=== PATIENT | female | born 1940 | race Caucasian/White ===

== ENCOUNTER 2016-09-21 13:33 | Emergency (ER) | payer BC, MEDICARE ==
[~2016-09-21] VITALS: Ht 165.1 cm; Wt 113.9 kg
[~2016-09-21 13:33] MED LIST: /ONDA4TA SL; ACET65TA OR; ASPI81TA83 OR; LOPR50TA OR; MEGE20TA2 OR; MULTIVIT PO; PERC5TAB8 OR; ZANT150T OR; vit d PO
[2016-09-21] MEDS ORDERED: RANITAB PO (13:50)
[2016-09-21] MEDS ORDERED: VITA-112 PO (13:50)
[2016-09-21] MEDS ORDERED: OMEP20CA3 PO (13:50)
--- NOTE | 2016-09-21 15:22 | REP ---
Portable chest, single AP view, patient sitting: Comparison is a 09/28/2011 and 09/04 2008. There are no focal infiltrates. There are no pleural effusions. There is no pneumothorax. The interstitium is mildly accentuated. This could be artifact from portable technique and could represent interstitial lung disease. The robert, mediastinum, and bony thorax are unremarkable. Cardiac size is borderline. Signed by Thomas Paz MD 09/21/2016 03:14 P
[2016-09-21 15:42] LABS: BASO % 0.4 % (0.0-1.0); EOS # 0.2 K/mm3 (0.0-0.50); EOS % 1.4 % (0.0-3.0); INR 1.24; LARGE UNSTAINED CELL # 0.1 K/mm3 (0.0-0.4); LARGE UNSTAINED CELL % 0.7 % (0.0-4.0); LYMPH # 0.9 K/mm3 (1.5-4.5); LYMPH % 7.8 % (24.0-44.0); MEAN CORPUSCULAR HEMOGLOBIN 29.6 pg (27.0-33.0); MEAN CORPUSCULAR HGB CONC 32.1 g/dl (32.0-36.5); MEAN CORPUSCULAR VOLUME 92.2 fl (80.0-96.0); MONO # 0.3 K/mm3 (0.0-0.8); MONO % 2.8 % (0.0-5.0); NEUTROPHILS # 10.1 K/mm3 (1.8-7.7); NEUTROPHILS % 86.9 % (36.0-66.0); PLATELET COUNT, AUTOMATED 387 k/mm3 (150-450); RED CELL DISTRIBUTION WIDTH 13.1 % (11.5-14.5); WHITE BLOOD COUNT 11.6 K/mm3 (4.0-10.0)
[2016-09-21 16:09] LABS: ANION GAP 6 MEQ/L (8-16); BLOOD UREA NITROGEN 11 MG/DL (7-18); CARBON DIOXIDE LEVEL 26 MEQ/L (21-32); CHLORIDE LEVEL 107 MEQ/L (98-107); CREATININE FOR GFR 0.65 MG/DL (0.55-1.02); GLOMERULAR FILTRATION RATE > 60.0 (>39); GLUCOSE, FASTING 96 MG/DL (83-110); POTASSIUM SERUM 4.3 MEQ/L (3.5-5.1); SODIUM LEVEL 139 MEQ/L (136-145)
[2016-09-21 16:10] LABS: ALBUMIN 2.7 GM/DL (3.2-5.2); ALBUMIN/GLOBULIN RATIO 0.47 (1.00-1.93); ALKALINE PHOSPHATASE 41 U/L (45-117); ALT/SGPT 42 U/L (12-78); AST/SGOT 58 U/L (15-37); BILIRUBIN,DIRECT 0.2 MG/DL (0.0-0.2); BILIRUBIN,TOTAL 0.4 MG/DL (0.2-1.0); CALCIUM LEVEL 8.4 MG/DL (8.8-10.2); TOTAL PROTEIN 8.4 GM/DL (6.4-8.2)
--- NOTE | 2016-09-21 16:22 | REP ---
Left lower extremity Duplex Doppler venous ultrasound: Real time compression and duplex Doppler interrogation of the left lower extremity deep venous system is performed. The left common femoral, superficial femoral and popliteal veins are fully compressible with transducer pressure and demonstrate normal spontaneous and phasic flow, without evidence of deep venous thrombosis. Impression: No evidence of deep venous thrombosis of the left lower extremity femoral popliteal venous system. There are mildly enlarged left inguinal lymph nodes, largest measures 1.5 x 1.1 x 1.7 cm. Signed by Thomas Munguia MD 09/21/2016 04:13 P
[2016-09-21] MEDS ORDERED: ISOVUE-370 76% 100ML VIAL (Q9967) As Ordered ONE (17:09)
--- NOTE | 2016-09-21 18:13 | REP ---
CT ANGIO CHEST: HISTORY: Shortness of breath. CONTRAST: Isovue-370, 754 mL. There are no filling defects in the main, right and left pulmonary arteries or their branches. Patchy densities are present in the lower lobes consistent with bibasilar atelectasis or infiltrates. There is no pleural effusion. Small lymph nodes less than 1 cm in size are present in the mediastinum. A hiatal hernia is present. A 4 cm cyst is present in the left lobe of the liver. Calcifications are present in the spleen. IMPRESSION: 1. There is no pulmonary embolism. 2. Bibasilar atelectasis or infiltrates. 3. Hiatal hernia. 4. 4 cm liver cyst. Ultrasound may be helpful for further evaluation. Signed by Aaron Tubbs MD 09/21/2016 06:14 P
[2016-09-21] MEDS ORDERED: predniSONE 20 MG TAB PO ONE (18:15)
[2016-09-21] MEDS ORDERED: AUGMENTIN 875 MG TAB PO ONE (18:15)
[2016-09-21] MEDS ORDERED: AUGM875T27 PO (18:20)
[2016-09-21] MEDS ORDERED: PRED20TA PO (18:20)
[2016-09-21 18:59] VITALS: BP 137/77
--- NOTE | 2016-09-21 21:49 | ECGEPIP ---
Stationary ECG Study [facility] - ED Test Date: 2016-09-21 Pat Name: ROBBY MOLINA Department: Room: - Gender: F Operations Vice President: gianna : 1940 Requested By: YURI Miller Order Number: [id number] Reading MD: Nataliya Mark Measurements Intervals [place] Rate: 95 P: 17 [place]: 145 QRS: 21 QRSD: 90 T: 30 QT: 354 QTc: 445 Interpretive Statements SINUS RHYTHM WITH OCCASIONAL SUPRAVENTRICULAR PREMATURE COMPLEXES LOW VOLTAGE LIMB NSTTW ABNORMALITY Electronically Signed On 09-21-2016 21:49:05 EDT by Nataliya Mark
== END 2016-09-21 19:00 | disposition home or self-care (01) ==
LOC: M ED 17:50
DX: J45.909 Unspecified asthma, uncomplicated (principal); J18.9 Pneumonia, unspecified organism; R59.0 Localized enlarged lymph nodes; K21.9 Gastro-esophageal reflux disease without esophagitis; N72 Inflammatory disease of cervix uteri
CPT/HCPCS: 71010; 71275; 80048; 80076; 82550; 82553; 83880; 84443; 85025; 85610; 93005; 93041; 93971; 94760; 99284; Q9967

== ENCOUNTER 2016-10-14 15:11 | Inpatient (IN) | payer BC, MEDICARE ==
[~2016-10-14] VITALS: Ht 170.2 cm; Wt 115.3 kg
[~2016-10-14 15:11] MED LIST changes: +AUGM875T27 PO; +OMEP20CA3 PO; +PRED20TA PO; +RANITAB PO; +VITA-112 PO
[2016-10-14] MEDS ORDERED: FURO20TA2 (15:38)
[2016-10-14] MEDS ORDERED: LEVO500T32 (15:38)
[2016-10-14 15:49] LABS: BASO % 0.4 % (0.0-1.0); EOS # 0.2 K/mm3 (0.0-0.50); EOS % 1.2 % (0.0-3.0); LARGE UNSTAINED CELL # 0.1 K/mm3 (0.0-0.4); LARGE UNSTAINED CELL % 0.8 % (0.0-4.0); LYMPH % 6.5 % (24.0-44.0); MEAN CORPUSCULAR HEMOGLOBIN 29.7 pg (27.0-33.0); MEAN CORPUSCULAR HGB CONC 32.4 g/dl (32.0-36.5); MEAN CORPUSCULAR VOLUME 91.6 fl (80.0-96.0); MONO # 0.4 K/mm3 (0.0-0.8); MONO % 3.1 % (0.0-5.0); NEUTROPHILS % 88.1 % (36.0-66.0); PLATELET COUNT, AUTOMATED 477 k/mm3 (150-450); RED CELL DISTRIBUTION WIDTH 14.2 % (11.5-14.5); WHITE BLOOD COUNT 13.6 K/mm3 (4.0-10.0)
[2016-10-14 16:21] LABS: ALBUMIN 2.2 GM/DL (3.2-5.2); ALKALINE PHOSPHATASE 43 U/L (45-117); ALT/SGPT 91 U/L (12-78); AST/SGOT 144 U/L (15-37); BILIRUBIN,DIRECT 0.2 MG/DL (0.0-0.2); BILIRUBIN,TOTAL 0.4 MG/DL (0.2-1.0); BLOOD UREA NITROGEN 10 MG/DL (7-18); CALCIUM LEVEL 7.7 MG/DL (8.8-10.2); CARBON DIOXIDE LEVEL 21 MEQ/L (21-32); CHLORIDE LEVEL 102 MEQ/L (98-107); CREATININE FOR GFR 0.63 MG/DL (0.55-1.02); GLUCOSE, FASTING 95 MG/DL (83-110); POTASSIUM SERUM 3.8 MEQ/L (3.5-5.1); SODIUM LEVEL 134 MEQ/L (136-145); TOTAL PROTEIN 7.5 GM/DL (6.4-8.2)
[2016-10-14 16:34] LABS: ANION GAP 11 MEQ/L (8-16)
[2016-10-14 16:35] LABS: ALBUMIN/GLOBULIN RATIO 0.42 (1.00-1.93)
--- NOTE | 2016-10-14 16:38 | REP ---
CHEST, PORTABLE: AP portable view of the chest is performed and compared to prior study of 05/23/2017. There is cardiomegaly and vascular congestion with increased interstitial markings once again compatible with some degree of interstitial edema. A more focal infiltrate is seen along the right diaphragm. The findings are quite similar to the prior study. IMPRESSION: Cardiomegaly with vascular congestion and apparent interstitial edema. There is somewhat focal infiltrate in the right lung base. Findings are essentially unchanged. Signed by Thomas Munguia MD 10/14/2016 04:45 P
[2016-10-14] MEDS ORDERED: FURO20TA2 PO (17:11)
[2016-10-14] MEDS ORDERED: LEVO500T32 PO (17:17)
[2016-10-14] MEDS ORDERED: ALBU17IN2 INH (17:29)
[2016-10-14] MEDS ORDERED: EXCETAB81 PO (17:29)
[2016-10-14] MEDS ORDERED: OMEP20CA3 PO (17:29)
[2016-10-14] MEDS ORDERED: MEGE20TA PO (17:29)
[2016-10-14] MEDS ORDERED: RANI75TA9 PO (17:29)
[2016-10-14] MEDS ORDERED: VITA100066 PO (17:29)
[2016-10-14] MEDS ORDERED: VITMTA PO (17:29)
[2016-10-14] MEDS: METOPROLOL TART 12.5 MG PER 1/2 TAB PO SCH ×2 (18:00→23:47)
[2016-10-14] MEDS ORDERED: FUROSEMIDE 40 MG TAB PO ONE (18:15)
[2016-10-14 18:52] LABS: ABG BASE EXCESS -0.1 (-2.0-2.0); ABG HCO3 22.9 MEQ/L (22.0-26.0); ABG PARTIAL PRESSURE O2 77.1 mmHg (75.0-100.0); ABG STANDARD HCO3 24.4 MEQ/L (22.0-26.0); ABG TOTAL CO2 23.9 MEQ/L (23.0-31.0); ABG pH (ARTERIAL) 7.472 UNITS (7.350-7.450)
[2016-10-14] MEDS: ASPIRIN 81 MG ENTERIC TAB PO SCH (19:28)
[2016-10-14] MEDS: APIXABAN 5 MG TAB (ELIQUIS) PO SCH (20:07)
[2016-10-14 20:31] LABS: FREE T4 1.54 NG/DL (0.76-1.46)
--- NOTE | 2016-10-14 21:57 | HPEPDOC ---
General Date of Admission Oct 14, 2016 at 19:10 Chief Complaint The patient is a 76-year-old female Presented to the ER with complaints of shortness of breath and lower extremity swelling for 1 month duration. History of Present Illness Patient is a 76 year old female with a PMHx of Endometrial hyperplasia and GERD who presented to the ER with complaints of shortness of breath and lower extremity swelling for 1 month duration. Patient noted that on 09/21/2016 she came to the ER and was evaluated and told that she had a pneumonia. She was prescribed antibiotics and after a 10 day course she went to Urgent care for follow up. At that point she was told that it had not resolved and was prescribed Levaquin / Prednisone / Lasix / Albuterol. Since that point she has continued to take the medications as prescribed but failed to improve. She reports that she has had worsening lower extremity swelling and has had a weight gain of >20 lbs in 1 month. She notes that she cannot lay on her back and has frequent night time awakenings. She reports that she did have a non-productive cough initially this month, but that has since resolved. She has not reported any fevers at home, but notes occasional chills. Currently she has no chest pain, but reports that throughout this month she has had on and off chest pain. Reports the pain is sub-sternal, 3/10, pressure like , non-radiating, no alleviating or aggravating factors. In the ER patient was found to be in new onset atrial fibrillation. Home Medications Scheduled Cholecalciferol (Vitamin D) 1,000 Unit Tab, 3,000 UNIT PO DAILY, (Reported) Furosemide (Furosemide) 20 Mg Tab, 20 MG PO BID, (Reported) PATIENT IS UNSURE IF SHE IS STILL SUPPOSED TO BE TAKING. RECEIVED 10 DAY SUPPLY FROM URGENT CARE Levofloxacin Hemihydrate (Levofloxacin) 500 Mg Tab, 500 MG PO QHS, (Reported) FILLED 10/06/16 FOR 10 DAYS Megestrol Acetate (Megestrol Acetate) 20 Mg Tab, 20 MG PO QHS, (Reported) Multivitamins *[facility] STOCKED* (Thera M Plus *[facility] STOCKED*) 1 Tab Tab, 1 TAB PO DAILY, (Reported) Omeprazole (Omeprazole) 20 Mg Cap, 20 MG PO DAILY, (Reported) Ranitidine HCl (Ranitidine HCl) 75 Mg Tab, 1 TAB PO QHS, (Reported) Scheduled PRN (Excedrin Extra Strength 250-250-65 mg) 1 Tab Tab, 2 TAB PO TID PRN for PAIN, ( Reported) Albuterol Sulfate (Proventil Hfa) 167 Puff/6.7 Gm Aers, 2 PUFFS INH Q4H PRN for SHORTNESS OF BREATH, (Reported) Allergies Coded Allergies: Shellfish Allergy (Verified Allergy, Unknown, 09/17/12) Past Medical History Medical History Endometrial hyperplasia and GERD Surgical History Left nose skin cancer s/p resection Laparoscopy (Reported to have been done as a preventative measure for ovarian cancer) D&C several at age 31 Family History - Mother 2/2 Ovarian CA - Father down 2/2 AR - Sister with endometrial CA Social History - Denies the use of tobacco or illicit drugs; Social alcohol use - Denies recent travel or sick contacts - Lives alone - 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; 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 Review of Symptoms Other systems Constitutional: Positive weight gain, Poor appetite, or recent trauma Eyes: No visual changes or eye pain Ears, Nose, Throat: Denies nose bleeds, or difficulty swallowing Cardiovascular: Positive chest pain, No sweating, Positive orthopnea Respiratory: Denies cough or wheezing, Positive shortness of breath GI: Timi nausea, vomiting, abdominal pain, diarrhea or constipation : Denies pain with urination or frequency Musculoskeletal: Denies joint pain, Positive lower extremity swelling Neuro / Psych: Denies muscle weakness or sensory loss Skin: No skin rashes noted All other review of systems negative; otherwise stated in history of present illness Screening: - Colonoscopy done 8 years ago reported normal - Pap smear done annually reported normal - Mammogram done >4 years ago reported normal Vital Signs - Vitals: BP 158/71, HR 107, RR 18, Sat 98%RA, Temp 97.9F - General: Lying in bed, No acute distress, Speaking in full sentences, AAOx3 - HEENT: NC, AT, PERRLA, EOMI, +JVD - CVS: Irregularly irregular, +S1S2 - Lungs: Fair air entry bilaterally, Positive crackles at bilateral lung bases - Abdomen: Soft, Non-distended, Non-tender, + Bowel sounds x 4 - Extremities: + PPx4, 3+ pitting edema bilaterally up to thigh, No calf tenderness - Neuro: No focal motor or sensory deficit - Skin: No visible rashes Laboratory Data Labs 24H Laboratory Tests 2 10/14/16 15:39: White Blood Count 13.6H, Red Blood Count 3.75L, Hemoglobin 11.1L, Hematocrit 34.4L, Mean Corpuscular Volume 91.6, Mean Corpuscular Hemoglobin 29.7, Mean Corpuscular Hemoglobin Concent 32.4, Red Cell Distribution Width 14.2, Platelet Count 477H, Neutrophils (%) (Auto) 88.1H, Lymphocytes (%) (Auto) 6.5L, Monocytes (%) (Auto) 3.1, Eosinophils (%) (Auto) 1.2, Basophils (%) (Auto) 0.4, Neutrophils # (Auto) 12.0H, Lymphocytes # (Auto) 1.0L, Monocytes # (Auto) 0.4, Eosinophils # (Auto) 0.2, Basophils # (Auto) 0.0, Large Unclassified Cells % 0.8 , Large Unclassified Cells # 0.1, Anion Gap 11, Calcium Level 7.7L, Aspartate Amino Transf (AST/SGOT) 144H, Alanine Aminotransferase (ALT/SGPT) 91H, Alkaline Phosphatase 43L, Total Bilirubin 0.4, Direct Bilirubin 0.2, Total Creatine Kinase 2251H, Creatine Kinase MB 37.4H, Creatine Kinase MB Relative Index 1.66, Troponin I 0.18H, B-Type Natriuretic Peptide 185H, Total Protein 7.5, Albumin 2.2L, Albumin/Globulin Ratio 0.42L, Thyroid Stimulating Hormone (TSH) 3.100, Free Thyroxine 1.54H, Total Triiodothyronine 87.6 10/14/16 18:45: Blood Gas Bicarbonate Standard 24.4, Arterial Blood pH 7.472H, Arterial Blood Partial Pressure CO2 32.0L, Arterial Blood Partial Pressure O2 77.1, Arterial Blood Total CO2 23.9, Arterial Blood HCO3 22.9, Arterial Blood Base Excess -0.1 , Arterial Blood Oxygen Saturation 96.1 10/14/16 21:18: CBC/BMP Laboratory Tests 10/14/16 15:39 Red Blood Count 3.75 L, Mean Corpuscular Volume 91.6, Mean Corpuscular Hemoglobin 29.7, Mean Corpuscular Hemoglobin Concent 32.4, Red Cell Distribution Width 14.2, Neutrophils (%) (Auto) 88.1 H, Lymphocytes (%) (Auto) 6.5 L, Monocytes (%) (Auto) 3.1, Eosinophils (%) (Auto) 1.2, Basophils (%) (Auto ) 0.4, Neutrophils # (Auto) 12.0 H, Lymphocytes # (Auto) 1.0 L, Monocytes # ( Auto) 0.4, Eosinophils # (Auto) 0.2, Basophils # (Auto) 0.0 Microbiology Microbiology 10/14/16 Blood Culture, Received Pending 10/14/16 Blood Culture, Received Pending Plan / VTE VTE Prophylaxis Ordered?: Yes Plan Plan Shortness of breath and lower extremity edema likely 2/2 acute decompensated heart failure - Presented with SOB, lower extremity edema and increased weigth over 1 month - Physical reveals JVD, crackles bilaterally and LE edema - BNP mildly elevated, however patient is obeses - CXR with vascular congestion - s/p Lasix 40 PO in ER - Will get ECHO - Will keep on strict ins/outs, daily weights, head of bed elevation - Will start Lasix protocal to have negative fluid balance (40mg IV q4h) at 2500 cc New onset atrial fibrillation - EKG reveals atrial fibrillation - Will check Thyroid function and ECHO - Will start metoprolol 12.5mg PO q6h and Eliquis 5mg BID - Will keep on telemetry for now - Case discussed with Dr. Tam (Cardiology) will be on consult Elevated troponins possibly 2/2 demand ischemia, less likely 2/2 NSTEMI - No current chest pain - Currently in atrial fibrillation and acute decompensated CHF - EKG without and ischemic changes - Will trend troponin and keep on telemetry - Will start ASA 81 Leukocytosis - possibly reactive to steroids as an outpatient, possibly infection - No reported fevers at home, has completed course of antibiotics for >20 days - Will check blood cultures, urinalysis, urine culture - CXR with somewhat focal infiltrate at RL base findings unchanged - will hold off on antibiotics at this time GERD - c/w omeprazole DVT prophylaxis - On full anticoagulation with UNA Tena MD Oct 14, 2016 21:57
[2016-10-14 22:00] VITALS: BP 159/67
[2016-10-14 22:50] LABS: INR 1.19
[2016-10-14] MEDS: FUROSEMIDE 40 MG/4 ML VIAL (J1940) IV SCH (23:46)
[2016-10-15] VITALS: BP 121/65
[2016-10-15 04:00] VITALS: BP 117/59
[2016-10-15] MEDS: FUROSEMIDE 40 MG/4 ML VIAL (J1940) IV SCH ×6 (04:32→23:47)
[2016-10-15] MEDS: METOPROLOL TART 12.5 MG PER 1/2 TAB PO SCH ×4 (06:16→23:40)
[2016-10-15 07:37] LABS: BASO % 0.3 % (0.0-1.0); EOS # 0.3 K/mm3 (0.0-0.50); EOS % 2.6 % (0.0-3.0); LARGE UNSTAINED CELL # 0.1 K/mm3 (0.0-0.4); LARGE UNSTAINED CELL % 0.9 % (0.0-4.0); LYMPH # 0.9 K/mm3 (1.5-4.5); LYMPH % 7.8 % (24.0-44.0); MEAN CORPUSCULAR HEMOGLOBIN 29.2 pg (27.0-33.0); MEAN CORPUSCULAR HGB CONC 31.7 g/dl (32.0-36.5); MONO # 0.4 K/mm3 (0.0-0.8); MONO % 3.7 % (0.0-5.0); NEUTROPHILS # 9.1 K/mm3 (1.8-7.7); NEUTROPHILS % 84.6 % (36.0-66.0); PLATELET COUNT, AUTOMATED 495 k/mm3 (150-450); RED CELL DISTRIBUTION WIDTH 14.3 % (11.5-14.5); WHITE BLOOD COUNT 10.7 K/mm3 (4.0-10.0)
[2016-10-15 08:00] VITALS: BP 132/63
[2016-10-15 08:02] LABS: ALBUMIN 2.2 GM/DL (3.2-5.2); ALBUMIN/GLOBULIN RATIO 0.45 (1.00-1.93); ALKALINE PHOSPHATASE 39 U/L (45-117); ALT/SGPT 84 U/L (12-78); ANION GAP 8 MEQ/L (8-16); AST/SGOT 121 U/L (15-37); BILIRUBIN,TOTAL 0.5 MG/DL (0.2-1.0); BLOOD UREA NITROGEN 10 MG/DL (7-18); CALCIUM LEVEL 7.7 MG/DL (8.8-10.2); CARBON DIOXIDE LEVEL 27 MEQ/L (21-32); CHLORIDE LEVEL 104 MEQ/L (98-107); CREATININE FOR GFR 0.64 MG/DL (0.55-1.02); GLOMERULAR FILTRATION RATE > 60.0 (>39); GLUCOSE, FASTING 87 MG/DL (83-110); MAGNESIUM LEVEL 1.8 MG/DL (1.8-2.4); POTASSIUM SERUM 3.2 MEQ/L (3.5-5.1); SODIUM LEVEL 139 MEQ/L (136-145); TOTAL PROTEIN 7.1 GM/DL (6.4-8.2)
[2016-10-15] MEDS: ASPIRIN 81 MG ENTERIC TAB PO SCH (08:34)
[2016-10-15] MEDS: OMEPRAZOLE 20 MG CAP PO SCH (08:34)
[2016-10-15] MEDS: APIXABAN 5 MG TAB (ELIQUIS) PO SCH ×2 (08:34→21:34)
[2016-10-15] MEDS: MULTIVITAMINS/MINERALS THERAP 1 TAB PO SCH (08:34)
--- NOTE | 2016-10-15 08:47 | ECGEPIP ---
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
[2016-10-15] MEDS ORDERED: POTASSIUM CHLORIDE 10 MEQ SR TABLET PO ONE (09:00)
[2016-10-15 12:00] VITALS: BP 129/87
[2016-10-15] MEDS ORDERED: VALSARTAN 40MG TABLET (DIOVAN) PO ONE (13:00)
[2016-10-15 14:49] VITALS: BP 113/57
--- NOTE | 2016-10-15 15:09 | IPN ---
DATE: 10/15/2016 76-year-old female admitted to my service through the night last night. She had some increasing shortness of breath, dyspnea on exertion, lower extremity edema and has diuresed approximately a liter at this point. She was presumably admitted for volume overload and congestive heart failure (CHF) exacerbation, which she tells me she has never been diagnosed with before. She denies any fevers, chills or rigors. She is tolerating her meals. No nausea, vomiting, no diarrhea. No hematochezia and voiding fine. PHYSICAL EXAMINATION: Temperature 99.1, pulse is 94 and regular, respiratory rate 18, blood pressure is 132/63, SpO2 is 94% on room air. GENERAL: The patient appears to be in no acute distress, is alert and oriented. HEENT: Unremarkable. LUNGS: Clear. HEART: Regular rate and rhythm. ABDOMEN: Soft, obese, nontender. Positive bowel sounds. No masses. No rebound. EXTREMITIES: She does have 3+ edema to just below the knees. No calf tenderness. LABORATORY DATA: White count is 10.7 down from 13, hemoglobin 10.6, platelets are 495,000. Sodium 139, potassium 3.2, chloride 104, bicarb 27, anion gap 8, BUN is 10, creatinine 0.64, glucose 87, AST 121, ALT is 84, alkaline phosphatase 39, troponin is 0.18 on three different occasions. Her BNP on admission was 185. Albumin is 2.2. Urinalysis is negative. Blood cultures are pending times two. Urine culture in pending as well. ASSESSMENT/PLAN: 1. Shortness of breath with lower extremity edema. Likely decompensated congestive heart failure. She had JVD, crackles bilaterally, and lower extremity edema. Will continue to diurese her with Lasix 40 mg q.6 h with net negative Lasix fluid restriction. Echo is pending. Strict intake and output and daily weights. She may need cardiac rehab evaluation. 2. New onset atrial fibrillation. Thyroid is unremarkable. Continue with metoprolol. I started on Eliquis for anticoagulation therapy since her CHADS-VASc2 score is 4. 3. Elevated Troponin, likely secondary to demand ischemia. No EKG findings. Will continue to trend. Continue on telemetry. Started on aspirin [address] Tam's input. 4. Leukocytosis. Likely reactive and is resolved. Chest x-ray was no acute findings. 5. Gastroesophageal reflux disease (GERD). Continue with omeprazole. 6. Deep vein thrombosis (DVT) prophylaxis, on Eliquis. DISPOSITION: Anticipate that she will be here greater than two midnights.
--- NOTE | 2016-10-15 15:10 | CR ---
DATE OF CONSULTATION: 10/15/2016 REFERRING PROVIDER: Ba Kimball MD REASON FOR CONSULTATION: Heart failure. HISTORY OF PRESENT ILLNESS: 76-year-old woman has been having increased shortness of breath and increasing bilateral pedal edema for about one month associated with orthopnea. She was treated twice here in one of the urgent care centers for upper respiratory tract infection and probably pneumonia without any relief, and for this reason, she decided to come back to the hospital yesterday on 10/14/2016. She was admitted with the diagnoses of congestive heart failure (CHF), probably atrial fibrillation, and abnormal serum. When I saw Mrs. Do Eastman, she was lying supine in bed in no acute distress at rest. She denies any chest pain and she stated that her heart rate has improved, and she thinks that her shortness of breath has improved. She denies any orthopnea. She feels better in her legs and she stated that the swelling seems to have decreased. She denies any fever or chills. She denies any active bleeding. There is no nausea, vomiting, diarrhea, melena or hematemesis. Since admission, she has been on p.o. beta-chris, metoprolol tartrate, and she is also on IV Lasix as well as aspirin and anticoagulation therapy with Eliquis. She was found to have an abnormal EKG that was reported to be atrial fibrillation. She denies any history of hypertension, hyperlipidemia, valvular heart disease, coronary artery disease, cardiomyopathy, cerebrovascular accident (CVA), prior history of atrial fibrillation, sudden cardiac . She denies diabetes mellitus, kidney disease, thyroid disorders. She does have a history of gastroesophageal reflux disease (GERD). PAST MEDICAL HISTORY: Positive for a skin lesion removed from the left side of her nose. Dilatation and curettage. Laparoscopic examination for an ovarian tumor. MEDICATIONS PRIOR TO THE HOSPITAL: - vitamin D 1000 units daily - Lasix 20 mg by mouth twice a day - levofloxacin 500 mg by mouth at bedtime - megestrol - multivitamin one tablet by mouth daily - omeprazole 20 mg by mouth daily - ranitidine 75 mg by mouth at bedtime CURRENT MEDICATIONS: - aspirin 81 mg by mouth daily - metoprolol tartrate 12.5 mg by mouth every 6 hours - Tylenol 650 mg every 4 hours as needed for mild pain or fever - Eliquis 5 mg by mouth twice a day - Lasix 40 mg IV every 4 hours - omeprazole 20 mg by mouth daily - multivitamin one tablet by mouth daily FAMILY HISTORY: Noncontributory. SOCIAL HISTORY: The patient lives alone and she has two cats. She denies any smoking or EtOH abuse. ALLERGIES: 1. Shellfish. ADVANCE DIRECTIVES: The patient is a FULL CODE. PHYSICAL EXAMINATION: Patient is alert and oriented, in no acute distress at rest. Her last vital signs this morning revealed a blood pressure of 132/63 with a pulse of 94, respirations 18 and her maximum temperature is 99.5 degrees Fahrenheit with an oxygen saturation of 94% on room air. HEAD/EYES/EARS/NOSE/THROAT: Atraumatic. NECK: Supple without JVD. LUNGS: Revealed minimal crackles at the bases. No wheezing. HEART: Examination revealed normal S1 and S2 without gallops. The PMI is slightly displaced inferiorly and laterally. There is no rub. There is a systolic murmur grade 1-2/6 at the lower left sternal border without any significant radiation. ABDOMEN: Soft. EXTREMITIES: Revealed +1-2 bilateral lower leg edema. NEUROLOGICAL: Examination is negative for focal deficits. LABORATORIES: CBC on admission revealed a WBC of 13.6, hemoglobin 11.1, hematocrit 34.4, and platelets 477,000. A CBC done today revealed a WBC of 10.7, hemoglobin 10.6, hematocrit 33.5, and platelets 495,000. BMP done today revealed a sodium of 139, potassium 3.2, chloride 104, CO2 27, BUN 10, creatinine 0.64, GFR more than 60, fasting glucose 87, calcium 7.7. Serum magnesium is 1.8. Liver enzymes revealed a total bilirubin of 0.5, AST 121, ALT 84, alkaline phosphatase 39, total protein 7.2, albumin 2.2. Serum BNP is 185. Serum Troponin is 0.18 times three. Liver enzymes on admission revealed an AST of 144 , ALT 91, and alkaline phosphatase 43. Serum TSH was 3.1 with a free T4 of 1.54. PT was 15.2 with an INR of 1.19. ABG on admission revealed a pH of 7.47, pCO2 32, pO2 77, bicarbonate 22.9. Oxygen saturation was reported to be 96.1%. Urinalysis is essentially normal. Chest x-ray was reviewed and revealed cardiomegaly and increased vascular markings. There is blunting of the costophrenic angle, more on the right than the left. Could not rule out an infiltrate in the right lower lobe. EKG was reviewed, done on admission 10/14/2016 at 15:33:58, and it revealed normal sinus rhythm with isolated PACs and atrial runs. No acute STT abnormalities. IMPRESSION: 1. Increasing shortness of breath associated with bilateral pedal edema, orthopnea in this 76-year-old woman without any significant cardiac history. Her symptoms have improved since on current medication and I will continue the same for now, but will add a small dose of one of the ARBs with valsartan. She is scheduled to have an echocardiogram, it will be reviewed. Then, further recommendations will be given. She is on the short acting beta-chris with metoprolol tartrate. We will see how she responds to current management. She may also have some underlying right lower lobe infiltrates. She would benefit from a repeat chest x-ray after diuresis. 2. Abnormal EKG related to atrial fibrillation and it will be repeated. Telemetry today, while at bedside seemed to be sinus rhythm with PACs. 3. Hypokalemia. This is being addressed. 4. Abnormal serum Troponin, not consistent with ischemia. It is probably related to underlying cardiomyopathy. Valvular heart disease can be an etiology , but no aortic stenosis heart on examination. 5. Abnormal LFTs. This has improved. 6. History of gastroesophageal reflux disease (GERD). It was a pleasure to participate in the care of Mrs. Do Eastman for her underlying cardiac condition. I will continue to monitor her along with you while in the hospital. Will continue with present therapy including the Eliquis until I review her repeat EKG. [facility]
[2016-10-15] MEDS ORDERED: CHLORASEPTIC SPRAY MT PRN (17:45)
--- NOTE | 2016-10-15 18:24 | ECGEPIP ---
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
[2016-10-15 20:00] VITALS: BP 125/59
[2016-10-16] VITALS (7 sets, daily range): BP systolic 92–130; BP diastolic 53–70
[2016-10-16] MEDS ORDERED: SLF 3 ML SYR IV PRN (04:15)
[2016-10-16] MEDS: FUROSEMIDE 40 MG/4 ML VIAL (J1940) IV SCH ×6 (04:18→23:32)
[2016-10-16 05:32] LABS: BASO # 0.1 K/mm3 (0.0-0.2); BASO % 0.5 % (0.0-1.0); EOS # 0.2 K/mm3 (0.0-0.50); LARGE UNSTAINED CELL # 0.1 K/mm3 (0.0-0.4); LARGE UNSTAINED CELL % 0.9 % (0.0-4.0); LYMPH % 7.6 % (24.0-44.0); MEAN CORPUSCULAR HEMOGLOBIN 29.4 pg (27.0-33.0); MEAN CORPUSCULAR HGB CONC 31.6 g/dl (32.0-36.5); MEAN CORPUSCULAR VOLUME 92.9 fl (80.0-96.0); MONO # 0.4 K/mm3 (0.0-0.8); MONO % 3.5 % (0.0-5.0); NEUTROPHILS # 10.5 K/mm3 (1.8-7.7); NEUTROPHILS % 85.5 % (36.0-66.0); PLATELET COUNT, AUTOMATED 481 k/mm3 (150-450); RED CELL DISTRIBUTION WIDTH 14.3 % (11.5-14.5); WHITE BLOOD COUNT 12.3 K/mm3 (4.0-10.0)
[2016-10-16 05:50] LABS: ALBUMIN 2.2 GM/DL (3.2-5.2); ALBUMIN/GLOBULIN RATIO 0.39 (1.00-1.93); ALKALINE PHOSPHATASE 41 U/L (45-117); ALT/SGPT 81 U/L (12-78); ANION GAP 6 MEQ/L (8-16); AST/SGOT 114 U/L (15-37); BILIRUBIN,TOTAL 0.4 MG/DL (0.2-1.0); BLOOD UREA NITROGEN 14 MG/DL (7-18); CALCIUM LEVEL 7.4 MG/DL (8.8-10.2); CARBON DIOXIDE LEVEL 29 MEQ/L (21-32); CHLORIDE LEVEL 104 MEQ/L (98-107); CREATININE FOR GFR 0.76 MG/DL (0.55-1.02); GLOMERULAR FILTRATION RATE > 60.0 (>39); GLUCOSE, FASTING 107 MG/DL (83-110); MAGNESIUM LEVEL 1.7 MG/DL (1.8-2.4); POTASSIUM SERUM 3.3 MEQ/L (3.5-5.1); SODIUM LEVEL 139 MEQ/L (136-145); TOTAL PROTEIN 7.8 GM/DL (6.4-8.2)
[2016-10-16] MEDS: METOPROLOL TART 12.5 MG PER 1/2 TAB PO SCH ×4 (06:37→23:31)
[2016-10-16] MEDS: SLF 3 ML SYR IV SCH ×3 (06:38→20:20)
--- NOTE | 2016-10-16 07:45 | ECHO ---
DATE OF SERVICE: 10/15/2016 REFERRING PROVIDER: Dr. Chacho Tineo PATIENT LOCATION: Room 3223 REASON FOR THE ECHOCARDIOGRAM: Atrial fibrillation, heart failure. 2D MEASUREMENTS: IVS: 1.2 cm LV: 4.4 cm LVPW: 1.1 cm LA: 5.3 cm Aorta: 3.2 cm RV: 2.6 cm DOPPLER MEASUREMENTS: Peak velocity across the aortic valve: 1.8 m/s Peak gradient across the aortic valve: 13 mmHg Mitral E: 0.77 Mitral A: 1.0 with a ratio of 0.7 Maximum tricuspid valve velocity: 2.9 m/s 2D COMMENTS: 1. Normal left ventricular size, wall thickness, and a normal global left ventricular systolic function. The estimated left ventricular systolic ejection fraction is 60-65%. 2. Moderately enlarged left atrium. The right atrium also appeared to be moderately enlarged. The right ventricle appeared to be mildly enlarged on limited views. 3. The atrial septum appeared to be normal without evidence of defect or shunt. 4. Normal aortic root. 5. No pericardial effusion seen. 6. The aortic valve, mitral valve, and tricuspid valve appeared to be normal. The pulmonic valve was not well visualized. The proximal pulmonary artery branches were not visualized. 7. The inferior vena cava as not well visualized. DOPPLER: It detects mild mitral regurgitation and mild tricuspid regurgitation. The calculated pulmonary artery systolic pressure varies between 40 to 50 mmHg. Abnormal relaxation pattern was noted across the mitral valve leaflets as well as the mitral valve annulus, consistent with a grade 1 left ventricular diastolic dysfunction. IMPRESSION: 1. Normal global left ventricular systolic function. There are features of left ventricular diastolic dysfunction manifested by abnormal relaxation. 2. Moderately enlarged left atrium with mild mitral regurgitation. 3. Mild tricuspid regurgitation with dilated right heart chambers and moderate pulmonary hypertension. 4. Patient was noted during the test to have an episode of paroxysmal atrial fibrillation. MTDD
[2016-10-16] MEDS ORDERED: PREVNAR 13 VACCINE SYRINGE (CPT CODE:90670) IM ONE (09:00)
[2016-10-16] MEDS: ASPIRIN 81 MG ENTERIC TAB PO SCH (09:13)
[2016-10-16] MEDS: VALSARTAN 40MG TABLET (DIOVAN) PO SCH (09:13)
[2016-10-16] MEDS: APIXABAN 5 MG TAB (ELIQUIS) PO SCH ×2 (09:15→20:20)
[2016-10-16] MEDS: ACETAMINOPHEN TAB 650MG DOSE (2X325MG) PO PRN ×3 (09:15→23:32)
[2016-10-16] MEDS: MULTIVITAMINS/MINERALS THERAP 1 TAB PO SCH (09:16)
[2016-10-16] MEDS: OMEPRAZOLE 20 MG CAP PO SCH (09:16)
[2016-10-16] MEDS ORDERED: POTASSIUM CHLORIDE 10 MEQ SR TABLET PO ONE (11:00)
[2016-10-16] MEDS: MAG SULF 1GM/100ML (MAG RUN) 1 GM in APPROPRIATE DILUENT 1 EA IV SCH ×2 (17:24→18:22)
--- NOTE | 2016-10-16 17:31 | IPNPDOC ---
Date Seen The patient was seen on 10/16/16. Progress Note Hospitalist Progress Note Subjective: Patient states that she has had several episodes of diarrhea today. She also continues to be short of breath, and sometimes even just talking makes her short of breath. Objective: Physical Exam: Vitals: Vital Sign - Last 24 Hours 10/15/16 10/15/16 10/15/16 10/15/16 18:26 20:00 20:00 23:40 Temp 98.9 Pulse 104 94 100 Resp 20 B/P (MAP) 120/54 125/59 (81) 130/65 Pulse Ox 94 O2 Delivery Room Air Room Air 10/16/16 10/16/16 10/16/16 10/16/16 00:00 00:00 04:00 04:18 Temp 97.6 99.8 Pulse 100 55 Resp 20 20 B/P (MAP) 130/65 (86) 92/53 (66) Pulse Ox 94 93 O2 Delivery Room Air Room Air Room Air Room Air 10/16/16 10/16/16 10/16/16 10/16/16 06:37 07:50 08:00 09:13 Temp 98.8 Pulse 93 91 Resp 20 B/P (MAP) 131/69 123/58 (79) 123/58 Pulse Ox 94 O2 Delivery Room Air Room Air 10/16/16 10/16/16 10/16/16 12:00 12:45 16:00 Temp 98.5 98.1 Pulse 110 86 88 Resp 20 20 B/P (MAP) 122/70 (87) 122/70 107/55 (72) Pulse Ox 94 97 O2 Delivery Room Air Room Air General: Awake, alert, no acute distress HEENT: Normocephalic, atraumatic, extraocular movements intact CV: Irregularly irregular Lungs: Crackles at the bilateral bases Abd: Soft, nontender, nondistended Extremities: 2+ pitting edema bilaterally Neuro: Alert and oriented 3, normal speech Psych: Normal Mood and affect Labs and Imaging: Laboratory Tests 10/16/16 04:52 Red Blood Count 3.69 L, Mean Corpuscular Volume 92.9, Mean Corpuscular Hemoglobin 29.4, Mean Corpuscular Hemoglobin Concent 31.6 L, Red Cell Distribution Width 14.3, Neutrophils (%) (Auto) 85.5 H, Lymphocytes (%) (Auto) 7.6 L, Monocytes (%) (Auto) 3.5, Eosinophils (%) (Auto) 2.0, Basophils (%) (Auto ) 0.5, Neutrophils # (Auto) 10.5 H, Lymphocytes # (Auto) 1.0 L, Monocytes # ( Auto) 0.4, Eosinophils # (Auto) 0.2, Basophils # (Auto) 0.1, Calcium Level 7.4 L , Aspartate Amino Transf (AST/SGOT) 114 H, Alanine Aminotransferase (ALT/SGPT) 81 H, Alkaline Phosphatase 41 L, Total Bilirubin 0.4, Total Protein 7.8, Albumin 2.2 L Assessment and Plan: 76-year-old female with GERD, endometrial hyperplasia who presented with shortness of breath and was found to be in new onset A. fib. She also has been found to have a grade 1 diastolic dysfunction. 1. Shortness of breath: This is most likely secondary to acute decompensated diastolic CHF. We will continue diuresing her. Dr. Tam has started her on an ARB. 2. Possible infiltrate on chest x-ray: This is noted on her initial chest x-ray , she was recently treated for pneumonia, and has been on antibiotics for several weeks now. We will recheck a chest x-ray in the morning, after she has had a chance to diuresis little bit more. She has been afebrile, and blood cultures are pending. She has had a mild leukocytosis, that she was on oral prednisone prior to admission, which may account for this. 3. New onset A. fib: Patient's weight is improving. She has been seen by Dr. Tam of cardiology. We will continue her on metoprolol and eliquis. Echocardiogram shows good grade 1 diastolic dysfunction, preserved EF, and moderate pulmonary hypertension. 4. Elevated troponin: The patient had a mild bump in her troponin to 0.18, that she is not having any chest pain. This appears to be secondary to some straining and demand ischemia from her CHF exacerbation and atrial fibrillation. 5. Hypokalemia and hypomagnesemia: Replacing 6. Diarrhea: We will check a GI panel DVT prophylaxis: eliquis Dispo: pending continued diuresis and improvement in her respiratory status VS, I&O, 24H, Fishbone Vital Signs/I&O Vital Signs Date Time Temp Pulse Resp B/P (MAP) Pulse Ox O2 Delivery O2 Flow Rate FiO2 10/16/16 16:00 98.1 88 20 107/55 (72) 97 Room Air I&O- Last 24 Hours up to 6 AM 10/16/16 06:00 Intake Total 1120 ml Output Total 2150 ml Balance -1030 ml Laboratory Data 24H LABS Laboratory Tests 2 10/16/16 04:52: White Blood Count 12.3H, Red Blood Count 3.69L, Hemoglobin 10.8L, Hematocrit 34.3L, Mean Corpuscular Volume 92.9, Mean Corpuscular Hemoglobin 29.4, Mean Corpuscular Hemoglobin Concent 31.6L, Red Cell Distribution Width 14.3, Platelet Count 481H, Neutrophils (%) (Auto) 85.5H, Lymphocytes (%) (Auto) 7.6L, Monocytes (%) (Auto) 3.5, Eosinophils (%) (Auto) 2.0, Basophils (%) (Auto) 0.5, Neutrophils # (Auto) 10.5H, Lymphocytes # (Auto) 1.0L, Monocytes # (Auto) 0.4, Eosinophils # (Auto) 0.2, Basophils # (Auto) 0.1, Large Unclassified Cells % 0.9 , Large Unclassified Cells # 0.1, Anion Gap 6L, Glomerular Filtration Rate > 60.0, Blood Urea Nitrogen 14, Creatinine 0.76, Sodium Level 139, Potassium Level 3.3L, Chloride Level 104, Carbon Dioxide Level 29, Calcium Level 7.4L, Aspartate Amino Transf (AST/SGOT) 114H, Alanine Aminotransferase (ALT/SGPT) 81H , Alkaline Phosphatase 41L, Total Bilirubin 0.4, Total Protein 7.8, Albumin 2.2L , Magnesium Level 1.7L, Troponin I 0.17H, Albumin/Globulin Ratio 0.39L CBC/BMP Laboratory Tests 10/16/16 04:52 Red Blood Count 3.69 L, Mean Corpuscular Volume 92.9, Mean Corpuscular Hemoglobin 29.4, Mean Corpuscular Hemoglobin Concent 31.6 L, Red Cell Distribution Width 14.3, Neutrophils (%) (Auto) 85.5 H, Lymphocytes (%) (Auto) 7.6 L, Monocytes (%) (Auto) 3.5, Eosinophils (%) (Auto) 2.0, Basophils (%) (Auto ) 0.5, Neutrophils # (Auto) 10.5 H, Lymphocytes # (Auto) 1.0 L, Monocytes # ( Auto) 0.4, Eosinophils # (Auto) 0.2, Basophils # (Auto) 0.1, Calcium Level 7.4 L , Aspartate Amino Transf (AST/SGOT) 114 H, Alanine Aminotransferase (ALT/SGPT) 81 H, Alkaline Phosphatase 41 L, Total Bilirubin 0.4, Total Protein 7.8, Albumin 2.2 L Microbiology Microbiology 10/14/16 Blood Culture - Preliminary, Resulted No growth after 24 hours . All specim... 10/14/16 Blood Culture - Preliminary, Resulted No growth after 24 hours . All specim... 10/15/16 Urine Culture - Final, Complete PRIYANKA POZO Oct 16, 2016 17:31
[2016-10-17] MEDS: FUROSEMIDE 40 MG/4 ML VIAL (J1940) IV SCH ×5 (04:00→20:00)
[2016-10-17] MEDS: METOPROLOL TART 12.5 MG PER 1/2 TAB PO SCH ×3 (05:17→17:00)
[2016-10-17] MEDS: SLF 3 ML SYR IV SCH ×3 (05:18→20:35)
[2016-10-17 06:00] VITALS: BP 122/55
--- NOTE | 2016-10-17 07:14 | IPN ---
DATE OF SERVICE: 10/16/2016 Ms. Do Eastman was seen earlier this morning. She was in supine in bed, in no acute distress at rest. She continues to be short of breath with minimal activities. Her echocardiogram revealed a normal left ventricular ejection fraction (LVEF) with grade 1 left ventricular diastolic dysfunction and only mild valvular heart disease but with probably moderate pulmonary hypertension and dilated right heart chambers. Her pedal edema, she stated, has not changed. She has a cough, but she denies any hemoptysis. She has no orthopnea or paroxysmal nocturnal dyspnea (PND). She denies palpitations. There is no report of bleeding. There is no focal manifestation. She was admitted on 10/15/2016 with a 1-2 month history of increasing shortness of breath and pedal edema. About 1 month ago, she was in the emergency room (ER ) and at that time pulmonary embolism was ruled out. She was treated twice for probable pneumonia. However, she is not improving and on the second course of antibiotics, oral steroids/prednisone was added. When she arrived at the ER, she was found to be in atrial fibrillation but spontaneously cardioverted to a normal sinus rhythm. When she was having the echocardiogram, she had episodes of paroxysmal atrial fibrillation with a controlled ventricular rate. ON PHYSICAL EXAMINATION: Patient is alert and oriented, in no acute distress at rest, and very pleasant. Her vital signs this morning when I saw her revealed a blood pressure of 123/58 with a pulse of 91, respirations 18-20, and her temperature is 98.8 degrees Fahrenheit with an oxygen saturation of 94% on room air. EXAMINATION OF THE HEAD, EARS, EYES, NOSE, AND THROAT: Atraumatic. NECK: Is supple; I could not appreciate any jugular venous distention (JVD). The lungs revealed decreased breath sounds at the base, right base. No wheezing. The heart examination revealed regular heart sounds with no gallop beats. The point of maximal impulse (PMI) is not displaced. There is no rub. There is a systolic murmur grade 1/6 at the lower left sternal border and at the apex without any significant radiation. ABDOMEN: Is unremarkable. EXTREMITIES: Revealed +2 to +3 bilateral lower leg edema. NEUROLOGICAL: Examination grossly is negative for focal deficit. LABS: CBC done today revealed a WBC of 12.3, hemoglobin 10.8, hematocrit 34.3, and platelets 181,000. BMP revealed a sodium of 139, potassium 3.3, chloride 104, CO2 of 29, BUN 14, creatinine 0.76, GFR more than 60, fasting glucose 107, calcium 7.4. Serum magnesium is 1.7. Liver enzymes revealed a total bilirubin of 0.4, AST 114, ALT 81, alkaline phosphatase 41, total protein 7.8, albumin 2.2. Serum troponin varied between 0.18 and 0.17. Serum BNP on admission was only 185. Telemetry revealed normal sinus rhythm with isolated premature atrial contractions (PACs). IMPRESSION: Progressive shortness of breath in this 76-year-old woman associated with bilateral pedal edema but no chest pain. She has no prior cardiac history. Her echocardiogram revealed a normal global left ventricular systolic function, mild valvular heart disease, and grade 1 left ventricular diastolic dysfunction but with dilated right heart chambers and probably moderate pulmonary hypertension. She probably has some underlying lung disease and, for this reason, I would recommend to repeat the chest CT. I doubt she has pulmonary embolism; that cannot be entirely ruled out. Her cardiac condition seems to be stable; she has been back in normal sinus rhythm, and her blood pressure is under control. I will continue current management; she is on Eliquis for prevention of thromboembolic events. Her hypokalemia is being addressed. Her liver function tests (LFTs) seem to be improving. She has minimally abnormal serum troponin that does not seem to be related to ischemia. It was a pleasure to participate in the care of Ms. Do Eastman for her underlying cardiac condition. I will continue to monitor her along with you while in the hospital. Tomorrow, Dr. Marquez will be seeing her. ANDREW
[2016-10-17 07:48] LABS: BASO % 0.3 % (0.0-1.0); EOS # 0.2 K/mm3 (0.0-0.50); LARGE UNSTAINED CELL # 0.1 K/mm3 (0.0-0.4); LARGE UNSTAINED CELL % 0.6 % (0.0-4.0); LYMPH # 0.9 K/mm3 (1.5-4.5); LYMPH % 7.4 % (24.0-44.0); MEAN CORPUSCULAR HEMOGLOBIN 29.5 pg (27.0-33.0); MEAN CORPUSCULAR VOLUME 92.2 fl (80.0-96.0); MONO # 0.4 K/mm3 (0.0-0.8); MONO % 3.5 % (0.0-5.0); NEUTROPHILS # 9.6 K/mm3 (1.8-7.7); NEUTROPHILS % 86.2 % (36.0-66.0); PLATELET COUNT, AUTOMATED 445 k/mm3 (150-450); RED CELL DISTRIBUTION WIDTH 14.5 % (11.5-14.5); WHITE BLOOD COUNT 11.2 K/mm3 (4.0-10.0)
[2016-10-17] MEDS: ASPIRIN 81 MG ENTERIC TAB PO SCH (08:08)
[2016-10-17] MEDS: ACETAMINOPHEN TAB 650MG DOSE (2X325MG) PO PRN ×2 (08:09→13:34)
[2016-10-17] MEDS: VALSARTAN 40MG TABLET (DIOVAN) PO SCH (08:09)
[2016-10-17] MEDS: MULTIVITAMINS/MINERALS THERAP 1 TAB PO SCH (08:09)
[2016-10-17] MEDS: APIXABAN 5 MG TAB (ELIQUIS) PO SCH ×2 (08:09→20:35)
[2016-10-17] MEDS: OMEPRAZOLE 20 MG CAP PO SCH (08:09)
[2016-10-17 08:22] LABS: ALBUMIN/GLOBULIN RATIO 0.39 (1.00-1.93); ALKALINE PHOSPHATASE 37 U/L (45-117); ALT/SGPT 79 U/L (12-78); ANION GAP 8 MEQ/L (8-16); AST/SGOT 114 U/L (15-37); BILIRUBIN,TOTAL 0.4 MG/DL (0.2-1.0); BLOOD UREA NITROGEN 18 MG/DL (7-18); CALCIUM LEVEL 7.6 MG/DL (8.8-10.2); CARBON DIOXIDE LEVEL 26 MEQ/L (21-32); CHLORIDE LEVEL 105 MEQ/L (98-107); CREATININE FOR GFR 0.72 MG/DL (0.55-1.02); GLOMERULAR FILTRATION RATE > 60.0 (>39); GLUCOSE, FASTING 88 MG/DL (83-110); POTASSIUM SERUM 3.2 MEQ/L (3.5-5.1); SODIUM LEVEL 139 MEQ/L (136-145); TOTAL PROTEIN 7.1 GM/DL (6.4-8.2)
--- NOTE | 2016-10-17 09:13 | IPN ---
DATE: 10/17/2016 Mrs. Eastman tells me that she is not feeling much better. She still has generalized weakness. She has peripheral edema, but the shortness of breath did improve. Denies any chest discomfort. Blood pressure 117/62, heart rate from 80s to low 100s. She is afebrile. Saturation is 94% on room air. Her fluid balance has been negative 750 yesterday, it was 2600 the day before. Weight is though 124.3 kg, which indicates no change. She is alert and oriented and appropriate sitting in a chair by her bed. Obese woman, pleasant and no distress. Vital signs as above. Her jugular venous pressure does not appear elevated by my exam. Lungs are clear to auscultation. Heart exam reveals very muffled heart sounds due to her obesity. I do not appreciate any distinct murmur. Abdomen is obese but soft. No organomegaly. There is prominent peripheral edema. Neurologically, she is generalized weak, but I do not appreciate any focal signs. Her basic metabolic panel reveals potassium 3.2, creatinine 0.7, glucose 88, magnesium 3.0, mildly elevated liver function tests. Her last CK was 1800, but she presented with CK over 2200. Her troponin has been marginally elevated without appreciable trend. Albumin is 2.0. Urine was negative for protein and INR was 1.2. I reviewed her ECG from previous days and even though they were both interpreted as representing atrial fibrillation. I believe that it is wrong and they both actually demonstrate sinus rhythm with atrial ectopy. ASSESSMENT AND PLAN: Mrs. Eastman is a 76-year-old morbidly obese female who has had worsening dyspnea and peripheral edema for approximately a month. It looks like the symptoms started with some form of upper respiratory infection type of process. I am not convinced that this is actually acute process. Talking to her, it appears that she has been sick for a long period of time and because of her inactivity the shortness of breath was not a prominent problem but has been present probably for years and definitely months. At this point, I would continue current management. I will add low-dose spironolactone to avoid hypokalemia. I will obtain a couple more EKGs. So far, I have not seen any convincing evidence that she actually has atrial fibrillation, but I am going to leave the apixaban going, at least for the time being. I am not sure how to explain the elevated CK on presentation. It is possible that she has some form of myopathic process that is underlying her weakness. It could have been related to administration of steroids recently. I would suggest that she is evaluated for sleep apnea, even in-house.
[2016-10-17] MEDS: SPIRONOLACTONE 12.5MG PER 1/2 TABLET PO SCH (11:47)
--- NOTE | 2016-10-17 13:12 | IPNPDOC ---
Date Seen The patient was seen on 10/17/16. Progress Note Hospitalist Progress Note Subjective: Patient continues to be short of breath. Objective: Physical Exam: Vitals: Vital Sign - Last 24 Hours 10/16/16 10/16/16 10/16/16 10/16/16 16:00 18:22 19:45 20:20 Temp 98.1 99.0 Pulse 88 82 86 Resp 20 20 B/P (MAP) 107/55 (72) 115/56 113/56 (75) Pulse Ox 97 93 O2 Delivery Room Air Room Air Room Air 10/16/16 10/16/16 10/17/16 10/17/16 22:00 23:31 05:17 06:00 Temp 98.9 97.7 Pulse 80 108 86 Resp 19 20 B/P (MAP) 118/56 (76) 109/53 122/55 122/55 (77) Pulse Ox 95 94 O2 Delivery Room Air Room Air 10/17/16 10/17/16 10/17/16 08:09 10:12 11:47 Pulse 77 B/P (MAP) 117/62 130/60 O2 Delivery Room Air General: Awake, alert, no acute distress HEENT: Normocephalic, atraumatic, extraocular movements intact CV: Irregularly irregular Lungs: Crackles at the bilateral bases Abd: Soft, nontender, nondistended Extremities: 2+ pitting edema bilaterally Neuro: Alert and oriented 3, normal speech Psych: Normal Mood and affect Labs and Imaging: Laboratory Tests 10/17/16 06:51 Red Blood Count 3.53 L, Mean Corpuscular Volume 92.2, Mean Corpuscular Hemoglobin 29.5, Mean Corpuscular Hemoglobin Concent 32.0, Red Cell Distribution Width 14.5, Neutrophils (%) (Auto) 86.2 H, Lymphocytes (%) (Auto) 7.4 L, Monocytes (%) (Auto) 3.5, Eosinophils (%) (Auto) 2.0, Basophils (%) (Auto ) 0.3, Neutrophils # (Auto) 9.6 H, Lymphocytes # (Auto) 0.9 L, Monocytes # (Auto ) 0.4, Eosinophils # (Auto) 0.2, Basophils # (Auto) 0.0, Calcium Level 7.6 L, Aspartate Amino Transf (AST/SGOT) 114 H, Alanine Aminotransferase (ALT/SGPT) 79 H, Alkaline Phosphatase 37 L, Total Bilirubin 0.4, Total Protein 7.1, Albumin 2.0 L Assessment and Plan: 76-year-old female with GERD, endometrial hyperplasia who presented with shortness of breath and was found to be in new onset A. fib. She also has been found to have a grade 1 diastolic dysfunction. 1. Shortness of breath: This is most likely secondary to acute decompensated diastolic CHF. We will continue diuresing her. Dr. Tam has started her on an ARB. Will also assess nocturnal oximetry as she may have underlying MARGARET. 2. Possible infiltrate on chest x-ray: This is noted on her initial chest x-ray , she was recently treated for pneumonia, and has been on antibiotics for several weeks now. Repeat CXR today looks clearer to me than initial, but still difficult to ascertain if there is an infiltrate; official radiology read is still pending. She has been afebrile, and blood cultures are negative. She has had a mild leukocytosis, but she was on oral prednisone prior to admission, which may account for this. 3. New onset A. fib: Patient's rate is improving. She has been seen by cardiology. We will continue her on metoprolol and eliquis. Echocardiogram shows grade 1 diastolic dysfunction, preserved EF, and moderate pulmonary hypertension. 4. Elevated troponin: The patient had a mild bump in her troponin to 0.18, but she is not having any chest pain. This appears to be secondary to some straining and demand ischemia from her CHF exacerbation and atrial fibrillation. 5. Hypokalemia and hypomagnesemia: Replacing 6. Diarrhea: GI panel ordered DVT prophylaxis: eliquis Dispo: pending continued diuresis and improvement in her respiratory status VS, I&O, 24H, [place] Vital Signs/I&O Vital Signs Date Time Temp Pulse Resp B/P (MAP) Pulse Ox O2 Delivery O2 Flow Rate FiO2 10/17/16 11:47 77 130/60 10/17/16 10:12 Room Air 10/17/16 06:00 97.7 20 94 I&O- Last 24 Hours up to 6 AM 10/17/16 05:59 Intake Total 1310 ml Output Total 1750 ml Balance -440 ml Laboratory Data 24H LABS Laboratory Tests 2 10/17/16 06:51: White Blood Count 11.2H, Red Blood Count 3.53L, Hemoglobin 10.4L, Hematocrit 32.6L, Mean Corpuscular Volume 92.2, Mean Corpuscular Hemoglobin 29.5, Mean Corpuscular Hemoglobin Concent 32.0, Red Cell Distribution Width 14.5, Platelet Count 445, Neutrophils (%) (Auto) 86.2H, Lymphocytes (%) (Auto) 7.4L, Monocytes (%) (Auto) 3.5, Eosinophils (%) (Auto) 2.0, Basophils (%) (Auto) 0.3, Neutrophils # (Auto) 9.6H, Lymphocytes # (Auto) 0.9L, Monocytes # (Auto) 0.4, Eosinophils # (Auto) 0.2, Basophils # (Auto) 0.0, Large Unclassified Cells % 0.6 , Large Unclassified Cells # 0.1, Anion Gap 8, Glomerular Filtration Rate > 60.0 , Blood Urea Nitrogen 18, Creatinine 0.72, Sodium Level 139, Potassium Level 3.2L, Chloride Level 105, Carbon Dioxide Level 26, Calcium Level 7.6L, Aspartate Amino Transf (AST/SGOT) 114H, Alanine Aminotransferase (ALT/SGPT) 79H , Alkaline Phosphatase 37L, Total Bilirubin 0.4, Total Protein 7.1, Albumin 2.0L , Magnesium Level 2.0, B-Type Natriuretic Peptide 169H, Albumin/Globulin Ratio 0.39L CBC/BMP Laboratory Tests 10/17/16 06:51 Red Blood Count 3.53 L, Mean Corpuscular Volume 92.2, Mean Corpuscular Hemoglobin 29.5, Mean Corpuscular Hemoglobin Concent 32.0, Red Cell Distribution Width 14.5, Neutrophils (%) (Auto) 86.2 H, Lymphocytes (%) (Auto) 7.4 L, Monocytes (%) (Auto) 3.5, Eosinophils (%) (Auto) 2.0, Basophils (%) (Auto ) 0.3, Neutrophils # (Auto) 9.6 H, Lymphocytes # (Auto) 0.9 L, Monocytes # (Auto ) 0.4, Eosinophils # (Auto) 0.2, Basophils # (Auto) 0.0, Calcium Level 7.6 L, Aspartate Amino Transf (AST/SGOT) 114 H, Alanine Aminotransferase (ALT/SGPT) 79 H, Alkaline Phosphatase 37 L, Total Bilirubin 0.4, Total Protein 7.1, Albumin 2.0 L Microbiology Microbiology 10/14/16 Blood Culture - Preliminary, Resulted No Growth after 48 hours. All Specime... 10/14/16 Blood Culture - Preliminary, Resulted No Growth after 48 hours. All Specime... 10/15/16 Urine Culture - Final, Complete PRIYANKA POZO October 17, 2016 13:12
[2016-10-17] MEDS ORDERED: POTASSIUM CHLORIDE 10 MEQ SR TABLET PO ONE (13:15)
[2016-10-17 14:00] VITALS: BP 118/59
[2016-10-17 18:00] VITALS: BP 107/51
--- NOTE | 2016-10-17 19:45 | REP ---
CHEST PA AND LATERAL: 10/17/2016. Comparison: Portable chest 10/14/2016, CT angiogram chest and portable chest 09/21/2016. Clinical history: Re-evaluate right lower lobe infiltrate/effusion after diuresis. Findings: Lung borges are somewhat overpenetrated, however, there is improvement in vascular congestion. Hazy opacity at the right base is somewhat improved compared to previous study. I do not see dense consolidation or definite effusion on the left, although small effusion may be difficult to exclude. The right base patchy infiltrate or atelectasis is less dense and there is a small effusion suggested. Heart and mediastinal contours are unchanged. Airway intact. No other significant finding. Impression: 1. Improvement in vascular congestion in the alveolar consolidation or edema right infrahilar region. Small right effusion persists. Left lung grossly clear except for some basilar fibrotic change. Signed by Bernardo Richards MD 10/17/2016 08:41 P
[2016-10-17 22:00] VITALS: BP 104/55
[2016-10-18] VITALS (7 sets, daily range): BP systolic 105–140; BP diastolic 53–64
[2016-10-18] MEDS: METOPROLOL TART 12.5 MG PER 1/2 TAB PO SCH ×4 (00:10→18:28)
[2016-10-18] MEDS: FUROSEMIDE 40 MG/4 ML VIAL (J1940) IV SCH ×6 (00:10→20:39)
[2016-10-18] MEDS: ACETAMINOPHEN TAB 650MG DOSE (2X325MG) PO PRN ×3 (00:10→21:31)
[2016-10-18] MEDS: SLF 3 ML SYR IV SCH ×3 (05:33→20:52)
[2016-10-18 06:49] LABS: BASO % 0.4 % (0.0-1.0); EOS # 0.3 K/mm3 (0.0-0.50); EOS % 2.1 % (0.0-3.0); LARGE UNSTAINED CELL # 0.1 K/mm3 (0.0-0.4); LARGE UNSTAINED CELL % 0.9 % (0.0-4.0); LYMPH # 0.9 K/mm3 (1.5-4.5); LYMPH % 7.6 % (24.0-44.0); MEAN CORPUSCULAR HEMOGLOBIN 30.3 pg (27.0-33.0); MEAN CORPUSCULAR HGB CONC 32.2 g/dl (32.0-36.5); MEAN CORPUSCULAR VOLUME 94.2 fl (80.0-96.0); MONO # 0.4 K/mm3 (0.0-0.8); MONO % 3.5 % (0.0-5.0); NEUTROPHILS # 10.5 K/mm3 (1.8-7.7); NEUTROPHILS % 85.6 % (36.0-66.0); PLATELET COUNT, AUTOMATED 462 k/mm3 (150-450); RED CELL DISTRIBUTION WIDTH 14.2 % (11.5-14.5); WHITE BLOOD COUNT 12.3 K/mm3 (4.0-10.0)
[2016-10-18 07:08] LABS: ALBUMIN/GLOBULIN RATIO 0.38 (1.00-1.93); ALKALINE PHOSPHATASE 37 U/L (45-117); ALT/SGPT 73 U/L (12-78); ANION GAP 7 MEQ/L (8-16); AST/SGOT 103 U/L (15-37); BILIRUBIN,TOTAL 0.3 MG/DL (0.2-1.0); BLOOD UREA NITROGEN 20 MG/DL (7-18); CALCIUM LEVEL 7.7 MG/DL (8.8-10.2); CARBON DIOXIDE LEVEL 27 MEQ/L (21-32); CHLORIDE LEVEL 106 MEQ/L (98-107); CREATININE FOR GFR 0.76 MG/DL (0.55-1.02); GLOMERULAR FILTRATION RATE > 60.0 (>39); GLUCOSE, FASTING 94 MG/DL (83-110); MAGNESIUM LEVEL 1.9 MG/DL (1.8-2.4); POTASSIUM SERUM 3.6 MEQ/L (3.5-5.1); SODIUM LEVEL 140 MEQ/L (136-145); TOTAL PROTEIN 7.2 GM/DL (6.4-8.2)
[2016-10-18] MEDS: MULTIVITAMINS/MINERALS THERAP 1 TAB PO SCH (08:30)
[2016-10-18] MEDS: OMEPRAZOLE 20 MG CAP PO SCH (08:30)
[2016-10-18] MEDS: APIXABAN 5 MG TAB (ELIQUIS) PO SCH ×2 (08:30→20:35)
[2016-10-18] MEDS: ASPIRIN 81 MG ENTERIC TAB PO SCH (08:30)
[2016-10-18] MEDS: VALSARTAN 40MG TABLET (DIOVAN) PO SCH (08:31)
[2016-10-18] MEDS: SPIRONOLACTONE 12.5MG PER 1/2 TABLET PO SCH (08:31)
--- NOTE | 2016-10-18 13:17 | IPNPDOC ---
Subjective Date Seen The patient was seen on 10/18/16. Subjective Chief Complaint/HPI The patient is a 76-year-old female admitted with a reason for visit of CHF. General: Denies: ROS Unobtainable, Chills, Night Sweats, Fatigue, Malaise, Normal Appetite, Other Symptoms Constitutional: Denies: Chills, Fever, Malaise, Night Sweats, Weakness, Fatigue , Weight Loss, Lethargy, Other Eyes: Denies: Pain, Vision change, Conjunctivae inflammation, Eyelid inflammation, Redness, Other ENT: Denies: Head Aches, Ear Pain, Dysphagia, Sinus Congestion, Post Nasal Drip , Sore Throat, Epistaxis, Other Symptoms Skin: Denies: Rash, Lesions, Jaundice, Bruising, Itching, Dry, Breakdown, Nail Changes, Other Pulmonary: Denies: Dyspnea, Cough, Pleuritic Chest Pain, Other Symptoms Cardiovascular: Denies: Chest Pain, Palpitations, Orthopnea, Paroxysmal Noc. Dyspnea, Edema, Lt Headedness, Other Symptoms Gastrointestinal: Denies: Nausea, Vomiting, Abdominal Pain, Diarrhea, Constipation, Melena, Hematochezia, Other Symptoms Objective Physical Examination General Exam: Positive: Alert, Cooperative, No Acute Distress, Other (sitting comfortably in chair) Eye Exam: Positive: PERRLA, Conjunctiva & lids normal, EOMI, Negative: Sclera icteric ENT Exam: Positive: Atraumatic, Mucous membr. moist/pink Neck Exam: Positive: Supple Chest Exam: Positive: Diminished, Other (b/l crackles) Heart Exam: Positive: Rate Normal, Regular Rhythm Abdomen Exam: Positive: Normal bowel sounds, Soft, Negative: Tenderness Extremity Exam: Positive: Edema (bilateral lower extremity edema/erythema) Psych Exam: Positive: Oriented x 3 Assessment /Plan Problems (1) Afib Status: Acute Discussed With: Patient Problem Specific Plan: Consult Specialist, Monitor Clinically Problem Text: beta blockade - rate controlled eliquis for anti-coagulation (2) Diarrhea Status: Resolved Discussed With: Patient Problem Specific Plan: Monitor Clinically (3) Elevated troponin Status: Resolved Discussed With: Patient Problem Specific Plan: Monitor Clinically Problem Text: resolved, no acs - likely demand ischemia (4) Shortness of breath Status: Acute Response to Treatment: Improving Discussed With: Patient Problem Specific Plan: Consult Specialist, Monitor Clinically, Repeat Labs Problem Text: decompensated heart failure - diastolic dysfunction - iv lasix for net negative aldactone, diovan, lopressor noc ox suspicious for ramirez - outpatient follow up cardiology consultation appreciated Plan/VTE VTE Prophylaxis Ordered?: Yes (nickie) Plan Diet: Continue Current Activity: Continue Current Medications: Replete Electrolytes PO Diagnostics: Repeat Labs in AM Anticipated Discharge: Home VS, I&O, 24H, Fishbone Vital Signs/I&O Vital Signs Date Time Temp Pulse Resp B/P (MAP) Pulse Ox O2 Delivery O2 Flow Rate FiO2 10/18/16 13:08 69 118/56 10/18/16 10:00 99.5 18 96 Room Air I&O- Last 24 Hours up to 6 AM 10/18/16 06:00 Intake Total 1475 ml Output Total 2775 ml Balance -1300 ml Laboratory Data 24H LABS Laboratory Tests 2 10/18/16 06:38: White Blood Count 12.3H, Red Blood Count 3.48L, Hemoglobin 10.6L, Hematocrit 32.8L, Mean Corpuscular Volume 94.2, Mean Corpuscular Hemoglobin 30.3, Mean Corpuscular Hemoglobin Concent 32.2, Red Cell Distribution Width 14.2, Platelet Count 462H, Neutrophils (%) (Auto) 85.6H, Lymphocytes (%) (Auto) 7.6L, Monocytes (%) (Auto) 3.5, Eosinophils (%) (Auto) 2.1, Basophils (%) (Auto) 0.4, Neutrophils # (Auto) 10.5H, Lymphocytes # (Auto) 0.9L, Monocytes # (Auto) 0.4, Eosinophils # (Auto) 0.3, Basophils # (Auto) 0.0, Large Unclassified Cells % 0.9 , Large Unclassified Cells # 0.1, Anion Gap 7L, Glomerular Filtration Rate > 60.0, Blood Urea Nitrogen 20H, Creatinine 0.76, Sodium Level 140, Potassium Level 3.6, Chloride Level 106, Carbon Dioxide Level 27, Calcium Level 7.7L, Aspartate Amino Transf (AST/SGOT) 103H, Alanine Aminotransferase (ALT/SGPT) 73, Total Creatine Kinase 1414H, Alkaline Phosphatase 37L, Total Bilirubin 0.3, Total Protein 7.2, Albumin 2.0L, Magnesium Level 1.9, Albumin/Globulin Ratio 0.38L CBC/BMP Laboratory Tests 10/18/16 06:38 Red Blood Count 3.48 L, Mean Corpuscular Volume 94.2, Mean Corpuscular Hemoglobin 30.3, Mean Corpuscular Hemoglobin Concent 32.2, Red Cell Distribution Width 14.2, Neutrophils (%) (Auto) 85.6 H, Lymphocytes (%) (Auto) 7.6 L, Monocytes (%) (Auto) 3.5, Eosinophils (%) (Auto) 2.1, Basophils (%) (Auto ) 0.4, Neutrophils # (Auto) 10.5 H, Lymphocytes # (Auto) 0.9 L, Monocytes # ( Auto) 0.4, Eosinophils # (Auto) 0.3, Basophils # (Auto) 0.0, Calcium Level 7.7 L , Aspartate Amino Transf (AST/SGOT) 103 H, Alanine Aminotransferase (ALT/SGPT) 73, Total Creatine Kinase 1414 H, Alkaline Phosphatase 37 L, Total Bilirubin 0.3 , Total Protein 7.2, Albumin 2.0 L Microbiology Microbiology 10/14/16 Blood Culture - Preliminary, Resulted No Growth after 72 hours. All specime... 10/14/16 Blood Culture - Preliminary, Resulted No Growth after 72 hours. All specime... 10/15/16 Urine Culture - Final, Complete DEVENDRA LEA MD October 18, 2016 13:17
[2016-10-18] MEDS ORDERED: ONDANSETRON 4 MG TAB (S0181) PO PRN (13:45)
--- NOTE | 2016-10-18 20:03 | NOCOX ---
DATE OF PROCEDURE: 10/17/2016 to 10/18/2016 This is a nocturnal oximetry. The patient was on room air during the entire study. Resting oxygen saturation was 94%. Resting heart rate was 83. There was variable oxygen desaturation correlating with pulse rate variability with an oxygen saturation ranging from 76% to 99%. The longest continuous time with an oxygen saturation less than 88% was 1 minute and 10 seconds. However, the total time with an oxygen saturation spent less than 88% was 30 minutes and 56 seconds. Heart rate variability correlated with desaturation events. IMPRESSION: Frequent variable desaturations with heart rate variability. Consider evaluation for obstructive sleep apnea.
[2016-10-19] MEDS: METOPROLOL TART 12.5 MG PER 1/2 TAB PO SCH ×4 (00:10→17:38)
[2016-10-19] MEDS: FUROSEMIDE 40 MG/4 ML VIAL (J1940) IV SCH ×6 (00:10→19:54)
[2016-10-19 02:00] VITALS: BP 132/60
[2016-10-19] MEDS: ACETAMINOPHEN TAB 650MG DOSE (2X325MG) PO PRN ×3 (04:30→17:38)
[2016-10-19 06:00] VITALS: BP 115/57
[2016-10-19] MEDS: SLF 3 ML SYR IV SCH ×3 (06:00→20:32)
[2016-10-19 06:38] LABS: BASO # 0.1 K/mm3 (0.0-0.2); BASO % 0.4 % (0.0-1.0); EOS # 0.2 K/mm3 (0.0-0.50); EOS % 1.8 % (0.0-3.0); LARGE UNSTAINED CELL # 0.1 K/mm3 (0.0-0.4); LARGE UNSTAINED CELL % 0.6 % (0.0-4.0); LYMPH % 6.8 % (24.0-44.0); MEAN CORPUSCULAR HEMOGLOBIN 29.8 pg (27.0-33.0); MEAN CORPUSCULAR VOLUME 92.9 fl (80.0-96.0); MONO # 0.4 K/mm3 (0.0-0.8); NEUTROPHILS # 12.2 K/mm3 (1.8-7.7); NEUTROPHILS % 87.4 % (36.0-66.0); PLATELET COUNT, AUTOMATED 465 k/mm3 (150-450); RED CELL DISTRIBUTION WIDTH 14.2 % (11.5-14.5)
[2016-10-19 07:03] LABS: ALBUMIN 2.1 GM/DL (3.2-5.2); ALBUMIN/GLOBULIN RATIO 0.38 (1.00-1.93); ALKALINE PHOSPHATASE 40 U/L (45-117); ALT/SGPT 81 U/L (12-78); ANION GAP 8 MEQ/L (8-16); AST/SGOT 127 U/L (15-37); BILIRUBIN,TOTAL 0.5 MG/DL (0.2-1.0); BLOOD UREA NITROGEN 21 MG/DL (7-18); CALCIUM LEVEL 7.9 MG/DL (8.8-10.2); CARBON DIOXIDE LEVEL 29 MEQ/L (21-32); CHLORIDE LEVEL 106 MEQ/L (98-107); CREATININE FOR GFR 0.83 MG/DL (0.55-1.02); GLOMERULAR FILTRATION RATE > 60.0 (>39); GLUCOSE, FASTING 85 MG/DL (83-110); POTASSIUM SERUM 3.4 MEQ/L (3.5-5.1); SODIUM LEVEL 143 MEQ/L (136-145); TOTAL PROTEIN 7.7 GM/DL (6.4-8.2)
[2016-10-19] MEDS: ASPIRIN 81 MG ENTERIC TAB PO SCH (08:42)
[2016-10-19] MEDS: MULTIVITAMINS/MINERALS THERAP 1 TAB PO SCH (08:42)
[2016-10-19] MEDS: APIXABAN 5 MG TAB (ELIQUIS) PO SCH ×2 (08:42→20:32)
[2016-10-19] MEDS: SPIRONOLACTONE 12.5MG PER 1/2 TABLET PO SCH (08:42)
[2016-10-19] MEDS: OMEPRAZOLE 20 MG CAP PO SCH (08:42)
[2016-10-19] MEDS: VALSARTAN 40MG TABLET (DIOVAN) PO SCH (08:43)
--- NOTE | 2016-10-19 08:47 | IPNPDOC ---
Subjective Date Seen The patient was seen on 10/19/16. Subjective Chief Complaint/HPI The patient is a 76-year-old female admitted with a reason for visit of CHF. General: Denies: ROS Unobtainable, Chills, Night Sweats, Fatigue, Malaise, Normal Appetite, Other Symptoms Constitutional: Denies: Chills, Fever, Malaise, Night Sweats, Weakness, Fatigue , Weight Loss, Lethargy, Other Eyes: Denies: Pain, Vision change, Conjunctivae inflammation, Eyelid inflammation, Redness, Other ENT: Denies: Head Aches, Ear Pain, Dysphagia, Sinus Congestion, Post Nasal Drip , Sore Throat, Epistaxis, Other Symptoms Skin: Denies: Rash, Lesions, Jaundice, Bruising, Itching, Dry, Breakdown, Nail Changes, Other Pulmonary: Reports: Dyspnea, Other Symptoms (BAZZI), Denies: Cough, Pleuritic Chest Pain Cardiovascular: Denies: Chest Pain, Palpitations, Orthopnea, Paroxysmal Noc. Dyspnea, Edema, Lt Headedness, Other Symptoms Gastrointestinal: Denies: Nausea, Vomiting, Abdominal Pain, Diarrhea, Constipation, Melena, Hematochezia, Other Symptoms Genitourinary: Denies: Dysuria, Frequency, Incontinence, Hematuria, Retention, Other Symptoms Objective Physical Examination General Exam: Positive: Alert, Cooperative, No Acute Distress, Other (lying comfortably in bed) Eye Exam: Positive: PERRLA, Conjunctiva & lids normal, EOMI, Negative: Sclera icteric ENT Exam: Positive: Atraumatic, Mucous membr. moist/pink Neck Exam: Positive: Supple Chest Exam: Positive: Clear to auscultation, Diminished Heart Exam: Positive: Rate Normal, Regular Rhythm Abdomen Exam: Positive: Normal bowel sounds, Soft, Negative: Tenderness Extremity Exam: Positive: Edema (bilateral lower extremity edema/erythema - improved from yesterday) Psych Exam: Positive: Oriented x 3 Assessment /Plan Problems (1) Afib Status: Acute Discussed With: Patient Problem Specific Plan: Consult Specialist, Monitor Clinically Problem Text: beta blockade - rate controlled eliquis for anti-coagulation (2) Shortness of breath Status: Acute Response to Treatment: Improving Discussed With: Patient Problem Specific Plan: Consult Specialist, Monitor Clinically, Repeat Labs Problem Text: decompensated heart failure - diastolic dysfunction - iv lasix for net negative aldactone, diovan, lopressor noc ox suspicious for ramirez - outpatient follow up cardiology consultation appreciated (3) Diarrhea Status: Resolved Discussed With: Patient Problem Specific Plan: Monitor Clinically (4) Elevated troponin Status: Resolved Discussed With: Patient Problem Specific Plan: Monitor Clinically Problem Text: resolved, no acs - likely demand ischemia Plan/VTE VTE Prophylaxis Ordered?: Yes (eliquis) Plan Diet: Continue Current Activity: Continue Current Medications: Replete Electrolytes PO Diagnostics: Repeat Labs in AM Anticipated Discharge: Home Continue diuresis with IV lasix VS, I&O, 24H, Fishbone Vital Signs/I&O Vital Signs Date Time Temp Pulse Resp B/P (MAP) Pulse Ox O2 Delivery O2 Flow Rate FiO2 10/19/16 08:43 120/59 10/19/16 06:26 86 10/19/16 06:00 99.1 20 95 Room Air I&O- Last 24 Hours up to 6 AM 10/19/16 06:00 Intake Total 1185 ml Output Total 2675 ml Balance -1490 ml Laboratory Data 24H LABS Laboratory Tests 2 10/19/16 06:04: White Blood Count 14.0H, Red Blood Count 3.56L, Hemoglobin 10.6L, Hematocrit 33.1L, Mean Corpuscular Volume 92.9, Mean Corpuscular Hemoglobin 29.8, Mean Corpuscular Hemoglobin Concent 32.0, Red Cell Distribution Width 14.2, Platelet Count 465H, Neutrophils (%) (Auto) 87.4H, Lymphocytes (%) (Auto) 6.8L, Monocytes (%) (Auto) 3.0, Eosinophils (%) (Auto) 1.8, Basophils (%) (Auto) 0.4, Neutrophils # (Auto) 12.2H, Lymphocytes # (Auto) 1.0L, Monocytes # (Auto) 0.4, Eosinophils # (Auto) 0.2, Basophils # (Auto) 0.1, Large Unclassified Cells % 0.6 , Large Unclassified Cells # 0.1, Anion Gap 8, Glomerular Filtration Rate > 60.0 , Blood Urea Nitrogen 21H, Creatinine 0.83, Sodium Level 143, Potassium Level 3.4L, Chloride Level 106, Carbon Dioxide Level 29, Calcium Level 7.9L, Aspartate Amino Transf (AST/SGOT) 127H, Alanine Aminotransferase (ALT/SGPT) 81H , Alkaline Phosphatase 40L, Total Bilirubin 0.5#, Total Protein 7.7, Albumin 2.1L, Magnesium Level 2.0, Albumin/Globulin Ratio 0.38L CBC/BMP Laboratory Tests 10/19/16 06:04 Red Blood Count 3.56 L, Mean Corpuscular Volume 92.9, Mean Corpuscular Hemoglobin 29.8, Mean Corpuscular Hemoglobin Concent 32.0, Red Cell Distribution Width 14.2, Neutrophils (%) (Auto) 87.4 H, Lymphocytes (%) (Auto) 6.8 L, Monocytes (%) (Auto) 3.0, Eosinophils (%) (Auto) 1.8, Basophils (%) (Auto ) 0.4, Neutrophils # (Auto) 12.2 H, Lymphocytes # (Auto) 1.0 L, Monocytes # ( Auto) 0.4, Eosinophils # (Auto) 0.2, Basophils # (Auto) 0.1, Calcium Level 7.9 L , Aspartate Amino Transf (AST/SGOT) 127 H, Alanine Aminotransferase (ALT/SGPT) 81 H, Alkaline Phosphatase 40 L, Total Bilirubin 0.5 #, Total Protein 7.7, Albumin 2.1 L Microbiology Microbiology 10/14/16 Blood Culture - Preliminary, Resulted No Growth after 72 hours. All specime... 10/14/16 Blood Culture - Preliminary, Resulted No Growth after 72 hours. All specime... 10/15/16 Urine Culture - Final, Complete DEVENDRA LEA MD October 19, 2016 08:47
[2016-10-19 10:00] VITALS: BP 133/59
[2016-10-19 11:49] VITALS: BP 141/65
[2016-10-19 16:15] VITALS: BP 117/65
[2016-10-19] MEDS ORDERED: MIRALAX *UNIT DOSE* 17GM PACKET PO PRN (18:15)
[2016-10-19] MEDS: SENNA 8.6 MG TAB (SENOKOT) PO PRN (18:35)
[2016-10-19 22:00] VITALS: BP 111/56
[2016-10-20] MEDS: ACETAMINOPHEN TAB 650MG DOSE (2X325MG) PO PRN ×2 (00:04→10:10)
[2016-10-20 02:00] VITALS: BP 120/58
[2016-10-20] MEDS: FUROSEMIDE 40 MG/4 ML VIAL (J1940) IV SCH ×6 (04:28→20:35)
[2016-10-20] MEDS: METOPROLOL TART 12.5 MG PER 1/2 TAB PO SCH ×4 (04:59→17:59)
[2016-10-20] MEDS: SLF 3 ML SYR IV SCH ×3 (05:00→20:36)
[2016-10-20 06:00] VITALS: BP 136/64
[2016-10-20 07:04] LABS: BASO % 0.4 % (0.0-1.0); EOS # 0.3 K/mm3 (0.0-0.50); EOS % 2.1 % (0.0-3.0); LARGE UNSTAINED CELL # 0.1 K/mm3 (0.0-0.4); LARGE UNSTAINED CELL % 0.7 % (0.0-4.0); LYMPH % 7.5 % (24.0-44.0); MEAN CORPUSCULAR HGB CONC 32.6 g/dl (32.0-36.5); MEAN CORPUSCULAR VOLUME 92.1 fl (80.0-96.0); MONO # 0.4 K/mm3 (0.0-0.8); MONO % 2.9 % (0.0-5.0); NEUTROPHILS # 11.1 K/mm3 (1.8-7.7); NEUTROPHILS % 86.4 % (36.0-66.0); PLATELET COUNT, AUTOMATED 477 k/mm3 (150-450); RED CELL DISTRIBUTION WIDTH 14.1 % (11.5-14.5); WHITE BLOOD COUNT 12.8 K/mm3 (4.0-10.0)
[2016-10-20 07:22] LABS: ALBUMIN 2.1 GM/DL (3.2-5.2); ALBUMIN/GLOBULIN RATIO 0.38 (1.00-1.93); ALKALINE PHOSPHATASE 43 U/L (45-117); ALT/SGPT 85 U/L (12-78); ANION GAP 9 MEQ/L (8-16); AST/SGOT 140 U/L (15-37); BILIRUBIN,TOTAL 0.4 MG/DL (0.2-1.0); BLOOD UREA NITROGEN 22 MG/DL (7-18); CALCIUM LEVEL 7.6 MG/DL (8.8-10.2); CARBON DIOXIDE LEVEL 28 MEQ/L (21-32); CHLORIDE LEVEL 103 MEQ/L (98-107); CREATININE FOR GFR 0.78 MG/DL (0.55-1.02); GLOMERULAR FILTRATION RATE > 60.0 (>39); GLUCOSE, FASTING 86 MG/DL (83-110); MAGNESIUM LEVEL 1.9 MG/DL (1.8-2.4); POTASSIUM SERUM 3.3 MEQ/L (3.5-5.1); SODIUM LEVEL 140 MEQ/L (136-145); TOTAL PROTEIN 7.6 GM/DL (6.4-8.2)
[2016-10-20] MEDS: VALSARTAN 40MG TABLET (DIOVAN) PO SCH (08:30)
[2016-10-20] MEDS: OMEPRAZOLE 20 MG CAP PO SCH (08:31)
[2016-10-20] MEDS: ASPIRIN 81 MG ENTERIC TAB PO SCH (08:31)
[2016-10-20] MEDS: MULTIVITAMINS/MINERALS THERAP 1 TAB PO SCH (08:31)
[2016-10-20] MEDS: DOCUSATE SODIUM 100 MG CAP PO PRN (08:31)
[2016-10-20] MEDS: SPIRONOLACTONE 12.5MG PER 1/2 TABLET PO SCH (08:31)
[2016-10-20] MEDS: APIXABAN 5 MG TAB (ELIQUIS) PO SCH ×2 (08:31→20:35)
--- NOTE | 2016-10-20 09:50 | IPNPDOC ---
Subjective Date Seen The patient was seen on 10/20/16. Subjective Chief Complaint/HPI The patient is a 76-year-old female admitted with a reason for visit of CHF. General: Denies: ROS Unobtainable, Chills, Night Sweats, Fatigue, Malaise, Normal Appetite, Other Symptoms Constitutional: Denies: Chills, Fever, Malaise, Night Sweats, Weakness, Fatigue , Weight Loss, Lethargy, Other Eyes: Denies: Pain, Vision change, Conjunctivae inflammation, Eyelid inflammation, Redness, Other ENT: Denies: Head Aches, Ear Pain, Dysphagia, Sinus Congestion, Post Nasal Drip , Sore Throat, Epistaxis, Other Symptoms Skin: Denies: Rash, Lesions, Jaundice, Bruising, Itching, Dry, Breakdown, Nail Changes, Other Pulmonary: Reports: Dyspnea, Cough, Denies: Pleuritic Chest Pain, Other Symptoms Cardiovascular: Denies: Chest Pain, Palpitations, Orthopnea, Paroxysmal Noc. Dyspnea, Edema, Lt Headedness, Other Symptoms Gastrointestinal: Denies: Nausea, Vomiting, Abdominal Pain, Diarrhea, Constipation, Melena, Hematochezia, Other Symptoms Genitourinary: Reports: Frequency, Denies: Dysuria, Incontinence, Hematuria, Retention, Other Symptoms Objective Physical Examination General Exam: Positive: Alert, Cooperative, No Acute Distress, Other (lying comfortably in bed) Eye Exam: Positive: PERRLA, Conjunctiva & lids normal, EOMI, Negative: Sclera icteric ENT Exam: Positive: Atraumatic, Mucous membr. moist/pink Neck Exam: Positive: Supple Chest Exam: Positive: Clear to auscultation, Diminished Heart Exam: Positive: Rate Normal, Regular Rhythm Abdomen Exam: Positive: Normal bowel sounds, Soft, Negative: Tenderness Extremity Exam: Positive: Edema (2-3+ bilateral lower extremity pitting edema/ erythema L>R - improved from yesterday) Psych Exam: Positive: Oriented x 3 Assessment /Plan Problems (1) Afib Status: Acute Discussed With: Patient Problem Specific Plan: Consult Specialist, Monitor Clinically Problem Text: beta blockade - rate controlled eliquis for anti-coagulation (2) Shortness of breath Status: Acute Response to Treatment: Improving Discussed With: Patient Problem Specific Plan: Consult Specialist, Monitor Clinically, Repeat Labs Problem Text: decompensated heart failure - diastolic dysfunction - iv lasix for net negative aldactone, diovan, lopressor replete electroyltes noc ox suspicious for ramirez - outpatient follow up cardiology consultation appreciated (3) Diarrhea Status: Resolved Discussed With: Patient Problem Specific Plan: Monitor Clinically (4) Elevated troponin Status: Resolved Discussed With: Patient Problem Specific Plan: Monitor Clinically Problem Text: resolved, no acs - likely demand ischemia Plan/VTE VTE Prophylaxis Ordered?: Yes (eliquis) Plan Diet: Continue Current Activity: Continue Current Therapy: PT, OT Pt and Family Services: Home Care Medications: Replete Electrolytes PO Diagnostics: Repeat Labs in AM Anticipated Discharge: Home, Home With Services Continue diuresis with IV lasix. Monitor renal function, electrolytes. Disposition No support at home, lives alone. Likely will need placement/services. VS, I&O, 24H, Fishbone Vital Signs/I&O Vital Signs Date Time Temp Pulse Resp B/P (MAP) Pulse Ox O2 Delivery O2 Flow Rate FiO2 10/20/16 08:30 127/59 10/20/16 06:00 98.9 77 19 92 Room Air I&O- Last 24 Hours up to 6 AM 10/20/16 05:59 Intake Total 1605 ml Output Total 2675 ml Balance -1070 ml Laboratory Data 24H LABS Laboratory Tests 2 10/20/16 06:02: White Blood Count 12.8H, Red Blood Count 3.82L, Hemoglobin 11.5L, Hematocrit 35.2L, Mean Corpuscular Volume 92.1, Mean Corpuscular Hemoglobin 30.0, Mean Corpuscular Hemoglobin Concent 32.6, Red Cell Distribution Width 14.1, Platelet Count 477H, Neutrophils (%) (Auto) 86.4H, Lymphocytes (%) (Auto) 7.5L, Monocytes (%) (Auto) 2.9, Eosinophils (%) (Auto) 2.1, Basophils (%) (Auto) 0.4, Neutrophils # (Auto) 11.1H, Lymphocytes # (Auto) 1.0L, Monocytes # (Auto) 0.4, Eosinophils # (Auto) 0.3, Basophils # (Auto) 0.0, Large Unclassified Cells % 0.7 , Large Unclassified Cells # 0.1, Anion Gap 9, Glomerular Filtration Rate > 60.0 , Blood Urea Nitrogen 22H, Creatinine 0.78, Sodium Level 140, Potassium Level 3.3L, Chloride Level 103, Carbon Dioxide Level 28, Calcium Level 7.6L, Aspartate Amino Transf (AST/SGOT) 140H, Alanine Aminotransferase (ALT/SGPT) 85H , Alkaline Phosphatase 43L, Total Bilirubin 0.4, Total Protein 7.6, Albumin 2.1L , Magnesium Level 1.9, Albumin/Globulin Ratio 0.38L CBC/BMP Laboratory Tests 10/20/16 06:02 Red Blood Count 3.82 L, Mean Corpuscular Volume 92.1, Mean Corpuscular Hemoglobin 30.0, Mean Corpuscular Hemoglobin Concent 32.6, Red Cell Distribution Width 14.1, Neutrophils (%) (Auto) 86.4 H, Lymphocytes (%) (Auto) 7.5 L, Monocytes (%) (Auto) 2.9, Eosinophils (%) (Auto) 2.1, Basophils (%) (Auto ) 0.4, Neutrophils # (Auto) 11.1 H, Lymphocytes # (Auto) 1.0 L, Monocytes # ( Auto) 0.4, Eosinophils # (Auto) 0.3, Basophils # (Auto) 0.0, Calcium Level 7.6 L , Aspartate Amino Transf (AST/SGOT) 140 H, Alanine Aminotransferase (ALT/SGPT) 85 H, Alkaline Phosphatase 43 L, Total Bilirubin 0.4, Total Protein 7.6, Albumin 2.1 L Microbiology Microbiology 10/14/16 Blood Culture - Final, Complete NO GROWTH AFTER 5 DAYS 10/14/16 Blood Culture - Final, Complete NO GROWTH AFTER 5 DAYS 10/15/16 Urine Culture - Final, Complete DEVENDRA LEA MD October 20, 2016 09:50
[2016-10-20 10:00] VITALS: BP 133/62
[2016-10-20] MEDS ORDERED: POTASSIUM CHLORIDE 10 MEQ SR TABLET PO ONE (10:00)
[2016-10-20 14:00] VITALS: BP 112/56
[2016-10-20 16:00] VITALS: BP 101/52
--- NOTE | 2016-10-20 17:59 | ECGEPIP ---
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
[2016-10-20 22:00] VITALS: BP 131/62
[2016-10-21] VITALS (7 sets, daily range): BP systolic 98–124; BP diastolic 48–67
[2016-10-21] MEDS: METOPROLOL TART 12.5 MG PER 1/2 TAB PO SCH ×4 (00:24→18:34)
[2016-10-21] MEDS: ACETAMINOPHEN TAB 650MG DOSE (2X325MG) PO PRN ×4 (00:27→23:42)
[2016-10-21] MEDS: FUROSEMIDE 40 MG/4 ML VIAL (J1940) IV SCH ×6 (00:27→19:58)
[2016-10-21] MEDS: SLF 3 ML SYR IV SCH ×3 (04:29→22:00)
[2016-10-21 06:08] LABS: BASO % 0.4 % (0.0-1.0); EOS # 0.2 K/mm3 (0.0-0.50); EOS % 1.8 % (0.0-3.0); LARGE UNSTAINED CELL # 0.1 K/mm3 (0.0-0.4); LARGE UNSTAINED CELL % 0.8 % (0.0-4.0); LYMPH # 1.1 K/mm3 (1.5-4.5); LYMPH % 7.7 % (24.0-44.0); MEAN CORPUSCULAR HGB CONC 32.4 g/dl (32.0-36.5); MEAN CORPUSCULAR VOLUME 92.7 fl (80.0-96.0); MONO # 0.4 K/mm3 (0.0-0.8); MONO % 3.3 % (0.0-5.0); NEUTROPHILS # 11.2 K/mm3 (1.8-7.7); NEUTROPHILS % 86.1 % (36.0-66.0); PLATELET COUNT, AUTOMATED 466 k/mm3 (150-450); RED CELL DISTRIBUTION WIDTH 14.2 % (11.5-14.5)
[2016-10-21 06:23] LABS: ALBUMIN 1.9 GM/DL (3.2-5.2); ALBUMIN/GLOBULIN RATIO 0.37 (1.00-1.93); ALKALINE PHOSPHATASE 39 U/L (45-117); ALT/SGPT 88 U/L (12-78); ANION GAP 8 MEQ/L (8-16); AST/SGOT 150 U/L (15-37); BILIRUBIN,TOTAL 0.3 MG/DL (0.2-1.0); BLOOD UREA NITROGEN 25 MG/DL (7-18); CALCIUM LEVEL 7.5 MG/DL (8.8-10.2); CARBON DIOXIDE LEVEL 28 MEQ/L (21-32); CHLORIDE LEVEL 103 MEQ/L (98-107); CREATININE FOR GFR 0.82 MG/DL (0.55-1.02); GLOMERULAR FILTRATION RATE > 60.0 (>39); GLUCOSE, FASTING 94 MG/DL (83-110); POTASSIUM SERUM 3.8 MEQ/L (3.5-5.1); SODIUM LEVEL 139 MEQ/L (136-145); TOTAL PROTEIN 7.1 GM/DL (6.4-8.2)
[2016-10-21] MEDS: SPIRONOLACTONE 12.5MG PER 1/2 TABLET PO SCH (08:28)
[2016-10-21] MEDS: SENNA 8.6 MG TAB (SENOKOT) PO PRN (08:28)
[2016-10-21] MEDS: MULTIVITAMINS/MINERALS THERAP 1 TAB PO SCH (08:28)
[2016-10-21] MEDS: VALSARTAN 40MG TABLET (DIOVAN) PO SCH (08:28)
[2016-10-21] MEDS: ASPIRIN 81 MG ENTERIC TAB PO SCH (08:29)
[2016-10-21] MEDS: OMEPRAZOLE 20 MG CAP PO SCH (08:29)
[2016-10-21] MEDS: APIXABAN 5 MG TAB (ELIQUIS) PO SCH ×2 (08:29→19:58)
[2016-10-21] MEDS: DOCUSATE SODIUM 100 MG CAP PO PRN (08:29)
[2016-10-21 10:58] LABS: ERYTHROCYTE SEDIMENTATION RATE 65 mm/hr (0-30)
--- NOTE | 2016-10-21 11:16 | IPNPDOC ---
Subjective Date Seen The patient was seen on 10/21/16. Subjective Chief Complaint/HPI The patient is a 76-year-old female admitted with a reason for visit of CHF. General: Denies: ROS Unobtainable, Chills, Night Sweats, Fatigue, Malaise, Normal Appetite, Other Symptoms Constitutional: Denies: Chills, Fever, Malaise, Night Sweats, Weakness, Fatigue , Weight Loss, Lethargy, Other Eyes: Denies: Pain, Vision change, Conjunctivae inflammation, Eyelid inflammation, Redness, Other ENT: Denies: Head Aches, Ear Pain, Dysphagia, Sinus Congestion, Post Nasal Drip , Sore Throat, Epistaxis, Other Symptoms Skin: Denies: Rash, Lesions, Jaundice, Bruising, Itching, Dry, Breakdown, Nail Changes, Other Pulmonary: Denies: Dyspnea, Cough, Pleuritic Chest Pain, Other Symptoms Cardiovascular: Denies: Chest Pain, Palpitations, Orthopnea, Paroxysmal Noc. Dyspnea, Edema, Lt Headedness, Other Symptoms Gastrointestinal: Denies: Nausea, Vomiting, Abdominal Pain, Diarrhea, Constipation, Melena, Hematochezia, Other Symptoms Genitourinary: Denies: Dysuria, Frequency, Incontinence, Hematuria, Retention, Other Symptoms Neurological: Reports: Weakness Objective Physical Examination General Exam: Positive: Alert, Cooperative, No Acute Distress, Other (lying comfortably in bed) Eye Exam: Positive: PERRLA, Conjunctiva & lids normal, EOMI, Negative: Sclera icteric ENT Exam: Positive: Atraumatic, Mucous membr. moist/pink Neck Exam: Positive: Supple Chest Exam: Positive: Clear to auscultation, Diminished Heart Exam: Positive: Rate Normal, Regular Rhythm Abdomen Exam: Positive: Normal bowel sounds, Soft, Negative: Tenderness Extremity Exam: Positive: Edema (2-3+ bilateral lower extremity pitting edema/ erythema L>R - improved from yesterday) Psych Exam: Positive: Oriented x 3 Assessment /Plan Problems (1) Afib Status: Acute Discussed With: Patient Problem Specific Plan: Consult Specialist, Monitor Clinically Problem Text: still not clear if this is actually atrial fib discuss further with cariology - pafib? telemetry? beta blockade - rate controlled eliquis for anti-coagulation (2) Shortness of breath Status: Resolved Discussed With: Patient Problem Specific Plan: Consult Specialist, Monitor Clinically, Repeat Labs Problem Text: decompensated heart failure - diastolic dysfunction - iv lasix for net negative aldactone, diovan, lopressor replete electroyltes noc ox suspicious for ramirez - outpatient follow up cardiology consultation appreciated still with peripheral edema - improving (3) Diarrhea Status: Resolved Discussed With: Patient Problem Specific Plan: Monitor Clinically (4) Elevated troponin Status: Resolved Discussed With: Patient Problem Specific Plan: Monitor Clinically Problem Text: resolved, no acs - likely demand ischemia (5) Weakness Status: Acute Response to Treatment: Progressing Discussed With: Patient Problem Specific Plan: Consult Specialist, Monitor Clinically Problem Text: Unclear etiology - CK improving but still elevated, elevated ESR improving with diuresis continue with PT/OT Plan/VTE VTE Prophylaxis Ordered?: Yes (eliquis) Plan Diet: Continue Current Activity: Continue Current Therapy: PT, OT Pt and Family Services: Home Care Medications: Replete Electrolytes PO Diagnostics: Repeat Labs in AM Anticipated Discharge: Home, Home With Services VS, I&O, 24H, Fishbone Vital Signs/I&O Vital Signs Date Time Temp Pulse Resp B/P (MAP) Pulse Ox O2 Delivery O2 Flow Rate FiO2 10/21/16 09:08 Room Air 10/21/16 08:28 116/57 10/21/16 06:01 70 10/21/16 06:00 98.7 20 93 I&O- Last 24 Hours up to 6 AM 10/21/16 06:00 Intake Total 1315 ml Output Total 1925 ml Balance -610 ml Laboratory Data 24H LABS Laboratory Tests 2 10/21/16 05:36: White Blood Count 13.0H, Red Blood Count 3.64L, Hemoglobin 10.9L, Hematocrit 33.7L, Mean Corpuscular Volume 92.7, Mean Corpuscular Hemoglobin 30.0, Mean Corpuscular Hemoglobin Concent 32.4, Red Cell Distribution Width 14.2, Platelet Count 466H, Neutrophils (%) (Auto) 86.1H, Lymphocytes (%) (Auto) 7.7L, Monocytes (%) (Auto) 3.3, Eosinophils (%) (Auto) 1.8, Basophils (%) (Auto) 0.4, Neutrophils # (Auto) 11.2H, Lymphocytes # (Auto) 1.1L, Monocytes # (Auto) 0.4, Eosinophils # (Auto) 0.2, Basophils # (Auto) 0.0, Large Unclassified Cells % 0.8 , Large Unclassified Cells # 0.1, Erythrocyte Sedimentation Rate 65H, Anion Gap 8, Glomerular Filtration Rate > 60.0, Blood Urea Nitrogen 25H, Creatinine 0.82, Sodium Level 139, Potassium Level 3.8, Chloride Level 103, Carbon Dioxide Level 28, Calcium Level 7.5L, Aspartate Amino Transf (AST/SGOT) 150H, Alanine Aminotransferase (ALT/SGPT) 88H, Alkaline Phosphatase 39L, Total Bilirubin 0.3, Total Protein 7.1, Albumin 1.9L, Magnesium Level 2.0, Albumin/Globulin Ratio 0.37L CBC/BMP Laboratory Tests 10/21/16 05:36 Red Blood Count 3.64 L, Mean Corpuscular Volume 92.7, Mean Corpuscular Hemoglobin 30.0, Mean Corpuscular Hemoglobin Concent 32.4, Red Cell Distribution Width 14.2, Neutrophils (%) (Auto) 86.1 H, Lymphocytes (%) (Auto) 7.7 L, Monocytes (%) (Auto) 3.3, Eosinophils (%) (Auto) 1.8, Basophils (%) (Auto ) 0.4, Neutrophils # (Auto) 11.2 H, Lymphocytes # (Auto) 1.1 L, Monocytes # ( Auto) 0.4, Eosinophils # (Auto) 0.2, Basophils # (Auto) 0.0, Calcium Level 7.5 L , Aspartate Amino Transf (AST/SGOT) 150 H, Alanine Aminotransferase (ALT/SGPT) 88 H, Alkaline Phosphatase 39 L, Total Bilirubin 0.3, Total Protein 7.1, Albumin 1.9 L Microbiology Microbiology 10/14/16 Blood Culture - Final, Complete NO GROWTH AFTER 5 DAYS 10/14/16 Blood Culture - Final, Complete NO GROWTH AFTER 5 DAYS 10/20/16 Gastrointestinal Tract Panel (PCR) - Final, Complete 10/20/16 Stool Occult Blood (KENIA) - Final, Complete 10/15/16 Urine Culture - Final, Complete DEVENDRA LEA MD October 21, 2016 11:16
[2016-10-22] VITALS (9 sets, daily range): BP systolic 90–136; BP diastolic 50–76
[2016-10-22] MEDS: FUROSEMIDE 40 MG/4 ML VIAL (J1940) IV SCH ×6 (04:15→20:00)
[2016-10-22] MEDS: METOPROLOL TART 12.5 MG PER 1/2 TAB PO SCH ×4 (05:46→18:24)
[2016-10-22] MEDS: SLF 3 ML SYR IV SCH ×3 (05:47→22:00)
[2016-10-22 06:02] LABS: MEAN CORPUSCULAR HEMOGLOBIN 30.6 pg (27.0-33.0); MEAN CORPUSCULAR HGB CONC 32.4 g/dl (32.0-36.5); MEAN CORPUSCULAR VOLUME 94.4 fl (80.0-96.0); RED CELL DISTRIBUTION WIDTH 13.9 % (11.5-14.5); WHITE BLOOD COUNT 12.1 K/mm3 (4.0-10.0)
[2016-10-22 06:20] LABS: ANION GAP 8 MEQ/L (8-16); BLOOD UREA NITROGEN 29 MG/DL (7-18); CALCIUM LEVEL 7.5 MG/DL (8.8-10.2); CARBON DIOXIDE LEVEL 29 MEQ/L (21-32); CHLORIDE LEVEL 101 MEQ/L (98-107); CREATININE FOR GFR 0.88 MG/DL (0.55-1.02); GLOMERULAR FILTRATION RATE > 60.0 (>39); GLUCOSE, FASTING 94 MG/DL (83-110); POTASSIUM SERUM 3.6 MEQ/L (3.5-5.1); SODIUM LEVEL 138 MEQ/L (136-145)
--- NOTE | 2016-10-22 08:48 | IPNPDOC ---
Subjective Date Seen The patient was seen on 10/22/16. Subjective Chief Complaint/HPI The patient is a 76-year-old female admitted with a reason for visit of CHF. General: Denies: ROS Unobtainable, Chills, Night Sweats, Fatigue, Malaise, Normal Appetite, Other Symptoms Constitutional: Denies: Chills, Fever, Malaise, Night Sweats, Weakness, Fatigue , Weight Loss, Lethargy, Other Eyes: Denies: Pain, Vision change, Conjunctivae inflammation, Eyelid inflammation, Redness, Other ENT: Denies: Head Aches, Ear Pain, Dysphagia, Sinus Congestion, Post Nasal Drip , Sore Throat, Epistaxis, Other Symptoms Skin: Denies: Rash, Lesions, Jaundice, Bruising, Itching, Dry, Breakdown, Nail Changes, Other Pulmonary: Denies: Dyspnea, Cough, Pleuritic Chest Pain, Other Symptoms Cardiovascular: Denies: Chest Pain, Palpitations, Orthopnea, Paroxysmal Noc. Dyspnea, Edema, Lt Headedness, Other Symptoms Gastrointestinal: Denies: Nausea, Vomiting, Abdominal Pain, Diarrhea, Constipation, Melena, Hematochezia, Other Symptoms Neurological: Reports: Weakness Objective Physical Examination General Exam: Positive: Alert, Cooperative, No Acute Distress, Other (lying comfortably in bed) Eye Exam: Positive: PERRLA, Conjunctiva & lids normal, EOMI, Negative: Sclera icteric ENT Exam: Positive: Atraumatic, Mucous membr. moist/pink Neck Exam: Positive: Supple Chest Exam: Positive: Clear to auscultation, Diminished Heart Exam: Positive: Rate Normal, Regular Rhythm Abdomen Exam: Positive: Normal bowel sounds, Soft, Negative: Tenderness Extremity Exam: Positive: Edema (2-3+ bilateral lower extremity pitting edema/ erythema L>R - improved from yesterday) Psych Exam: Positive: Oriented x 3 Assessment /Plan Problems (1) Afib Status: Acute Discussed With: Patient Problem Specific Plan: Consult Specialist, Monitor Clinically Problem Text: still not clear if this is actually atrial fib discuss further with cariology - pafib? telemetry? beta blockade - rate controlled eliquis for anti-coagulation (2) Shortness of breath Status: Resolved Discussed With: Patient Problem Specific Plan: Consult Specialist, Monitor Clinically, Repeat Labs Problem Text: decompensated heart failure - diastolic dysfunction - iv lasix for net negative aldactone, diovan, lopressor replete electroyltes noc ox suspicious for ramirez - outpatient follow up cardiology consultation appreciated still with peripheral edema - improving (3) Diarrhea Status: Resolved Discussed With: Patient Problem Specific Plan: Monitor Clinically (4) Elevated troponin Status: Resolved Discussed With: Patient Problem Specific Plan: Monitor Clinically Problem Text: resolved, no acs - likely demand ischemia (5) Weakness Status: Acute Response to Treatment: Progressing Discussed With: Patient Problem Specific Plan: Consult Specialist, Monitor Clinically Problem Text: Unclear etiology - CK still elevated, elevated ESR states weakness limiting her ability to stand/walk Obtain MRI L/S spine for further eval. neurology consultation pending, likely o/p muscle bx/EMG continue with PT/OT Plan/VTE VTE Prophylaxis Ordered?: Yes (eliquis) Plan Diet: Continue Current Activity: Continue Current Therapy: PT, OT Pt and Family Services: Home Care Medications: Replete Electrolytes PO Diagnostics: Repeat Labs in AM, MRI Anticipated Discharge: Home, Home With Services Continue with diuresis. Still significant weakness with hyperCKemia. Neurology c/s pending. MRI L/S spine for further eval. Continue with PT. VS, I&O, 24H, Fishbone Vital Signs/I&O Vital Signs Date Time Temp Pulse Resp B/P (MAP) Pulse Ox O2 Delivery O2 Flow Rate FiO2 10/22/16 06:00 99.6 100 20 103/52 (69) 90 Room Air I&O- Last 24 Hours up to 6 AM 10/22/16 06:00 Intake Total 1770 ml Output Total 1600 ml Balance 170 ml Laboratory Data 24H LABS Laboratory Tests 2 10/22/16 05:42: Anion Gap 8, Glomerular Filtration Rate > 60.0, Blood Urea Nitrogen 29H, Creatinine 0.88, Sodium Level 138, Potassium Level 3.6, Chloride Level 101, Carbon Dioxide Level 29, Calcium Level 7.5L, Total Creatine Kinase 2287H CBC/BMP Laboratory Tests 10/22/16 05:42 Red Blood Count 3.43 L, Mean Corpuscular Volume 94.4, Mean Corpuscular Hemoglobin 30.6, Mean Corpuscular Hemoglobin Concent 32.4, Red Cell Distribution Width 13.9, Calcium Level 7.5 L Microbiology Microbiology 10/14/16 Blood Culture - Final, Complete NO GROWTH AFTER 5 DAYS 10/14/16 Blood Culture - Final, Complete NO GROWTH AFTER 5 DAYS 10/20/16 Gastrointestinal Tract Panel (PCR) - Final, Complete 10/20/16 Stool Occult Blood ([facility]IA) - Final, Complete 10/15/16 Urine Culture - Final, Complete DEVENDRA LEA MD October 22, 2016 08:48
[2016-10-22] MEDS: SPIRONOLACTONE 12.5MG PER 1/2 TABLET PO SCH (10:39)
[2016-10-22] MEDS: ACETAMINOPHEN TAB 650MG DOSE (2X325MG) PO PRN ×2 (10:41→18:25)
[2016-10-22] MEDS: VALSARTAN 40MG TABLET (DIOVAN) PO SCH (10:42)
[2016-10-22] MEDS: APIXABAN 5 MG TAB (ELIQUIS) PO SCH ×2 (10:42→21:13)
[2016-10-22] MEDS: ASPIRIN 81 MG ENTERIC TAB PO SCH (10:43)
[2016-10-22] MEDS: MULTIVITAMINS/MINERALS THERAP 1 TAB PO SCH (10:43)
[2016-10-22] MEDS: OMEPRAZOLE 20 MG CAP PO SCH (10:43)
--- NOTE | 2016-10-22 14:41 | IPN ---
DATE: 10/22/2016 Mrs. Eastman is again a little bit better today than she was yesterday. She is no longer short of breath at rest. She denies any chest pain. There is no sensation of palpitations. She did not ambulate very much. She continues to complain of fairly significant weakness. Vital Signs: Blood pressure 132/76, heart rate is in 80s and 90s, it is regular with occasional ectopy. Saturation 92% on room air. Her fluid balance yesterday was documented approximately equal, but her weight is up 121.2 kg. The documentation is probably not completely accurate. Jugular venous pressure (JVP) no longer appears above clavicle in sitting position. Lungs are relatively clear to auscultation with good air movement. Heart exam regular rhythm with ectopy. No murmur. Abdomen is obese. There is still some peripheral edema. Neurologically, she continues to complain about lower extremity weakness. I did not do any formal testing, but I understand that this it is somewhat challenging for her to ambulate. LABORATORY; Hemoglobin 10.5, hematocrit 32, platelet count 418,000 and WBC count 12.1. Basic metabolic panel is normal. Calcium is 7.5. Her CK continues to be elevated at 2300, albumin is 1.9. She had an MRI of her spine that was not interpreted as yet. ASSESSMENT AND PLAN: Mrs. Eastman is a 76-year-old female who has diastolic congestive heart failure. I think that she is approaching euvolemic state. Currently she has been on furosemide 40 mg every 4 hours plus a small dose of spironolactone and valsartan. I would continue the same probably one more day and then we will switch her to oral diuretics. She was felt to have atrial fibrillation, but I disagree with this diagnosis. All three ECGs that she had during hospitalization demonstrate sinus rhythm with atrial ectopy, yet she is still on Eliquis. I cannot rule out that she has paroxysmal atrial fibrillation and telemetry monitoring for at least 24 hours would be helpful but there were no beds. For that reason, I would continue for the time being apixaban. Finally, the separate problem is that of lower extremity weakness, also unexplained CK elevation. Dr. Lee asked Dr. Polo who saw the patient in consultation; his opinion is not available in the computer yet, and will see what the evaluation will bring. From my perspective, the patient will be ready for discharge probably within 24 to 48 hours. She certainly will need a lot of outpatient followup. As far as the weakness, a neurologic possibly myopathy type of condition is concern that will remain with neurology and the hospitalist service. ANDREW
[2016-10-23] VITALS (8 sets, daily range): BP systolic 103–131; BP diastolic 54–65
[2016-10-23] MEDS: FUROSEMIDE 40 MG/4 ML VIAL (J1940) IV SCH ×4 (03:19→11:17)
[2016-10-23] MEDS: ACETAMINOPHEN TAB 650MG DOSE (2X325MG) PO PRN ×3 (03:19→17:51)
[2016-10-23] MEDS: METOPROLOL TART 12.5 MG PER 1/2 TAB PO SCH ×3 (05:50→11:18)
[2016-10-23] MEDS: SLF 3 ML SYR IV SCH ×3 (05:50→20:47)
[2016-10-23] MEDS: SPIRONOLACTONE 12.5MG PER 1/2 TABLET PO SCH (08:23)
[2016-10-23] MEDS: MULTIVITAMINS/MINERALS THERAP 1 TAB PO SCH (08:24)
[2016-10-23] MEDS: VALSARTAN 40MG TABLET (DIOVAN) PO SCH (08:24)
[2016-10-23] MEDS: APIXABAN 5 MG TAB (ELIQUIS) PO SCH ×2 (08:24→20:47)
[2016-10-23] MEDS: ASPIRIN 81 MG ENTERIC TAB PO SCH (08:24)
[2016-10-23] MEDS: OMEPRAZOLE 20 MG CAP PO SCH (08:24)
--- NOTE | 2016-10-23 08:50 | IPNPDOC ---
Subjective Date Seen The patient was seen on 10/23/16. Subjective Chief Complaint/HPI The patient is a 76-year-old female admitted with a reason for visit of CHF. General: Denies: ROS Unobtainable, Chills, Night Sweats, Fatigue, Malaise, Normal Appetite, Other Symptoms Constitutional: Denies: Chills, Fever, Malaise, Night Sweats, Weakness, Fatigue , Weight Loss, Lethargy, Other Eyes: Denies: Pain, Vision change, Conjunctivae inflammation, Eyelid inflammation, Redness, Other ENT: Denies: Head Aches, Ear Pain, Dysphagia, Sinus Congestion, Post Nasal Drip , Sore Throat, Epistaxis, Other Symptoms Skin: Denies: Rash, Lesions, Jaundice, Bruising, Itching, Dry, Breakdown, Nail Changes, Other Pulmonary: Denies: Dyspnea, Cough, Pleuritic Chest Pain, Other Symptoms Cardiovascular: Denies: Chest Pain, Palpitations, Orthopnea, Paroxysmal Noc. Dyspnea, Edema, Lt Headedness, Other Symptoms Gastrointestinal: Denies: Nausea, Vomiting, Abdominal Pain, Diarrhea, Constipation, Melena, Hematochezia, Other Symptoms Neurological: Reports: Weakness Objective Physical Examination General Exam: Positive: Alert, Cooperative, No Acute Distress, Other (lying comfortably in bed) Eye Exam: Positive: PERRLA, Conjunctiva & lids normal, EOMI, Negative: Sclera icteric ENT Exam: Positive: Atraumatic, Mucous membr. moist/pink Neck Exam: Positive: Supple Chest Exam: Positive: Clear to auscultation, Diminished Heart Exam: Positive: Rate Normal, Regular Rhythm Abdomen Exam: Positive: Normal bowel sounds, Soft, Other (obese), Negative: Tenderness Extremity Exam: Positive: Edema (2+ b/l le pitting edema) Psych Exam: Positive: Oriented x 3 Assessment /Plan Problems (1) Afib Status: Acute Discussed With: Patient Problem Specific Plan: Consult Specialist, Monitor Clinically Problem Text: still not clear if this is actually atrial fib pafib? telemetry? - patient prefers not to relocate to another room - states it is stressful - but is agreeable if necessary beta blockade has been held last 3 doses secondary to bradycardia, low blood pressures eliquis for anti-coagulation (2) Shortness of breath Status: Resolved Discussed With: Patient Problem Specific Plan: Consult Specialist, Monitor Clinically, Repeat Labs Problem Text: decompensated heart failure - diastolic dysfunction - iv lasix for net negative - anticipating transition to PO today or tomorrow aldactone, diovan, lopressor (not administered x 3 doses secondary to hold parameters) replete electrolytes cardiology consultation appreciated noc ox suspicious for ramirez - outpatient follow up (3) Diarrhea Status: Resolved Discussed With: Patient Problem Specific Plan: Monitor Clinically (4) Elevated troponin Status: Resolved Discussed With: Patient Problem Specific Plan: Monitor Clinically Problem Text: resolved, no acs - likely demand ischemia (5) Weakness Status: Acute Response to Treatment: Progressing Discussed With: Patient Problem Specific Plan: Consult Specialist, Monitor Clinically Problem Text: Unclear etiology - CK still elevated > 2000 with elevated ESR states weakness limiting her ability to stand/walk Obtain MRI L/S spine for further eval. - images were pending yesterday, patient states had to be undergo imaging x 2 - however today not available - will d/w radiology neurology consultation pending, likely recs for o/p muscle bx/EMG - patient states she will not be able to tolerate travelling to [place] for muscle bx continue with PT/OT Plan/VTE VTE Prophylaxis Ordered?: Yes (eliquis) Plan Diet: Continue Current Activity: Continue Current Therapy: PT, OT Pt and Family Services: Home Care Medications: Replete Electrolytes PO Diagnostics: Repeat Labs in AM Anticipated Discharge: Home, Home With Services anticipating transition to PO lasix today/tomorrow - approaching euvolemia o/p workup for weakness - MRI L spine pending - neuro c/s pending would like to transfer to tele to determine possibility of p afib VS, I&O, 24H, Fishbone Vital Signs/I&O Vital Signs Date Time Temp Pulse Resp B/P (MAP) Pulse Ox O2 Delivery O2 Flow Rate FiO2 10/23/16 08:24 121/56 10/23/16 06:00 99.5 91 20 91 10/22/16 21:10 Room Air I&O- Last 24 Hours up to 6 AM 10/23/16 06:00 Intake Total 1230 ml Output Total 1900 ml Balance -670 ml Laboratory Data Microbiology Microbiology 10/14/16 Blood Culture - Final, Complete NO GROWTH AFTER 5 DAYS 10/14/16 Blood Culture - Final, Complete NO GROWTH AFTER 5 DAYS 10/20/16 Gastrointestinal Tract Panel (PCR) - Final, Complete 10/20/16 Stool Occult Blood (KENIA) - Final, Complete 10/15/16 Urine Culture - Final, Complete DEVENDRA LEA MD October 23, 2016 08:50
--- NOTE | 2016-10-23 12:10 | CR ---
DATE OF CONSULTATION: 10/23/[address] Aaron Lee. Reason for consultation is elevated creatinine phosphokinase (CPK) and muscle weakness proximally. The patient is a 76-year-old female with past medical history significant for congestive heart failure admitted for that with lower extremity edema. The patient states that she has been having ongoing difficulty with strength in her lower extremities for at least 10 years. She states she has been using her arms to push up with a chair for at least that time. Over the last 1 year, she has been having increased difficulty with back pain with inability to stay standing or walk for long distances of time or stand for short amounts of time without developing weakness and worsening back pain. The patient usually has heaviness and weakness in her lower extremities and has to sit down. She does admit that leaning forward on a shopping cart will allow her to walk a longer distance. These symptoms are suggestive of neurogenic claudication with spinal stenosis. The patient does have an elevated CPK of a little over 2000 at the present moment. This has been fluctuating during the admission. The patient has significant weakness in bilateral deltoids as well as bilateral iliopsoas. She is able to rise from a seated position off of a slightly elevated bed without the use of her arms, though it is difficult for her. She denies having any myalgias. She does have arthralgias involving most of her joints she states. She denies feeling stiff in the morning. Her erythrocyte sedimentation rate (ESR) is 65. The patient is opposed to traveling to [place] or to [facility] in [facility] for possible biopsy. The patient is also opposed to starting any form of steroid therapy long-term. The patient is aware that her muscle weakness may progress. It is unclear what the etiology her muscle weakness is. She may benefit from an outpatient EMG nerve conduction study to assess for the presence of myopathy. The patient may have deconditioning over the last several years with inability to ambulate well. The patient usually ambulates from her bed to her living area and to the bathroom and back. She does not leave the home. She lives alone. She does not have any close family or friends nearby. PAST MEDICAL HISTORY: 1. Endometrial hyperplasia. 2. Gastroesophageal reflux disease. 3. Lower extremity edema with venous stasis. 4. Congestive heart failure. 5. 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 PAST SURGICAL HISTORY: Dilation and curettage, several. at age 31. Laparoscopy preventative measure for ovarian cancer. Left nose skin cancer resection. FAMILY HISTORY: Mother with ovarian carcinoma. Father with myocardial infarction ([place]). Sister with endometrial cancer. SOCIAL HISTORY: The patient denies use of alcohol, illicit drugs or tobacco. She lives alone. 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 REVIEW OF SYSTEMS: 14-point review of systems was obtained and is negative except as per HPI. ALLERGIES: SHELLFISH. HOME MEDICATIONS: Include: - ranitidine 75 mg by mouth nightly - cholecalciferol 1000 international units 3 tablets daily - furosemide 20 mg by mouth twice a day - megestrol acetate 20 mg by mouth nightly - multivitamin by mouth daily - omeprazole 20 mg by mouth daily PHYSICAL EXAMINATION: Current height 5 feet 7 inches. Current weight is 121 kg. Please see electronic record for documented up-to-date vital signs. Neurological exam: Patient is alert, oriented to person, place and time. Speech, language, comprehension and repetition are intact. Pupils are 3 mm, round, reactive to light. Extraocular movements are intact in all directions without nystagmus. Sensation V1, V2, V3 is intact to light touch. No facial asymmetry activation. Palate elevates symmetrically. Tongue is midline. No weakness to sternocleidomastoids bilaterally. There is no ptosis. There is no bulbar weakness noted on examination. Neck flexion and strength is adequate 5/5. Patient has significant weakness of bilateral deltoids, grade 4-/5 bilaterally anterior and lateral testing. Negative pronator drift. Strength is 5/5 in the biceps and triceps, finger flexors, wrist extensor. Lower extremity: Patient has 3- strength in bilateral iliopsoas, quadriceps are 5, anterior tibialis are 4+ bilaterally. The patient is able to rise from a seated position without the use of her hands with modest difficulty. Sensory is intact to light touch throughout. There is no myalgia reproducible with palpation to the patient's muscles. Romberg testing is negative. Patient does ambulate with the use of a walker for improved stability and due to easy fatigability. Coordination: Normal [id number] without any signs of ataxia or dysmetria. ASSESSMENT: 1. Proximal muscle weakness of bilateral deltoids, iliopsoas and distal lower extremities with elevated CPK suggesting unclear etiology of an underlying myopathy. 2. Muscle weakness secondary to deconditioning cannot entirely be excluded. 3. Given elevated erythrocyte sedimentation rate (ESR), inflammatory myopathy is possible, although PMR less likely in the absence of severe arthralgias and myalgias. CONCLUSION: Body myositis less likely in the absence of finger flexor weakness. Cannot entirely exclude congenital late onset Limb-Girdle muscular dystrophy. Outpatient workup including EMG nerve conduction study, muscle biopsy is recommended. Hold off on starting steroids at the time at the request of the patient. Patient will require physical therapy to improve strength. Obtain MRI of lumbosacral spine to rule out spinal stenosis. The patient can followup at the [facility] Neurology office as an outpatient. Edited: 10/23/2016 1252 [facility]
--- NOTE | 2016-10-23 13:50 | IPN ---
DATE: 10/23/2016 Mrs. Eastman remains approximately the same. She still gets easily short of breath with minimal activity and she continues to complain of lower extremity weakness. Blood pressure 130/76. Heart rate is in mostly 80s and 90s. It is regular rhythm with occasional ectopy. She is afebrile. Saturation 95% on room air. Fluid balance yesterday was documented at 719 negative, but yet her weight is 121 kg, which is essentially the same as yesterday, and there has not been dramatic drop in her weight since a few days ago. Her jugular venous pulse (JVP) is still high. Lungs are clear to auscultation, though heart exam regular rhythm with ectopy, no gallop, no rub. Abdomen is obese but soft. There is still 1 to 2+ peripheral edema. Neurologically, generalized weakness but I do not appreciate any focal signs. Laboratory [place], CBC: Hemoglobin 10.5, hematocrit 32, platelet count 490,000. Basic metabolic panel: Potassium 3.6, BUN 29, creatinine 0.9, glucose 94, CK 2287. These are all from yesterday. There was no blood work obtained today. ASSESSMENT AND PLAN: Mrs. Eastman is a 76-year-old female who has diastolic congestive heart failure and likely sleep apnea. She was also admitted with diagnosis atrial fibrillation for which I believe is incorrect. She had sinus rhythm with frequent atrial ectopy, and finally we managed to transfer patient to progressive care unit (PCU) in order to monitor her closer to see whether indeed the episodes of atrial fibrillation are present or not. So far, there has been no evidence for. She remains in volume overloaded state. I am seeing that the diuretics were frequently held because the blood pressure was at times quite low. I will change the administration to just twice a day dosing but will give her a higher dose. She is on fluid restrictions and also on spironolactone. As far as management of CK elevation and weakness, that remains with primary team. Apparently patient did not want to consider transfer to outside facility for muscle biopsy or EMG. I had a talk with her on this topic and she still does not feel like she would like to do that. She unfortunately does not have a good idea of what are the expectations. Also, I am not able to provide her with a reasonable information as to what can be expected if the diagnosis and treatment are not pursued. In my opinion, she does not have any clinical features that would be consistent with dermatomyositis and so it is possible that this is a chronic and somewhat indolent. I learned some new information today, which I did not realize previously, during her prior visits in our emergency room she was started on steroids and had a 10 day course of prednisone completing approximately 15-20 days ago. This probably could be contributing to her muscle weakness, even though the duration was only 10 days and the event occurred long time enough so I am somewhat skeptical that this is a player. ANDREW
--- NOTE | 2016-10-23 16:59 | REP ---
MRI LUMBAR SPINE: REASON FOR EXAM: Pain. COMPARISON: 06/06/2008. The examination is dated 10/22/2016 obtained at 12:36 p.m., however, it has been brought to my attention for the first time for interpretation today at this time. There is moderate loss of disc space height and disc hydration signal at every level and particularly posteriorly with universal loss of disc space height and disc hydration signal, moderately at L5-S1. This has worsened from the prior exam. There is T2 hypersignal seen involving both superior and inferior endplates at L5-S1. The remainder of the marrow signal is normal throughout. No abnormal signal has developed involving the imaged portion of the spinal cord. At the L1-2 level there has been no significant change from the prior exam. There is no disc herniation, or foraminal narrowing, or canal stenosis. At the L2-3 level there has been no significant change from the prior exam. There is no disc herniation, or foraminal narrowing, or central canal stenosis. At the L3-4 level there is only a minimal broad based annular bulge. This is essentially unchanged from the prior exam. There is no disc herniation, foraminal narrowing, or central canal stenosis. At the L4-5 level there is a large broad based annular bulge in conjunction with hypertrophic degenerative facet joint changes and thickening of the ligamentum flava. The factors are causing severe central canal stenosis and bilateral foraminal narrowing. No acute disc extrusion is evident. At the L5-S1 level there is a large broad based annular bulge seen in conjunction with a central disc extrusion. More mild degenerative facet joint changes are present at this level with mild thickening of the ligamentum flava, however, the factors are causing moderate to severe central canal stenosis. The disc extrusion has not migrated. IMPRESSION: Multilevel discogenic changes with central canal stenosis at L4-5 and L5-S1 and an L5-S1 disc extrusion as described above. Signed by Alex Swanson DO 10/24/2016 09:55 A
[2016-10-23] MEDS: METOPROLOL SUCC *XL* 25MG TAB (TopROL *XL*) PO SCH (20:47)
[2016-10-24] VITALS (7 sets, daily range): BP systolic 97–106; BP diastolic 49–58
[2016-10-24] MEDS: ACETAMINOPHEN TAB 650MG DOSE (2X325MG) PO PRN ×5 (00:35→23:07)
[2016-10-24] MEDS: FUROSEMIDE 100 MG/10 ML VIAL (J1940) IV SCH ×2 (00:37→12:26)
[2016-10-24 05:34] LABS: MEAN CORPUSCULAR HGB CONC 32.1 g/dl (32.0-36.5); MEAN CORPUSCULAR VOLUME 93.5 fl (80.0-96.0); RED CELL DISTRIBUTION WIDTH 13.9 % (11.5-14.5); WHITE BLOOD COUNT 13.4 K/mm3 (4.0-10.0)
[2016-10-24 05:58] LABS: ANION GAP 7 MEQ/L (8-16); BLOOD UREA NITROGEN 26 MG/DL (7-18); CALCIUM LEVEL 7.2 MG/DL (8.8-10.2); CARBON DIOXIDE LEVEL 29 MEQ/L (21-32); CHLORIDE LEVEL 103 MEQ/L (98-107); CREATININE FOR GFR 0.75 MG/DL (0.55-1.02); GLOMERULAR FILTRATION RATE > 60.0 (>39); GLUCOSE, FASTING 91 MG/DL (83-110); POTASSIUM SERUM 3.5 MEQ/L (3.5-5.1); SODIUM LEVEL 139 MEQ/L (136-145)
[2016-10-24] MEDS: SLF 3 ML SYR IV SCH ×3 (06:23→21:09)
--- NOTE | 2016-10-24 08:24 | IPN ---
DATE: 10/24/2016 Ms. Eastman did not have any significant events yesterday. Her condition is not appreciably changed. Unfortunately, after changing her diuretics there does not seem to be much difference in her urine output and her balance yesterday was only slightly negative. Vital Signs: Blood pressure 98/54. She had a fever this morning of 101.8. Saturation 93% on room air. Weight documented 121.5. Her jugular venous pulse (JVP) still looks mildly elevated. Lungs are relatively clear to auscultation with diminished breath sounds at the bases. Heart exam is unchanged. Regular rhythm with occasional ectopy. Abdomen is soft, nontender, but very obese. There is still peripheral edema. Laboratory-urban, basic metabolic panel is essentially normal. CBC with WBC count 13.4, hemoglobin 10.5, hematocrit 32 and platelet count 469,000. ASSESSMENT AND PLAN: Mrs. Eastman is a 76-year-old female who came in with congestive heart failure that is diastolic in nature and likely at least in part aggravated by concomitant obstructive sleep apnea (MARGARET). We have been trying to diurese the patient with somewhat limited success, even though initially she lost about 4 or 5 kg. Will continue the current management. The second issue is the peripheral weakness and elevated CK. The etiology is not completely obvious. Evaluation and management as per primary team and neurology. As a new finding, she had fever last night. I am not exactly sure what could be the etiology. Again, I will leave the evaluation of this issue to the hospitalist.
[2016-10-24] MEDS: OMEPRAZOLE 20 MG CAP PO SCH (08:41)
[2016-10-24] MEDS: VALSARTAN 40MG TABLET (DIOVAN) PO SCH (08:41)
[2016-10-24] MEDS: SPIRONOLACTONE 12.5MG PER 1/2 TABLET PO SCH (08:41)
[2016-10-24] MEDS: ASPIRIN 81 MG ENTERIC TAB PO SCH (08:42)
[2016-10-24] MEDS: APIXABAN 5 MG TAB (ELIQUIS) PO SCH (08:42)
[2016-10-24] MEDS: MULTIVITAMINS/MINERALS THERAP 1 TAB PO SCH (08:42)
--- NOTE | 2016-10-24 08:57 | IPNPDOC ---
Subjective Date Seen The patient was seen on 10/24/16. Subjective Chief Complaint/HPI The patient is a 76-year-old female admitted with a reason for visit of CHF. General: Denies: ROS Unobtainable, Chills, Night Sweats, Fatigue, Malaise, Normal Appetite, Other Symptoms Constitutional: Reports: Malaise, Weakness, Denies: Chills, Fever, Night Sweats, Fatigue, Weight Loss, Lethargy, Other Eyes: Denies: Pain, Vision change, Conjunctivae inflammation, Eyelid inflammation, Redness, Other ENT: Denies: Head Aches, Ear Pain, Dysphagia, Sinus Congestion, Post Nasal Drip , Sore Throat, Epistaxis, Other Symptoms Skin: Denies: Rash, Lesions, Jaundice, Bruising, Itching, Dry, Breakdown, Nail Changes, Other Pulmonary: Reports: Dyspnea, Denies: Cough, Pleuritic Chest Pain, Other Symptoms Cardiovascular: Denies: Chest Pain, Palpitations, Orthopnea, Paroxysmal Noc. Dyspnea, Edema, Lt Headedness, Other Symptoms Gastrointestinal: Denies: Nausea, Vomiting, Abdominal Pain, Diarrhea, Constipation, Melena, Hematochezia, Other Symptoms Neurological: Reports: Weakness Objective Physical Examination General Exam: Positive: Alert, Cooperative, No Acute Distress, Other (lying comfortably in bed) Eye Exam: Positive: PERRLA, Conjunctiva & lids normal, EOMI, Negative: Sclera icteric ENT Exam: Positive: Atraumatic, Mucous membr. moist/pink Neck Exam: Positive: Supple Chest Exam: Positive: Clear to auscultation, Diminished Heart Exam: Positive: Rate Normal, Regular Rhythm Telemetry: Positive: No significant arrhythmia Abdomen Exam: Positive: Normal bowel sounds, Soft, Other (obese), Negative: Tenderness Extremity Exam: Positive: Edema (2+ b/l le pitting edema) Psych Exam: Positive: Oriented x 3 Assessment /Plan Problems (1) Afib Status: Acute Response to Treatment: Progressing Discussed With: Patient Problem Specific Plan: Consult Specialist, Monitor Clinically Problem Text: still not clear if this is actually atrial fib continue telemetry monitoring - no events noted thus far beta blockade transitioned to 25mg succinate qhs eliquis for anti-coagulation (2) Shortness of breath Status: Resolved Discussed With: Patient Problem Specific Plan: Consult Specialist, Monitor Clinically, Repeat Labs Problem Text: decompensated heart failure - diastolic dysfunction transitioned to BID dosing as has not been receiving secondary to low blood pressure aldactone, diovan, metoprolol succinate replete electrolytes cardiology consultation appreciated noc ox suspicious for ramirez - outpatient follow up (3) Weakness Status: Acute Response to Treatment: Progressing Discussed With: Patient Problem Specific Plan: Consult Specialist, Monitor Clinically Problem Text: Unclear etiology - CK still elevated and increasing > 2000 with elevated ESR states weakness limiting her ability to stand/walk MRI L/S spine obtained neurology consultation appreciated, recs for o/p muscle bx/EMG - patient states she will not be able to tolerate travelling to [place] for muscle bx continue with PT/OT follow up neurology recent steroid use 40mg daily taper for pneumonia about 4 weeks ago (4) Diarrhea Status: Resolved Discussed With: Patient Problem Specific Plan: Monitor Clinically (5) Elevated troponin Status: Resolved Discussed With: Patient Problem Specific Plan: Monitor Clinically Problem Text: resolved, no acs - likely demand ischemia Plan/VTE VTE Prophylaxis Ordered?: Yes (eliquis) Plan Diet: Continue Current Activity: Continue Current Therapy: PT, OT Pt and Family Services: Home Care Medications: Replete Electrolytes PO Diagnostics: Repeat Labs in AM Anticipated Discharge: Home, Home With Services Continue IV lasix for diuresis. Monitor telemetry - afib? PT/OT CK increasing, still weakness f/u neurology VS, I&O, 24H, [facility] Vital Signs/I&O Vital Signs Date Time Temp Pulse Resp B/P (MAP) Pulse Ox O2 Delivery O2 Flow Rate FiO2 10/24/16 08:41 110/60 10/24/16 04:45 101.8 98 20 93 Room Air I&O- Last 24 Hours up to 6 AM 10/24/16 06:00 Intake Total 720 ml Output Total 1200 ml Balance -480 ml Laboratory Data 24H LABS Laboratory Tests 2 10/24/16 05:20: Anion Gap 7L, Glomerular Filtration Rate > 60.0, Blood Urea Nitrogen 26H, Creatinine 0.75, Sodium Level 139, Potassium Level 3.5, Chloride Level 103, Carbon Dioxide Level 29, Calcium Level 7.2L 10/24/16 07:22: Total Creatine Kinase 2525H CBC/BMP Laboratory Tests 10/24/16 05:20 Red Blood Count 3.49 L, Mean Corpuscular Volume 93.5, Mean Corpuscular Hemoglobin 30.0, Mean Corpuscular Hemoglobin Concent 32.1, Red Cell Distribution Width 13.9, Calcium Level 7.2 L Microbiology Microbiology 10/24/16 Blood Culture, Received Pending 10/24/16 Blood Culture, Received Pending 10/14/16 Blood Culture - Final, Complete NO GROWTH AFTER 5 DAYS 10/14/16 Blood Culture - Final, Complete NO GROWTH AFTER 5 DAYS 10/20/16 Gastrointestinal Tract Panel (PCR) - Final, Complete 10/20/16 Stool Occult Blood (KENIA) - Final, Complete 10/15/16 Urine Culture - Final, Complete DEVENDRA LEA MD October 24, 2016 08:57
[2016-10-24] MEDS ORDERED: ENOXAPARIN 40 MG/0.4 ML SYRINGE (J1650) SC ONE (09:00)
--- NOTE | 2016-10-24 09:33 | REP ---
TWO-VIEW CHEST: Two views of the chest are performed and compared to a prior study of 10/17/2016. Right lower lobe infiltrate is unchanged. Mild left basilar interstitial opacities are unchanged. The cardiomediastinal silhouette is unchanged. IMPRESSION: Stable exam. Signed by Thomas Munguia MD 10/25/2016 04:00 P
[2016-10-24] MEDS: METOPROLOL SUCC *XL* 25MG TAB (TopROL *XL*) PO SCH (21:09)
[2016-10-25] VITALS (7 sets, daily range): BP systolic 106–136; BP diastolic 57–82
[2016-10-25] MEDS: FUROSEMIDE 100 MG/10 ML VIAL (J1940) IV SCH ×2 (00:51→12:00)
[2016-10-25] MEDS: SLF 3 ML SYR IV SCH ×3 (05:11→20:55)
[2016-10-25 05:41] LABS: ANION GAP 7 MEQ/L (8-16); BLOOD UREA NITROGEN 25 MG/DL (7-18); CALCIUM LEVEL 7.5 MG/DL (8.8-10.2); CARBON DIOXIDE LEVEL 29 MEQ/L (21-32); CHLORIDE LEVEL 104 MEQ/L (98-107); CREATININE FOR GFR 0.72 MG/DL (0.55-1.02); GLOMERULAR FILTRATION RATE > 60.0 (>39); GLUCOSE, FASTING 92 MG/DL (83-110); POTASSIUM SERUM 3.6 MEQ/L (3.5-5.1); SODIUM LEVEL 140 MEQ/L (136-145)
[2016-10-25] MEDS: ACETAMINOPHEN TAB 650MG DOSE (2X325MG) PO PRN ×3 (07:13→20:54)
[2016-10-25] MEDS: MULTIVITAMINS/MINERALS THERAP 1 TAB PO SCH (08:28)
[2016-10-25] MEDS: OMEPRAZOLE 20 MG CAP PO SCH (08:28)
[2016-10-25] MEDS: VALSARTAN 40MG TABLET (DIOVAN) PO SCH (08:29)
[2016-10-25] MEDS: ASPIRIN 81 MG ENTERIC TAB PO SCH (08:29)
[2016-10-25] MEDS: SPIRONOLACTONE 12.5MG PER 1/2 TABLET PO SCH (08:29)
[2016-10-25 10:31] LABS: MAGNESIUM LEVEL 2.1 MG/DL (1.8-2.4)
--- NOTE | 2016-10-25 16:30 | IPNPDOC ---
Subjective Date Seen The patient was seen on 10/25/16. Subjective Chief Complaint/HPI The patient is a 76-year-old female admitted with a reason for visit of CHF. Feeling well, remebers me from previous encounters. No CP, not SOB, tolerating diet. Generally improved, still weak, we discuss plans for further workup for elevated ck Constitutional: Denies: Chills, Fever Pulmonary: Denies: Dyspnea, Cough Cardiovascular: Denies: Chest Pain, Palpitations Gastrointestinal: Denies: Nausea, Vomiting, Abdominal Pain Objective Physical Examination General Exam: Positive: Alert, No Acute Distress, Other (lying comfortably in bed) Eye Exam: Negative: Sclera icteric ENT Exam: Positive: Mucous membr. moist/pink Neck Exam: Positive: Supple Chest Exam: Positive: Clear to auscultation, Diminished Heart Exam: Positive: Rate Normal, Regular Rhythm Telemetry: Positive: No significant arrhythmia Abdomen Exam: Positive: Normal bowel sounds, Soft, Other (obese), Negative: Tenderness Extremity Exam: Positive: Edema (1+ b/l le pitting edema) Psych Exam: Positive: Oriented x 3 Assessment /Plan Problems (1) Afib Status: Acute Response to Treatment: Progressing Discussed With: Patient Problem Specific Plan: Consult Specialist, Monitor Clinically Problem Text: Likely always in sinus rhythm less this is actually atrial fib continue telemetry monitoring - no events noted thus far beta blockade transitioned to 25mg succinate qhs eliquis for anti-coagulation- defer to cardiology (2) Shortness of breath Status: Resolved Discussed With: Patient Problem Specific Plan: Consult Specialist, Monitor Clinically, Repeat Labs Problem Text: decompensated heart failure - diastolic dysfunction transitioned to BID dosing as has not been receiving secondary to low blood pressure aldactone, diovan, metoprolol succinate replete electrolytes cardiology consultation appreciated noc ox suspicious for ramirez - outpatient follow up (3) Weakness Status: Acute Response to Treatment: Progressing Discussed With: Patient Problem Specific Plan: Consult Specialist, Monitor Clinically Problem Text: Unclear etiology - CK still elevated and increasing > 2000 with elevated ESR states weakness limiting her ability to stand/walk MRI L/S spine obtained neurology consultation appreciated, recs for o/p muscle bx/EMG - patient states she will not be able to tolerate travelling to [place] for muscle bx, willing to have localEMG continue with PT/OT follow up neurology as outpt recent steroid use 40mg daily taper for pneumonia about 4 weeks ago (4) Diarrhea Status: Resolved Discussed With: Patient Problem Specific Plan: Monitor Clinically (5) Elevated troponin Status: Resolved Discussed With: Patient Problem Specific Plan: Monitor Clinically Problem Text: resolved, no acs - likely demand ischemia Plan/VTE VTE Prophylaxis Ordered?: Yes (eliquis) Plan Diet: Continue Current Activity: Continue Current Therapy: PT, OT Pt and Family Services: Home Care Medications: Replete Electrolytes PO Diagnostics: Repeat Labs in AM Anticipated Discharge: Home, Home With Services VS, I&O, 24H, [facility] Vital Signs/I&O Vital Signs Date Time Temp Pulse Resp B/P (MAP) Pulse Ox O2 Delivery O2 Flow Rate FiO2 10/25/16 16:00 98.2 90 22 106/58 (74) 94 Room Air I&O- Last 24 Hours up to 6 AM 10/25/16 05:59 Intake Total 1080 ml Output Total 1700 ml Balance -620 ml Laboratory Data 24H LABS Laboratory Tests 2 10/25/16 05:11: Anion Gap 7L, Glomerular Filtration Rate > 60.0, Blood Urea Nitrogen 25H, Creatinine 0.72, Sodium Level 140, Potassium Level 3.6, Chloride Level 104, Carbon Dioxide Level 29, Calcium Level 7.5L, Magnesium Level 2.1 CBC/BMP Laboratory Tests 10/25/16 05:11 Calcium Level 7.5 L Microbiology Microbiology 10/24/16 Blood Culture - Preliminary, Resulted No growth after 24 hours . All specim... 10/24/16 Blood Culture - Preliminary, Resulted No growth after 24 hours . All specim... 10/20/16 Gastrointestinal Tract Panel (PCR) - Final, Complete 10/20/16 Stool Occult Blood (KENIA) - Final, Complete 10/24/16 Urine Culture, Received Pending 10/15/16 Urine Culture - Final, Complete YURI MILES MD October 25, 2016 16:29
[2016-10-25] MEDS: METOPROLOL SUCC *XL* 25MG TAB (TopROL *XL*) PO SCH (20:54)
[2016-10-26] MEDS: FUROSEMIDE 100 MG/10 ML VIAL (J1940) IV SCH ×2 (00:21→09:05)
[2016-10-26 03:11] VITALS: BP 129/61
[2016-10-26] MEDS: ACETAMINOPHEN TAB 650MG DOSE (2X325MG) PO PRN ×5 (03:35→23:57)
[2016-10-26 05:43] LABS: BASO # 0.1 K/mm3 (0.0-0.2); BASO % 0.5 % (0.0-1.0); EOS # 0.3 K/mm3 (0.0-0.50); EOS % 2.5 % (0.0-3.0); LARGE UNSTAINED CELL # 0.1 K/mm3 (0.0-0.4); LARGE UNSTAINED CELL % 0.8 % (0.0-4.0); LYMPH # 1.1 K/mm3 (1.5-4.5); LYMPH % 7.8 % (24.0-44.0); MEAN CORPUSCULAR HEMOGLOBIN 30.2 pg (27.0-33.0); MEAN CORPUSCULAR HGB CONC 32.7 g/dl (32.0-36.5); MEAN CORPUSCULAR VOLUME 92.3 fl (80.0-96.0); MONO # 0.4 K/mm3 (0.0-0.8); MONO % 3.4 % (0.0-5.0); NEUTROPHILS # 10.5 K/mm3 (1.8-7.7); NEUTROPHILS % 85.1 % (36.0-66.0); PLATELET COUNT, AUTOMATED 436 k/mm3 (150-450); WHITE BLOOD COUNT 12.4 K/mm3 (4.0-10.0)
[2016-10-26] MEDS: SLF 3 ML SYR IV SCH ×3 (05:48→20:33)
[2016-10-26 05:53] LABS: ANION GAP 6 MEQ/L (8-16); BLOOD UREA NITROGEN 23 MG/DL (7-18); CALCIUM LEVEL 7.4 MG/DL (8.8-10.2); CARBON DIOXIDE LEVEL 27 MEQ/L (21-32); CHLORIDE LEVEL 104 MEQ/L (98-107); CREATININE FOR GFR 0.73 MG/DL (0.55-1.02); GLOMERULAR FILTRATION RATE > 60.0 (>39); GLUCOSE, FASTING 91 MG/DL (83-110); POTASSIUM SERUM 3.6 MEQ/L (3.5-5.1); SODIUM LEVEL 137 MEQ/L (136-145)
[2016-10-26 07:30] VITALS: BP 117/56
[2016-10-26] MEDS: GABAPENTIN 100 MG CAP PO SCH ×3 (08:24→20:32)
[2016-10-26] MEDS: VALSARTAN 40MG TABLET (DIOVAN) PO SCH (08:24)
[2016-10-26] MEDS: ASPIRIN 81 MG ENTERIC TAB PO SCH (08:24)
[2016-10-26] MEDS: SPIRONOLACTONE 12.5MG PER 1/2 TABLET PO SCH (08:24)
[2016-10-26] MEDS: OMEPRAZOLE 20 MG CAP PO SCH (08:24)
[2016-10-26] MEDS: MULTIVITAMINS/MINERALS THERAP 1 TAB PO SCH (08:24)
--- NOTE | 2016-10-26 08:44 | IPN ---
DATE: 10/26/2016 Mrs. Eastman had an relatively uneventful day and night yesterday. Unfortunately, she continues to be very weak and ambulation is difficult. She gets easily short of breath. She now complains about pain in her feet and her hands which sounds neuropathic to her description. She also has had sensation of a very dry mouth and has to make small sips of water frequently. She is otherwise alert, oriented and appropriate. Blood pressure 120/61. She was afebrile even though there was a yesterday evening T-max of 100.2. Fluid balance was about 1500 negative, but yet her weight is about the same. Her jugular venous pulse (JVP) does not look high to me. Lungs are fairly clear to auscultation even though air movement is fair. Heart exam is unchanged, regular rhythm. She has much less ectopy compared to before. Abdomen is obese, but soft and nontender. There is still peripheral edema and there is a fine pruritic rash on her arms. Laboratory-urban, basic metabolic panel is normal. CBC with hemoglobin 10, hematocrit 33 and platelet count 436,000. Her albumin level has been consistently low. Her CK remains consistently elevated. ASSESSMENT/PLAN: Mrs. Eastman is a 76-year-old female who likely has diastolic heart failure in combination with obstructive sleep apnea. We have been trying to diurese her, but she has persistent edema and already looks intravascularly dry to me. I suspect that it is probably because she has a very low albumin level. There is no albumin in the urine so she either has some chronic inflammatory state which in my opinion is most likely or she has poor nutrition. She also has an elevated CK and generalized muscle weakness so I suspect that she has some underlying condition, possibly polymyalgia rheumatica or some other myositic type of process. I will get in touch with Dr. Kramer regarding management of this issue. From a cardiac perspective, I am going to cut down on her diuretics and leave the furosemide to just once a day. I do think that she will need some further evaluation to get to the bottom of this process that is likely present.
[2016-10-26 12:00] VITALS: BP 110/59
--- NOTE | 2016-10-26 13:56 | IPNPDOC ---
Subjective Date Seen The patient was seen on 10/26/16. Subjective Chief Complaint/HPI The patient is a 76-year-old female admitted with a reason for visit of CHF. Events since last encounter Patient's main issue is dry tongue- staff believes that she may be drinking from sink. Tolerating diet- no chest pain, no particularly short of breath, but feeling week, has burning sensation in both hands which has been ongoing for weeks, disturbed her sleep last night Constitutional: Denies: Chills, Fever Pulmonary: Denies: Dyspnea, Cough Cardiovascular: Denies: Chest Pain, Palpitations Gastrointestinal: Denies: Nausea, Vomiting, Abdominal Pain Objective Physical Examination General Exam: Positive: Alert, Cooperative, No Acute Distress, Other (lying comfortably in bed) Eye Exam: Negative: Sclera icteric ENT Exam: Positive: Mucous membr. moist/pink Neck Exam: Positive: Supple Chest Exam: Positive: Clear to auscultation, Diminished Heart Exam: Positive: Rate Normal, Regular Rhythm, Normal S1, Normal S2 Telemetry: Positive: No significant arrhythmia Abdomen Exam: Positive: Normal bowel sounds, Soft, Other (obese), Negative: Tenderness Extremity Exam: Positive: Edema (1+ b/l le pitting edema) Psych Exam: Positive: Oriented x 3 Assessment /Plan Problems (1) Afib Status: Acute Response to Treatment: Progressing Discussed With: Patient Problem Specific Plan: Consult Specialist, Monitor Clinically Problem Text: Likely always in sinus rhythm less this is actually atrial fib continue telemetry monitoring - no events noted as of yet beta blockade transitioned to 25mg succinate qhs on ASA (2) Shortness of breath Status: Resolved Discussed With: Patient Problem Specific Plan: Consult Specialist, Monitor Clinically, Repeat Labs Problem Text: decompensated heart failure - diastolic dysfunction Case discussed with Dr. Marquez- switching to lasix once daily noc ox suspicious for ramirez - outpatient follow up (3) Weakness Status: Acute Response to Treatment: Progressing Discussed With: Patient Problem Specific Plan: Consult Specialist, Monitor Clinically Problem Text: Unclear etiology - CK still elevated and increasing > 2000 with elevated ESR states weakness limiting her ability to stand/walk MRI L/S spine obtained neurology consultation appreciated, recs for o/p muscle bx/EMG - patient states she will not be able to tolerate travelling to [place] for muscle bx, willing to have local EMG continue with PT/OT follow up neurology as outpt recent steroid use 40mg daily taper for pneumonia about 4 weeks ago- declinign steroids currently (4) Diarrhea Status: Resolved Discussed With: Patient Problem Specific Plan: Monitor Clinically (5) Elevated troponin Status: Resolved Discussed With: Patient Problem Specific Plan: Monitor Clinically Problem Text: resolved, no acs - likely demand ischemia Plan/VTE VTE Prophylaxis Ordered?: Yes (eliquis) Plan Diet: Continue Current Activity: Continue Current Therapy: PT, OT Pt and Family Services: Home Care Medications: Replete Electrolytes PO Diagnostics: Repeat Labs in AM Anticipated Discharge: Home, Home With Services VS, I&O, 24H, [facility] Vital Signs/I&O Vital Signs Date Time Temp Pulse Resp B/P (MAP) Pulse Ox O2 Delivery O2 Flow Rate FiO2 10/26/16 12:00 99.6 91 20 110/59 (76) 92 Room Air I&O- Last 24 Hours up to 6 AM 10/26/16 06:00 Intake Total 1020 ml Output Total 2120 ml Balance -1100 ml Laboratory Data 24H LABS Laboratory Tests 2 10/26/16 05:19: White Blood Count 12.4H, Red Blood Count 3.58L, Hemoglobin 10.8L, Hematocrit 33.0L, Mean Corpuscular Volume 92.3, Mean Corpuscular Hemoglobin 30.2, Mean Corpuscular Hemoglobin Concent 32.7, Red Cell Distribution Width 14.0, Platelet Count 436, Neutrophils (%) (Auto) 85.1H, Lymphocytes (%) (Auto) 7.8L, Monocytes (%) (Auto) 3.4, Eosinophils (%) (Auto) 2.5, Basophils (%) (Auto) 0.5, Neutrophils # (Auto) 10.5H, Lymphocytes # (Auto) 1.1L, Monocytes # (Auto) 0.4, Eosinophils # (Auto) 0.3, Basophils # (Auto) 0.1, Large Unclassified Cells % 0.8 , Large Unclassified Cells # 0.1, Anion Gap 6L, Glomerular Filtration Rate > 60.0, Blood Urea Nitrogen 23H, Creatinine 0.73, Sodium Level 137, Potassium Level 3.6, Chloride Level 104, Carbon Dioxide Level 27, Calcium Level 7.4L CBC/BMP Laboratory Tests 10/26/16 05:19 Red Blood Count 3.58 L, Mean Corpuscular Volume 92.3, Mean Corpuscular Hemoglobin 30.2, Mean Corpuscular Hemoglobin Concent 32.7, Red Cell Distribution Width 14.0, Neutrophils (%) (Auto) 85.1 H, Lymphocytes (%) (Auto) 7.8 L, Monocytes (%) (Auto) 3.4, Eosinophils (%) (Auto) 2.5, Basophils (%) (Auto ) 0.5, Neutrophils # (Auto) 10.5 H, Lymphocytes # (Auto) 1.1 L, Monocytes # ( Auto) 0.4, Eosinophils # (Auto) 0.3, Basophils # (Auto) 0.1, Calcium Level 7.4 L Microbiology Microbiology 10/24/16 Blood Culture - Preliminary, Resulted No Growth after 48 hours. All Specime... 10/24/16 Blood Culture - Preliminary, Resulted No Growth after 48 hours. All Specime... 10/20/16 Gastrointestinal Tract Panel (PCR) - Final, Complete 10/20/16 Stool Occult Blood (KENIA) - Final, Complete 10/24/16 Urine Culture - Final, Complete Corynebacterium Species YURI MILES MD October 26, 2016 13:56
[2016-10-26 17:20] VITALS: BP 130/61
[2016-10-26] MEDS: METOPROLOL SUCC *XL* 25MG TAB (TopROL *XL*) PO SCH (20:33)
[2016-10-26 22:00] VITALS: BP 109/56
[2016-10-27 02:00] VITALS: BP 143/55
[2016-10-27] MEDS: SLF 3 ML SYR IV SCH ×3 (05:38→20:05)
[2016-10-27] MEDS: ACETAMINOPHEN TAB 650MG DOSE (2X325MG) PO PRN ×4 (05:54→20:02)
[2016-10-27] MEDS: SALIVA SUBSTITUTE(MOUTHKOTE) BTL MT PRN (05:54)
[2016-10-27 06:00] VITALS: BP 128/63
[2016-10-27 06:53] LABS: BASO % 0.4 % (0.0-1.0); EOS # 0.3 K/mm3 (0.0-0.50); EOS % 3.3 % (0.0-3.0); LARGE UNSTAINED CELL # 0.1 K/mm3 (0.0-0.4); LARGE UNSTAINED CELL % 0.9 % (0.0-4.0); LYMPH # 1.1 K/mm3 (1.5-4.5); LYMPH % 9.4 % (24.0-44.0); MEAN CORPUSCULAR HEMOGLOBIN 30.3 pg (27.0-33.0); MEAN CORPUSCULAR HGB CONC 32.6 g/dl (32.0-36.5); MEAN CORPUSCULAR VOLUME 93.1 fl (80.0-96.0); MONO # 0.4 K/mm3 (0.0-0.8); MONO % 3.5 % (0.0-5.0); NEUTROPHILS # 8.6 K/mm3 (1.8-7.7); NEUTROPHILS % 82.6 % (36.0-66.0); PLATELET COUNT, AUTOMATED 397 k/mm3 (150-450); RED CELL DISTRIBUTION WIDTH 14.3 % (11.5-14.5); WHITE BLOOD COUNT 10.4 K/mm3 (4.0-10.0)
[2016-10-27 07:12] LABS: ANION GAP 8 MEQ/L (8-16); BLOOD UREA NITROGEN 23 MG/DL (7-18); CALCIUM LEVEL 7.6 MG/DL (8.8-10.2); CARBON DIOXIDE LEVEL 25 MEQ/L (21-32); CHLORIDE LEVEL 105 MEQ/L (98-107); CREATININE FOR GFR 0.76 MG/DL (0.55-1.02); GLOMERULAR FILTRATION RATE > 60.0 (>39); GLUCOSE, FASTING 91 MG/DL (83-110); POTASSIUM SERUM 3.4 MEQ/L (3.5-5.1); SODIUM LEVEL 138 MEQ/L (136-145)
[2016-10-27 09:04] LABS: ERYTHROCYTE SEDIMENTATION RATE 70 mm/hr (0-30)
[2016-10-27] MEDS: ASPIRIN 81 MG ENTERIC TAB PO SCH (09:56)
[2016-10-27] MEDS: MULTIVITAMINS/MINERALS THERAP 1 TAB PO SCH (09:56)
[2016-10-27] MEDS: VALSARTAN 40MG TABLET (DIOVAN) PO SCH (09:56)
[2016-10-27] MEDS: GABAPENTIN 100 MG CAP PO SCH ×3 (09:56→20:01)
[2016-10-27] MEDS: SPIRONOLACTONE 12.5MG PER 1/2 TABLET PO SCH (09:56)
[2016-10-27] MEDS: OMEPRAZOLE 20 MG CAP PO SCH (09:56)
[2016-10-27] MEDS: FUROSEMIDE 100 MG/10 ML VIAL (J1940) IV SCH (09:57)
[2016-10-27 10:00] VITALS: BP 115/61
[2016-10-27] MEDS ORDERED: POTASSIUM CHLORIDE 10 MEQ SR TABLET PO ONE (12:15)
[2016-10-27] MEDS: ENOXAPARIN 40 MG/0.4 ML SYRINGE (J1650) SC SCH (12:37)
[2016-10-27 14:00] VITALS: BP 116/56
--- NOTE | 2016-10-27 19:34 | IPNPDOC ---
Subjective Date Seen The patient was seen on 10/27/16. Subjective Chief Complaint/HPI The patient is a 76-year-old female admitted with a reason for visit of CHF. Events since last encounter Has been out of bed, working with PT, neurontin not too useful for limb discomfort/achiness, willing to start prednisone trial, unwilling to pursue muscle biopsy Constitutional: Denies: Chills, Fever Pulmonary: Denies: Dyspnea, Cough Cardiovascular: Denies: Chest Pain, Palpitations Gastrointestinal: Denies: Nausea, Vomiting Objective Physical Examination General Exam: Positive: Alert, Cooperative, No Acute Distress, Other (lying comfortably in bed) ENT Exam: Positive: Mucous membr. moist/pink Neck Exam: Positive: Supple Chest Exam: Positive: Clear to auscultation, Diminished Heart Exam: Positive: Rate Normal, Regular Rhythm, Normal S1, Normal S2 Abdomen Exam: Positive: Normal bowel sounds, Soft, Negative: Tenderness Extremity Exam: Positive: Edema (1+ b/l le pitting edema) Psych Exam: Positive: Oriented x 3 Assessment /Plan Problems (1) Afib Status: Acute Response to Treatment: Progressing Discussed With: Patient Problem Specific Plan: Consult Specialist, Monitor Clinically Problem Text: Likely always in sinus rhythm less likely this is actually atrial fib off telemetry monitoring - no events noted as of yet beta blockade transitioned to 25mg succinate qhs on ASA (2) Shortness of breath Status: Resolved Discussed With: Patient Problem Specific Plan: Consult Specialist, Monitor Clinically, Repeat Labs Problem Text: decompensated heart failure now compensated- diastolic dysfunction Case discussed with Dr. Marquez- switching to lasix once daily noc ox suspicious for ramirez - outpatient follow up (3) Weakness Status: Acute Response to Treatment: Progressing Discussed With: Patient Problem Specific Plan: Consult Specialist, Monitor Clinically Problem Text: Unclear etiology - CK still elevated and increasing > 2000 with elevated ESR- suspect myositis states weakness limiting her ability to stand/walk MRI L/S spine obtained neurology consultation appreciated, recs for o/p muscle bx/EMG - patient states she will not be able to tolerate travelling to [place] for muscle bx, willing to have local EMG continue with PT/OT follow up neurology as outpt recent steroid use 40mg daily taper for pneumonia about 4 weeks ago- agrees to steroids currently (4) Diarrhea Status: Resolved Discussed With: Patient Problem Specific Plan: Monitor Clinically (5) Elevated troponin Status: Resolved Discussed With: Patient Problem Specific Plan: Monitor Clinically Problem Text: resolved, no acs - likely demand ischemia (6) Hypokalemia Problem Text: replete Plan/VTE VTE Prophylaxis Ordered?: Yes (eliquis) Plan Diet: Continue Current Activity: Continue Current Therapy: PT, OT Pt and Family Services: Home Care Medications: Replete Electrolytes PO Diagnostics: Repeat Labs in AM Anticipated Discharge: Home, Home With Services VS, I&O, 24H, [facility] Vital Signs/I&O Vital Signs Date Time Temp Pulse Resp B/P (MAP) Pulse Ox O2 Delivery O2 Flow Rate FiO2 10/27/16 14:00 98.7 87 18 116/56 (76) 95 Room Air I&O- Last 24 Hours up to 6 AM 10/27/16 05:59 Intake Total 1080 ml Output Total 1025 ml Balance 55 ml Laboratory Data 24H LABS Laboratory Tests 2 10/27/16 06:21: White Blood Count 10.4H, Red Blood Count 3.42L, Hemoglobin 10.4L, Hematocrit 31.8L, Mean Corpuscular Volume 93.1, Mean Corpuscular Hemoglobin 30.3, Mean Corpuscular Hemoglobin Concent 32.6, Red Cell Distribution Width 14.3, Platelet Count 397, Neutrophils (%) (Auto) 82.6H, Lymphocytes (%) (Auto) 9.4L, Monocytes (%) (Auto) 3.5, Eosinophils (%) (Auto) 3.3H, Basophils (%) (Auto) 0.4, Neutrophils # (Auto) 8.6H, Lymphocytes # (Auto) 1.1L, Monocytes # (Auto) 0.4, Eosinophils # (Auto) 0.3, Basophils # (Auto) 0.0, Large Unclassified Cells % 0.9 , Large Unclassified Cells # 0.1, Erythrocyte Sedimentation Rate 70H, Anion Gap 8, Glomerular Filtration Rate > 60.0, Blood Urea Nitrogen 23H, Creatinine 0.76, Sodium Level 138, Potassium Level 3.4L, Chloride Level 105, Carbon Dioxide Level 25, Calcium Level 7.6L CBC/BMP Laboratory Tests 10/27/16 06:21 Red Blood Count 3.42 L, Mean Corpuscular Volume 93.1, Mean Corpuscular Hemoglobin 30.3, Mean Corpuscular Hemoglobin Concent 32.6, Red Cell Distribution Width 14.3, Neutrophils (%) (Auto) 82.6 H, Lymphocytes (%) (Auto) 9.4 L, Monocytes (%) (Auto) 3.5, Eosinophils (%) (Auto) 3.3 H, Basophils (%) ( Auto) 0.4, Neutrophils # (Auto) 8.6 H, Lymphocytes # (Auto) 1.1 L, Monocytes # ( Auto) 0.4, Eosinophils # (Auto) 0.3, Basophils # (Auto) 0.0, Calcium Level 7.6 L Microbiology Microbiology 10/24/16 Blood Culture - Preliminary, Resulted No Growth after 72 hours. All specime... 10/24/16 Blood Culture - Preliminary, Resulted No Growth after 72 hours. All specime... 10/20/16 Gastrointestinal Tract Panel (PCR) - Final, Complete 10/20/16 Stool Occult Blood (KENIA) - Final, Complete 10/24/16 Urine Culture - Final, Complete Corynebacterium Species YURI MILES MD October 27, 2016 19:34
[2016-10-27] MEDS: METOPROLOL SUCC *XL* 25MG TAB (TopROL *XL*) PO SCH (20:02)
[2016-10-27 22:00] VITALS: BP 126/56
[2016-10-28] MEDS: ACETAMINOPHEN TAB 650MG DOSE (2X325MG) PO PRN ×4 (00:50→17:49)
[2016-10-28 02:00] VITALS: BP 124/58
[2016-10-28] MEDS: SLF 3 ML SYR IV SCH ×3 (05:10→21:22)
[2016-10-28 05:45] LABS: BASO # 0.1 K/mm3 (0.0-0.2); BASO % 0.7 % (0.0-1.0); EOS # 0.3 K/mm3 (0.0-0.50); EOS % 2.6 % (0.0-3.0); LARGE UNSTAINED CELL # 0.1 K/mm3 (0.0-0.4); LARGE UNSTAINED CELL % 0.8 % (0.0-4.0); LYMPH # 1.2 K/mm3 (1.5-4.5); LYMPH % 8.8 % (24.0-44.0); MEAN CORPUSCULAR HEMOGLOBIN 30.4 pg (27.0-33.0); MEAN CORPUSCULAR HGB CONC 32.5 g/dl (32.0-36.5); MEAN CORPUSCULAR VOLUME 93.5 fl (80.0-96.0); MONO # 0.4 K/mm3 (0.0-0.8); MONO % 3.1 % (0.0-5.0); NEUTROPHILS # 10.4 K/mm3 (1.8-7.7); NEUTROPHILS % 84.1 % (36.0-66.0); PLATELET COUNT, AUTOMATED 425 k/mm3 (150-450); RED CELL DISTRIBUTION WIDTH 14.1 % (11.5-14.5); WHITE BLOOD COUNT 12.4 K/mm3 (4.0-10.0)
[2016-10-28 06:00] VITALS: BP 103/50
[2016-10-28 06:04] LABS: ANION GAP 8 MEQ/L (8-16); BLOOD UREA NITROGEN 23 MG/DL (7-18); CALCIUM LEVEL 7.4 MG/DL (8.8-10.2); CARBON DIOXIDE LEVEL 27 MEQ/L (21-32); CHLORIDE LEVEL 106 MEQ/L (98-107); CREATININE FOR GFR 0.77 MG/DL (0.55-1.02); GLOMERULAR FILTRATION RATE > 60.0 (>39); GLUCOSE, FASTING 89 MG/DL (83-110); POTASSIUM SERUM 3.8 MEQ/L (3.5-5.1); SODIUM LEVEL 141 MEQ/L (136-145)
[2016-10-28] MEDS: ASPIRIN 81 MG ENTERIC TAB PO SCH (09:45)
[2016-10-28] MEDS: VALSARTAN 40MG TABLET (DIOVAN) PO SCH (09:45)
[2016-10-28] MEDS: OMEPRAZOLE 20 MG CAP PO SCH (09:45)
[2016-10-28] MEDS: MULTIVITAMINS/MINERALS THERAP 1 TAB PO SCH (09:45)
[2016-10-28] MEDS: predniSONE 20 MG TAB PO SCH (09:46)
[2016-10-28] MEDS: GABAPENTIN 100 MG CAP PO SCH ×3 (09:46→21:21)
[2016-10-28] MEDS: SPIRONOLACTONE 12.5MG PER 1/2 TABLET PO SCH (09:46)
[2016-10-28] MEDS: FUROSEMIDE 100 MG/10 ML VIAL (J1940) IV SCH (09:46)
[2016-10-28] MEDS: ENOXAPARIN 40 MG/0.4 ML SYRINGE (J1650) SC SCH (09:46)
[2016-10-28 10:00] VITALS: BP 120/68
--- NOTE | 2016-10-28 10:03 | REP ---
RIGHT UPPER QUADRANT SONOGRAPHY: HISTORY: Low albumin. FINDINGS: Scanning through the right upper quadrant of the abdomen demonstrates a normal sized thin-walled gallbladder without evidence of stone or polyp. Common bile duct is normal measuring 0.4 cm in greatest diameter. There is a small quantity of right pleural fluid noted incidentally. There is a left hepatic cyst measuring 4.0 x 5.5 x 3.5 cm high at the dome of the diaphragm. No other focal hepatic lesion is seen. Pancreas shows no abnormality. There is no evidence of ascites or right renal abnormality. The right kidney measures 10.5 x 5.0 x 4.2 cm. IMPRESSION: Left lobe cyst. This is visible on recent CT study. Small quantity of right pleural fluid. Otherwise, negative right upper quadrant sonography. Signed by Lenin Mcgovern MD 10/28/2016 10:27 A
[2016-10-28 14:00] VITALS: BP 104/52
[2016-10-28 17:46] VITALS: BP 122/57
[2016-10-28] MEDS: METOPROLOL SUCC *XL* 25MG TAB (TopROL *XL*) PO SCH (21:21)
[2016-10-28 22:00] VITALS: BP 119/57
--- NOTE | 2016-10-28 23:06 | IPNPDOC ---
Subjective Date Seen The patient was seen on 10/28/16. Subjective Chief Complaint/HPI The patient is a 76-year-old female admitted with a reason for visit of CHF. Events since last encounter Has discomfort intermittently in hands and feet. Working with PT, able to walk, but trouble getting in and out of bed. tolerating diet, good appetite,having bowel movements, no diarrhea Constitutional: Denies: Chills, Fever Pulmonary: Denies: Dyspnea, Cough Cardiovascular: Denies: Chest Pain Gastrointestinal: Denies: Nausea, Vomiting, Abdominal Pain Objective Physical Examination General Exam: Positive: Alert, Cooperative, No Acute Distress, Other (lying comfortably in bed) ENT Exam: Positive: Mucous membr. moist/pink Neck Exam: Positive: Supple Chest Exam: Positive: Clear to auscultation, Diminished, Negative: Rales, Rhonchi, Wheezing Heart Exam: Positive: Rate Normal, Regular Rhythm, Normal S1, Normal S2 Abdomen Exam: Positive: Normal bowel sounds, Soft, Negative: Tenderness Extremity Exam: Positive: Edema (1+ b/l le pitting edema) Psych Exam: Positive: Oriented x 3 Assessment /Plan Problems (1) Afib Status: Acute Response to Treatment: Progressing Discussed With: Patient Problem Specific Plan: Consult Specialist, Monitor Clinically Problem Text: Likely always in sinus rhythm less likely this is actually atrial fib off telemetry monitoring - no events noted during stay beta blockade transitioned to 25mg succinate qhs on ASA (2) Shortness of breath Status: Resolved Discussed With: Patient Problem Specific Plan: Consult Specialist, Monitor Clinically, Repeat Labs Problem Text: decompensated heart failure now compensated- diastolic dysfunction Cardiology signed off- on lasix once daily noc ox suspicious for ramirez - outpatient follow up (3) Weakness Status: Acute Response to Treatment: Progressing Discussed With: Patient Problem Specific Plan: Consult Specialist, Monitor Clinically Problem Text: Unclear etiology - CK repeat in AM- suspect myositis states weakness limiting her ability to stand/walk MRI L/S spine obtained neurology consultation appreciated, recs for o/p muscle bx/EMG - patient states she will not be able to tolerate travelling to [place] for muscle bx, willing to have local EMG continue with PT/OT follow up neurology as outpt recent steroid use 40mg daily taper for pneumonia about 4 weeks ago- agrees to steroids currently has received two doses without obvious improvement (4) Diarrhea Status: Resolved Discussed With: Patient Problem Specific Plan: Monitor Clinically (5) Elevated troponin Status: Resolved Discussed With: Patient Problem Specific Plan: Monitor Clinically Problem Text: resolved, no acs - likely demand ischemia (6) Hypokalemia Problem Text: replete Plan/VTE VTE Prophylaxis Ordered?: Yes (eliquis) Plan Diet: Continue Current Activity: Continue Current Therapy: PT, OT Pt and Family Services: Home Care Medications: Replete Electrolytes PO Diagnostics: Repeat Labs in AM Anticipated Discharge: Home, Home With Services VS, I&O, 24H, [facility] Vital Signs/I&O Vital Signs Date Time Temp Pulse Resp B/P (MAP) Pulse Ox O2 Delivery O2 Flow Rate FiO2 10/28/16 21:21 79 119/57 10/28/16 21:15 Room Air 10/28/16 17:46 99.7 18 93 I&O- Last 24 Hours up to 6 AM 10/28/16 05:59 Intake Total 1440 ml Output Total 1275 ml Balance 165 ml Laboratory Data 24H LABS Laboratory Tests 2 10/28/16 05:13: White Blood Count 12.4H, Red Blood Count 3.42L, Hemoglobin 10.4L, Hematocrit 32.0L, Mean Corpuscular Volume 93.5, Mean Corpuscular Hemoglobin 30.4, Mean Corpuscular Hemoglobin Concent 32.5, Red Cell Distribution Width 14.1, Platelet Count 425, Neutrophils (%) (Auto) 84.1H, Lymphocytes (%) (Auto) 8.8L, Monocytes (%) (Auto) 3.1, Eosinophils (%) (Auto) 2.6, Basophils (%) (Auto) 0.7, Neutrophils # (Auto) 10.4H, Lymphocytes # (Auto) 1.2L, Monocytes # (Auto) 0.4, Eosinophils # (Auto) 0.3, Basophils # (Auto) 0.1, Large Unclassified Cells % 0.8 , Large Unclassified Cells # 0.1, Anion Gap 8, Glomerular Filtration Rate > 60.0 , Blood Urea Nitrogen 23H, Creatinine 0.77, Sodium Level 141, Potassium Level 3.8, Chloride Level 106, Carbon Dioxide Level 27, Calcium Level 7.4L CBC/BMP Laboratory Tests 10/28/16 05:13 Red Blood Count 3.42 L, Mean Corpuscular Volume 93.5, Mean Corpuscular Hemoglobin 30.4, Mean Corpuscular Hemoglobin Concent 32.5, Red Cell Distribution Width 14.1, Neutrophils (%) (Auto) 84.1 H, Lymphocytes (%) (Auto) 8.8 L, Monocytes (%) (Auto) 3.1, Eosinophils (%) (Auto) 2.6, Basophils (%) (Auto ) 0.7, Neutrophils # (Auto) 10.4 H, Lymphocytes # (Auto) 1.2 L, Monocytes # ( Auto) 0.4, Eosinophils # (Auto) 0.3, Basophils # (Auto) 0.1, Calcium Level 7.4 L Microbiology Microbiology 10/24/16 Blood Culture - Preliminary, Resulted No Growth after 72 hours. All specime... 10/24/16 Blood Culture - Preliminary, Resulted No Growth after 72 hours. All specime... 10/20/16 Gastrointestinal Tract Panel (PCR) - Final, Complete 10/20/16 Stool Occult Blood (KENIA) - Final, Complete 10/24/16 Urine Culture - Final, Complete Corynebacterium Species YURI MILES MD October 28, 2016 23:06
[2016-10-29 00:07] LABS: SJOGREN'S ANTI SS-A 2.3 AI (0.0-0.9); SJOGREN'S ANTI SS-B <0.2 AI (0.0-0.9)
[2016-10-29] MEDS: ACETAMINOPHEN TAB 650MG DOSE (2X325MG) PO PRN ×4 (00:09→20:39)
[2016-10-29 02:00] VITALS: BP 108/54
[2016-10-29] MEDS: SLF 3 ML SYR IV SCH ×3 (05:25→20:40)
[2016-10-29 06:00] VITALS: BP 123/59
[2016-10-29 06:02] LABS: BASO % 0.3 % (0.0-1.0); EOS # 0.1 K/mm3 (0.0-0.50); EOS % 0.7 % (0.0-3.0); LARGE UNSTAINED CELL # 0.1 K/mm3 (0.0-0.4); LARGE UNSTAINED CELL % 1.3 % (0.0-4.0); LYMPH # 1.3 K/mm3 (1.5-4.5); LYMPH % 13.3 % (24.0-44.0); MEAN CORPUSCULAR HEMOGLOBIN 30.9 pg (27.0-33.0); MEAN CORPUSCULAR HGB CONC 32.6 g/dl (32.0-36.5); MEAN CORPUSCULAR VOLUME 94.9 fl (80.0-96.0); MONO # 0.4 K/mm3 (0.0-0.8); MONO % 4.3 % (0.0-5.0); NEUTROPHILS # 7.7 K/mm3 (1.8-7.7); NEUTROPHILS % 80.1 % (36.0-66.0); PLATELET COUNT, AUTOMATED 447 k/mm3 (150-450); RED CELL DISTRIBUTION WIDTH 14.1 % (11.5-14.5); WHITE BLOOD COUNT 9.6 K/mm3 (4.0-10.0)
[2016-10-29 06:17] LABS: ANION GAP 9 MEQ/L (8-16); BLOOD UREA NITROGEN 28 MG/DL (7-18); CALCIUM LEVEL 7.7 MG/DL (8.8-10.2); CARBON DIOXIDE LEVEL 26 MEQ/L (21-32); CHLORIDE LEVEL 105 MEQ/L (98-107); CREATININE FOR GFR 0.78 MG/DL (0.55-1.02); GLOMERULAR FILTRATION RATE > 60.0 (>39); GLUCOSE, FASTING 89 MG/DL (83-110); POTASSIUM SERUM 3.5 MEQ/L (3.5-5.1); SODIUM LEVEL 140 MEQ/L (136-145)
[2016-10-29] MEDS: OMEPRAZOLE 20 MG CAP PO SCH (09:22)
[2016-10-29] MEDS: MULTIVITAMINS/MINERALS THERAP 1 TAB PO SCH (09:22)
[2016-10-29] MEDS: ASPIRIN 81 MG ENTERIC TAB PO SCH (09:22)
[2016-10-29] MEDS: predniSONE 20 MG TAB PO SCH (09:22)
[2016-10-29] MEDS: VALSARTAN 40MG TABLET (DIOVAN) PO SCH (09:22)
[2016-10-29] MEDS: SPIRONOLACTONE 12.5MG PER 1/2 TABLET PO SCH (09:22)
[2016-10-29] MEDS: GABAPENTIN 100 MG CAP PO SCH ×3 (09:22→20:40)
[2016-10-29] MEDS: FUROSEMIDE 100 MG/10 ML VIAL (J1940) IV SCH (09:23)
[2016-10-29] MEDS: ENOXAPARIN 40 MG/0.4 ML SYRINGE (J1650) SC SCH (09:23)
[2016-10-29 10:00] VITALS: BP 130/60
[2016-10-29 14:00] VITALS: BP 144/65
--- NOTE | 2016-10-29 16:32 | IPNPDOC ---
Subjective Date Seen The patient was seen on 10/29/16. Subjective Chief Complaint/HPI The patient is a 76-year-old female admitted with a reason for visit of CHF. Events since last encounter Feeling ok, has discomfort intermittently in hands and feet- tylenol useful- prednisone does not seem to have made an impact. Does not wish for further workup at another facility Constitutional: Denies: Chills, Fever Pulmonary: Denies: Dyspnea, Cough Cardiovascular: Denies: Chest Pain, Palpitations Gastrointestinal: Denies: Nausea, Vomiting, Abdominal Pain Objective Physical Examination General Exam: Positive: No Acute Distress, Other (sitting at bedside) Eye Exam: Negative: Sclera icteric ENT Exam: Positive: Mucous membr. moist/pink Neck Exam: Positive: Supple Chest Exam: Positive: Clear to auscultation, Diminished, Negative: Rales, Rhonchi, Wheezing Heart Exam: Positive: Rate Normal, Regular Rhythm, Normal S1, Normal S2 Abdomen Exam: Positive: Normal bowel sounds, Soft, Negative: Tenderness Extremity Exam: Positive: Edema (1+ b/l le pitting edema- woody) Psych Exam: Positive: Oriented x 3 Assessment /Plan Problems (1) Afib Status: Acute Response to Treatment: Progressing Discussed With: Patient Problem Specific Plan: Consult Specialist, Monitor Clinically Problem Text: Likely always in sinus rhythm less likely this is actually atrial fib off telemetry monitoring - no events noted during stay beta blockade transitioned to 25mg succinate qhs on ASA (2) Shortness of breath Status: Resolved Discussed With: Patient Problem Specific Plan: Consult Specialist, Monitor Clinically, Repeat Labs Problem Text: decompensated heart failure now compensated- diastolic dysfunction Cardiology signed off- on lasix once daily noc ox suspicious for ramirez - outpatient follow up (3) Weakness Status: Acute Response to Treatment: Progressing Discussed With: Patient Problem Specific Plan: Consult Specialist, Monitor Clinically Problem Text: Unclear etiology - CK repeat in AM- suspect myositis states weakness limiting her ability to stand/walk MRI L/S spine obtained neurology consultation appreciated, recs for o/p muscle bx/EMG - patient states she will not be able to tolerate travelling to [place] for muscle bx, willing to have local EMG- 10/29/16 again discussed further workup in [place]- patient not interested in transfer 10/29/16- discussed in general with neurology attending- will increase dose of steroids continue with PT/OT follow up neurology as outpt recent steroid use 40mg daily taper for pneumonia about 4 weeks ago- agrees to steroids currently has received three doses without obvious improvement (4) Diarrhea Status: Resolved Discussed With: Patient Problem Specific Plan: Monitor Clinically (5) Elevated troponin Status: Resolved Discussed With: Patient Problem Specific Plan: Monitor Clinically Problem Text: resolved, no acs - likely demand ischemia (6) Hypokalemia Problem Text: repleted- repeat labs in am Plan/VTE VTE Prophylaxis Ordered?: Yes (eliquis) Plan Diet: Continue Current Activity: Continue Current Therapy: PT, OT Pt and Family Services: Home Care Medications: Replete Electrolytes PO Diagnostics: Repeat Labs in AM Anticipated Discharge: Home, Home With Services VS, I&O, 24H, [facility] Vital Signs/I&O Vital Signs Date Time Temp Pulse Resp B/P (MAP) Pulse Ox O2 Delivery O2 Flow Rate FiO2 10/29/16 14:00 97.9 87 20 144/65 (91) 94 Room Air I&O- Last 24 Hours up to 6 AM 10/29/16 06:00 Intake Total 1800 ml Output Total 1900 ml Balance -100 ml Laboratory Data 24H LABS Laboratory Tests 2 10/29/16 05:21: White Blood Count 9.6, Red Blood Count 3.64L, Hemoglobin 11.3L, Hematocrit 34.5L , Mean Corpuscular Volume 94.9, Mean Corpuscular Hemoglobin 30.9, Mean Corpuscular Hemoglobin Concent 32.6, Red Cell Distribution Width 14.1, Platelet Count 447, Neutrophils (%) (Auto) 80.1H, Lymphocytes (%) (Auto) 13.3L, Monocytes (%) (Auto) 4.3, Eosinophils (%) (Auto) 0.7, Basophils (%) (Auto) 0.3, Neutrophils # (Auto) 7.7, Lymphocytes # (Auto) 1.3L, Monocytes # (Auto) 0.4, Eosinophils # (Auto) 0.1, Basophils # (Auto) 0.0, Large Unclassified Cells % 1.3 , Large Unclassified Cells # 0.1, Anion Gap 9, Glomerular Filtration Rate > 60.0 , Blood Urea Nitrogen 28H, Creatinine 0.78, Sodium Level 140, Potassium Level 3.5, Chloride Level 105, Carbon Dioxide Level 26, Calcium Level 7.7L, Total Creatine Kinase 2016H CBC/BMP Laboratory Tests 10/29/16 05:21 Red Blood Count 3.64 L, Mean Corpuscular Volume 94.9, Mean Corpuscular Hemoglobin 30.9, Mean Corpuscular Hemoglobin Concent 32.6, Red Cell Distribution Width 14.1, Neutrophils (%) (Auto) 80.1 H, Lymphocytes (%) (Auto) 13.3 L, Monocytes (%) (Auto) 4.3, Eosinophils (%) (Auto) 0.7, Basophils (%) ( Auto) 0.3, Neutrophils # (Auto) 7.7, Lymphocytes # (Auto) 1.3 L, Monocytes # ( Auto) 0.4, Eosinophils # (Auto) 0.1, Basophils # (Auto) 0.0, Calcium Level 7.7 L Microbiology Microbiology 10/24/16 Blood Culture - Final, Complete NO GROWTH AFTER 5 DAYS 10/24/16 Blood Culture - Final, Complete NO GROWTH AFTER 5 DAYS 10/20/16 Gastrointestinal Tract Panel (PCR) - Final, Complete 10/20/16 Stool Occult Blood (KENIA) - Final, Complete 10/24/16 Urine Culture - Final, Complete Corynebacterium Species YURI MILES MD October 29, 2016 16:32
[2016-10-29 18:00] VITALS: BP 117/57
[2016-10-29] MEDS: METOPROLOL SUCC *XL* 25MG TAB (TopROL *XL*) PO SCH (20:39)
[2016-10-29 22:00] VITALS: BP 126/60
[2016-10-30 02:00] VITALS: BP 113/56
[2016-10-30] MEDS: ACETAMINOPHEN TAB 650MG DOSE (2X325MG) PO PRN ×4 (04:11→18:35)
[2016-10-30] MEDS: SLF 3 ML SYR IV SCH ×3 (05:28→21:14)
[2016-10-30 06:00] VITALS: BP 110/54
[2016-10-30 06:11] LABS: BASO % 0.3 % (0.0-1.0); EOS # 0.1 K/mm3 (0.0-0.50); EOS % 0.8 % (0.0-3.0); LARGE UNSTAINED CELL # 0.1 K/mm3 (0.0-0.4); LARGE UNSTAINED CELL % 0.7 % (0.0-4.0); LYMPH # 1.4 K/mm3 (1.5-4.5); MEAN CORPUSCULAR HEMOGLOBIN 29.8 pg (27.0-33.0); MEAN CORPUSCULAR HGB CONC 32.2 g/dl (32.0-36.5); MEAN CORPUSCULAR VOLUME 92.6 fl (80.0-96.0); MONO # 0.6 K/mm3 (0.0-0.8); MONO % 5.4 % (0.0-5.0); NEUTROPHILS % 80.8 % (36.0-66.0); PLATELET COUNT, AUTOMATED 484 k/mm3 (150-450); RED CELL DISTRIBUTION WIDTH 14.3 % (11.5-14.5); WHITE BLOOD COUNT 11.1 K/mm3 (4.0-10.0)
[2016-10-30 06:46] LABS: ANION GAP 8 MEQ/L (8-16); BLOOD UREA NITROGEN 28 MG/DL (7-18); CALCIUM LEVEL 7.8 MG/DL (8.8-10.2); CARBON DIOXIDE LEVEL 27 MEQ/L (21-32); CHLORIDE LEVEL 107 MEQ/L (98-107); CREATININE FOR GFR 0.67 MG/DL (0.55-1.02); GLOMERULAR FILTRATION RATE > 60.0 (>39); GLUCOSE, FASTING 83 MG/DL (83-110); POTASSIUM SERUM 3.5 MEQ/L (3.5-5.1); SODIUM LEVEL 142 MEQ/L (136-145)
[2016-10-30] MEDS: GABAPENTIN 100 MG CAP PO SCH ×3 (08:15→21:13)
[2016-10-30] MEDS: ASPIRIN 81 MG ENTERIC TAB PO SCH (08:15)
[2016-10-30] MEDS: MULTIVITAMINS/MINERALS THERAP 1 TAB PO SCH (08:15)
[2016-10-30] MEDS: VALSARTAN 40MG TABLET (DIOVAN) PO SCH (08:15)
[2016-10-30] MEDS: SPIRONOLACTONE 12.5MG PER 1/2 TABLET PO SCH (08:15)
[2016-10-30] MEDS: ENOXAPARIN 40 MG/0.4 ML SYRINGE (J1650) SC SCH (08:15)
[2016-10-30] MEDS: OMEPRAZOLE 20 MG CAP PO SCH (08:15)
[2016-10-30] MEDS: FUROSEMIDE 100 MG/10 ML VIAL (J1940) IV SCH (08:16)
[2016-10-30] MEDS: predniSONE 20 MG TAB PO SCH (08:16)
[2016-10-30 10:00] VITALS: BP 134/58
[2016-10-30 14:00] VITALS: BP 132/56
[2016-10-30 18:00] VITALS: BP 117/53
--- NOTE | 2016-10-30 18:18 | IPNPDOC ---
Subjective Date Seen The patient was seen on 10/30/16. Subjective Chief Complaint/HPI The patient is a 76-year-old female admitted with a reason for visit of CHF. Events since last encounter Worried about her ability to go home, she wuld want services, but is not confident that she could handle ADLs independently Trying to maintain fluid restriction, paying close attention to intake Constitutional: Denies: Chills, Fever Pulmonary: Denies: Dyspnea, Cough Cardiovascular: Denies: Chest Pain Gastrointestinal: Denies: Nausea, Vomiting Neurological: Reports: Weakness Objective Physical Examination General Exam: Positive: Alert, Cooperative, No Acute Distress, Other (sitting at bedside) ENT Exam: Positive: Mucous membr. moist/pink Neck Exam: Positive: Supple Chest Exam: Positive: Clear to auscultation, Diminished, Negative: Rales, Rhonchi, Wheezing Heart Exam: Positive: Rate Normal, Regular Rhythm, Normal S1, Normal S2 Abdomen Exam: Positive: Normal bowel sounds, Soft, Negative: Tenderness Extremity Exam: Positive: Edema (1+ b/l le pitting edema - woody) Psych Exam: Positive: Oriented x 3 Assessment /Plan Problems (1) Afib Status: Acute Response to Treatment: Progressing Discussed With: Patient Problem Specific Plan: Consult Specialist, Monitor Clinically Problem Text: Likely always in sinus rhythm less likely this is actually atrial fib off telemetry monitoring - no events noted during stay beta blockade transitioned to 25mg succinate qhs on ASA (2) Shortness of breath Status: Resolved Discussed With: Patient Problem Specific Plan: Consult Specialist, Monitor Clinically, Repeat Labs Problem Text: decompensated heart failure now compensated- diastolic dysfunction Cardiology signed off- switching diuretic to demadex noc ox suspicious for ramirez - outpatient follow up (3) Weakness Status: Acute Response to Treatment: Progressing Discussed With: Patient Problem Specific Plan: Consult Specialist, Monitor Clinically Problem Text: Unclear etiology - CK trending downwards- suspect myositis states weakness limiting her ability to stand/walk MRI L/S spine obtained neurology consultation appreciated, recs for o/p muscle bx/EMG - patient states she will not be able to tolerate travelling to [place] for muscle bx, willing to have local EMG- 10/29/16 again discussed further workup in [place]- patient not interested in transfer 10/29/16- discussed in general with neurology attending- will increase dose of steroids continue with PT/OT follow up neurology as outpt recent steroid use 40mg daily taper for pneumonia about 4 weeks ago (4) Diarrhea Status: Resolved Discussed With: Patient Problem Specific Plan: Monitor Clinically (5) Elevated troponin Status: Resolved Discussed With: Patient Problem Specific Plan: Monitor Clinically Problem Text: resolved, no acs - likely demand ischemia (6) Hypokalemia Problem Text: repleted- repeat labs in am Plan/VTE VTE Prophylaxis Ordered?: Yes (eliquis) Plan Diet: Continue Current Activity: Continue Current Therapy: PT, OT Pt and Family Services: Home Care Medications: Replete Electrolytes PO Diagnostics: Repeat Labs in AM Anticipated Discharge: Home, Home With Services VS, I&O, 24H, [facility]bone Vital Signs/I&O Vital Signs Date Time Temp Pulse Resp B/P (MAP) Pulse Ox O2 Delivery O2 Flow Rate FiO2 10/30/16 14:00 97.5 94 22 132/56 (81) 94 Room Air I&O- Last 24 Hours up to 6 AM 10/30/16 06:00 Intake Total 1620 ml Output Total 1900 ml Balance -280 ml Laboratory Data 24H LABS Laboratory Tests 2 10/30/16 05:26: White Blood Count 11.1H, Red Blood Count 3.53L, Hemoglobin 10.5L, Hematocrit 32.7L, Mean Corpuscular Volume 92.6, Mean Corpuscular Hemoglobin 29.8, Mean Corpuscular Hemoglobin Concent 32.2, Red Cell Distribution Width 14.3, Platelet Count 484H, Neutrophils (%) (Auto) 80.8H, Lymphocytes (%) (Auto) 12.0L, Monocytes (%) (Auto) 5.4H, Eosinophils (%) (Auto) 0.8, Basophils (%) (Auto) 0.3 , Neutrophils # (Auto) 9.0H, Lymphocytes # (Auto) 1.4L, Monocytes # (Auto) 0.6, Eosinophils # (Auto) 0.1, Basophils # (Auto) 0.0, Large Unclassified Cells % 0.7 , Large Unclassified Cells # 0.1, Anion Gap 8, Glomerular Filtration Rate > 60.0 , Blood Urea Nitrogen 28H, Creatinine 0.67, Sodium Level 142, Potassium Level 3.5, Chloride Level 107, Carbon Dioxide Level 27, Calcium Level 7.8L, Total Creatine Kinase 1836H CBC/BMP Laboratory Tests 10/30/16 05:26 Red Blood Count 3.53 L, Mean Corpuscular Volume 92.6, Mean Corpuscular Hemoglobin 29.8, Mean Corpuscular Hemoglobin Concent 32.2, Red Cell Distribution Width 14.3, Neutrophils (%) (Auto) 80.8 H, Lymphocytes (%) (Auto) 12.0 L, Monocytes (%) (Auto) 5.4 H, Eosinophils (%) (Auto) 0.8, Basophils (%) ( Auto) 0.3, Neutrophils # (Auto) 9.0 H, Lymphocytes # (Auto) 1.4 L, Monocytes # ( Auto) 0.6, Eosinophils # (Auto) 0.1, Basophils # (Auto) 0.0, Calcium Level 7.8 L Microbiology Microbiology 10/24/16 Blood Culture - Final, Complete NO GROWTH AFTER 5 DAYS 10/24/16 Blood Culture - Final, Complete NO GROWTH AFTER 5 DAYS 10/20/16 Gastrointestinal Tract Panel (PCR) - Final, Complete 10/20/16 Stool Occult Blood (KENIA) - Final, Complete 10/24/16 Urine Culture - Final, Complete Corynebacterium Species YURI MILES MD October 30, 2016 18:18
[2016-10-30] MEDS: METOPROLOL SUCC *XL* 25MG TAB (TopROL *XL*) PO SCH (21:13)
[2016-10-30 22:00] VITALS: BP 121/56
[2016-10-31 02:00] VITALS: BP 106/53
[2016-10-31] MEDS: ACETAMINOPHEN TAB 650MG DOSE (2X325MG) PO PRN ×4 (02:36→21:18)
[2016-10-31] MEDS: SLF 3 ML SYR IV SCH ×3 (05:33→22:00)
[2016-10-31 06:00] VITALS: BP 117/56
[2016-10-31 06:18] LABS: BASO % 0.3 % (0.0-1.0); EOS # 0.1 K/mm3 (0.0-0.50); EOS % 1.1 % (0.0-3.0); LARGE UNSTAINED CELL # 0.1 K/mm3 (0.0-0.4); LARGE UNSTAINED CELL % 0.7 % (0.0-4.0); LYMPH # 1.5 K/mm3 (1.5-4.5); LYMPH % 13.5 % (24.0-44.0); MEAN CORPUSCULAR HEMOGLOBIN 29.9 pg (27.0-33.0); MEAN CORPUSCULAR HGB CONC 32.3 g/dl (32.0-36.5); MEAN CORPUSCULAR VOLUME 92.8 fl (80.0-96.0); MONO # 0.7 K/mm3 (0.0-0.8); MONO % 6.7 % (0.0-5.0); NEUTROPHILS # 8.4 K/mm3 (1.8-7.7); NEUTROPHILS % 77.7 % (36.0-66.0); PLATELET COUNT, AUTOMATED 482 k/mm3 (150-450); RED CELL DISTRIBUTION WIDTH 14.3 % (11.5-14.5); WHITE BLOOD COUNT 10.8 K/mm3 (4.0-10.0)
[2016-10-31 06:36] LABS: ANION GAP 7 MEQ/L (8-16); BLOOD UREA NITROGEN 27 MG/DL (7-18); CALCIUM LEVEL 7.8 MG/DL (8.8-10.2); CARBON DIOXIDE LEVEL 27 MEQ/L (21-32); CHLORIDE LEVEL 107 MEQ/L (98-107); GLOMERULAR FILTRATION RATE > 60.0 (>39); GLUCOSE, FASTING 84 MG/DL (83-110); POTASSIUM SERUM 3.6 MEQ/L (3.5-5.1); SODIUM LEVEL 141 MEQ/L (136-145)
[2016-10-31] MEDS: OMEPRAZOLE 20 MG CAP PO SCH (08:42)
[2016-10-31] MEDS: TORSEMIDE 20 MG TAB PO SCH (08:42)
[2016-10-31] MEDS: predniSONE 20 MG TAB PO SCH (08:42)
[2016-10-31] MEDS: SPIRONOLACTONE 12.5MG PER 1/2 TABLET PO SCH (08:43)
[2016-10-31] MEDS: VALSARTAN 40MG TABLET (DIOVAN) PO SCH (08:43)
[2016-10-31] MEDS: ASPIRIN 81 MG ENTERIC TAB PO SCH (08:43)
[2016-10-31] MEDS: MULTIVITAMINS/MINERALS THERAP 1 TAB PO SCH (08:43)
[2016-10-31] MEDS: GABAPENTIN 100 MG CAP PO SCH ×3 (08:43→21:18)
[2016-10-31] MEDS: ENOXAPARIN 40 MG/0.4 ML SYRINGE (J1650) SC SCH (08:45)
[2016-10-31 10:00] VITALS: BP 123/65
[2016-10-31 14:00] VITALS: BP 113/56
--- NOTE | 2016-10-31 20:57 | IPNPDOC ---
Subjective Date Seen The patient was seen on 10/31/16. Subjective Chief Complaint/HPI The patient is a 76-year-old female admitted with a reason for visit of CHF. Events since last encounter Has tingling/weakness intermittently in hands, is working with pt - maintrouble is with getting in/out of bed goal is for dc home Constitutional: Denies: Chills, Fever Pulmonary: Denies: Dyspnea, Cough Cardiovascular: Denies: Chest Pain, Palpitations Gastrointestinal: Denies: Nausea, Vomiting Musculoskeletal: Reports: Hand Pain Objective Physical Examination General Exam: Positive: Alert, No Acute Distress, Other (sitting at bedside) Eye Exam: Negative: Sclera icteric ENT Exam: Positive: Mucous membr. moist/pink Neck Exam: Positive: Supple Chest Exam: Positive: Clear to auscultation, Diminished, Negative: Rales, Rhonchi, Wheezing Heart Exam: Positive: Rate Normal, Regular Rhythm, Normal S1, Normal S2 Abdomen Exam: Positive: Normal bowel sounds, Soft, Negative: Tenderness Extremity Exam: Positive: Edema Psych Exam: Positive: Oriented x 3 Assessment /Plan Problems (1) Afib Status: Acute Response to Treatment: Progressing Discussed With: Patient Problem Text: Likely always in sinus rhythm less likely this is actually atrial fib off telemetry monitoring - no events noted during stay beta blockade transitioned to 25mg succinate qhs on ASA (2) Shortness of breath Status: Resolved Problem Text: decompensated heart failure now compensated- diastolic dysfunction Cardiology signed off- switching diuretic to demadex noc ox suspicious for ramirez - outpatient follow up (3) Weakness Status: Acute Response to Treatment: Progressing Discussed With: Patient Problem Specific Plan: Consult Specialist, Monitor Clinically Problem Text: Unclear etiology - CK trending downwards- suspect myositis states weakness limiting her ability to stand/walk MRI L/S spine obtained neurology consultation appreciated, recs for o/p muscle bx/EMG - patient states she will not be able to tolerate travelling to [place] for muscle bx, willing to have local EMG- 10/29/16 again discussed further workup in [place]- patient not interested in transfer 10/29/16- discussed in general with neurology attending- will increase dose of steroids continue with PT/OT follow up neurology as outpt recent steroid use 40mg daily taper for pneumonia about 4 weeks ago (4) Diarrhea Status: Resolved Discussed With: Patient Problem Specific Plan: Monitor Clinically (5) Elevated troponin Status: Resolved Discussed With: Patient Problem Specific Plan: Monitor Clinically Problem Text: resolved, no acs - likely demand ischemia (6) Hypokalemia Problem Text: repleted- repeat labs in am Plan/VTE VTE Prophylaxis Ordered?: Yes (eliquis) Plan Diet: Continue Current Activity: Continue Current Therapy: PT, OT Pt and Family Services: Home Care Medications: Replete Electrolytes PO Diagnostics: Repeat Labs in AM Anticipated Discharge: Home, Home With Services VS, I&O, [facility] Vital Signs/I&O Vital Signs Date Time Temp Pulse Resp B/P (MAP) Pulse Ox O2 Delivery O2 Flow Rate FiO2 10/31/16 14:00 97.6 81 20 113/56 (75) 93 Room Air I&O- Last 24 Hours up to 6 AM 10/31/16 06:00 Intake Total 1560 ml Output Total 900 ml Balance 660 ml Laboratory Data 24H LABS Laboratory Tests 2 10/31/16 06:03: White Blood Count 10.8H, Red Blood Count 3.44L, Hemoglobin 10.3L, Hematocrit 31.9L, Mean Corpuscular Volume 92.8, Mean Corpuscular Hemoglobin 29.9, Mean Corpuscular Hemoglobin Concent 32.3, Red Cell Distribution Width 14.3, Platelet Count 482H, Neutrophils (%) (Auto) 77.7H, Lymphocytes (%) (Auto) 13.5L, Monocytes (%) (Auto) 6.7H, Eosinophils (%) (Auto) 1.1, Basophils (%) (Auto) 0.3 , Neutrophils # (Auto) 8.4H, Lymphocytes # (Auto) 1.5, Monocytes # (Auto) 0.7, Eosinophils # (Auto) 0.1, Basophils # (Auto) 0.0, Large Unclassified Cells % 0.7 , Large Unclassified Cells # 0.1, Anion Gap 7L, Glomerular Filtration Rate > 60.0, Blood Urea Nitrogen 27H, Creatinine 0.70, Sodium Level 141, Potassium Level 3.6, Chloride Level 107, Carbon Dioxide Level 27, Calcium Level 7.8L CBC/BMP Laboratory Tests 10/31/16 06:03 Red Blood Count 3.44 L, Mean Corpuscular Volume 92.8, Mean Corpuscular Hemoglobin 29.9, Mean Corpuscular Hemoglobin Concent 32.3, Red Cell Distribution Width 14.3, Neutrophils (%) (Auto) 77.7 H, Lymphocytes (%) (Auto) 13.5 L, Monocytes (%) (Auto) 6.7 H, Eosinophils (%) (Auto) 1.1, Basophils (%) ( Auto) 0.3, Neutrophils # (Auto) 8.4 H, Lymphocytes # (Auto) 1.5, Monocytes # ( Auto) 0.7, Eosinophils # (Auto) 0.1, Basophils # (Auto) 0.0, Calcium Level 7.8 L Microbiology Microbiology 10/24/16 Blood Culture - Final, Complete NO GROWTH AFTER 5 DAYS 10/24/16 Blood Culture - Final, Complete NO GROWTH AFTER 5 DAYS 10/24/16 Urine Culture - Final, Complete Corynebacterium Species YURI MILES MD October 31, 2016 20:57
[2016-10-31] MEDS: METOPROLOL SUCC *XL* 25MG TAB (TopROL *XL*) PO SCH (21:18)
[2016-10-31 22:00] VITALS: BP 135/71
[2016-11-01] MEDS: ACETAMINOPHEN TAB 650MG DOSE (2X325MG) PO PRN ×3 (01:25→14:47)
[2016-11-01 02:00] VITALS: BP 117/57
[2016-11-01 06:00] VITALS: BP 119/56
[2016-11-01 07:05] LABS: BASO % 0.2 % (0.0-1.0); EOS # 0.1 K/mm3 (0.0-0.50); EOS % 0.6 % (0.0-3.0); LARGE UNSTAINED CELL # 0.1 K/mm3 (0.0-0.4); LARGE UNSTAINED CELL % 0.7 % (0.0-4.0); LYMPH # 1.6 K/mm3 (1.5-4.5); LYMPH % 13.4 % (24.0-44.0); MEAN CORPUSCULAR HEMOGLOBIN 30.1 pg (27.0-33.0); MEAN CORPUSCULAR HGB CONC 32.4 g/dl (32.0-36.5); MEAN CORPUSCULAR VOLUME 93.1 fl (80.0-96.0); MONO # 0.7 K/mm3 (0.0-0.8); MONO % 6.2 % (0.0-5.0); NEUTROPHILS # 8.8 K/mm3 (1.8-7.7); NEUTROPHILS % 78.9 % (36.0-66.0); PLATELET COUNT, AUTOMATED 485 k/mm3 (150-450); RED CELL DISTRIBUTION WIDTH 14.2 % (11.5-14.5); WHITE BLOOD COUNT 11.2 K/mm3 (4.0-10.0)
[2016-11-01 07:11] LABS: ANION GAP 6 MEQ/L (8-16); BLOOD UREA NITROGEN 29 MG/DL (7-18); CALCIUM LEVEL 7.8 MG/DL (8.8-10.2); CARBON DIOXIDE LEVEL 28 MEQ/L (21-32); CHLORIDE LEVEL 108 MEQ/L (98-107); CREATININE FOR GFR 0.71 MG/DL (0.55-1.02); GLOMERULAR FILTRATION RATE > 60.0 (>39); GLUCOSE, FASTING 82 MG/DL (83-110); POTASSIUM SERUM 3.6 MEQ/L (3.5-5.1); SODIUM LEVEL 142 MEQ/L (136-145)
[2016-11-01] MEDS: predniSONE 20 MG TAB PO SCH (09:21)
[2016-11-01] MEDS: GABAPENTIN 100 MG CAP PO SCH ×3 (09:21→20:43)
[2016-11-01] MEDS: SPIRONOLACTONE 12.5MG PER 1/2 TABLET PO SCH (09:21)
[2016-11-01] MEDS: ASPIRIN 81 MG ENTERIC TAB PO SCH (09:22)
[2016-11-01] MEDS: MULTIVITAMINS/MINERALS THERAP 1 TAB PO SCH (09:22)
[2016-11-01] MEDS: TORSEMIDE 20 MG TAB PO SCH (09:22)
[2016-11-01] MEDS: OMEPRAZOLE 20 MG CAP PO SCH (09:22)
[2016-11-01] MEDS: SALIVA SUBSTITUTE(MOUTHKOTE) BTL MT PRN (09:24)
[2016-11-01] MEDS: VALSARTAN 40MG TABLET (DIOVAN) PO SCH (09:25)
[2016-11-01] MEDS: ENOXAPARIN 40 MG/0.4 ML SYRINGE (J1650) SC SCH (09:29)
--- NOTE | 2016-11-01 09:37 | IPNPDOC ---
Subjective Date Seen The patient was seen on 11/01/16. Subjective Chief Complaint/HPI The patient is a 76-year-old female admitted with a reason for visit of CHF. General: Denies: ROS Unobtainable, Chills, Night Sweats, Fatigue, Malaise, Normal Appetite, Other Symptoms Constitutional: Reports: Weakness, Denies: Chills, Fever, Malaise, Night Sweats, Fatigue, Weight Loss, Lethargy , Other Eyes: Denies: Pain, Vision change, Conjunctivae inflammation, Eyelid inflammation, Redness, Other ENT: Denies: Head Aches, Ear Pain, Dysphagia, Sinus Congestion, Post Nasal Drip , Sore Throat, Epistaxis, Other Symptoms Skin: Denies: Rash, Lesions, Jaundice, Bruising, Itching, Dry, Breakdown, Nail Changes, Other Pulmonary: Denies: Dyspnea, Cough, Pleuritic Chest Pain, Other Symptoms Cardiovascular: Denies: Chest Pain, Palpitations, Orthopnea, Paroxysmal Noc. Dyspnea, Edema, Lt Headedness, Other Symptoms Gastrointestinal: Denies: Nausea, Vomiting, Abdominal Pain, Diarrhea, Constipation, Melena, Hematochezia, Other Symptoms Genitourinary: Denies: Dysuria, Frequency, Incontinence, Hematuria, Retention, Other Symptoms Musculoskeletal: Denies: Neck Pain, Back Pain, Shoulder Pain, Arm Pain, Hand Pain, Leg Pain, Foot Pain, Joint Pain, Muscle Pain, Spasms, Other Symptoms Neurological: Reports: Weakness Objective Physical Examination General Exam: Positive: Alert, Cooperative, No Acute Distress, Other (sitting at bedside) Eye Exam: Positive: Conjunctiva & lids normal, Negative: Sclera icteric ENT Exam: Positive: Mucous membr. moist/pink Neck Exam: Positive: Supple Chest Exam: Positive: Diminished, Other (mild left basilar crackles), Negative: Rales, Rhonchi, Wheezing Heart Exam: Positive: Rate Normal, Regular Rhythm, Normal S1, Normal S2 Abdomen Exam: Positive: Normal bowel sounds, Soft, Other (obese), Negative: Tenderness Extremity Exam: Positive: Edema (dry scaly skin, 1+ b/l LE pitting edema) Psych Exam: Positive: Oriented x 3 Assessment /Plan Problems (1) Afib Status: Resolved Discussed With: Patient Problem Text: Likely always in sinus rhythm less likely this is actually atrial fib off telemetry monitoring - no events noted during stay beta blockade transitioned to 25mg succinate qhs on ASA (2) Shortness of breath Status: Resolved Problem Text: decompensated heart failure now compensated- diastolic dysfunction Cardiology signed off- switching diuretic to demadex noc ox suspicious for ramirez - outpatient follow up (3) Weakness Status: Acute Response to Treatment: Progressing Discussed With: Patient Problem Specific Plan: Consult Specialist, Monitor Clinically Problem Text: Unclear etiology - CK trending downwards- 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 limiting her ability to stand/walk - +SSA-ro, +ELISE MRI L/S spine obtained neurology consultation appreciated, recs for o/p muscle bx/EMG - patient states she will not be able to tolerate travelling to [place] for muscle bx, willing to have local EMG- 10/29/16 again discussed further workup in [place]- patient not interested in transfer 10/29/16- discussed in general with neurology attending- will increase dose of steroids continue with PT/OT follow up neurology as outpt recent steroid use 40mg daily taper for pneumonia about 4 weeks ago (4) Diarrhea Status: Resolved Discussed With: Patient Problem Specific Plan: Monitor Clinically (5) Elevated troponin Status: Resolved Discussed With: Patient Problem Specific Plan: Monitor Clinically Problem Text: resolved, no acs - likely demand ischemia (6) Hypokalemia Problem Text: repleted- repeat labs in am (7) Thrombocytosis Problem Specific Plan: Monitor Clinically, Repeat Labs Problem Text: likely reactive - continue to monitor Plan/VTE VTE Prophylaxis Ordered?: Yes (eliquis) Plan Diet: Continue Current Activity: Continue Current Therapy: PT, OT Pt and Family Services: Home Care Medications: Replete Electrolytes PO Diagnostics: Repeat Labs in AM Anticipated Discharge: Home With Services Difficult disposition for placement. Patient wants to go home. PFS actively working to determine appropriate disposition. VS, I&O, 24H, [facility] Vital Signs/I&O Vital Signs Date Time Temp Pulse Resp B/P (MAP) Pulse Ox O2 Delivery O2 Flow Rate FiO2 11/01/16 09:25 119/66 11/01/16 06:00 97.7 80 20 92 Room Air I&O- Last 24 Hours up to 6 AM 11/01/16 06:00 Intake Total 1590 ml Output Total 750 ml Balance 840 ml Laboratory Data 24H LABS Laboratory Tests 2 11/01/16 06:26: White Blood Count 11.2H, Red Blood Count 3.62L, Hemoglobin 10.9L, Hematocrit 33.7L, Mean Corpuscular Volume 93.1, Mean Corpuscular Hemoglobin 30.1, Mean Corpuscular Hemoglobin Concent 32.4, Red Cell Distribution Width 14.2, Platelet Count 485H, Neutrophils (%) (Auto) 78.9H, Lymphocytes (%) (Auto) 13.4L, Monocytes (%) (Auto) 6.2H, Eosinophils (%) (Auto) 0.6, Basophils (%) (Auto) 0.2 , Neutrophils # (Auto) 8.8H, Lymphocytes # (Auto) 1.6, Monocytes # (Auto) 0.7, Eosinophils # (Auto) 0.1, Basophils # (Auto) 0.0, Large Unclassified Cells % 0.7 , Large Unclassified Cells # 0.1, Anion Gap 6L, Glomerular Filtration Rate > 60.0, Blood Urea Nitrogen 29H, Creatinine 0.71, Sodium Level 142, Potassium Level 3.6, Chloride Level 108H, Carbon Dioxide Level 28, Calcium Level 7.8L CBC/BMP Laboratory Tests 11/01/16 06:26 Red Blood Count 3.62 L, Mean Corpuscular Volume 93.1, Mean Corpuscular Hemoglobin 30.1, Mean Corpuscular Hemoglobin Concent 32.4, Red Cell Distribution Width 14.2, Neutrophils (%) (Auto) 78.9 H, Lymphocytes (%) (Auto) 13.4 L, Monocytes (%) (Auto) 6.2 H, Eosinophils (%) (Auto) 0.6, Basophils (%) ( Auto) 0.2, Neutrophils # (Auto) 8.8 H, Lymphocytes # (Auto) 1.6, Monocytes # ( Auto) 0.7, Eosinophils # (Auto) 0.1, Basophils # (Auto) 0.0, Calcium Level 7.8 L Microbiology Microbiology 10/24/16 Blood Culture - Final, Complete NO GROWTH AFTER 5 DAYS 10/24/16 Blood Culture - Final, Complete NO GROWTH AFTER 5 DAYS 10/24/16 Urine Culture - Final, Complete Corynebacterium Species DEVENDRA LEA MD November 01, 2016 09:37
[2016-11-01 10:00] VITALS: BP 133/78
[2016-11-01 14:00] VITALS: BP 147/70
[2016-11-01] MEDS: DOCUSATE SODIUM 100 MG CAP PO PRN (20:42)
[2016-11-01] MEDS: METOPROLOL SUCC *XL* 25MG TAB (TopROL *XL*) PO SCH (20:43)
[2016-11-01 22:00] VITALS: BP 129/56
[2016-11-02 02:00] VITALS: BP 118/53
[2016-11-02] MEDS: ACETAMINOPHEN TAB 650MG DOSE (2X325MG) PO PRN ×3 (03:59→21:11)
[2016-11-02 06:00] VITALS: BP 117/52
[2016-11-02 06:46] LABS: ANION GAP 4 MEQ/L (8-16); BLOOD UREA NITROGEN 30 MG/DL (7-18); CARBON DIOXIDE LEVEL 31 MEQ/L (21-32); CHLORIDE LEVEL 108 MEQ/L (98-107); GLOMERULAR FILTRATION RATE > 60.0 (>39); GLUCOSE, FASTING 83 MG/DL (83-110); POTASSIUM SERUM 3.9 MEQ/L (3.5-5.1); SODIUM LEVEL 143 MEQ/L (136-145)
[2016-11-02] MEDS: OMEPRAZOLE 20 MG CAP PO SCH (09:16)
[2016-11-02] MEDS: ENOXAPARIN 40 MG/0.4 ML SYRINGE (J1650) SC SCH (09:16)
[2016-11-02] MEDS: GABAPENTIN 100 MG CAP PO SCH ×3 (09:16→21:10)
[2016-11-02] MEDS: MULTIVITAMINS/MINERALS THERAP 1 TAB PO SCH (09:16)
[2016-11-02] MEDS: SPIRONOLACTONE 12.5MG PER 1/2 TABLET PO SCH (09:17)
[2016-11-02] MEDS: VALSARTAN 40MG TABLET (DIOVAN) PO SCH (09:17)
[2016-11-02] MEDS: ASPIRIN 81 MG ENTERIC TAB PO SCH (09:17)
[2016-11-02] MEDS: TORSEMIDE 20 MG TAB PO SCH (09:17)
[2016-11-02] MEDS: predniSONE 20 MG TAB PO SCH (09:17)
[2016-11-02] MEDS: SALIVA SUBSTITUTE(MOUTHKOTE) BTL MT PRN (09:18)
[2016-11-02 10:00] VITALS: BP 124/65
--- NOTE | 2016-11-02 10:38 | IPNPDOC ---
Subjective Date Seen The patient was seen on 11/02/16. Subjective Chief Complaint/HPI The patient is a 76-year-old female admitted with a reason for visit of CHF. General: Denies: ROS Unobtainable, Chills, Night Sweats, Fatigue, Malaise, Normal Appetite, Other Symptoms Constitutional: Reports: Weakness, Denies: Chills, Fever, Malaise, Night Sweats, Fatigue, Weight Loss, Lethargy , Other Eyes: Denies: Pain, Vision change, Conjunctivae inflammation, Eyelid inflammation, Redness, Other ENT: Denies: Head Aches, Ear Pain, Dysphagia, Sinus Congestion, Post Nasal Drip , Sore Throat, Epistaxis, Other Symptoms Skin: Denies: Rash, Lesions, Jaundice, Bruising, Itching, Dry, Breakdown, Nail Changes, Other Pulmonary: Denies: Dyspnea, Cough, Pleuritic Chest Pain, Other Symptoms Cardiovascular: Denies: Chest Pain, Palpitations, Orthopnea, Paroxysmal Noc. Dyspnea, Edema, Lt Headedness, Other Symptoms Gastrointestinal: Denies: Nausea, Vomiting, Abdominal Pain, Diarrhea, Constipation, Melena, Hematochezia, Other Symptoms Genitourinary: Denies: Dysuria, Frequency, Incontinence, Hematuria, Retention, Other Symptoms Hematologic: Denies: Bruising, Bleeding Excessively, Petecchia, Purpura, Enlarged Lymph Nodes, Other Hematologic Neurological: Reports: Weakness Objective Physical Examination General Exam: Positive: Alert, Cooperative, No Acute Distress, Other (sitting at bedside) Eye Exam: Positive: Conjunctiva & lids normal, EOMI, Negative: Sclera icteric ENT Exam: Positive: Mucous membr. moist/pink Neck Exam: Positive: Supple Chest Exam: Positive: Diminished, Other (mild left basilar crackles), Negative: Rales, Rhonchi, Wheezing Heart Exam: Positive: Rate Normal, Regular Rhythm, Normal S1, Normal S2 Abdomen Exam: Positive: Normal bowel sounds, Soft, Other (obese), Negative: Tenderness Extremity Exam: Positive: Edema (dry scaly skin, 1+ b/l LE pitting edema) Psych Exam: Positive: Oriented x 3 Assessment /Plan Problems (1) Afib Status: Resolved Discussed With: Patient Problem Text: Likely always in sinus rhythm less likely this is actually atrial fib off telemetry monitoring - no events noted during stay beta blockade transitioned to 25mg succinate qhs on ASA (2) Shortness of breath Status: Resolved Problem Text: decompensated heart failure now compensated- diastolic dysfunction Cardiology signed off- switching diuretic to demadex noc ox suspicious for ramirez - outpatient follow up (3) Weakness Status: Acute Response to Treatment: Progressing Discussed With: Patient Problem Specific Plan: Consult Specialist, Monitor Clinically Problem Text: Unclear etiology - CK trending downwards- 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 limiting her ability to stand/walk - +SSA-ro, +ELISE MRI L/S spine obtained neurology consultation appreciated, recs for o/p muscle bx/EMG - patient states she will not be able to tolerate travelling to [place] for muscle bx, willing to have local EMG- 10/29/16 again discussed further workup in [place]- patient not interested in transfer 10/29/16- discussed in general with neurology attending- will increase dose of steroids continue with PT/OT follow up neurology as outpt recent steroid use 40mg daily taper for pneumonia about 4 weeks ago (4) Diarrhea Status: Resolved Discussed With: Patient Problem Specific Plan: Monitor Clinically (5) Elevated troponin Status: Resolved Discussed With: Patient Problem Specific Plan: Monitor Clinically Problem Text: resolved, no acs - likely demand ischemia (6) Hypokalemia Problem Text: repleted- repeat labs in am (7) Thrombocytosis Problem Specific Plan: Monitor Clinically, Repeat Labs Problem Text: likely reactive - continue to monitor Plan/VTE VTE Prophylaxis Ordered?: Yes (eliquis) Plan Diet: Continue Current Activity: Continue Current Therapy: PT, OT Pt and Family Services: Home Care Anticipated Discharge: Home With Services Patient wants to return home with services. Medically stable for discharge, disposition to be determined. Today she states she is more amenable to further outpatient workup regarding her weakness/myositis. VS, I&O, 24H, Fishbone Vital Signs/I&O Vital Signs Date Time Temp Pulse Resp B/P (MAP) Pulse Ox O2 Delivery O2 Flow Rate FiO2 11/02/16 09:17 117/52 11/02/16 08:45 Room Air 11/02/16 06:00 97.6 60 19 92 I&O- Last 24 Hours up to 6 AM 11/02/16 06:00 Intake Total 1080 ml Output Total 3000 ml Balance -1920 ml Laboratory Data 24H LABS Laboratory Tests 2 11/02/16 06:10: Anion Gap 4L, Glomerular Filtration Rate > 60.0, Blood Urea Nitrogen 30H, Creatinine 0.80, Sodium Level 143, Potassium Level 3.9, Chloride Level 108H, Carbon Dioxide Level 31, Calcium Level 8.0L CBC/BMP Laboratory Tests 11/02/16 06:10 Calcium Level 8.0 L Microbiology Microbiology 10/24/16 Blood Culture - Final, Complete NO GROWTH AFTER 5 DAYS 10/24/16 Blood Culture - Final, Complete NO GROWTH AFTER 5 DAYS 10/24/16 Urine Culture - Final, Complete Corynebacterium Species DEVENDRA LEA MD November 02, 2016 10:38
[2016-11-02 14:00] VITALS: BP 121/51
[2016-11-02 18:00] VITALS: BP 125/60
[2016-11-02] MEDS: METOPROLOL SUCC *XL* 25MG TAB (TopROL *XL*) PO SCH (21:11)
[2016-11-02 22:00] VITALS: BP 123/58
[2016-11-03 02:00] VITALS: BP 107/53
[2016-11-03] MEDS: ACETAMINOPHEN TAB 650MG DOSE (2X325MG) PO PRN ×4 (04:01→21:03)
[2016-11-03 06:00] VITALS: BP 103/51
[2016-11-03 06:20] LABS: ANION GAP 8 MEQ/L (8-16); BLOOD UREA NITROGEN 33 MG/DL (7-18); CALCIUM LEVEL 7.6 MG/DL (8.8-10.2); CARBON DIOXIDE LEVEL 28 MEQ/L (21-32); CHLORIDE LEVEL 107 MEQ/L (98-107); GLOMERULAR FILTRATION RATE > 60.0 (>39); GLUCOSE, FASTING 83 MG/DL (83-110); POTASSIUM SERUM 3.7 MEQ/L (3.5-5.1); SODIUM LEVEL 143 MEQ/L (136-145)
[2016-11-03] MEDS: GABAPENTIN 100 MG CAP PO SCH ×3 (10:13→21:03)
[2016-11-03] MEDS: predniSONE 20 MG TAB PO SCH (10:13)
[2016-11-03] MEDS: ENOXAPARIN 40 MG/0.4 ML SYRINGE (J1650) SC SCH (10:13)
[2016-11-03] MEDS: TORSEMIDE 20 MG TAB PO SCH (10:14)
[2016-11-03] MEDS: VALSARTAN 40MG TABLET (DIOVAN) PO SCH (10:14)
[2016-11-03] MEDS: ASPIRIN 81 MG ENTERIC TAB PO SCH (10:14)
[2016-11-03] MEDS: SPIRONOLACTONE 12.5MG PER 1/2 TABLET PO SCH (10:15)
[2016-11-03] MEDS: MULTIVITAMINS/MINERALS THERAP 1 TAB PO SCH (10:15)
[2016-11-03] MEDS: OMEPRAZOLE 20 MG CAP PO SCH (10:15)
--- NOTE | 2016-11-03 13:08 | IPNPDOC ---
Subjective Date Seen The patient was seen on 11/03/16. Subjective Chief Complaint/HPI The patient is a 76-year-old female admitted with a reason for visit of CHF. General: Denies: ROS Unobtainable, Chills, Night Sweats, Fatigue, Malaise, Normal Appetite, Other Symptoms Constitutional: Reports: Weakness, Denies: Chills, Fever, Malaise, Night Sweats, Fatigue, Weight Loss, Lethargy , Other Eyes: Denies: Pain, Vision change, Conjunctivae inflammation, Eyelid inflammation, Redness, Other ENT: Denies: Head Aches, Ear Pain, Dysphagia, Sinus Congestion, Post Nasal Drip , Sore Throat, Epistaxis, Other Symptoms Skin: Denies: Rash, Lesions, Jaundice, Bruising, Itching, Dry, Breakdown, Nail Changes, Other Pulmonary: Denies: Dyspnea, Cough, Pleuritic Chest Pain, Other Symptoms Cardiovascular: Denies: Chest Pain, Palpitations, Orthopnea, Paroxysmal Noc. Dyspnea, Edema, Lt Headedness, Other Symptoms Gastrointestinal: Denies: Nausea, Vomiting, Abdominal Pain, Diarrhea, Constipation, Melena, Hematochezia, Other Symptoms Genitourinary: Denies: Dysuria, Frequency, Incontinence, Hematuria, Retention, Other Symptoms Hematologic: Denies: Bruising, Bleeding Excessively, Petecchia, Purpura, Enlarged Lymph Nodes, Other Hematologic Endocrine: Denies: Polydipsia, Polyphagia, Polyuria, Heat Intolerance, Cold Intolerance, Other Endocrine Sx Neurological: Reports: Weakness, Denies: Numbness, Incoordination, Change in speech, Confusion, Seizures, Other Symptoms Objective Physical Examination General Exam: Positive: Alert, Cooperative, No Acute Distress, Other (sitting at bedside) Eye Exam: Positive: PERRLA, Conjunctiva & lids normal, EOMI, Negative: Sclera icteric ENT Exam: Positive: Mucous membr. moist/pink Neck Exam: Positive: Supple Chest Exam: Positive: Clear to auscultation, Diminished, Other (mild left basilar crackles), Negative: Rales, Rhonchi, Wheezing Heart Exam: Positive: Rate Normal, Regular Rhythm, Normal S1, Normal S2 Abdomen Exam: Positive: Normal bowel sounds, Soft, Other (obese), Negative: Tenderness Extremity Exam: Positive: Edema (dry scaly skin, 1+ b/l LE pitting edema) Psych Exam: Positive: Oriented x 3 Assessment /Plan Problems (1) Afib Status: Resolved Discussed With: Patient Problem Text: Likely always in sinus rhythm off telemetry monitoring - no events noted during stay beta blockade transitioned to 25mg succinate qhs on ASA (2) Shortness of breath Status: Resolved Problem Text: decompensated heart failure now compensated- diastolic dysfunction Cardiology signed off- switching diuretic to demadex noc ox suspicious for ramirez - outpatient follow up (3) Weakness Status: Acute Response to Treatment: Progressing Discussed With: Patient Problem Specific Plan: Consult Specialist, Monitor Clinically Problem Text: Unclear etiology - CK trending downwards- 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 limiting her ability to stand/walk - +SSA-ro, +ELISE MRI L/S spine obtained neurology consultation appreciated, recs for o/p muscle bx/EMG - patient states she will not be able to tolerate travelling to [place] for muscle bx, willing to have local EMG- 10/29/16 again discussed further workup in [place]- patient not interested in transfer 10/29/16- discussed in general with neurology attending- will increase dose of steroids continue with PT/OT follow up neurology as outpt recent steroid use 40mg daily taper for pneumonia about 4 weeks ago (4) Diarrhea Status: Resolved Discussed With: Patient Problem Specific Plan: Monitor Clinically (5) Elevated troponin Status: Resolved Discussed With: Patient Problem Specific Plan: Monitor Clinically Problem Text: resolved, no acs - likely demand ischemia (6) Hypokalemia Problem Text: repleted (7) Thrombocytosis Problem Specific Plan: Monitor Clinically, Repeat Labs Problem Text: likely reactive Plan/VTE VTE Prophylaxis Ordered?: Yes (eliquis) Plan Diet: Continue Current Activity: Continue Current Therapy: PT, OT Pt and Family Services: Home Care Anticipated Discharge: Home With Services Pending setting up home services. VS, I&O, 24H, Fishbone Vital Signs/I&O Vital Signs Date Time Temp Pulse Resp B/P (MAP) Pulse Ox O2 Delivery O2 Flow Rate FiO2 11/03/16 10:14 103/51 11/03/16 08:30 Room Air 11/03/16 06:00 97.9 62 16 95 I&O- Last 24 Hours up to 6 AM 11/03/16 05:59 Intake Total 1860 ml Output Total 2700 ml Balance -840 ml Laboratory Data 24H LABS Laboratory Tests 2 11/03/16 05:38: Anion Gap 8, Glomerular Filtration Rate > 60.0, Blood Urea Nitrogen 33H, Creatinine 0.80, Sodium Level 143, Potassium Level 3.7, Chloride Level 107, Carbon Dioxide Level 28, Calcium Level 7.6L CBC/BMP Laboratory Tests 11/03/16 05:38 Calcium Level 7.6 L Microbiology Microbiology 10/24/16 Blood Culture - Final, Complete NO GROWTH AFTER 5 DAYS 10/24/16 Blood Culture - Final, Complete NO GROWTH AFTER 5 DAYS 10/24/16 Urine Culture - Final, Complete Corynebacterium Species DEVENDRA LEA MD November 03, 2016 13:08
[2016-11-03 16:00] VITALS: BP 119/66
[2016-11-03] MEDS: METOPROLOL SUCC *XL* 25MG TAB (TopROL *XL*) PO SCH (20:53)
[2016-11-03 22:00] VITALS: BP 108/56
[2016-11-04 02:00] VITALS: BP 124/56
[2016-11-04] MEDS: ACETAMINOPHEN TAB 650MG DOSE (2X325MG) PO PRN ×3 (02:50→16:40)
[2016-11-04 06:00] VITALS: BP 118/57
[2016-11-04] MEDS: ENOXAPARIN 40 MG/0.4 ML SYRINGE (J1650) SC SCH (09:46)
[2016-11-04] MEDS: SPIRONOLACTONE 12.5MG PER 1/2 TABLET PO SCH (09:48)
[2016-11-04] MEDS: predniSONE 20 MG TAB PO SCH (09:48)
[2016-11-04] MEDS: GABAPENTIN 100 MG CAP PO SCH ×3 (09:48→20:42)
[2016-11-04] MEDS: MULTIVITAMINS/MINERALS THERAP 1 TAB PO SCH (09:49)
[2016-11-04] MEDS: OMEPRAZOLE 20 MG CAP PO SCH (09:49)
[2016-11-04] MEDS: VALSARTAN 40MG TABLET (DIOVAN) PO SCH (09:49)
[2016-11-04] MEDS: TORSEMIDE 20 MG TAB PO SCH (09:50)
[2016-11-04] MEDS: ASPIRIN 81 MG ENTERIC TAB PO SCH (09:50)
[2016-11-04] MEDS: METOPROLOL SUCC *XL* 25MG TAB (TopROL *XL*) PO SCH (20:42)
[2016-11-05 06:00] VITALS: BP 113/56
[2016-11-05] MEDS: predniSONE 20 MG TAB PO SCH (09:17)
[2016-11-05] MEDS: SPIRONOLACTONE 12.5MG PER 1/2 TABLET PO SCH (09:17)
[2016-11-05] MEDS: ASPIRIN 81 MG ENTERIC TAB PO SCH (09:17)
[2016-11-05] MEDS: MULTIVITAMINS/MINERALS THERAP 1 TAB PO SCH (09:18)
[2016-11-05] MEDS: ENOXAPARIN 40 MG/0.4 ML SYRINGE (J1650) SC SCH (09:18)
[2016-11-05] MEDS: GABAPENTIN 100 MG CAP PO SCH ×3 (09:18→21:43)
[2016-11-05] MEDS: TORSEMIDE 20 MG TAB PO SCH (09:18)
[2016-11-05] MEDS: OMEPRAZOLE 20 MG CAP PO SCH (09:18)
[2016-11-05] MEDS: ACETAMINOPHEN TAB 650MG DOSE (2X325MG) PO PRN ×3 (09:19→21:43)
[2016-11-05] MEDS: VALSARTAN 40MG TABLET (DIOVAN) PO SCH (09:30)
[2016-11-05] MEDS: METOPROLOL SUCC *XL* 25MG TAB (TopROL *XL*) PO SCH (21:43)
[2016-11-06] MEDS: ACETAMINOPHEN TAB 650MG DOSE (2X325MG) PO PRN ×4 (04:23→21:53)
[2016-11-06 06:00] VITALS: BP 99/54
[2016-11-06] MEDS: OMEPRAZOLE 20 MG CAP PO SCH (09:15)
[2016-11-06] MEDS: MULTIVITAMINS/MINERALS THERAP 1 TAB PO SCH (09:15)
[2016-11-06] MEDS: ASPIRIN 81 MG ENTERIC TAB PO SCH (09:16)
[2016-11-06] MEDS: predniSONE 20 MG TAB PO SCH (09:16)
[2016-11-06] MEDS: TORSEMIDE 20 MG TAB PO SCH (09:16)
[2016-11-06] MEDS: GABAPENTIN 100 MG CAP PO SCH ×3 (09:16→21:52)
[2016-11-06] MEDS: ENOXAPARIN 40 MG/0.4 ML SYRINGE (J1650) SC SCH (09:17)
[2016-11-06] MEDS: SPIRONOLACTONE 12.5MG PER 1/2 TABLET PO SCH (09:17)
[2016-11-06] MEDS: VALSARTAN 40MG TABLET (DIOVAN) PO SCH (09:21)
[2016-11-06] MEDS: METOPROLOL SUCC *XL* 25MG TAB (TopROL *XL*) PO SCH (21:52)
[2016-11-07] MEDS: ACETAMINOPHEN TAB 650MG DOSE (2X325MG) PO PRN ×4 (04:14→19:59)
[2016-11-07 06:00] VITALS: BP 115/55
[2016-11-07] MEDS: predniSONE 20 MG TAB PO SCH ×2 (09:00→10:45)
[2016-11-07] MEDS: SPIRONOLACTONE 12.5MG PER 1/2 TABLET PO SCH (09:46)
[2016-11-07] MEDS: ENOXAPARIN 40 MG/0.4 ML SYRINGE (J1650) SC SCH (09:46)
[2016-11-07] MEDS: TORSEMIDE 20 MG TAB PO SCH (09:46)
[2016-11-07] MEDS: GABAPENTIN 100 MG CAP PO SCH ×3 (09:47→19:58)
[2016-11-07] MEDS: VALSARTAN 40MG TABLET (DIOVAN) PO SCH (09:54)
[2016-11-07] MEDS: ASPIRIN 81 MG ENTERIC TAB PO SCH (09:54)
[2016-11-07] MEDS: MULTIVITAMINS/MINERALS THERAP 1 TAB PO SCH (09:55)
[2016-11-07] MEDS: OMEPRAZOLE 20 MG CAP PO SCH (09:55)
--- NOTE | 2016-11-07 10:31 | IPNPDOC ---
Subjective Date Seen The patient was seen on 11/07/16. Subjective Chief Complaint/HPI The patient is a 76-year-old female admitted with a reason for visit of CHF. General: Denies: ROS Unobtainable, Chills, Night Sweats, Fatigue, Malaise, Normal Appetite, Other Symptoms Constitutional: Reports: Weakness (generalized weakness but states is improving ), Denies: Chills, Fever, Malaise, Night Sweats, Fatigue, Weight Loss, Lethargy , Other Eyes: Denies: Pain, Vision change, Conjunctivae inflammation, Eyelid inflammation, Redness, Other ENT: Denies: Head Aches, Ear Pain, Dysphagia, Sinus Congestion, Post Nasal Drip , Sore Throat, Epistaxis, Other Symptoms Skin: Denies: Rash, Lesions, Jaundice, Bruising, Itching, Dry, Breakdown, Nail Changes, Other Pulmonary: Denies: Dyspnea, Cough, Pleuritic Chest Pain, Other Symptoms Cardiovascular: Denies: Chest Pain, Palpitations, Orthopnea, Paroxysmal Noc. Dyspnea, Edema, Lt Headedness, Other Symptoms Gastrointestinal: Denies: Nausea, Vomiting, Abdominal Pain, Diarrhea, Constipation, Melena, Hematochezia, Other Symptoms Genitourinary: Denies: Dysuria, Frequency, Incontinence, Hematuria, Retention, Other Symptoms Hematologic: Denies: Bruising, Bleeding Excessively, Petecchia, Purpura, Enlarged Lymph Nodes, Other Hematologic Musculoskeletal: Reports: Other Symptoms (bilateral intermittent burning hand pain) Objective Physical Examination General Exam: Positive: Alert, Cooperative, No Acute Distress, Other (sitting comfortably in chair taking notes) Eye Exam: Positive: PERRLA, Conjunctiva & lids normal, EOMI, Negative: Sclera icteric ENT Exam: Positive: Mucous membr. moist/pink Neck Exam: Positive: Supple Chest Exam: Positive: Clear to auscultation, Diminished, Other (mild left basilar crackles), Negative: Rales, Rhonchi, Wheezing Heart Exam: Positive: Rate Normal, Regular Rhythm, Normal S1, Normal S2 Abdomen Exam: Positive: Normal bowel sounds, Soft, Other (obese), Negative: Tenderness Extremity Exam: Positive: Edema (dry scaly skin, minimal erythema, 1+ b/l LE pitting edema) Psych Exam: Positive: Oriented x 3 Assessment /Plan Problems (1) Afib Status: Resolved Discussed With: Patient Problem Text: Likely always in sinus rhythm off telemetry monitoring - no events noted during stay beta blockade transitioned to 25mg succinate qhs on ASA (2) Shortness of breath Status: Resolved Problem Text: decompensated heart failure now compensated- diastolic dysfunction Cardiology signed off- switching diuretic to demadex noc ox suspicious for ramirez - outpatient follow up (3) Weakness Status: Acute Response to Treatment: Progressing Discussed With: Patient Problem Specific Plan: Consult Specialist, Monitor Clinically Problem Text: Unclear etiology - CK trending downwards- 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 limiting her ability to stand/walk - +SSA-ro, +ELISE MRI L/S spine obtained neurology consultation appreciated, recs for o/p muscle bx/EMG - patient states she will not be able to tolerate travelling to [place] for muscle bx, willing to have local EMG- 10/29/16 again discussed further workup in [place]- patient not interested in transfer 10/29/16- discussed in general with neurology attending- will increase dose of steroids continue with PT/OT follow up neurology as outpt recent steroid use 40mg daily taper for pneumonia about 4 weeks ago tapered current prednisone 60 to 50 mg daily (4) Diarrhea Status: Resolved Discussed With: Patient Problem Specific Plan: Monitor Clinically (5) Elevated troponin Status: Resolved Discussed With: Patient Problem Specific Plan: Monitor Clinically Problem Text: resolved, no acs - likely demand ischemia (6) Hypokalemia Problem Text: repleted (7) Thrombocytosis Problem Specific Plan: Monitor Clinically, Repeat Labs Problem Text: likely reactive Plan/VTE VTE Prophylaxis Ordered?: Yes (eliquis) Plan Diet: Continue Current Activity: Continue Current Therapy: PT, OT Pt and Family Services: Home Care Anticipated Discharge: Home With Services Pending placement - home with services. Outpatient follow up with neurology for EMG, muscle biopsy at [facility] if patient is agreeable. VS, I&O, 24H, Fishbone Vital Signs/I&O Vital Signs Date Time Temp Pulse Resp B/P (MAP) Pulse Ox O2 Delivery O2 Flow Rate FiO2 11/07/16 09:54 119/59 11/07/16 07:30 Room Air 11/07/16 06:00 98.4 82 20 93 I&O- Last 24 Hours up to 6 AM 11/07/16 05:59 Intake Total 1455 ml Output Total 2375 ml Balance -920 ml DEVENDRA LEA MD November 07, 2016 10:31
[2016-11-07 11:34] LABS: BASO % 0.1 % (0.0-1.0); EOS # 0.2 K/mm3 (0.0-0.50); EOS % 1.3 % (0.0-3.0); LARGE UNSTAINED CELL # 0.1 K/mm3 (0.0-0.4); LARGE UNSTAINED CELL % 0.6 % (0.0-4.0); LYMPH # 1.4 K/mm3 (1.5-4.5); LYMPH % 9.6 % (24.0-44.0); MEAN CORPUSCULAR HEMOGLOBIN 30.5 pg (27.0-33.0); MEAN CORPUSCULAR HGB CONC 32.7 g/dl (32.0-36.5); MEAN CORPUSCULAR VOLUME 93.4 fl (80.0-96.0); MONO # 0.6 K/mm3 (0.0-0.8); MONO % 4.2 % (0.0-5.0); NEUTROPHILS # 11.4 K/mm3 (1.8-7.7); NEUTROPHILS % 84.2 % (36.0-66.0); PLATELET COUNT, AUTOMATED 491 k/mm3 (150-450); RED CELL DISTRIBUTION WIDTH 14.4 % (11.5-14.5); WHITE BLOOD COUNT 13.6 K/mm3 (4.0-10.0)
[2016-11-07 12:31] LABS: ALBUMIN 2.5 GM/DL (3.2-5.2); ALBUMIN/GLOBULIN RATIO 0.54 (1.00-1.93); ALKALINE PHOSPHATASE 43 U/L (45-117); ALT/SGPT 168 U/L (12-78); ANION GAP 6 MEQ/L (8-16); AST/SGOT 176 U/L (15-37); BILIRUBIN,TOTAL 0.5 MG/DL (0.2-1.0); BLOOD UREA NITROGEN 33 MG/DL (7-18); CALCIUM LEVEL 8.3 MG/DL (8.8-10.2); CARBON DIOXIDE LEVEL 30 MEQ/L (21-32); CHLORIDE LEVEL 105 MEQ/L (98-107); CREATININE FOR GFR 0.81 MG/DL (0.55-1.02); GLOMERULAR FILTRATION RATE > 60.0 (>39); GLUCOSE, FASTING 97 MG/DL (83-110); POTASSIUM SERUM 3.9 MEQ/L (3.5-5.1); SODIUM LEVEL 141 MEQ/L (136-145); TOTAL PROTEIN 7.1 GM/DL (6.4-8.2)
[2016-11-07] MEDS: METOPROLOL SUCC *XL* 25MG TAB (TopROL *XL*) PO SCH (19:59)
[2016-11-08 06:00] VITALS: BP 119/53
[2016-11-08] MEDS: GABAPENTIN 100 MG CAP PO SCH ×2 (10:35→15:45)
[2016-11-08] MEDS: SPIRONOLACTONE 12.5MG PER 1/2 TABLET PO SCH (10:35)
[2016-11-08] MEDS: OMEPRAZOLE 20 MG CAP PO SCH (10:35)
[2016-11-08] MEDS: MULTIVITAMINS/MINERALS THERAP 1 TAB PO SCH (10:35)
[2016-11-08 10:36] VITALS: BP 119/53
[2016-11-08] MEDS: ASPIRIN 81 MG ENTERIC TAB PO SCH (10:36)
[2016-11-08] MEDS: predniSONE 20 MG TAB PO SCH (10:36)
[2016-11-08] MEDS: TORSEMIDE 20 MG TAB PO SCH (10:36)
[2016-11-08] MEDS: VALSARTAN 40MG TABLET (DIOVAN) PO SCH (10:36)
[2016-11-08] MEDS: ENOXAPARIN 40 MG/0.4 ML SYRINGE (J1650) SC SCH (10:37)
[2016-11-08] MEDS: ACETAMINOPHEN TAB 650MG DOSE (2X325MG) PO PRN ×2 (10:41→15:45)
[2016-11-08] MEDS ORDERED: DEMA20TA6 PO (15:06)
[2016-11-08] MEDS ORDERED: SPIR25TA2 PO (15:06)
[2016-11-08] MEDS ORDERED: METO25TA74 PO (15:06)
[2016-11-08] MEDS ORDERED: MOUKOT60 MT (15:06)
[2016-11-08] MEDS ORDERED: GABA-279 PO (15:06)
[2016-11-08] MEDS ORDERED: VALS1TAB49 PO (15:06)
[2016-11-08] MEDS ORDERED: ASPI81TAEC PO (15:06)
[2016-11-08] MEDS ORDERED: PRED10TA PO (15:08)
--- NOTE | 2016-11-09 11:44 | DSES ---
DATE OF ADMISSION: 10/14/2016 DATE OF DISCHARGE: 11/08/2016 SPECIALISTS INVOLVED IN CARE: Dr. Marquez, Dr. Polo. DISCHARGE DIAGNOSES: 1. Atrial fibrillation suspected during the admission but seems unlikely. 2. Decompensated diastolic congestive heart failure (CHF). 3. 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 4. Elevated troponin thought to be demand ischemia. 5. Hypokalemia. 6. Thrombocytosis. 7. Diarrhea. 8. Suspected obstructive sleep apnea. Recommend outpatient sleep study. SUMMARY OF HOSPITALIZATION: This is a 76-year-old who presented with shortness of breath and lower extremity swelling for one month. She had gained over 20 pounds in one month and was not able to lay on her back and sleep and had frequent nighttime awakenings. Was thought to have decompensated congestive heart failure (CHF). Was diuresed and seen in consultation by cardiology. Also, during her stay, she had a nocturnal oximetry study, which was suspicious for obstructive sleep apnea. She had an elevated troponin at the time of her presentation, thought to be related to demand ischemia and also had weakness and elevated CK. Seen in consultation by neurology and thought to have myositis. She declined further workup at another center. She did not think she would be willing to undergo muscle biopsy but would be willing to undergo EMG. She had a prolonged hospital stay due to weakness and willingness only to return to home through excellent discharge planning. We have been able to safely discharge her home with some services. The patient is still having difficulty getting into bed without assistance, but does have an easy chair, which she has just purchased to allow her to sleep without getting into bed. On the day of discharge, she is feeling well. She has no complaints of pain, chest pain, shortness of breath. Temperature 98.2, pulse 98, respiratory rate 18, blood pressure 119/53, 93% on room air. Input and output notable for a positive fluid balance of 30. Weight is 115.3 kg, which likely represents her dry weight. Two dimensional echocardiogram done during her stay shows normal left ventricular ejection fraction and some evidence of left ventricular diastolic dysfunction with moderate pulmonary hypertension. She is awake, appropriately interactive, pleasantly conversant, quite engaged in her care. Says that she will have a scale at home to do daily weights and take them to her primary care provider. Breathing is symmetrical and rested, distant sounding. Heart is distant sounding, regular rate and rhythm. Abdomen is soft, doughy, nontender. 1+ bilateral lower extremity edema, which has been constant for some time. Creatinine is 0.8, hemoglobin is 11.7. DISCHARGE INSTRUCTIONS: Followup with the resident clinic on 11/15/2016 at 11:[address] Zeng. Followup with Dr. Polo on 11/25/2016 for EMG and possible sleep study. Activity as tolerated. 2 gram sodium, 1.8 liter fluid restriction. Continue with: - aspirin 81 mg by mouth daily - Neurontin 200 mg by mouth three times a day - metoprolol succinate 25 mg by mouth daily at bedtime - prednisone tapering dose as written - spironolactone 12.5 mg by mouth daily - torsemide 20 mg by mouth daily - valsartan 40 mg by mouth daily - albuterol as needed - vitamin D supplement - multivitamin - omeprazole 20 mg by mouth daily - Zantac 75 mg by mouth at bedtime Discontinue Excedrin, discontinue previous Lasix, discontinue previous Levaquin, discontinue Megace. Please note, depending on the clinical course, the patient may also benefit from outpatient stress test. Please also note, the patient may benefit from outpatient obstructive sleep apnea study. Please note, the patient may benefit from a muscle biopsy should she be open to that.
== END 2016-11-08 16:15 | disposition home health service (06) | DRG 194 ==
LOC: EDBD 15:11 → M ED 16:52 → M ED INP 19:10 → M PCU 10-15 14:37 → M MSPAV 10-16 19:38 → M PCU 10-23 10:47 → M MSPAV 10-26 17:15
PROVIDERS: ADMIT Internal Medicine; ATTEND Internal Medicine
DX: I50.33 Acute on chronic diastolic (congestive) heart failure (principal); Z68.41 Body mass index [BMI] 40.0-44.9, adult; I24.8 Other forms of acute ischemic heart disease; E66.01 Morbid (severe) obesity due to excess calories; E83.42 Hypomagnesemia; G47.33 Obstructive sleep apnea (adult) (pediatric); R53.1 Weakness; M60.9 Myositis, unspecified; E87.6 Hypokalemia; R19.7 Diarrhea, unspecified; Z79.82 Long term (current) use of aspirin; Z79.899 Other long term (current) drug therapy; Z79.52 Long term (current) use of systemic steroids; Z91.013 Allergy to seafood; K21.9 Gastro-esophageal reflux disease without esophagitis

== ENCOUNTER → 2016-11-15 | Outpatient (REF) | payer MEDICARE, BC ==
[~2016-11-15] MED LIST changes: +ALBU17IN2 INH; +ASPI81TAEC PO; +DEMA20TA6 PO; +EXCETAB81 PO; +FURO20TA2; +FURO20TA2 PO; +GABA-279 PO; +LEVO500T32; +LEVO500T32 PO; +MEGE20TA PO; +METO25TA74 PO; +MOUKOT60 MT; +PRED10TA PO; +RANI75TA9 PO; +SPIR25TA2 PO; +VALS1TAB49 PO; +VITA100066 PO; +VITMTA PO
[2016-11-15 16:27] LABS: ALBUMIN 3.2 GM/DL (3.2-5.2); ALBUMIN/GLOBULIN RATIO 0.64 (1.00-1.93); BILIRUBIN,TOTAL 0.5 MG/DL (0.2-1.0); CALCIUM LEVEL 8.8 MG/DL (8.8-10.2); CREATININE FOR GFR 1.07 MG/DL (0.55-1.02); GLOMERULAR FILTRATION RATE 53.2 (>39); POTASSIUM SERUM 4.5 MEQ/L (3.5-5.1); TOTAL PROTEIN 8.2 GM/DL (6.4-8.2)
[2016-11-15 17:01] LABS: BASO % 0.1 % (0.0-1.0); EOS % 0.2 % (0.0-3.0); LARGE UNSTAINED CELL # 0.1 K/mm3 (0.0-0.4); LARGE UNSTAINED CELL % 0.4 % (0.0-4.0); LYMPH # 0.5 K/mm3 (1.5-4.5); LYMPH % 3.2 % (24.0-44.0); MEAN CORPUSCULAR HEMOGLOBIN 30.8 pg (27.0-33.0); MEAN CORPUSCULAR HGB CONC 32.3 g/dl (32.0-36.5); MEAN CORPUSCULAR VOLUME 95.3 fl (80.0-96.0); MONO # 0.3 K/mm3 (0.0-0.8); MONO % 1.9 % (0.0-5.0); NEUTROPHILS # 13.9 K/mm3 (1.8-7.7); NEUTROPHILS % 94.3 % (36.0-66.0); PLATELET COUNT, AUTOMATED 392 k/mm3 (150-450); RED CELL DISTRIBUTION WIDTH 14.3 % (11.5-14.5); WHITE BLOOD COUNT 14.7 K/mm3 (4.0-10.0)
== END ==
LOC: M SFHCPLAZ 12:45
PROVIDERS: ATTEND Internal Medicine
DX: I50.9 Heart failure, unspecified (principal); M62.81 Muscle weakness (generalized); Z13.1 Encounter for screening for diabetes mellitus; M79.2 Neuralgia and neuritis, unspecified; G47.00 Insomnia, unspecified; Z79.82 Long term (current) use of aspirin; Z79.899 Other long term (current) drug therapy

== ENCOUNTER → 2016-12-28 | Outpatient (REF) | payer BC, MEDICARE ==
[~2016-12-28] MED LIST changes: -AUGM875T27 PO; +AUGM875T28 PO; +LEVO500T3; +LEVO500T3 PO; -LEVO500T32; -LEVO500T32 PO; -MEGE20TA PO; +MEGE20TA3 PO; +METO1TAB32 PO; -METO25TA74 PO; -PRED10TA PO; +PRED10TA2 PO
== END ==
LOC: M SFHCPLAZ 15:30
PROVIDERS: ATTEND Family Medicine
DX: C44.41 Basal cell carcinoma of skin of scalp and neck (principal)

== ENCOUNTER → 2017-03-24 | Outpatient (CLI) | payer BC ==
[2017-03-24 13:30] LABS: ANION GAP 8 MEQ/L (8-16); BLOOD UREA NITROGEN 12 MG/DL (7-18); CALCIUM LEVEL 8.8 MG/DL (8.8-10.2); CARBON DIOXIDE LEVEL 27 MEQ/L (21-32); CHLORIDE LEVEL 103 MEQ/L (98-107); CREATININE FOR GFR 0.74 MG/DL (0.55-1.02); GLOMERULAR FILTRATION RATE > 60.0 (>39); GLUCOSE, FASTING 106 MG/DL (83-110); POTASSIUM SERUM 4.4 MEQ/L (3.5-5.1); SODIUM LEVEL 138 MEQ/L (136-145)
--- NOTE | 2017-03-24 14:08 | REP ---
CHEST X-RAY: TWO VIEWS. HISTORY: Heart disease. COMPARISON STUDY: October 24, 2016 FINDINGS: The lungs are symmetrically aerated and free of infiltrate. Right hemidiaphragm is slightly elevated. Heart is mildly enlarged. This is improved. Pulmonary vasculature is not increased. No free pleural effusion is seen. There are degenerative changes in the thoracic spine. IMPRESSION: Mild cardiomegaly. Otherwise no acute disease. Slightly elevated right hemidiaphragm. Signed by Lenin Mcgovern MD 03/24/2017 03:53 P
== END ==
LOC: M LAB 12:15
PROVIDERS: ATTEND Orthopaedic Surgery
DX: I51.9 Heart disease, unspecified (principal)

== ENCOUNTER 2017-05-16 16:28 | Inpatient (IN) | payer MEDICARE, BC ==
[~2017-05-16] VITALS: Ht 167.6 cm; Wt 90.9 kg
[2017-05-16] MEDS ORDERED: AMIT25TA PO ×2 (16:39→22:02)
[2017-05-16 20:03] LABS: BASO # 0.1 10^3/uL (0.0-0.2); BASO % 0.5 % (0.0-1.0); EOS # 0.1 10^3/uL (0.0-0.50); EOS % 1.2 % (0.0-3.0); IMMATURE GRANULOCYTE % 0.4 % (0-0); LYMPH # 1.2 10^3/uL (1.5-4.5); LYMPH % 10.6 % (24.0-44.0); MEAN CORPUSCULAR HEMOGLOBIN 30.5 pg (27.0-33.0); MEAN CORPUSCULAR HGB CONC 33.3 g/dl (32.0-36.5); MEAN CORPUSCULAR VOLUME 91.6 fl (80.0-96.0); MONO # 0.7 10^3/uL (0.0-0.8); NEUTROPHILS # 9.1 10^3/uL (1.8-7.7); NEUTROPHILS % 81.3 % (36.0-66.0); PLATELET COUNT, AUTOMATED 523 10^3/uL (150-450); RED CELL DISTRIBUTION WIDTH 14.5 % (11.5-14.5); WHITE BLOOD COUNT 11.2 10^3/uL (4.0-10.0)
[2017-05-16 20:44] LABS: CALCIUM LEVEL 8.7 MG/DL (8.8-10.2); CREATININE FOR GFR 11.1 MG/DL (0.55-1.02); GLOMERULAR FILTRATION RATE 3.6 (>39); MAGNESIUM LEVEL 3.1 MG/DL (1.8-2.4)
[2017-05-16 21:00] LABS: POTASSIUM SERUM 7.5 MEQ/L (3.5-5.1)
[2017-05-16] MEDS ORDERED: SOD POLYSTYRENE SULFONATE SUSP 15 GM/60 ML UD PO ONE ×2 (21:15→21:30)
[2017-05-16] MEDS ORDERED: NS 1,000 ML IV ONE (21:15)
[2017-05-16] MEDS ORDERED: ALBUTEROL SULFATE 2.5 MG/0.5 ML INH NEB SOLN INH ONE (21:15)
[2017-05-16] MEDS ORDERED: HumuLIN R (REGULAR) INSULIN (NovoLIN R) **100U/ML** PER UNIT IV STA (21:41)
[2017-05-16] MEDS ORDERED: DEXTROSE 50% 50 ML SYRINGE IV STA (21:41)
[2017-05-16] MEDS ORDERED: ALBUTEROL SULFATE 2.5 MG/0.5 ML INH NEB SOLN NEB ONE (21:45)
[2017-05-16] MEDS ORDERED: CALCIUM GLUCONATE 1,000 MG in D5W MINI-BAG PLUS 100 ML IV ONE (21:45)
--- NOTE | 2017-05-16 22:00 | REPUSA ---
Clinical history: Renal failure. Findings: The right kidney measures 11.9 x 5.6 x 4.6 cm. The left kidney measures 12.8 x 5.7 x 6.8 c m. The kidneys demonstrate normal echotexture and echogenicity. There is no evidence of mild bilatera l hydronephrosis. There is no evidence of nephrolithiasis. No renal masses are seen. No free fluid is appreciated. Impression: Mild bilateral hydronephrosis. No evidence of nephrolithiasis.
[2017-05-16] MEDS ORDERED: SPIR25TA2 PO (22:02)
[2017-05-16] MEDS ORDERED: ASPI81TAEC PO (22:02)
[2017-05-16] MEDS ORDERED: RANI75TA9 PO (22:02)
[2017-05-16] MEDS ORDERED: VITA200016 PO (22:02)
[2017-05-16] MEDS ORDERED: METO1TAB32 PO (22:02)
[2017-05-16] MEDS ORDERED: OMEP20CA3 PO (22:02)
[2017-05-16] MEDS ORDERED: VITMTA PO (22:02)
[2017-05-16] MEDS ORDERED: TORS20TA2 PO (22:02)
[2017-05-16] MEDS ORDERED: TYLE500T78 PO (22:03)
[2017-05-16 22:14] LABS: INR 1.13
[2017-05-16 23:15] LABS: VENOUS BASE EXCESS -9.6 (-2.0-2.0); VENOUS O2 SATURATION 80.2 % (60.0-80.0); VENOUS PARTIAL PRESSURE CO2 39.5 mmHg (38.0-50.0); VENOUS PARTIAL PRESSURE O2 49.2 mmHg (30.0-50.0); VENOUS STANDARD HCO3 16.5 MEQ/L; VENOUS TOTAL CO2 18.2 MEQ/L (24.0-28.0)
[2017-05-16 23:22] LABS: CALCIUM LEVEL 8.6 MG/DL (8.8-10.2); CREATININE FOR GFR 11.4 MG/DL (0.55-1.02); GLOMERULAR FILTRATION RATE 3.5 (>39)
[2017-05-16 23:25] LABS: POTASSIUM SERUM 7.5 MEQ/L (3.5-5.1)
[2017-05-16] MEDS ORDERED: NS 1,000 ML IV SCH (23:30)
[2017-05-16] MEDS ORDERED: NS 0.45% 1,000 ML IV ONE ×2 (23:45)
[2017-05-16] MEDS ORDERED: SODIUM BICARBONATE 75 MEQ in NS 0.45% 1,000 ML IV SCH (23:45)
[2017-05-17] VITALS (17 sets, daily range): BP systolic 113–171; BP diastolic 55–99
[2017-05-17] MEDS ORDERED: DEXTROSE 50% 50 ML SYRINGE IV STA ×2 (00:18→03:03)
--- NOTE | 2017-05-17 00:19 | HPEPDOC ---
General Date of Admission May 16, 2017 at 23:38 Primary Care Physician: DESTINY WRIGHT DO Chief Complaint The patient is a 77-year-old female admitted with a reason for visit of Jarrod/ Hyperkalemia/Diminished Renal Excretion. Timing/Duration: 4-6 hours History of Present Illness 77 y/o female with past medical hx. of diastolic chf, HTN, depression who presents with episode of acute onset b/l leg weakness that resulted in her "lowering herself to the floor" because she was so weak. The pt states since her d/c in September 2016 for SOB due to CHF (a. fib was also noted on this stay) she has had progressing b/l LE weakness, she noted associated fatigue & nausea over the past few days along with an increased urge to urinate, 13x in a ten hour period a few days ago as per her home nurse who is at bedside with her. Also states she has not been eating much in the past few days due to the nausea. She denied pain with urination or blood in urine, but did admit to some loose stool over the past four days with "blackness in color" due to taking pepto-bismal. She also thought today she had some b/l UE weakness as well. She has not had a fever, nor muscle aches or chills, nor vomiting but has been nauseous. Denies headache or change in vision. Denies dizziness nor abdominal pain, no CP, racing heard or SOB. She is not SOB when laying down flat, and has not noted any increase in fluid in her legs. She thinks she has been gaining about a pound per day however for the past week. Home Medications Scheduled Amitriptyline HCl (Amitriptyline HCl) 25 Mg Tab, 25 MG PO QHS, (Reported) Aspirin (Aspirin EC) 81 Mg Tabec, 81 MG PO DAILY, (Reported) Metoprolol Succinate (Metoprolol Succinate ER) 25 Mg Tab, 25 MG PO DAILY, ( Reported) Multivitamins *[facility] STOCKED* (Thera M Plus *[facility] STOCKED*) 1 Tab Tab, 1 TAB PO DAILY, (Reported) Omeprazole (Omeprazole) 20 Mg Cap, 20 MG PO DAILY, (Reported) Ranitidine HCl (Ranitidine HCl) 75 Mg Tab, 1 TAB PO QHS, (Reported) Spironolactone (Spironolactone) 25 Mg Tab, 12.5 MG PO BID, (Reported) Torsemide (Torsemide) 20 Mg Tab, 20 MG PO DAILY, (Reported) Vitamin D (Vitamin D) 2,000 Unit Cap, 2,000 UNIT PO DAILY, (Reported) Scheduled PRN Acetaminophen (Tylenol Extra Strength) 500 Mg Tab, 1,000 MG PO Q6H PRN for PAIN, (Reported) WAS TAKING AROUND 6 GRAMS FOR MONTHS Allergies Coded Allergies: Shellfish Allergy (Verified Allergy, Unknown, 05/16/17) Past Medical History Medical History as per hpi Surgical History left carpal tunnel left wrist two weeks ago hx steroid shots in her back for pain hx ex. lap many years ago for fibroids Family History Significant Family History: No pertinent family hx Social History * Smoker: Denies Alcohol: rarely Drugs: denies Psychosocial History: Depression lives at home with caregivers Review of Symptoms Constitutional: Reports: Malaise, Weakness, Fatigue, Denies: Chills, Fever, Weight Loss Eyes: Denies: Pain, Vision change ENT: Denies: Head Aches, Ear Pain, Dysphagia Skin: Denies: Rash, Lesions Pulmonary: Denies: Dyspnea, Cough Cardiovascular: Reports: Lt Headedness, Denies: Chest Pain, Palpitations, Orthopnea, Paroxysmal Noc. Dyspnea, Edema Gastrointestinal: Reports: Nausea, Diarrhea, Melena (from her pepto medication) , Denies: Vomiting, Abdominal Pain, Constipation, Hematochezia Genitourinary: Reports: Frequency, Denies: Dysuria, Incontinence, Hematuria Hematologic: Denies: Bruising Musculoskeletal: Reports: Other Symptoms (b/l upper and lower extremity weakness, +4/5, sensation intact b/l LE and UE) Neurological: Reports: Weakness, Denies: Numbness, Incoordination, Change in speech Psych: Reports: Mood Normal Physical Examination General Exam: Positive: Alert, Cooperative Eye Exam: Positive: Conjunctiva & lids normal, EOMI, Negative: Sclera icteric, Ptosis ENT Exam: Positive: Atraumatic, Mucous membr. moist/pink, Pharynx Normal, Tongue Midline Heart Exam: Positive: Rate Normal, Normal S1, Normal S2, Negative: Tachycardic, Bradycardic, Murmurs, Rubs Abdomen Exam: Positive: Normal bowel sounds, Soft, Negative: Tenderness, Hepatospenomegaly Extremity Exam: Positive: Normal pulses, Swelling (trace b/l LE), Negative: Clubbing, Cyanosis, Edema, Tenderness Skin Exam: Negative: Breakdown Neuro Exam: Positive: Normal Speech, Normal Tone, Sensation Intact, Cranial Nerves 3-12 NL, Negative: Strength at 5/5 X4 ext (strength 4/5 upper and lower extremity b/l) Psych Exam: Positive: Mental status NL, Oriented x 3 Vital Signs Vital Signs Date Time Temp Pulse Resp B/P (MAP) Pulse Ox O2 Delivery O2 Flow Rate FiO2 05/16/17 19:55 05/16/17 16:28 97.1 80 16 98 Room Air Laboratory Data Labs 24H Laboratory Tests 2 05/16/17 19:46: Immature Granulocyte % (Auto) 0.4H, White Blood Count 11.2H, Red Blood Count 4.39, Hemoglobin 13.4, Hematocrit 40.2, Mean Corpuscular Volume 91.6, Mean Corpuscular Hemoglobin 30.5, Mean Corpuscular Hemoglobin Concent 33.3, Red Cell Distribution Width 14.5, Platelet Count 523H, Neutrophils (%) (Auto) 81.3H, Lymphocytes (%) (Auto) 10.6L, Monocytes (%) (Auto) 6.0H, Eosinophils (%) (Auto) 1.2, Basophils (%) (Auto) 0.5, Neutrophils # (Auto) 9.1H, Lymphocytes # (Auto) 1.2L, Monocytes # (Auto) 0.7, Eosinophils # (Auto) 0.1, Basophils # (Auto) 0.1, Immature Granulocyte # (Auto) 0.1H, Nucleated Red Blood Cells % (auto) 0.0, Urine Appearance CLEAR, Urine Color YELLOW, Urine pH 6.0, Urine Specific Dilworth 1.019, Urine Protein 1+H, Urine Glucose (UA) NEGATIVE, Urine Ketones TRACEH, Urine Urobilinogen 0.2, Urine Bilirubin NEGATIVE, Urine Leukocyte Esterase NEGATIVE, Urine Blood 1+H, Urine Nitrite NEGATIVE, Urine WBC (Auto) 4H , Urine RBC (Auto) 0, Urine Hyaline Casts (Auto) 0, Urine Bacteria (Auto) NEGATIVE, Urine Squamous Epithelial Cells 0, Urine Mucus (Auto) SMALL, Urine Sperm (Auto) , Anion Gap 14, Glomerular Filtration Rate 3.6L, Blood Urea Nitrogen 113H, Creatinine 11.10H, Sodium Level 133L, Potassium Level 7.5*H, Chloride Level 100, Carbon Dioxide Level 19L, Calcium Level 8.7L, Total Creatine Kinase 1707H, Magnesium Level 3.1H, Creatine Kinase MB 62.1H, Creatine Kinase MB Relative Index 3.63, Troponin I 0.07 05/16/17 21:54: Prothrombin Time 14.7H, Prothromb Time International Ratio 1.13, Activated Partial Thromboplast Time 32.7 05/16/17 22:41: Anion Gap 14, Glomerular Filtration Rate 3.5L, Blood Urea Nitrogen 110H, Creatinine 11.40H, Sodium Level 134L, Potassium Level 7.5*H, Chloride Level 102 , Carbon Dioxide Level 18L, Calcium Level 8.6L, Blood Gas Bicarbonate Standard 16.5, Venous Blood pH 7.251L, Venous Blood Partial Pressure CO2 39.5, Venous Blood Partial Pressure O2 49.2, Venous Blood Total Carbon Dioxide 18.2L, Venous Blood HCO3 17.0L, Venous Blood Oxygen Saturation 80.2H, Venous Blood Base Excess -9.6L 05/16/17 23:53: 05/17/17 00:00: Bedside Glucose (Misc Panel) 70L CBC/BMP Laboratory Tests 05/16/17 19:46 Red Blood Count 4.39, Mean Corpuscular Volume 91.6, Mean Corpuscular Hemoglobin 30.5, Mean Corpuscular Hemoglobin Concent 33.3, Red Cell Distribution Width 14.5 , Neutrophils (%) (Auto) 81.3 H, Lymphocytes (%) (Auto) 10.6 L, Monocytes (%) ( Auto) 6.0 H, Eosinophils (%) (Auto) 1.2, Basophils (%) (Auto) 0.5, Neutrophils # (Auto) 9.1 H, Lymphocytes # (Auto) 1.2 L, Monocytes # (Auto) 0.7, Eosinophils # (Auto) 0.1, Basophils # (Auto) 0.1, Calcium Level 8.7 L, Total Creatine Kinase 1707 H 05/16/17 22:41 Calcium Level 8.6 L Microbiology Microbiology 05/16/17 Urine Culture, Received Pending Assessment/Plan 77 y/o female presents for b/l leg weakness, generalized fatigue, 1lb weight gain per day for the past week and increase urge to urinate. 1. Acute renal failure -creatine on presentation 11.10, last admission October 2016 was 1.07 -nephrology consulted, appreciate their help, recommend beginning half normal saline with bicarb. -possibly 2/2 medication, decreased PO intake -renal u/s showed mild b/l hydronephrosis, no nephrolithiasis & retention -holding home torsemide and spironolactone -urine cx pending 2. Hyperkalemia emergency -potassium 7.5 -s/p calcium gluconate,albuterol and insulin w/dextrose, Kayexalate -repeat BMP showed K 7.5, nephrology recommended 3-4L fluid, as well as 1/2 NS with bicarb. -will medically mange for now,will likely need dialysis in the am -EKG with no peaked T waves, normal DC interval -continuous tele monitoring -monitor with serial BMPs 3. anion gap metabolic acidosis - likely 2/2 ARF -lactic acid ordered -begin 1/2 NS with bicarb -AG 15 -continue to monitor 4. thrombocytosis -platelets 523 -likely reactive -repeat CBC in AM 5. CHF -Last Echo- EF diastolic HF -pt compensated -holding home torsemide in light of ARF -troponin neg. 6. HTN -stable -c/w home metoprolol 7. Depression -c/w home amitriptyline Plan / VTE VTE Prophylaxis Ordered?: Yes GME ATTESTATION GME ATTESTATION My faculty preceptor for this patient encounter was physically present during the encounter and was fully available. All aspects of the patient interview, examination, medical decision making process, and medical care plan development were reviewed and approved by the faculty preceptor. The faculty preceptor is aware and concurs with the plan as stated in the body of this note and will attest to such by his/her cosignature. NIMESH MAURO DO May 17, 2017 00:19 ANNA WOOTEN MD May 17, 2017 05:45
[2017-05-17] MEDS ORDERED: CALCIUM GLUCONATE 1,000 MG in D5W MINI-BAG PLUS 100 ML IV ONE (00:30)
[2017-05-17] MEDS: AMITRIPTYLINE 25 MG TAB PO SCH ×2 (00:32→21:13)
[2017-05-17] MEDS ORDERED: SODIUM BICARBONATE 75 MEQ in D5W/0.45% SODIUM CHLORIDE 1,000 ML IV SCH (03:30)
[2017-05-17 03:53] LABS: CALCIUM LEVEL 8.3 MG/DL (8.8-10.2); GLOMERULAR FILTRATION RATE 3.6 (>39)
[2017-05-17 03:54] LABS: POTASSIUM SERUM 6.7 MEQ/L (3.5-5.1)
[2017-05-17] MEDS ORDERED: NS 1,000 ML IV ONE (06:30)
[2017-05-17 07:13] LABS: BASO # 0.1 10^3/uL (0.0-0.2); BASO % 0.6 % (0.0-1.0); EOS # 0.3 10^3/uL (0.0-0.50); EOS % 2.6 % (0.0-3.0); IMMATURE GRANULOCYTE % 0.5 % (0-0); LYMPH # 1.5 10^3/uL (1.5-4.5); LYMPH % 13.9 % (24.0-44.0); MEAN CORPUSCULAR HEMOGLOBIN 29.9 pg (27.0-33.0); MEAN CORPUSCULAR HGB CONC 33.1 g/dl (32.0-36.5); MEAN CORPUSCULAR VOLUME 90.4 fl (80.0-96.0); MONO # 1.1 10^3/uL (0.0-0.8); MONO % 9.8 % (0.0-5.0); NEUTROPHILS % 72.6 % (36.0-66.0); RED CELL DISTRIBUTION WIDTH 14.6 % (11.5-14.5); WHITE BLOOD COUNT 11.1 10^3/uL (4.0-10.0)
[2017-05-17 07:23] LABS: PLATELET COUNT, AUTOMATED 420 10^3/uL (150-450)
[2017-05-17 07:47] LABS: CALCIUM LEVEL 8.2 MG/DL (8.8-10.2); CREATININE FOR GFR 10.6 MG/DL (0.55-1.02); GLOMERULAR FILTRATION RATE 3.8 (>39); MAGNESIUM LEVEL 2.8 MG/DL (1.8-2.4); PHOSPHORUS LEVEL 8.3 MG/DL (2.5-4.9)
[2017-05-17 07:49] LABS: POTASSIUM SERUM 6.5 MEQ/L (3.5-5.1)
--- NOTE | 2017-05-17 08:15 | ECGEPIP ---
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
[2017-05-17] MEDS: METOCLOPRAMIDE INJ 10MG/2ML VIAL (J2765) IV PRN (09:17)
--- NOTE | 2017-05-17 09:32 | CR ---
DATE OF CONSULTATION: 05/17/2017 REQUESTING PHYSICIAN: Ashley Mcguire MD REASON FOR CONSULTATION: Acute renal failure and hyperkalemia. HISTORY OF PRESENT ILLNESS: Mrs. Eastman is a 77-year-old female with known history of hypertension, depression and diastolic congestive heart failure. Apparently she was admitted to [facility] in October this year with shortness of breath and was diagnosed with diastolic congestive heart failure at that time. She was discharged on torsemide 20 mg daily and spironolactone 12.5 mg b.i.d. She reports that since then she has been losing weight and she followed her fluid restriction. Over the last couple of weeks, she had developed progressive nausea and loss of appetite. She had also noticed decreased urine output but increased frequency. Yesterday she became very weak and was unable to walk and fell at home due to which she was brought to the emergency room by her caregivers. In the emergency room she was found to have a BUN of 111 and creatinine 11. Her potassium level was 7.0. Nephrology consultation was requested last evening and I discussed the case with the emergency room physician. I gave recommendations for IV fluids as the patient was felt to be very dehydrated due to her history of nausea, poor oral intake and continued diuretic use. The patient also reported diarrhea for a couple of days last week, which has already resolved. Her hyperkalemia was treated medically and she was hydrated with IV fluid through the night. Repeat labs around midnight showed potassium level of 7.5. She was given further medical treatment for hyperkalemia and ongoing IV fluid. She has now received more than 3 liters of fluid and has no vomiting or diarrhea. Her blood pressure remains in the 120s. She is currently in ICU and I have seen her business performance advisor in the intensive care unit. PAST MEDICAL AND SURGICAL HISTORY: Significant for: 1. Hypertension. 2. Depression. 3. Diastolic congestive heart failure. 4. Questionable history of atrial fibrillation during prior admission. 5. Gastroesophageal reflux disease. PAST SURGICAL HISTORY: Significant for: 1. Left carpal tunnel release a couple of weeks ago. 2. History of exploratory laparotomy many years ago for fibroids. MEDICATIONS: Her home medications included: - amitriptyline 25 mg at bedtime - aspirin 81 mg daily - metoprolol 25 mg daily - multivitamin 1 tablet daily - omeprazole 20 mg daily - ranitidine 75 mg at bedtime - spironolactone 25 mg half a tablet b.i.d. - torsemide 20 mg daily - vitamin D 2000 units daily ALLERGIES: The patient reports an allergy to shellfish. FAMILY HISTORY: There is no family history for end-stage renal disease or any kidney disease. PERSONAL AND SOCIAL HISTORY: The patient lives by herself with the help of caregivers. She does not smoke, drink or use any drugs. REVIEW OF SYSTEMS: The patient reports significant weight loss since her October admission. She denies any fever or chills. Eyes, ears, nose and throat are unremarkable other than dry mouth. She denies any nosebleeds, sore throat, visual problems or change in hearing. Cardiovascular system is significant for hypertension and diastolic congestive heart failure, but she has no symptoms at present. She denies any dyspnea or chest pain. Her leg edema has improved. Respiratory system is negative for cough or hemoptysis. Gastrointestinal (GI) system is significant for poor appetite and nausea. She had diarrhea a couple of days last week, which has already resolved. She denies any abdominal pain. Genitourinary () system is significant for no urine output since admission. She reported increased frequency, but minimal urine output for the last few days. A bladder scan has been done which did not show more than 50 mL of urine in her bladder. Attempts at Olivas catheter placement have been unsuccessful multiple times by nursing staff. Musculoskeletal system is significant for leg edema during last admission, which has completely resolved. She has felt very weak and was unable to walk. She fell at home once yesterday. Endocrine system is negative for diabetes or thyroid problems. Hematological system is negative for anticoagulation, bruising or bleeding. Psychosocial system is significant for depression. Neurological system is negative for seizures. She was feeling very weak and could not walk. Psychosocial system is significant for depression. Skin is negative for ulcers. She does report some rash in her inguinal area and groins. PHYSICAL EXAMINATION: Temperature 96.5 degrees Fahrenheit, heart rate 80 per minute and respiratory rate 20 per minute. Blood pressure 121/59 mmHg and oxygen saturation 91% on room air. Head is atraumatic. Pupils equal and reactive to light and sclera is anicteric. Ears, nose and throat are unremarkable. Neck is supple and without JVD or thyroid enlargement. There are no palpable lymph nodes. Heart exam reveals regular S1 and S2. There is no pericardial friction rub. Lungs sound clear to auscultation bilaterally. Abdomen is soft and nontender. Umbilical area has a diffuse mass palpable on palpation. It is nontender and deep. No cyanosis or clubbing. She has trace to 1+ edema on her ankles. Skin is dry and some rash in her inguinal and groin area is noted, which looks like fungal dermatitis. Neurologically she is awake, alert and oriented times three. She was able to provide all information and answer questions. LABORATORY DATA: Her sodium was 133 on admission and potassium 7.5. BUN 113 and creatinine 11.1. CO2 was 19. CPK level was 1707 and Troponin 0.07. CBC showed a WBC count 11.2, hemoglobin 13.4 and hematocrit 40.2. Urinalysis showed 1+ protein and 1+ blood. There were only four WBCs and 0 RBCs. This morning her chemistry at 3:27 a.m. showed a sodium 136 and potassium 6.7. CO2 19, BUN 109 and creatinine 11.0. Glucose 135 and calcium 8.3. A lactic acid level 2.0. Renal ultrasound done last night showed right kidney 11.9 cm and left kidney 12.8 cm. No renal mass noted. There is mild bilateral hydronephrosis. PROBLEMS: 1. Acute renal failure. Patient had labs done on March 24, 2017 which showed a serum creatinine of 0.7. Her acute renal failure seems to be related to dehydration; however, it is to sudden and she has not improved with IV fluid hydration. Her urine does not have any significant amount of protein or blood to suspect acute glomerulonephritis. She is adequately hydrated at this point. Emergent hemodialysis is being arranged and we will plan to dialyze her this morning. We will continue with IV fluid hydration at a decreased rate. All of her medications including diuretics and proton pump inhibitor (PPI) have been already stopped. 2. Hyperkalemia. She has significant hyperkalemia which has been treated medically; however, not improved significantly. The patient will be dialyzed with 1.0 mEq potassium bath which will correct her hyperkalemia. We will recheck her electrolytes later today. 3. Hypertension. Her blood pressure is well-controlled. At present, she does not seem to need any antihypertensive medications. We can give her metoprolol if needed. She is certainly not suitable for SHANNAN inhibitor, ARB or diuretics. 4. Metabolic acidosis. She has mild metabolic acidosis which will correct with hemodialysis. 5. Rhabdomyolysis. Her CPK level was mildly elevated at 1700. I do not feel that it has any contribution to her renal failure. This is most likely related to recent fall. I would recommend to recheck her CPK in next 24 hours just for monitoring. Will continue with hydration. Thank you for involving me in the care of Mrs. Eastman. I will follow her along with you.
[2017-05-17] MEDS ORDERED: HEPARIN 1,000 UNITS/ML 10ML VIAL (FOR RADIOLOGY& DIALYSIS ONLY) XX ONE (10:15)
[2017-05-17] MEDS ORDERED: HEPARIN 1,000 UNITS/ML 10ML VIAL (FOR RADIOLOGY& DIALYSIS ONLY) IV ONE (10:15)
--- NOTE | 2017-05-17 10:31 | RO ---
DATE OF PROCEDURE: 05/17/2017 PROCEDURE: Left femoral vein hemodialysis catheter placement. INDICATIONS FOR PROCEDURE: Urgent need for dialysis due to acute renal failure and hyperkalemia. DESCRIPTION: Informed consent was obtained from the patient for femoral vein dialysis catheter placement. Left groin area cleaned and prepped in usual sterile fashion. 1% lidocaine used for local anesthesia after localizing left femoral vein with ultrasound guidance. The left femoral vein was accessed with 14 gauge needle without any difficulty and guidewire advanced. Small skin incision made with a knife at this site of guidewire and skin and soft tissues dilated with dilator. 8 inch long double-lumen hemodialysis catheter then placed over guidewire without any difficulty. Venous blood return obtained from both ports. Catheter sutured in site. The patient tolerated the procedure well. Estimated blood loss was only about 3 mL.
[2017-05-17 10:48] LABS: HEPATITIS B SURFACE ANTIBODY NEGATIVE (POSITIVE)
[2017-05-17] MEDS: ASPIRIN 81 MG ENTERIC TAB PO SCH (11:30)
[2017-05-17] MEDS: NYSTATIN 100,000 UNITS/GM TOPICAL PWD 15 GM TOP SCH (11:30)
[2017-05-17] MEDS: METOPROLOL SUCC *XL* 25MG TAB (TopROL *XL*) PO SCH (11:30)
[2017-05-17] MEDS: OMEPRAZOLE 20 MG CAP PO SCH (11:31)
[2017-05-17] MEDS: VITAMIN D 1,000 INTERNATIONAL UNITS TABLET PO SCH (11:31)
[2017-05-17] MEDS: MULTIVITAMINS/MINERALS THERAP 1 TAB PO SCH (11:31)
[2017-05-18] VITALS: BP 126/63
[2017-05-18 04:00] VITALS: BP 130/63
[2017-05-18 05:10] LABS: BASO % 0.5 % (0.0-1.0); EOS # 0.3 10^3/uL (0.0-0.50); EOS % 3.7 % (0.0-3.0); IMMATURE GRANULOCYTE % 0.5 % (0-0); LYMPH # 1.5 10^3/uL (1.5-4.5); LYMPH % 18.8 % (24.0-44.0); MEAN CORPUSCULAR HEMOGLOBIN 30.7 pg (27.0-33.0); MEAN CORPUSCULAR HGB CONC 33.9 g/dl (32.0-36.5); MEAN CORPUSCULAR VOLUME 90.5 fl (80.0-96.0); MONO % 12.7 % (0.0-5.0); NEUTROPHILS # 5.2 10^3/uL (1.8-7.7); NEUTROPHILS % 63.8 % (36.0-66.0); PLATELET COUNT, AUTOMATED 348 10^3/uL (150-450); RED CELL DISTRIBUTION WIDTH 14.2 % (11.5-14.5); WHITE BLOOD COUNT 8.2 10^3/uL (4.0-10.0)
[2017-05-18 05:38] LABS: CALCIUM LEVEL 7.6 MG/DL (8.8-10.2); CREATININE FOR GFR 6.9 MG/DL (0.55-1.02); GLOMERULAR FILTRATION RATE 6.2 (>39); POTASSIUM SERUM 4.2 MEQ/L (3.5-5.1)
--- NOTE | 2017-05-18 07:04 | IPNPDOC ---
Text Note Date of Service The patient was seen on 05/18/17. NOTE Subjective: Patient seen and examined at bedside. No acute overnight events reported. Patient has no medical complaints this morning. Denies chest pain, shortness of breath, abdominal pain, N/V/D. Objective: General: NAD HEENT: NC/AT, EOMI, PERRL Lungs: CTA B/L, diminished breath sounds Heart: +S1S2, RRR Abd: soft, NT, +BS, obese Ext: peripheral edema Psych: AAOx3 PROBLEMS: 1. Acute renal failure. - s/p urgent dialysis - improving - nephrotoxic meds on hold - off IV fluids - follow as per nephrology - assistance appreciated 2. Hyperkalemia - s/p dialysis - resolved 3. Hypertension - within normal limits at this time - continue BB - norvasc if needed 4. CHF - preserved ejection fraction - grossly compensated 5. questionable hx of afib - has remained in sinus rhythm 6. Metabolic acidosis - resolved s/p HD 7. Rhabdomyolysis - off IV fluids - CPK trending down 8. DVT prophylaxis - mechanical VS,Fishbone, I+O VS, Fishbone, I+O Laboratory Tests 05/18/17 04:57 Red Blood Count 3.78 L, Mean Corpuscular Volume 90.5, Mean Corpuscular Hemoglobin 30.7, Mean Corpuscular Hemoglobin Concent 33.9, Red Cell Distribution Width 14.2, Neutrophils (%) (Auto) 63.8, Lymphocytes (%) (Auto) 18.8 L, Monocytes (%) (Auto) 12.7 H, Eosinophils (%) (Auto) 3.7 H, Basophils (% ) (Auto) 0.5, Neutrophils # (Auto) 5.2, Lymphocytes # (Auto) 1.5, Monocytes # ( Auto) 1.0 H, Eosinophils # (Auto) 0.3, Basophils # (Auto) 0.0, Calcium Level 7.6 L Vital Signs Date Time Temp Pulse Resp B/P (MAP) Pulse Ox O2 Delivery O2 Flow Rate FiO2 05/18/17 04:00 98.6 86 20 130/63 (85) 93 Room Air DEVENDRA LEA MD May 18, 2017 07:04
[2017-05-18 08:00] VITALS: BP 125/72
[2017-05-18] MEDS: ASPIRIN 81 MG ENTERIC TAB PO SCH (09:49)
[2017-05-18] MEDS: OMEPRAZOLE 20 MG CAP PO SCH (09:49)
[2017-05-18] MEDS: MULTIVITAMINS/MINERALS THERAP 1 TAB PO SCH (09:49)
[2017-05-18] MEDS: NYSTATIN 100,000 UNITS/GM TOPICAL PWD 15 GM TOP SCH (09:50)
[2017-05-18] MEDS: METOPROLOL SUCC *XL* 25MG TAB (TopROL *XL*) PO SCH (09:50)
[2017-05-18] MEDS: VITAMIN D 1,000 INTERNATIONAL UNITS TABLET PO SCH (09:50)
[2017-05-18] MEDS ORDERED: HEPARIN 1,000 UNITS/ML 10ML VIAL (FOR RADIOLOGY& DIALYSIS ONLY) IV ONE (13:30)
--- NOTE | 2017-05-18 13:31 | IPN ---
DATE: 05/18/2017 Ms. Eastman is seen on her bedside in the intensive care unit this morning. She was admitted with acute renal failure and hyperkalemia. She underwent first hemodialysis yesterday via femoral catheter placement. She is feeling better today and denies any nausea, vomiting, dyspnea or chest pain. She remains in the bed due to presence of a femoral catheter. She did try to void, however, reports no urine output so far. On physical examination, temperature 98.6 degrees Fahrenheit, heart rate 86 per minute and respiratory rate 20 per minute. Blood pressure 130/63 mmHg and oxygen saturation 93% on room air. Intake and output records from yesterday showed total intake 4050 and output 0. Her head is atraumatic. Oral mucosa is still somewhat dry. Pupils equal and reactive to light and sclera is anicteric. Neck is supple and without jugular venous distention (JVD) or thyroid enlargement. Heart sounds are regular and without a pericardial friction rub. Lungs sound clear to auscultation bilaterally. Abdomen: Soft and nontender and without palpable organomegaly. Bowel sounds are normal. Extremities have no cyanosis or clubbing. Skin has some rash localized in her skin folds in the femoral area. Neurologically, she is awake, alert and oriented times three. She has no focal neurological deficit. Today's labs show WBC count 8.2, hemoglobin 11.6 and hematocrit 34.2. Sodium 136 and potassium 4.2. BUN 53 and creatinine 6.9. Her CPK is down to 730. PROBLEMS: 1. Acute renal failure. The patient remains oliguric. She was dialyzed yesterday and we will plan to dialyze her again today. After dialysis, her left femoral catheter will be removed. We will get a Perma-Cath placed for further dialysis treatments and a vascular surgery consultation is being requested. 2. Hyperkalemia. Her hyperkalemia has corrected completely with hemodialysis yesterday. No intervention is indicated at this time. 3. Generalized weakness and deconditioning. We will get her out of bed after her femoral catheter gets removed. Then she will start physical therapy tomorrow. From a renal standpoint, she can be transferred out of the intensive care unit to a regular medical floor. 4. Hypertension. Blood pressure is very well controlled on just low dose of metoprolol which will be continued. 5. Disposition. The patient can be transferred to regular medical floor today.
[2017-05-18] MEDS: AMITRIPTYLINE 25 MG TAB PO SCH (20:49)
[2017-05-18 22:00] VITALS: BP 138/78
[2017-05-19 06:00] VITALS: BP 176/92
[2017-05-19 06:12] LABS: BASO % 0.4 % (0.0-1.0); EOS # 0.3 10^3/uL (0.0-0.50); EOS % 2.9 % (0.0-3.0); IMMATURE GRANULOCYTE % 0.5 % (0-0); LYMPH # 1.3 10^3/uL (1.5-4.5); LYMPH % 12.9 % (24.0-44.0); MEAN CORPUSCULAR HEMOGLOBIN 30.4 pg (27.0-33.0); MEAN CORPUSCULAR HGB CONC 33.5 g/dl (32.0-36.5); MEAN CORPUSCULAR VOLUME 90.7 fl (80.0-96.0); MONO # 1.4 10^3/uL (0.0-0.8); MONO % 13.4 % (0.0-5.0); NEUTROPHILS # 7.2 10^3/uL (1.8-7.7); NEUTROPHILS % 69.9 % (36.0-66.0); PLATELET COUNT, AUTOMATED 320 10^3/uL (150-450); RED CELL DISTRIBUTION WIDTH 14.4 % (11.5-14.5); WHITE BLOOD COUNT 10.3 10^3/uL (4.0-10.0)
[2017-05-19 06:30] LABS: CALCIUM LEVEL 8.3 MG/DL (8.8-10.2); CREATININE FOR GFR 4.24 MG/DL (0.55-1.02); GLOMERULAR FILTRATION RATE 10.8 (>39); POTASSIUM SERUM 3.5 MEQ/L (3.5-5.1)
[2017-05-19] MEDS: VITAMIN D 1,000 INTERNATIONAL UNITS TABLET PO SCH (08:37)
[2017-05-19] MEDS: MULTIVITAMINS/MINERALS THERAP 1 TAB PO SCH (08:38)
[2017-05-19] MEDS: ASPIRIN 81 MG ENTERIC TAB PO SCH (08:38)
[2017-05-19] MEDS: METOPROLOL SUCC *XL* 25MG TAB (TopROL *XL*) PO SCH (08:38)
[2017-05-19] MEDS: OMEPRAZOLE 20 MG CAP PO SCH (08:38)
[2017-05-19] MEDS: NYSTATIN 100,000 UNITS/GM TOPICAL PWD 15 GM TOP SCH (08:40)
--- NOTE | 2017-05-19 10:11 | IPNPDOC ---
Text Note Date of Service The patient was seen on 05/19/17. NOTE Subjective: Patient seen and examined at bedside. No acute overnight events reported. Patient has no medical complaints this morning. Denies chest pain, shortness of breath, abdominal pain, N/V/D. Objective: General: NAD HEENT: NC/AT, EOMI, PERRL Lungs: CTA B/L, diminished breath sounds Heart: +S1S2, RRR Abd: soft, NT, +BS, obese Ext: peripheral edema Psych: AAOx3 PROBLEMS: 1. Acute renal failure. - s/p urgent dialysis - improving - nephrotoxic meds on hold; fem cath removed - plan for perma-cath with vascular surgery - off IV fluids - discussed with nephrology - assistance appreciated 2. Hyperkalemia - s/p dialysis - resolved 3. Hypertension - elevated this morning - continue BB - norvasc if needed 4. CHF - preserved ejection fraction - grossly compensated 5. questionable hx of afib - has remained in sinus rhythm 6. Metabolic acidosis - resolved s/p HD 7. Rhabdomyolysis - off IV fluids - CPK continues to trend down 8. DVT prophylaxis - mechanical VS,Fishbone, I+O VS, Fishbone, I+O Laboratory Tests 05/19/17 05:23 Red Blood Count 3.78 L, Mean Corpuscular Volume 90.7, Mean Corpuscular Hemoglobin 30.4, Mean Corpuscular Hemoglobin Concent 33.5, Red Cell Distribution Width 14.4, Neutrophils (%) (Auto) 69.9 H, Lymphocytes (%) (Auto) 12.9 L, Monocytes (%) (Auto) 13.4 H, Eosinophils (%) (Auto) 2.9, Basophils (%) ( Auto) 0.4, Neutrophils # (Auto) 7.2, Lymphocytes # (Auto) 1.3 L, Monocytes # ( Auto) 1.4 H, Eosinophils # (Auto) 0.3, Basophils # (Auto) 0.0, Calcium Level 8.3 L Vital Signs Date Time Temp Pulse Resp B/P (MAP) Pulse Ox O2 Delivery O2 Flow Rate FiO2 05/19/17 08:38 57 176/92 05/19/17 06:00 99.2 18 95 Room Air DEVENDRA LEA MD May 19, 2017 10:11
[2017-05-19] MEDS ORDERED: HEPARIN 1,000 UNITS/ML 10ML VIAL (FOR RADIOLOGY& DIALYSIS ONLY) As Ordered ONE (11:22)
[2017-05-19] MEDS ORDERED: LIDOCAINE 2% MDV 20 ML VIAL As Ordered ONE (11:23)
[2017-05-19] MEDS ORDERED: MIDAZOLAM INJ 2 MG/2 ML VIAL (J2250) As Ordered ONE (12:19)
[2017-05-19] MEDS ORDERED: fentaNYL 100 MCG/2 ML INJECTION (J3010) As Ordered ONE (12:19)
[2017-05-19] MEDS ORDERED: amLODIPine 5 MG TAB PO ONE (12:30)
--- NOTE | 2017-05-19 12:58 | IPN ---
DATE OF VISIT: 05/19/2017 Mrs. Eastman is seen this morning on her bedside. She is feeling better today but still weak. She has not been able to get up and walk by herself. She denies any nausea or vomiting. She has no dyspnea or chest pain. She underwent hemodialysis yesterday afternoon and her femoral catheter was removed. PHYSICAL EXAMINATION: Temperature 99.2 degrees Fahrenheit, heart rate 58 per minute and respiratory rate 18 per minute. Blood pressure 176/92 mmHg and oxygen saturation 95% on room air. Head: Is atraumatic. Neck is supple and without jugular venous distention (JVD) or thyroid enlargement. Pupils equal and reactive to light and sclera is anicteric. Heart sounds are regular and lungs sound clear to auscultation. Abdomen soft and nontender. Bowel sounds are normal. There is no palpable organomegaly. Extremities have 2+ edema on the right leg and 1+ edema on the left leg. She has no cyanosis or clubbing. Skin has no rash or ulcers. Neurologically she is awake, alert and oriented times three. Today's labs show WBC count 10.3, hemoglobin 11.5 and hematocrit 34.3. Sodium 139 and potassium 3.5. BUN 27 and creatinine 4.24. Calcium level is 8.3 and CPK is down to 571. PROBLEMS: 1. Acute renal failure. The patient had oliguric acute renal failure and has been dialyzed twice. We will plan to dialyze her again tomorrow. At present there is no need for dialysis today. 2. Hyperkalemia, potassium level has corrected and in fact borderline low today. We will let her eat and repeat her electrolytes tomorrow morning. 3. Dehydration and hypotension. The patient was dehydrated on admission, however, now she has some leg edema. Her blood pressure has also improved. We will resume further antihypertensive meds as needed. She is currently on very low dose of metoprolol 25 mg daily. At present we will keep her off SHANNAN inhibitor and angiotensin receptor blockers. I am adding amlodipine 5 mg daily. 4. Generalized weakness. The patient is still quite weak. She will need physical therapy evaluation. 5. Rhabdomyolysis. CPK level is improving nicely. At this point I do not feel that she has any risk to her kidneys from mildly elevated CPK. 6. Dialysis access left femoral vein hemodialysis catheter was removed yesterday. Vascular surgery consult is being requested from Dr. Canales for a Perma-Cath placement.
[2017-05-19] MEDS: METOCLOPRAMIDE INJ 10MG/2ML VIAL (J2765) IV PRN (13:51)
[2017-05-19 14:00] VITALS: BP 134/71
[2017-05-19] MEDS: AMITRIPTYLINE 25 MG TAB PO SCH (21:42)
[2017-05-19 22:00] VITALS: BP 131/64
[2017-05-20 05:34] LABS: BASO # 0.1 10^3/uL (0.0-0.2); BASO % 0.7 % (0.0-1.0); EOS # 0.5 10^3/uL (0.0-0.50); EOS % 4.3 % (0.0-3.0); IMMATURE GRANULOCYTE % 0.6 % (0-0); LYMPH # 1.4 10^3/uL (1.5-4.5); LYMPH % 13.2 % (24.0-44.0); MEAN CORPUSCULAR HEMOGLOBIN 30.8 pg (27.0-33.0); MEAN CORPUSCULAR HGB CONC 33.3 g/dl (32.0-36.5); MEAN CORPUSCULAR VOLUME 92.3 fl (80.0-96.0); MONO # 1.3 10^3/uL (0.0-0.8); MONO % 12.6 % (0.0-5.0); NEUTROPHILS # 7.3 10^3/uL (1.8-7.7); NEUTROPHILS % 68.6 % (36.0-66.0); PLATELET COUNT, AUTOMATED 314 10^3/uL (150-450); RED CELL DISTRIBUTION WIDTH 14.3 % (11.5-14.5); WHITE BLOOD COUNT 10.6 10^3/uL (4.0-10.0)
[2017-05-20 06:00] VITALS: BP 140/63
[2017-05-20 06:26] LABS: CREATININE FOR GFR 4.2 MG/DL (0.55-1.02); POTASSIUM SERUM 3.7 MEQ/L (3.5-5.1)
[2017-05-20] MEDS: MULTIVITAMINS/MINERALS THERAP 1 TAB PO SCH (08:48)
[2017-05-20] MEDS: METOPROLOL SUCC *XL* 25MG TAB (TopROL *XL*) PO SCH (08:49)
[2017-05-20] MEDS: ASPIRIN 81 MG ENTERIC TAB PO SCH (08:49)
[2017-05-20] MEDS: VITAMIN D 1,000 INTERNATIONAL UNITS TABLET PO SCH (08:49)
[2017-05-20] MEDS: OMEPRAZOLE 20 MG CAP PO SCH (08:49)
[2017-05-20] MEDS: NYSTATIN 100,000 UNITS/GM TOPICAL PWD 15 GM TOP SCH (09:00)
--- NOTE | 2017-05-20 10:10 | IPNPDOC ---
Text Note Date of Service The patient was seen on 05/20/17. NOTE Subjective: Patient seen and examined at bedside. Patient underwent placement of her permacath - complains of some mild pain in the area. Patient has no medical complaints this morning. Objective: General: NAD HEENT: NC/AT, EOMI, PERRL Lungs: CTA B/L, diminished breath sounds Heart: +S1S2, RRR Abd: soft, NT, +BS, obese Ext: peripheral edema Psych: AAOx3 PROBLEMS: 1. Acute renal failure. - s/p urgent dialysis - continues to improve - nephrotoxic meds on hold; fem cath removed - perma-cath placed by vascular surgery - area is C/D/I - off IV fluids 2. Hyperkalemia - s/p dialysis - resolved 3. Hypertension - elevated this morning - continue BB - norvasc if needed 4. CHF - preserved ejection fraction - grossly compensated 5. questionable hx of afib - has remained in sinus rhythm 6. Metabolic acidosis - resolved s/p HD 7. Rhabdomyolysis - off IV fluids - CPK continues to trend down 8. DVT prophylaxis - mechanical VS,Fishbone, I+O VS, Fishbone, I+O Laboratory Tests 05/20/17 05:15 Red Blood Count 3.51 L, Mean Corpuscular Volume 92.3, Mean Corpuscular Hemoglobin 30.8, Mean Corpuscular Hemoglobin Concent 33.3, Red Cell Distribution Width 14.3, Neutrophils (%) (Auto) 68.6 H, Lymphocytes (%) (Auto) 13.2 L, Monocytes (%) (Auto) 12.6 H, Eosinophils (%) (Auto) 4.3 H, Basophils (% ) (Auto) 0.7, Neutrophils # (Auto) 7.3, Lymphocytes # (Auto) 1.4 L, Monocytes # (Auto) 1.3 H, Eosinophils # (Auto) 0.5, Basophils # (Auto) 0.1, Calcium Level 8.0 L Vital Signs Date Time Temp Pulse Resp B/P (MAP) Pulse Ox O2 Delivery O2 Flow Rate FiO2 05/20/17 08:49 60 140/63 05/20/17 06:00 98.1 17 93 Room Air I&O- Last 24 Hours up to 6 AM 05/21/17 06:00 Intake Total 0 ml Output Total 0 ml Balance 0 ml LALDIN,DEVENDRA S. MD May 20, 2017 10:10
[2017-05-20] MEDS ORDERED: HEPARIN 1,000 UNITS/ML 10ML VIAL (FOR RADIOLOGY& DIALYSIS ONLY) IV ONE (14:30)
--- NOTE | 2017-05-20 18:20 | IPN ---
DATE: 05/20/2017 SUBJECTIVE: The patient is seen this morning at the bedside. She had a PermaCath placed last night in the right subclavian and is for dialysis today with no ultrafiltration. The patient feels well and has no complaints. Reports her oral intake is improving. She made 400 mL of urine in the past 24 hours. OBJECTIVE: VITAL SIGNS: Temperature 98.1, pulse 95, respiratory rate 17, blood pressure 140/63, saturating 93% on room air. INTAKE AND OUTPUT: Oral intake yesterday 720 mL. Urine output 400 mL. Weight in the bed scale today 93.4 kg. PHYSICAL EXAMINATION: GENERAL: The patient is awake, alert, oriented times four in no acute distress, seen at the bedside. HEAD/NECK: Extraocular muscles are intact. Oral mucosa is moist. CARDIAC: S1, S2. Regular rate and rhythm. 2+ radial pulse. RESPIRATORY: The lungs are clear to auscultation. The patient is comfortable on room air. ABDOMEN: Soft, obese, nontender. There are bowel sounds present. NECK: There is a right subclavian PermaCath with dressing. EXTREMITIES: There is 1+ edema on the right leg and trace edema on the left. There is no cyanosis or clubbing. SKIN: No rash. There is normal turgor. NEUROLOGIC: She is appropriately interactive and conversational and oriented times three. PSYCHIATRIC: Appropriate mood and affect. LABORATORY DATA: White count 10.6, hemoglobin 10.8, platelets 314. Sodium 139, potassium 3.7, bicarbonate 30, BUN 31, creatinine 4.2, calcium 8.0. CK 474. INPATIENT MEDICATIONS: Reviewed by myself and there is no significant change from prior. PROBLEMS: 1. Oliguric acute renal failure: The patient had a PermaCath placed in the right subclavian yesterday and received dialysis today with minimal ultrafiltration of 400 mL. She had a creatinine plateau the past 24 hours with a urine output of 400 mL. We will continue to monitor her for renal recovery. At present, she remains dialysis dependent. She is off intravenous (IV) fluids and I encourage oral intake. 2. Hypertension: The patient's blood pressure is currently acceptable on monotherapy with Toprol XL 25 mg by mouth daily, and I would continue the same. No angiotension-converting enzyme (SHANNAN) or angiotensin receptor blockers (ARB) at present. 3. Rhabdomyolysis: Creatine phosphokinase (CPK) level is less than 500 at this point. No further intervention at present. Encourage oral fluid intake. MTDD
[2017-05-20] MEDS: AMITRIPTYLINE 25 MG TAB PO SCH (21:28)
[2017-05-20 22:00] VITALS: BP 136/62
[2017-05-21 06:00] VITALS: BP 144/73
[2017-05-21 06:16] LABS: BASO # 0.1 10^3/uL (0.0-0.2); BASO % 0.7 % (0.0-1.0); EOS # 0.5 10^3/uL (0.0-0.50); EOS % 5.3 % (0.0-3.0); IMMATURE GRANULOCYTE % 0.4 % (0-0); LYMPH # 1.6 10^3/uL (1.5-4.5); MEAN CORPUSCULAR HEMOGLOBIN 30.6 pg (27.0-33.0); MEAN CORPUSCULAR HGB CONC 33.2 g/dl (32.0-36.5); MONO # 1.1 10^3/uL (0.0-0.8); MONO % 11.7 % (0.0-5.0); NEUTROPHILS # 5.9 10^3/uL (1.8-7.7); NEUTROPHILS % 64.9 % (36.0-66.0); PLATELET COUNT, AUTOMATED 281 10^3/uL (150-450); RED CELL DISTRIBUTION WIDTH 14.6 % (11.5-14.5); WHITE BLOOD COUNT 9.1 10^3/uL (4.0-10.0)
[2017-05-21 06:32] LABS: CREATININE FOR GFR 3.96 MG/DL (0.55-1.02); GLOMERULAR FILTRATION RATE 11.7 (>39); POTASSIUM SERUM 3.7 MEQ/L (3.5-5.1)
[2017-05-21] MEDS: ASPIRIN 81 MG ENTERIC TAB PO SCH (08:53)
[2017-05-21] MEDS: METOPROLOL SUCC *XL* 25MG TAB (TopROL *XL*) PO SCH (08:54)
[2017-05-21] MEDS: MULTIVITAMINS/MINERALS THERAP 1 TAB PO SCH (08:54)
[2017-05-21] MEDS: VITAMIN D 1,000 INTERNATIONAL UNITS TABLET PO SCH (08:55)
[2017-05-21] MEDS: OMEPRAZOLE 20 MG CAP PO SCH (08:55)
[2017-05-21] MEDS: NYSTATIN 100,000 UNITS/GM TOPICAL PWD 15 GM TOP SCH (08:56)
--- NOTE | 2017-05-21 11:04 | IPNPDOC ---
Text Note Date of Service The patient was seen on 05/21/17. NOTE Subjective: Patient seen and examined at bedside. She states she is feeling better this morning, no new medical complaints. She did express concern regarding her low urinary output. Objective: General: NAD HEENT: NC/AT, EOMI, PERRL Chest: CTA B/L, diminished breath sounds; right IJ permacath in place, area is C /D/I Heart: +S1S2, RRR Abd: soft, NT, +BS, obese Ext: peripheral edema Psych: AAOx3 PROBLEMS: 1. Acute renal failure/oliguria - s/p dialysis yesterday - continues to improve - nephrotoxic meds on hold; fem cath removed - perma-cath placed by vascular surgery - area is C/D/I - off IV fluids 2. Hyperkalemia - s/p dialysis - resolved 3. Hypertension - WNL - continue BB 4. CHF - preserved ejection fraction - grossly compensated 5. questionable hx of afib - has remained in sinus rhythm 6. Metabolic acidosis - resolved s/p HD 7. Rhabdomyolysis - off IV fluids - CPK continues to trend down 8. DVT prophylaxis - mechanical Dispo: Pending further eval by nephrology; PT/PFS eval for safe discharge VS,Fishbone, I+O VS, Fishbone, I+O Laboratory Tests 05/21/17 05:05 Red Blood Count 3.37 L, Mean Corpuscular Volume 92.0, Mean Corpuscular Hemoglobin 30.6, Mean Corpuscular Hemoglobin Concent 33.2, Red Cell Distribution Width 14.6 H, Neutrophils (%) (Auto) 64.9, Lymphocytes (%) (Auto) 17.0 L, Monocytes (%) (Auto) 11.7 H, Eosinophils (%) (Auto) 5.3 H, Basophils (% ) (Auto) 0.7, Neutrophils # (Auto) 5.9, Lymphocytes # (Auto) 1.6, Monocytes # ( Auto) 1.1 H, Eosinophils # (Auto) 0.5, Basophils # (Auto) 0.1 05/21/17 05:06 Calcium Level 8.0 L Vital Signs Date Time Temp Pulse Resp B/P (MAP) Pulse Ox O2 Delivery O2 Flow Rate FiO2 05/21/17 08:54 144/73 05/21/17 06:00 98.0 102 17 94 Room Air I&O- Last 24 Hours up to 6 AM 05/22/17 06:00 Intake Total 120 ml Balance 120 ml DEVENDRA LEA MD May 21, 2017 11:04
[2017-05-21 14:00] VITALS: BP 152/61
[2017-05-21] MEDS: AMITRIPTYLINE 25 MG TAB PO SCH (20:26)
[2017-05-21 22:00] VITALS: BP 123/58
--- NOTE | 2017-05-22 01:07 | IPN ---
DATE OF SERVICE: 05/21/2017 SUBJECTIVE: The patient is seen this morning at the bedside. She feels well. Denies any acute complaints. States she had trouble sleeping overnight. She had some questions regarding her long-term renal prognosis and I had a discussion with her regarding the same. She tolerated dialysis well yesterday without any issue and reports good oral intake and improving appetite. VITAL SIGNS: Temperature 98.0, pulse 98-102, respiratory rate 17, blood pressure 144/73, saturating 94-96% on room air. INTAKE AND OUTPUT: Oral intake yesterday 1200 mL. Urine output 140 mL. Dialysis removed 400 mL. Net positive 660 mL. Weight in the bed scale today 92.2 kg. PHYSICAL EXAMINATION: GENERAL: The patient is seen at the bedside awake, alert, oriented times four in mild emotional distress, otherwise comfortable. HEAD/NECK: Extraocular muscles are intact. Oral mucosa is moist. The neck is supple. There is a right internal jugular (IJ) PermaCath present with dressing. CARDIAC: S1, S2. Regular rate and rhythm. 2+ radial pulse. RESPIRATORY: The lungs are clear to auscultation. The patient is comfortable on room air. ABDOMEN: Soft, obese, nontender. There are bowel sounds present. EXTREMITIES: There is 1+ edema on the right leg and trace edema on the left leg. SKIN: No rash. There is normal turgor. NEUROLOGIC: She is appropriately interactive and conversational and oriented times three. PSYCHIATRIC: She is mildly anxious, otherwise appropriate mood and affect. LABORATORIES: Hemoglobin 10.3, white count 9.1, platelets 281. Sodium 140, potassium 3.7, bicarbonate 28, BUN 26, glucose 76, calcium 8.0, CK 386. INPATIENT MEDICATIONS: There is no significant change in the past 24 hours. PROBLEMS: 1. Oliguric acute renal failure: The patient is currently dialysis dependent via right IJ PermaCath. At present, she remains dialysis dependent. She may have a dense acute tubular necrosis (ATN) that could take several weeks to recover. We will continue to monitor her interdialytic creatinine along with her urine output and watch for any signs of renal recovery. I have consulted case management for outpatient hemodialysis placement as an acute patient. 2. Hypertension: The patient's blood pressure is currently acceptable on Toprol XL. 3. Rhabdomyolysis: Patient's creatine phosphokinase (CPK) level remains less than 500. She continues on oral fluid intake and does not need any intravenous (IV) fluids. 4. Mild hypervolemia: The patient will receive gentle ultrafiltration on hemodialysis as required by her volume status. In view of her acute renal failure, we will avoid any aggressive ultrafiltration. 5. Discharge planning: The patient requires outpatient hemodialysis placement prior to discharge. I have consulted case management for the same.
[2017-05-22] MEDS: ACETAMINOPHEN 500 MG TAB PO PRN (05:02)
[2017-05-22 06:00] VITALS: BP_SYST 120; BP_SYST 130; BP_DIAS 59; BP_DIAS 77
[2017-05-22 06:00] LABS: BASO # 0.1 10^3/uL (0.0-0.2); BASO % 0.7 % (0.0-1.0); EOS # 0.5 10^3/uL (0.0-0.50); EOS % 4.5 % (0.0-3.0); IMMATURE GRANULOCYTE % 0.5 % (0-0); LYMPH # 1.6 10^3/uL (1.5-4.5); LYMPH % 13.9 % (24.0-44.0); MEAN CORPUSCULAR HEMOGLOBIN 30.7 pg (27.0-33.0); MEAN CORPUSCULAR HGB CONC 32.7 g/dl (32.0-36.5); MEAN CORPUSCULAR VOLUME 93.8 fl (80.0-96.0); MONO # 1.2 10^3/uL (0.0-0.8); MONO % 10.4 % (0.0-5.0); NEUTROPHILS # 8.1 10^3/uL (1.8-7.7); PLATELET COUNT, AUTOMATED 289 10^3/uL (150-450); RED CELL DISTRIBUTION WIDTH 14.4 % (11.5-14.5); WHITE BLOOD COUNT 11.6 10^3/uL (4.0-10.0)
[2017-05-22 06:20] LABS: CREATININE FOR GFR 5.06 MG/DL (0.55-1.02); GLOMERULAR FILTRATION RATE 8.8 (>39); POTASSIUM SERUM 4.2 MEQ/L (3.5-5.1)
[2017-05-22] MEDS: MULTIVITAMINS/MINERALS THERAP 1 TAB PO SCH (08:35)
[2017-05-22] MEDS: ASPIRIN 81 MG ENTERIC TAB PO SCH (08:35)
[2017-05-22] MEDS: OMEPRAZOLE 20 MG CAP PO SCH (08:35)
[2017-05-22] MEDS: METOPROLOL SUCC *XL* 25MG TAB (TopROL *XL*) PO SCH (08:35)
[2017-05-22] MEDS: METOCLOPRAMIDE INJ 10MG/2ML VIAL (J2765) IV PRN (08:35)
[2017-05-22] MEDS: VITAMIN D 1,000 INTERNATIONAL UNITS TABLET PO SCH (08:35)
[2017-05-22] MEDS: NYSTATIN 100,000 UNITS/GM TOPICAL PWD 15 GM TOP SCH (08:36)
--- NOTE | 2017-05-22 10:21 | IPNPDOC ---
Text Note Date of Service The patient was seen on 05/22/17. NOTE Subjective: Patient seen and examined at bedside. Complains of some right leg pain, and difficulty urinating. Also notes some nausea. Objective: General: NAD HEENT: NC/AT, EOMI, PERRL Chest: CTA B/L, diminished breath sounds; right IJ permacath in place, area is C /D/I Heart: +S1S2, RRR Abd: soft, NT, +BS, obese Ext: peripheral edema, R>L Psych: AAOx3 PROBLEMS: 1. Acute renal failure/oliguria - s/p dialysis - nephrotoxic meds on hold; fem cath removed - perma-cath placed by vascular surgery - area is C/D/I - follow as per nephrology - assistance appreciated 2. Hyperkalemia - s/p dialysis - resolved 3. Hypertension - WNL - continue BB 4. CHF - preserved ejection fraction - grossly compensated 5. questionable hx of afib - has remained in sinus rhythm 6. Metabolic acidosis - resolved s/p HD 7. Rhabdomyolysis - off IV fluids - CPK continues to trend down 8. DVT prophylaxis - mechanical Dispo: Pending further eval by nephrology; PT/PFS eval for safe discharge VS,Fishbone, I+O VS, Fishbone, I+O Laboratory Tests 05/22/17 05:29 Red Blood Count 3.39 L, Mean Corpuscular Volume 93.8, Mean Corpuscular Hemoglobin 30.7, Mean Corpuscular Hemoglobin Concent 32.7, Red Cell Distribution Width 14.4, Neutrophils (%) (Auto) 70.0 H, Lymphocytes (%) (Auto) 13.9 L, Monocytes (%) (Auto) 10.4 H, Eosinophils (%) (Auto) 4.5 H, Basophils (% ) (Auto) 0.7, Neutrophils # (Auto) 8.1 H, Lymphocytes # (Auto) 1.6, Monocytes # (Auto) 1.2 H, Eosinophils # (Auto) 0.5, Basophils # (Auto) 0.1, Calcium Level 8.0 L Vital Signs Date Time Temp Pulse Resp B/P (MAP) Pulse Ox O2 Delivery O2 Flow Rate FiO2 05/22/17 08:35 84 120/59 05/22/17 06:00 98.9 16 95 Room Air DEVENDRA LEA MD May 22, 2017 10:21
[2017-05-22 14:00] VITALS: BP 121/56
--- NOTE | 2017-05-22 14:52 | REP ---
Bilateral lower extremity deep vein duplex ultrasound: Left lower extremity: There is nonocclusive thrombus in the mid to proximal left femoral vein. There is no other thrombus in the left lower extremity. Right lower extremity: The deep veins demonstrate normal compression, normal Doppler color flow and normal Doppler waveforms with respiration augmentation at multiple levels. There is no deep vein thrombus in the right lower extremity. Signed by Thomas Paz MD 05/22/2017 02:44 P
--- NOTE | 2017-05-22 18:40 | ECGEPIP ---
Stationary ECG Study [facility] Test Date: 2017-05-22 Pat Name: ROBBY MOLINA Department: Room: [place] [address] Gender: F Wearing [employer] Shaker: KAREL : 1940 Requested By: DEVENDRA Buenrostro Order Number: [id number] Reading MD: Fazal Espana Measurements Intervals [place] Rate: 81 P: 8 [place]: 165 QRS: -1 QRSD: 86 T: 16 QT: 370 QTc: 431 Interpretive Statements SINUS RHYTHM Low voltages; body habitus versus pulmonary disease? Otherwise normal Electronically Signed On 05-22-2017 18:40:34 EST by Fazal Espana
[2017-05-22] MEDS: AMITRIPTYLINE 25 MG TAB PO SCH (20:14)
[2017-05-22 22:00] VITALS: BP 130/61
[2017-05-23] MEDS: ACETAMINOPHEN 500 MG TAB PO PRN ×2 (00:34→06:44)
--- NOTE | 2017-05-23 00:47 | IPN ---
DATE OF SERVICE: 05/22/2017 SUBJECTIVE: The patient is seen this morning at the bedside. She reports she had some trouble sleeping overnight and also had some nausea this morning. She otherwise denies any complaints. No chest pain, palpitations or shortness of breath at rest. There is no recorded urine output and the patient also states that she did not void any urine in the past 24 hours. VITAL SIGNS: Temperature 98.9, pulse 92, respiratory rate 16, blood pressure 120/59, saturating 95-98% on room air. INTAKE AND OUTPUT: Oral intake yesterday was recorded as 700 mL. There is no recorded urine output. Weight in the bed scale today is 93.2 kg. PHYSICAL EXAMINATION: GENERAL: The patient is seen lying in bed comfortable in no acute distress and is in good spirits. HEAD AND NECK: Extraocular muscles are intact. The ears, nose and throat are unremarkable. Neck: There is a right internal jugular (IJ) PermaCath in place. CARDIAC: S1, S2. Regular rate and rhythm. 2+ radial pulse. LUNGS: Clear to auscultation bilaterally with diminished breath sounds at the bases without crackle or rale. ABDOMEN: Soft, obese, nontender. Positive bowel sounds. EXTREMITIES: Have 1+ pitting edema in the bilateral lower extremities with the right more edematous than the left. PSYCHIATRIC: Appropriate mood and affect. NEUROLOGIC: No focal deficits. She is at her baseline mentation, interactive and asks appropriate questions with a good insight. LABORATORIES: White count 11.6, hemoglobin 10.4, platelets 289. Sodium 136, potassium 4.2, bicarbonate 27, glucose 79. IMAGING: Venous duplex lower extremities 05/22/2017: Left lower extremity has a nonocclusive thrombus in the mid to proximal left femoral vein. Right lower extremity has no deep venous thrombosis (DVT). INPATIENT MEDICATIONS: Reviewed by myself and no change from prior. PROBLEMS: 1. Oliguric acute renal failure. The patient continues to remain dialysis dependent at this time with an interdialytic rise in creatinine from 3.9 yesterday to 5.0 pre-dialysis today and she is also oligoanuric at present. She continues on dialysis via a right IJ PermaCath. She will need outpatient hemodialysis placement and I have consulted case management for the same. Her next dialysis session will be 05/23. At this time, I will continue to keep her a little bit on the wet side with gentle ultrafiltration. We will continue to watch her interdialytic creatinine along with urine output and watch for any signs of renal recovery. She is on no nephrotoxics. 2. Hypertension. The patient's blood pressure is well controlled at present and she continues on monotherapy with metoprolol 25 mg by mouth daily. No angiotensin-converting enzyme (SHANNAN) and no ARB at present. 3. Mild hypervolemia. The patient does have some mild pitting edema in the lower extremities although she is saturating well on room air. In view of her acute renal failure and in the hopes of renal recovery, we will continue with gentle ultrafiltration on hemodialysis and keep her a little bit on the wet side. She is, of course, not on any intravenous (IV) fluids and oral intake is encouraged. 4. Rhabdomyolysis. No need to check further CK levels at this time. 5. Debilitation. The patient continues with physical therapy.
[2017-05-23 06:00] VITALS: BP 123/60
[2017-05-23 06:20] LABS: BASO # 0.1 10^3/uL (0.0-0.2); BASO % 0.7 % (0.0-1.0); EOS # 0.5 10^3/uL (0.0-0.50); EOS % 4.1 % (0.0-3.0); IMMATURE GRANULOCYTE % 0.5 % (0-0); LYMPH # 1.5 10^3/uL (1.5-4.5); LYMPH % 12.5 % (24.0-44.0); MEAN CORPUSCULAR HEMOGLOBIN 31.3 pg (27.0-33.0); MEAN CORPUSCULAR HGB CONC 33.3 g/dl (32.0-36.5); MEAN CORPUSCULAR VOLUME 93.8 fl (80.0-96.0); MONO # 1.2 10^3/uL (0.0-0.8); MONO % 10.3 % (0.0-5.0); NEUTROPHILS # 8.5 10^3/uL (1.8-7.7); NEUTROPHILS % 71.9 % (36.0-66.0); PLATELET COUNT, AUTOMATED 319 10^3/uL (150-450); RED CELL DISTRIBUTION WIDTH 14.3 % (11.5-14.5); WHITE BLOOD COUNT 11.8 10^3/uL (4.0-10.0)
[2017-05-23 06:44] LABS: CREATININE FOR GFR 6.11 MG/DL (0.55-1.02); GLOMERULAR FILTRATION RATE 7.1 (>39); POTASSIUM SERUM 4.5 MEQ/L (3.5-5.1)
[2017-05-23] MEDS: VITAMIN D 1,000 INTERNATIONAL UNITS TABLET PO SCH (06:44)
[2017-05-23] MEDS: MULTIVITAMINS/MINERALS THERAP 1 TAB PO SCH (06:45)
[2017-05-23] MEDS: OMEPRAZOLE 20 MG CAP PO SCH (06:45)
[2017-05-23] MEDS: ASPIRIN 81 MG ENTERIC TAB PO SCH (06:45)
[2017-05-23] MEDS: NYSTATIN 100,000 UNITS/GM TOPICAL PWD 15 GM TOP SCH (06:46)
[2017-05-23] MEDS: METOPROLOL SUCC *XL* 25MG TAB (TopROL *XL*) PO SCH (06:47)
[2017-05-23] MEDS ORDERED: HEPARIN 1,000 UNITS/ML 10ML VIAL (FOR RADIOLOGY& DIALYSIS ONLY) IV ONE (10:15)
--- NOTE | 2017-05-23 11:37 | IPN ---
DATE: 05/23/2017 Ms. Eastman is feeling okay today. She has no complaints of pain. No chest pain. Is tolerating a diet but does have some leakage of clear fluid from her previous left femoral line site. Temperature 97.9, pulse 91, respiratory rate 16, blood pressure 123/60, 97% in room air. Input and output notable for positive fluid balance of 230. Weight 93.2 kilograms. She is awake, appropriately interactive, pleasantly conversant and remembers me from previous encounters. Mucous membranes moist. Neck supple, thick. Breathing is symmetrical. I/E ratio 1:3. No wheezes, rales or rhonchi. Heart: Normal S1, S2. Abdomen soft, doughy, nontender. There is a dry dressing in place over the left femoral site. The dressing is clear and the areas visualized through the clear bandage show no significant erythema. The area is nontender. There is no warmth. White cell count 11.8, hemoglobin 10.5, platelets 319. BUN 45, creatinine 6.1, potassium 4.5, sodium 135. Lower extremity Doppler shows femoral vein thrombus. ASSESSMENT: This is a 77-year-old with acute on chronic renal failure with need for ongoing dialysis. 1. Renal: The patient will have dialysis today and will have daily dialysis until stabilized. Plan for outpatient dialysis that is being arranged for that. Being followed by nephrology 2. The patient is status post hyperkalemia which is resolved. 3. The patient has hypertension which is reasonably well controlled for the current setting. 4. The patient has left lower extremity femoral thrombus. Should be anticoagulated. 5. The patient has resolved rhabdomyolysis. 6. The patient has resolved metabolic acidosis.
[2017-05-23 16:00] VITALS: BP 141/65
--- NOTE | 2017-05-23 17:35 | IPN ---
DATE: 05/23/2017 SUBJECTIVE: The patient is seen this morning on hemodialysis, comfortable and in no acute distress. She had a bladder scan this morning which did not show any significant urinary retention. She remains anuric at present. Reports she felt urge to urinate, but had no passage of urine. She ambulated today with a walker and denied any shortness of breath with the same. VITAL SIGNS: Temperature 97.9, pulse 92, respiratory rate 16, blood pressure 123/60, saturating 97% on room air. INTAKE AND OUTPUT: Hemodialysis today removed 1000 mL ultrafiltration. Weight in the bed scale today is 93.2 kg, fairly similar to prior. GENERAL: The patient was seen twice today; once ambulating in the hallway with a walker and she was seen later in the afternoon on hemodialysis, comfortable, in no acute distress. Extraocular muscles are intact. The tongue is moist. NECK: Supple. CARDIAC: S1, S2. Two plus radial pulse. There is 1 plus pitting edema in the right lower extremity and trace edema in the left lower extremity. LUNGS: With clear air entry bilaterally. She is comfortable on room air. CHEST: There is a right internal jugular (IJ) subclavian PermaCath with dressing. ABDOMEN: Soft, obese, nontender. Positive bowel sounds. SKIN: Warm, with no rash. Normal turgor. NEUROLOGIC: There are no focal deficits. She is oriented at baseline mentation. PSYCHIATRIC: Appropriate mood and affect. LABORATORIES: White count 11.8, hemoglobin 10.5, platelets 319. Sodium 135, potassium 4.5, bicarbonate 27, glucose 76. IMAGING: Bilateral lower extremity Duplex ultrasound 05/22/2017: Left lower extremity with a nonocclusive thrombus in the mid to proximal left femoral vein. Right lower extremity without deep venous thrombosis (DVT). INPATIENT MEDICATIONS: The patient is started on: - Eliquis 5 mg by mouth twice a day There is no other change in her medications. PROBLEMS: 1. Oligoanuric acute renal failure. The patient remains dialysis dependent. She had no dialysis the past 48 hours and had an interdialytic rise in creatinine from 3.9 to 5 and then 6. Bladder scan was negative for any urinary retention. She is pending outpatient hemodialysis placement and case management is consulted for same. In view of her acute renal failure, she is receiving hemodialysis with gentle ultrafiltration and we are keeping her a little bit on the wet side. Goal today is 1000 mL. We will continue to watch her interdialytic creatinine, along with any urine output and monitor for any signs of renal recovery. She continues on dialysis at present. Next hemodialysis will be , 05/25/2017. 2. Nonocclusive deep venous thrombosis (DVT) in the left femoral vein. The patient is started on Eliquis 5 mg by mouth twice a day, which I think is reasonable. 3. Hypertension. The patient's blood pressure is well controlled at present with monotherapy on metoprolol. 4. Mild hypervolemia. The patient has some mild pitting edema in the lower extremities. She did receive aggressive intravenous (IV) fluids early on during this admission. She is saturating well on room air and was seen ambulating with a walker this morning and denied any shortness of breath at that time. In view of her acute renal failure and in the hopes of renal recovery, we will continue with gentle ultrafiltration and hemodialysis and keep her a little bit on the wet side. She had 1 kg ultrafiltration on dialysis today. 5. Debilitation. The patient continues with physical therapy. [facility]
[2017-05-23] MEDS: APIXABAN 5 MG TAB (ELIQUIS) PO SCH (20:23)
[2017-05-23] MEDS: AMITRIPTYLINE 25 MG TAB PO SCH (20:23)
[2017-05-23 22:00] VITALS: BP 140/62
[2017-05-24] MEDS: ACETAMINOPHEN 500 MG TAB PO PRN ×3 (03:07→20:16)
[2017-05-24 06:00] VITALS: BP 113/56
[2017-05-24 06:31] LABS: BASO # 0.1 10^3/uL (0.0-0.2); BASO % 0.7 % (0.0-1.0); EOS # 0.3 10^3/uL (0.0-0.50); EOS % 3.1 % (0.0-3.0); IMMATURE GRANULOCYTE % 0.6 % (0-0); LYMPH # 1.5 10^3/uL (1.5-4.5); LYMPH % 13.9 % (24.0-44.0); MEAN CORPUSCULAR HEMOGLOBIN 30.8 pg (27.0-33.0); MEAN CORPUSCULAR VOLUME 93.2 fl (80.0-96.0); MONO # 1.4 10^3/uL (0.0-0.8); MONO % 12.5 % (0.0-5.0); NEUTROPHILS # 7.5 10^3/uL (1.8-7.7); NEUTROPHILS % 69.2 % (36.0-66.0); PLATELET COUNT, AUTOMATED 267 10^3/uL (150-450); RED CELL DISTRIBUTION WIDTH 14.2 % (11.5-14.5); WHITE BLOOD COUNT 10.9 10^3/uL (4.0-10.0)
[2017-05-24 06:50] LABS: CALCIUM LEVEL 8.1 MG/DL (8.8-10.2); CREATININE FOR GFR 4.97 MG/DL (0.55-1.02); MAGNESIUM LEVEL 2.1 MG/DL (1.8-2.4); PHOSPHORUS LEVEL 3.4 MG/DL (2.5-4.9); POTASSIUM SERUM 4.6 MEQ/L (3.5-5.1)
[2017-05-24 09:00] VITALS: BP 127/58
[2017-05-24] MEDS: ASPIRIN 81 MG ENTERIC TAB PO SCH (09:44)
[2017-05-24] MEDS: OMEPRAZOLE 20 MG CAP PO SCH (09:44)
[2017-05-24] MEDS: VITAMIN D 1,000 INTERNATIONAL UNITS TABLET PO SCH (09:50)
[2017-05-24] MEDS: METOPROLOL SUCC *XL* 25MG TAB (TopROL *XL*) PO SCH (09:50)
[2017-05-24] MEDS: MULTIVITAMINS/MINERALS THERAP 1 TAB PO SCH (09:51)
[2017-05-24] MEDS: APIXABAN 5 MG TAB (ELIQUIS) PO SCH ×2 (09:51→20:05)
[2017-05-24] MEDS: NYSTATIN 100,000 UNITS/GM TOPICAL PWD 15 GM TOP SCH (09:52)
--- NOTE | 2017-05-24 13:49 | IPN ---
DATE: 05/24/2017 Ms. Eastman is feeling well this morning. She has more energy. She is looking forward to getting out of bed. She is tolerating a diet. No complaints of chest pain, no shortness of breath. Temperature 98.2, pulse 98, respiratory rate 18, blood pressure 113/56, 95% on room air. Intake and output notable for a negative fluid balance of -290. No bowel movements noted. Weight is 93 kg. He is awake, appropriately interactive, pleasant and conversant. Breathing is symmetrical and rested. Heart is regular rate and rhythm. Abdomen is soft, doughy, nontender. White cell count 10.9, hemoglobin 10, platelets 276, BUN 31, creatinine 4.97. My assessment is as follows: This is a 77-year-old with acute renal failure with need for ongoing dialysis. Plan is as follows: 1. Renal. I discussed this case in person with Dr. Gamez. Plan for dialysis tomorrow. Arranging for outpatient chair for dialysis with the assistance of patient and family services (PFS). 2. Patient has resolved hyperkalemia. 3. Patient has hypertension which is reasonably well controlled for the current setting. 4. Patient has left lower extremity femoral thrombus, is on Eliquis. 5. Patient has resolved rhabdomyolysis. 6. Patient has metabolic acidosis, which has also resolved.
--- NOTE | 2017-05-24 17:10 | IPN ---
DATE: 05/24/2017 SUBJECTIVE: The patient is seen this morning at the bedside. She denies any acute complaints, was able to tolerate dialysis yesterday without any issues. She states her energy level has improved and would like to walk with physical therapy today. She reports good oral appetite. VITAL SIGNS: Temperature 97.2, pulse 88, respiratory rate 16, blood pressure 127/58, saturating 95% on room air. Oral intake is recorded as 710 mL. Dialysis removed 1000 mL, net negative 290. Weight in the bed scale is 93 kg. GENERAL: The patient seeing lying down comfortable in bed. No acute distress. Extraocular muscles are intact. The oral mucosa is moist. The neck is supple. There is a right IJ subclavian [id number]-N-Vlamiqde. CARDIAC: S1, S2. Regular. 2+ radial pulse. There is trace edema in the right lower extremity and no edema in the left lower extremity. LUNGS: Are with symmetric air entry without crackles or rales. ABDOMEN: Soft. Obese Non-tender. Positive bowel sounds. GROIN: In the left groin there is a dressing at the previous femoral catheter site which is clean, dry and intact. NEUROLOGIC: There is no focal deficits. She is pleasantly interactive and conversational. PSYCHIATRIC: Appropriate mood and affect. LABORATORY DATA: White count 10.9, hemoglobin 10.0. Platelet 267. Sodium 138, potassium 4.6, bicarbonate 28, phosphorous 3.4, magnesium 2.1. INPATIENT MEDICATIONS: There is no significant change from prior. PROBLEMS: 1. Oligoanuria acute renal failure. There is no urine output for the past three days and patient had a negative bladder scan. She continues with dialysis dependency. She is pending outpatient hemodialysis placement. Her next treatment is likely to be 05/25. We will continue to give very mild ultrafiltration with close watch on volume status, interdialytic creatinine and any reported urine output. At present, there are no signs of renal recovery. 2. Nonocclusive deep vein thrombosis. Patient continues on Eliquis 5 mg twice a day. 3. Hypertension. The patient's blood pressure is well controlled on metoprolol and there are no documented episodes of hypotension. Plan of care is discussed with Dr. Kramer. ANDREW
[2017-05-24] MEDS: AMITRIPTYLINE 25 MG TAB PO SCH (20:05)
[2017-05-24 22:00] VITALS: BP 126/58
[2017-05-25 06:00] VITALS: BP 135/64
[2017-05-25] MEDS: VITAMIN D 1,000 INTERNATIONAL UNITS TABLET PO SCH (06:07)
[2017-05-25] MEDS: ASPIRIN 81 MG ENTERIC TAB PO SCH (06:07)
[2017-05-25] MEDS: OMEPRAZOLE 20 MG CAP PO SCH (06:07)
[2017-05-25] MEDS: APIXABAN 5 MG TAB (ELIQUIS) PO SCH ×2 (06:08→20:03)
[2017-05-25] MEDS: MULTIVITAMINS/MINERALS THERAP 1 TAB PO SCH (06:09)
[2017-05-25] MEDS: METOPROLOL SUCC *XL* 25MG TAB (TopROL *XL*) PO SCH (06:09)
[2017-05-25] MEDS: NYSTATIN 100,000 UNITS/GM TOPICAL PWD 15 GM TOP SCH (06:10)
[2017-05-25] MEDS: ACETAMINOPHEN 500 MG TAB PO PRN ×2 (06:14→23:18)
[2017-05-25 09:13] LABS: MEAN CORPUSCULAR HEMOGLOBIN 30.9 pg (27.0-33.0); MEAN CORPUSCULAR VOLUME 93.8 fl (80.0-96.0); PLATELET COUNT, AUTOMATED 334 10^3/uL (150-450); RED CELL DISTRIBUTION WIDTH 14.1 % (11.5-14.5); WHITE BLOOD COUNT 13.2 10^3/uL (4.0-10.0)
[2017-05-25 09:54] LABS: ALBUMIN 1.9 GM/DL (3.2-5.2); ALBUMIN/GLOBULIN RATIO 0.44 (1.00-1.93); BILIRUBIN,TOTAL 0.2 MG/DL (0.2-1.0); CALCIUM LEVEL 7.7 MG/DL (8.8-10.2); CREATININE FOR GFR 6.18 MG/DL (0.55-1.02); POTASSIUM SERUM 4.9 MEQ/L (3.5-5.1); TOTAL PROTEIN 6.2 GM/DL (6.4-8.2)
[2017-05-25] MEDS ORDERED: HEPARIN 1,000 UNITS/ML 10ML VIAL (FOR RADIOLOGY& DIALYSIS ONLY) IV ONE (13:00)
[2017-05-25 14:00] VITALS: BP 137/60
--- NOTE | 2017-05-25 14:00 | IPN ---
DATE: 05/25/2017 Ms. Eastman is feeling quite well today with no complaints of pain, chest pain or shortness of breath. She is planning for dialysis. Tolerating diet. Temperature 98.7, pulse 96, respiratory rate 18, blood pressure 135/64, 95% on room air. Awake, appropriately interactive, pleasantly conversant. Breathing is symmetrical and rested. Heart is regular rate and rhythm. Abdomen is soft, doughy, nontender. White cell count 13.2, hemoglobin 9.9, platelets 334, BUN 46, creatinine 6.1. My assessment is as follows: This is a 77-year-old with acute renal failure with need for ongoing dialysis. Plan is as follows: 1. Renal. I have discussed this case with Dr. Gamez in person. Plan for dialysis today. Outpatient chair has been arranged starting May 30. Patient will need dialysis on 05/27 at the hospital, possibly if discharge plan can be arranged she could be discharged after. 2. Patient has resolved hyperkalemia. 3. Patient has hypertension which is reasonably well controlled. 4. Patient has intertriginous candidal infections under her breasts and in the inguinal regions. Will order nystatin powder. 5. Patient has resolved rhabdomyolysis. 6. Patient has metabolic acidosis, which has resolved. Patient generally improving.
--- NOTE | 2017-05-25 14:18 | IPN ---
DATE OF SERVICE: 05/25/2017 SUBJECTIVE: The patient is seen this morning on hemodialysis, comfortable, in no acute distress. She has several questions regarding chronic outpatient dialysis placement, transportation and regarding dialysis access. All questions are answered and I had a discussion with the patient at the bedside at length. She denies any urine output. Reportedly had a bladder scan yesterday that was again negative. Reports that her oral intake has improved and she is continuing to ambulate with physical therapy. Walked just under 300 steps yesterday. She is looking forward to eventual discharge. VITAL SIGNS: Temperature 98.7, pulse 96, respiratory rate 18, blood pressure 135/64, saturating 95% on room air. Intake and output: Oral intake yesterday was 1500 mL. Weight in the bed scale is 94.2 kg. Urine output recorded for the past 5 days has been zero mL. GENERAL: The patient seen on dialysis, awake, alert, interactive, conversational, in no acute distress. Extraocular muscles are intact. The oral mucosa is moist. The neck is supple. CARDIAC: S1, S2. Regular rate. 2+ radial pulse with 1+ pitting edema in the right lower extremity and trace pitting edema in the left lower extremity. LUNGS: Are fairly clear to auscultation with symmetric air entry that is diminished at base. ABDOMEN: Soft, obese, nontender. GENITOURINARY: There is no suprapubic bladder distention evident. EXTREMITIES: There is asymmetrical edema, right more than left. NEUROLOGIC: There is no focal deficits. PSYCHIATRIC: Appropriate mood and affect. SKIN: Warm. No rashes or ulcers. LABORATORIES: White count 13, hemoglobin 9.9, platelet 334. Sodium 137, potassium 4.9, bicarbonate 24, phosphorous 3.4, magnesium 2.1. Corrected calcium 9.3. INPATIENT MEDICATIONS: There is no significant change in her meds from prior. PROBLEMS: 1. Oligoanuria acute renal failure. The patient continues with rise in interdialytic creatinine with no recorded urine output and negative bladder scan. She continues with dialysis dependency. She is dialyzed today, and her next treatment will be on 05/27/2017. She is set up for chronic hemodialysis in the outpatient unit with her first scheduled being on 05/30/2017 in the afternoon. Her oral intake has improved, and given that she has been anuric, we are continuing with gentle ultrafiltration on dialysis at this time for prevention of hypervolemia. At present, there are no sighs of renal recovery. Patient continues on dialysis via right internal jugular (IJ) PermaCath. If she should stay in persistent renal failure, she will require fistula placement. This can be approached as an outpatient if necessary. 2. Nonocclusive deep venous thrombosis (DVT). The patient continues on Eliquis twice a day. 3. Anemia. The patient 's hemoglobin has slowly been down trending. I will check iron stores and we will start Aranesp when appropriate. 4. Hypertension. Blood pressure is well controlled at current time and no changes are being made. Plan of care is discussed with Dr. Kramer. ANDREW
[2017-05-25] MEDS: METOCLOPRAMIDE 5 MG TAB PO PRN ×2 (14:47→23:18)
[2017-05-25] MEDS: AMITRIPTYLINE 25 MG TAB PO SCH (20:03)
[2017-05-25 22:00] VITALS: BP 130/62
[2017-05-26 05:54] LABS: MEAN CORPUSCULAR HEMOGLOBIN 30.8 pg (27.0-33.0); MEAN CORPUSCULAR HGB CONC 32.7 g/dl (32.0-36.5); MEAN CORPUSCULAR VOLUME 94.3 fl (80.0-96.0); PLATELET COUNT, AUTOMATED 367 10^3/uL (150-450); RED CELL DISTRIBUTION WIDTH 14.3 % (11.5-14.5); WHITE BLOOD COUNT 9.5 10^3/uL (4.0-10.0)
[2017-05-26 06:00] VITALS: BP 119/58
[2017-05-26 06:24] LABS: ALBUMIN 1.7 GM/DL (3.2-5.2); CALCIUM LEVEL 7.6 MG/DL (8.8-10.2); CREATININE FOR GFR 4.29 MG/DL (0.55-1.02); GLOMERULAR FILTRATION RATE 10.7 (>39); PERCENT SATURATION 18.9 % (13.2-45.0); PHOSPHORUS LEVEL 3.4 MG/DL (2.5-4.9); POTASSIUM SERUM 4.4 MEQ/L (3.5-5.1)
[2017-05-26] MEDS: METOPROLOL SUCC *XL* 25MG TAB (TopROL *XL*) PO SCH (07:58)
[2017-05-26] MEDS: ASPIRIN 81 MG ENTERIC TAB PO SCH (07:58)
[2017-05-26] MEDS: OMEPRAZOLE 20 MG CAP PO SCH (07:58)
[2017-05-26] MEDS: MULTIVITAMINS/MINERALS THERAP 1 TAB PO SCH (07:58)
[2017-05-26] MEDS: VITAMIN D 1,000 INTERNATIONAL UNITS TABLET PO SCH (07:58)
[2017-05-26] MEDS: APIXABAN 5 MG TAB (ELIQUIS) PO SCH ×2 (07:58→21:53)
[2017-05-26] MEDS: METOCLOPRAMIDE 5 MG TAB PO PRN ×2 (08:05→17:49)
[2017-05-26] MEDS: NYSTATIN 100,000 UNITS/GM TOPICAL PWD 15 GM TOP SCH (08:05)
[2017-05-26] MEDS ORDERED: IRON SUCROSE 100MG 5ML VIAL (J1756 PER 1MG) IV SCH (09:30)
[2017-05-26] MEDS: diphenhydrAMINE CREAM 30GM TOP PRN ×2 (11:00→17:49)
[2017-05-26 14:00] VITALS: BP 146/69
--- NOTE | 2017-05-26 16:39 | IPN ---
DATE: 05/16/2017 Ms. Eastman is awake, appropriately interactive. She is complaining of some pruritus this morning and that her back feels itchy and her right arm. She has no complaints of chest pain. No shortness of breath. Temperature is 97.6, pulse 84, respiratory rate 18, blood pressure 119/58, 96% on room air. Input and output notable for a negative fluid balance of -40. No bowel movements noted. Weight is 73.4 kg. Body Mass Index (BMI) is 33.2. Is awake, appropriately interactive, pleasantly conversant. Breathing is symmetrical and rested. HEART: Distant sounding. Normal S1, S.2 LUNGS: Breathing is symmetrical and rested. ABDOMEN: Soft, doughy, nontender. There is a small area maculopapular rash on her right antecubital fossa, not particularly warm or red. There is some excoriation. There are no lesions noted on her back. There is no rash on her back. White cell count 9.5, hemoglobin 9.7, platelets of 367. BUN 26, creatinine 4.29 and glucose of 77. ASSESSMENT: 1. Acute renal failure, now end stage renal disease and need for ongoing dialysis. PLAN: 1. Renal. Plan is for dialysis tomorrow. Plan for discharge over the weekend. There is an outpatient chair arranged for the patient on 05/30/2017. I discussed this with the patient in person. She is open to the idea of discharge this weekend, would like to talk to the media planner / buyer today, which I have arranged. 2. The patient has resolved hyperkalemia. 3. The patient has hypertension, reasonably well controlled. 4. The patient has some pruritus, which I initially thought was related to need for dialysis, but at this point she may have a little dermatitis, possibly a drug reaction that does occur to me. We will monitor clinically. We will give Benadryl. 5. The patient has intertriginous skin infection under her breasts and ankle regions. This seems less erythematous today. 6. The patient has resolved rhabdomyolysis. 7. The patient has metabolic acidosis, which is resolved. The patient continues to improve.
--- NOTE | 2017-05-26 17:09 | IPN ---
DATE: 05/26/2017 SUBJECTIVE: The patient is seen this morning at the bedside, reports that she slept well yesterday. Denies any acute complaints. Reports her nausea is improved, though she continues to use Reglan. Reports no shortness of breath. VITAL SIGNS: Temperature 97.6, pulse 84, respiratory rate 18, blood pressure 119/58, saturating 96% on room air. Intake and output: Oral intake yesterday was 960 mL, hemodialysis removed 1000 mL. Weight in the bed scale is 93.4 kg. GENERAL: The patient seen in bed comfortable. In no acute distress. Pleasant and intearctive. Extraocular muscles are intact. The oral mucosa is a little dry. The neck is supple. CARDIAC: S1, S2. Regular rate. 2+ radial pulse. There is trace edema in the lower extremity, which is less than prior. LUNGS: Are fairly clear to auscultation. There are no crackles or rales. She is comfortable on room air. ABDOMEN: Soft, obese, nontender. GENITOURINARY: There is no suprapubic distention. No Olivas catheter. EXTREMITIES: There is trace edema in the lower extremity. NEUROLOGIC: No focal deficits. PSYCHIATRIC: Appropriate mood and affect. LABORATORIES: White count 9.5, hemoglobin 9.7, platelets 367. Sodium 138, potassium 4.4, bicarbonate 27, iron 21, total saturation 18%, phosphorous 3.4, corrected calcium 9.4. INPATIENT MEDICATIONS: I have ordered Venofer with hemodialysis. The primary team has started her on Benadryl cream. There is no other significant change in her medications. PROBLEMS: 1. Oligoanuria acute renal failure with dialysis dependency. The patient continues with no reported urine output. Her next hemodialysis treatment will be 05/27. She is set up for chronic hemodialysis in the outpatient unit with her first scheduled treatment availability on Monday, 05/30. Her oral intake is slowly improving. She is receiving gentle ultrafiltration on dialysis. At present, there are no signs of renal recovery, though we will continue to watch trend of interdialytic creatinine and for any urine output. She has had negative bladder scan the past couple of days. At present, she is continued on dialysis via a right IJ PermaCath. If there are no signs of renal recovery in the outpatient dialysis unit over the next several weeks, then we will refer for fistula placement. 2. Nonocclusive deep venous thrombosis (DVT). The patient continues on Eliquis. 3. Anemia. Goal hemoglobin is 10 to 11. The patient's hemoglobin has slowly trended down to 9.7. Iron stores show total saturation of 18% and ferritin of 763. She will receive one dose of Venofer on her next dialysis treatment. 4. Hypertension. No changes are being made to the patient's antihypertensive regimen. Blood pressure is stable on metoprolol. MTDD
[2017-05-26] MEDS: ACETAMINOPHEN 500 MG TAB PO PRN (21:54)
[2017-05-26] MEDS: AMITRIPTYLINE 25 MG TAB PO SCH (21:54)
[2017-05-27] MEDS: diphenhydrAMINE CREAM 30GM TOP PRN ×3 (03:37→20:08)
[2017-05-27 06:00] VITALS: BP 133/63
[2017-05-27 06:01] LABS: MEAN CORPUSCULAR HEMOGLOBIN 30.7 pg (27.0-33.0); MEAN CORPUSCULAR HGB CONC 32.8 g/dl (32.0-36.5); MEAN CORPUSCULAR VOLUME 93.5 fl (80.0-96.0); PLATELET COUNT, AUTOMATED 436 10^3/uL (150-450); RED CELL DISTRIBUTION WIDTH 13.9 % (11.5-14.5); WHITE BLOOD COUNT 10.8 10^3/uL (4.0-10.0)
[2017-05-27] MEDS: VITAMIN D 1,000 INTERNATIONAL UNITS TABLET PO SCH (06:19)
[2017-05-27 06:20] LABS: ALBUMIN 1.7 GM/DL (3.2-5.2); CALCIUM LEVEL 7.8 MG/DL (8.8-10.2); CREATININE FOR GFR 5.21 MG/DL (0.55-1.02); GLOMERULAR FILTRATION RATE 8.5 (>39); PHOSPHORUS LEVEL 3.9 MG/DL (2.5-4.9); POTASSIUM SERUM 4.4 MEQ/L (3.5-5.1)
[2017-05-27] MEDS: NYSTATIN 100,000 UNITS/GM TOPICAL PWD 15 GM TOP SCH (06:20)
[2017-05-27] MEDS: OMEPRAZOLE 20 MG CAP PO SCH (06:20)
[2017-05-27] MEDS: MULTIVITAMINS/MINERALS THERAP 1 TAB PO SCH (06:21)
[2017-05-27] MEDS: ASPIRIN 81 MG ENTERIC TAB PO SCH (06:22)
[2017-05-27] MEDS: APIXABAN 5 MG TAB (ELIQUIS) PO SCH ×2 (06:22→20:06)
[2017-05-27] MEDS: METOPROLOL SUCC *XL* 25MG TAB (TopROL *XL*) PO SCH (06:24)
[2017-05-27] MEDS: METOCLOPRAMIDE 5 MG TAB PO PRN ×2 (07:53→17:37)
[2017-05-27] MEDS ORDERED: HEPARIN 1,000 UNITS/ML 10ML VIAL (FOR RADIOLOGY& DIALYSIS ONLY) IV ONE (09:15)
--- NOTE | 2017-05-27 12:07 | IPN ---
DATE: 05/27/2017 Ms. Eastman was feeling well. There are no complaints of pain, chest pain, shortness of breath. She is interested in her home care plan. She would like to go home on Monday. It is unclear whether home care has been arranged. Temperature is 98.3, pulse 92, respiratory rate 18, blood pressure 133/63, 95% on room air. She is seen while on dialysis. Positive fluid balance of 440 yesterday. Weight is 93.2 kg. She is awake, appropriately interactive, pleasantly conversant. Good historian. Mucous membranes moist. Neck supple. Catheter is in place in the right chest wall, no evidence of erythema, nontender. No redness, no leakage. Heart is a regular rate and rhythm. Abdomen soft, doughy, nontender. White cell count 10.9, hemoglobin 9.9, BUN 36, creatinine 5.2, albumin 1.7. ASSESSMENT: This is a 77-year-old with end stage renal disease on dialysis. PLAN: 1. Renal. I have discussed this case in my person with Dr. Mejia. Plan is for dialysis today. Will take off 2 kilos of fluid. Plan for outpatient dialysis on Monday. Possible discharge tomorrow. 2. The patient has resolved hyperkalemia. 3. The patient has hypertension, which is reasonably well controlled. 4. The patient has had some pruritus rash in the right antecubital area that is improved. She is still having some itching. Has not taken any by mouth Benadryl. 5. The patient resolved rhabdomyolysis. 6. The patient has also resolved metabolic acidosis. 7. Possible discharge tomorrow. Will try to clarify with nursing whether or not plans are in place appropriately for discharge tomorrow.
[2017-05-27 14:00] VITALS: BP 115/56
[2017-05-27] MEDS: AMITRIPTYLINE 25 MG TAB PO SCH (20:06)
[2017-05-27] MEDS: diphenhydrAMINE 25 MG CAP PO PRN (20:08)
[2017-05-27] MEDS: ACETAMINOPHEN 500 MG TAB PO PRN (20:08)
[2017-05-27 22:00] VITALS: BP 132/69
[2017-05-28 06:00] VITALS: BP 109/57
[2017-05-28] MEDS: ACETAMINOPHEN 500 MG TAB PO PRN (06:03)
[2017-05-28] MEDS: METOCLOPRAMIDE 5 MG TAB PO PRN (06:03)
[2017-05-28] MEDS: diphenhydrAMINE 25 MG CAP PO PRN (06:03)
[2017-05-28 06:28] LABS: MEAN CORPUSCULAR HEMOGLOBIN 30.5 pg (27.0-33.0); MEAN CORPUSCULAR HGB CONC 32.7 g/dl (32.0-36.5); MEAN CORPUSCULAR VOLUME 93.4 fl (80.0-96.0); PLATELET COUNT, AUTOMATED 471 10^3/uL (150-450); RED CELL DISTRIBUTION WIDTH 14.1 % (11.5-14.5)
[2017-05-28 06:44] LABS: ALBUMIN 1.7 GM/DL (3.2-5.2); CALCIUM LEVEL 8.4 MG/DL (8.8-10.2); CREATININE FOR GFR 4.01 MG/DL (0.55-1.02); GLOMERULAR FILTRATION RATE 11.6 (>39); POTASSIUM SERUM 4.2 MEQ/L (3.5-5.1)
[2017-05-28] MEDS ORDERED: DIPH25CA PO (08:36)
[2017-05-28] MEDS ORDERED: ELIQ5TAB PO (08:36)
[2017-05-28] MEDS ORDERED: DIPHCR TOP (08:36)
[2017-05-28] MEDS ORDERED: NYST10PW TOP (08:36)
--- NOTE | 2017-05-28 08:49 | IPN ---
DATE OF SERVICE: 05/27/2017 SUBJECTIVE: The patient was seen and examined at the bedside today morning during hemodialysis procedure. She was tolerating the hemodialysis procedure well. The patient denies any active complaints. She remains oliguric at this time, and there are no signs of renal recovery. REVIEW OF SYSTEMS: The patient denies any fever, chills, rigors, headache, chest pain, shortness of breath, pain abdomen, constipation, or diarrhea. She does report lower extremity edema. Rest of review of systems is negative. OBJECTIVE: VITAL SIGNS: Temperature is 98.3 degrees Fahrenheit, blood pressure is 133/63, pulse is 92, respiratory rate of 18, saturating 95% on room air. INTAKE AND OUTPUT: There is no urine output recorded today. Weight in the bed scale weight is 93.2 kg. PHYSICAL EXAMINATION: GENERAL: The patient is awake, alert, oriented times three, lying in bed, in no apparent distress. HEAD AND NECK EXAMINATION: Extraocular muscles intact. Pupils equally round and reactive to light. Mucous membranes are moist. Neck is supple. There is no jugular venous distention (JVD). The patient has a tunneled right internal jugular (IJ) hemodialysis catheter. CARDIOVASCULAR: S1, S2, regular rate. No murmur, rub, and gallop. The patient has 1+ edema on the bilateral lower extremities. She has edema of the thighs, as well. RESPIRATORY: Chest is clear to auscultation bilaterally. Bilateral equal air entry. No rales or rhonchi. ABDOMEN: Soft. Positive bowel sounds. Nontender. No ascites. No organomegaly. MUSCULOSKELETAL: No clubbing or cyanosis. There is 1+ edema on the bilateral lower extremities, as mentioned above. CENTRAL NERVOUS SYSTEM (SUPERVISOR COLD ROLLING): No focal neurological deficit. Power is 5/5 in all extremities. PSYCHIATRIC: Normal mood and affect. LABORATORY REVIEW: CBC showed a WBC 10.8, hemoglobin 9.9, platelets are 436. BMP showed sodium 137, potassium 4.4, chloride 102, bicarbonate 24, BUN 36, creatinine is 5.2, calcium 7.8, phosphorus 3.9, albumin is 1.7. CURRENT INPATIENT MEDICATIONS: The patient's medications were all reviewed by me. There is no change in the medications today as compared with yesterday. ASSESSMENT: A 77-year-old female with oliguric acute renal failure, started on dialysis during this admission. PLAN: 1. Acute renal failure. The patient continues to be oliguric. There are no signs of renal recovery. Creatinine continues to trend up between hemodialysis sessions. The patient is being dialyzed today because of oliguria. I am going to remove 2 liters of fluid today during hemodialysis. The patient's outpatient dialysis schedule is Monday, , Monday, which is already set up, and she has a spot available at [facility] in [place]. 2. Anemia secondary to end-stage renal disease. The patient's hemoglobin is 9.9, which is slightly suboptimal. She is getting Venofer 150 mg intravenous (IV) with hemodialysis. She is not receiving any Aranesp at this time. 3. Hypertension. Blood pressure is acceptable at this time. Continue current dose of metoprolol 25 mg by mouth daily. MTDD
[2017-05-28 09:22] VITALS: BP 109/57
[2017-05-28] MEDS: METOPROLOL SUCC *XL* 25MG TAB (TopROL *XL*) PO SCH (09:22)
[2017-05-28] MEDS: APIXABAN 5 MG TAB (ELIQUIS) PO SCH (09:22)
[2017-05-28] MEDS: VITAMIN D 1,000 INTERNATIONAL UNITS TABLET PO SCH (09:22)
[2017-05-28] MEDS: MULTIVITAMINS/MINERALS THERAP 1 TAB PO SCH (09:22)
[2017-05-28] MEDS: OMEPRAZOLE 20 MG CAP PO SCH (09:22)
[2017-05-28] MEDS: ASPIRIN 81 MG ENTERIC TAB PO SCH (09:22)
[2017-05-28] MEDS: NYSTATIN 100,000 UNITS/GM TOPICAL PWD 15 GM TOP SCH (09:23)
--- NOTE | 2017-05-29 11:02 | IPN ---
DATE: 05/28/2017 SUBJECTIVE: The patient was seen at the bedside this morning. She was sitting on the sofa. She is afebrile. Hemodynamically stable. She was dialyzed yesterday. She tolerated her hemodialysis procedure well. The patient is happy that is going to go home today. REVIEW OF SYSTEMS: The patient denies any fevers, chills, rigors, headaches, nausea, vomiting, chest pain, shortness of breath, pain the abdomen, constipation or diarrhea. She reports that she is still oliguric and hardly making any urine. The rest of review of system is negative. OBJECTIVE: VITAL SIGNS: Temperature is 97. 8 degrees Fahrenheit. Blood pressure 109/57, pulse 92, respiratory rate 19, saturating 95% in room air. Intake and output: There is no urine output recorded. Ultrafiltration with hemodialysis was 2 liters yesterday. Weight on the bed scale is 90.9 kg. General: The patient is awake, alert, oriented times three sitting on the bed in no apparent distress. Head and neck exam: Extraocular muscles intact. Pupils equal, round, and reactive to light. Mucous membranes are moist. Neck is supple. There is no jugular venous distention. The patient has a tunnel right IJ hemodialysis catheter. Cardiovascular: S1, S2, regular rate. No murmur, rub or gallop. The patient has 1+ edema on the bilateral lower extremities. Respiratory: Chest is clear to auscultation bilaterally. Bilaterally clear air entry. No rales or rhonchi. Abdomen is soft. Positive bowel sounds. Nontender. No ascites. No organomegaly. Musculoskeletal: No clubbing or cyanosis. There is 1+ edema in the bilateral lower extremities. 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 Power is 5/5 in all extremities. Psych: Normal mood and affect. LAB REVIEW: CBC showed a WBC 8, hemoglobin 10.9, platelets of 471. BMP showed sodium 138, potassium 4.2, chloride 102, bicarbonate 28, BUN 26, creatinine is 4, calcium 8.4, phosphorus 3. CURRENT INPATIENT MEDICATIONS: The patient's medications are all reviewed by me. There is no change in the medications today as compared with yesterday. ASSESSMENT: 77-year-old female with acute oliguric renal failure admitted. During this admission, she was started on hemodialysis. PLAN: 1. Acute renal failure: The patient continues to be oliguric. She is hemodialysis dependent. There are no signs of renal recovery at this time. The patient will continue outpatient hemodialysis according to Monday, and Monday schedule. 2. 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 Continue renal hemodialysis. She is not on any Aranesp at this time. 3. Hypertension: Blood pressure is acceptable at this time. Continue current dose of metoprolol. Avoid angiotension converting enzyme (SHANNAN) inhibitors or angiotension receptor blockers. DISPOSITION: It is okay to discharge the patient from a nephrology standpoint. She already has dialysis set up as an outpatient. [facility].
--- NOTE | 2017-05-29 11:53 | DSES ---
DATE OF ADMISSION: 05/16/2017 DATE OF DISCHARGE: 05/28/2017 Specialists involved in the care included nephrology. Procedures performed during the stay included placement of a tunneled catheter and a left femoral vein hemodialysis catheter, which was temporary. DISCHARGE DIAGNOSES: 1. Acute renal failure in the setting of chronic kidney disease resulting in end-stage renal disease requiring hemodialysis. 2. Hypokalemia. 3. Hypertension. 4. Congestive heart failure. 5. Preserved left ventricular ejection fraction, possibly history of atrial fibrillation (AFib). 6. Metabolic acidosis. 7. Rhabdomyolysis. 8. Left femoral deep venous thrombosis. Following is a summary of her presentation: This is a 77-year-old who presented with increasing lower extremity edema and weakness. Was found to have acute renal failure. Was seen in consultation by Dr. Gamez. Underwent urgent dialysis. She had hyperkalemia and hypotension. It became clear that she would require ongoing dialysis. A tunneled catheter was placed. She is monitored under the hospitalist service. Unfortunately, she went on to develop left-sided deep venous thrombosis (DVT). Was started on Eliquis, which will be continued at the time discharge. Improved symptomatically during her stay. Plan was to return home today with plans for outpatient dialysis on Monday. On day of discharge, she is feeling well. No complaints of pain, chest pain, shortness of breath. To be verified with the home care aids that she will have plan for care at home. Temperature is 97.8, pulse 92, respiratory rate 19, blood pressure 109/57, 95% on room air. Awake, appropriately interactive, pleasantly conversant. Breathing is symmetrical, diminished. Heart is in a regular rate and rhythm. Abdomen is soft, doughy, nontender. She has a left femoral dressing where she has had some serous drainage from her femoral catheter site. This has been improving. Discharge instructions include the following: Followup with Dr. Gamez at dialysis as scheduled, 05/30/2017. Activity as tolerated. Renal diet. 1500 mL per 24 hour fluid restriction. Continue: - Eliquis 5 mg by mouth twice daily - Benadryl 25 every 4 hours as needed for itching and Benadryl cream as needed for itching - statin powder topically to intertriginous areas - Tylenol 1000 mg every 6 hours as needed for pain - amitriptyline 25 mg by mouth at bedtime - aspirin 81 mg by mouth daily - metoprolol succinate 25 mg by mouth daily - multivitamin daily - omeprazole 20 mg by mouth daily - ranitidine one tablet by mouth daily at bedtime - vitamin D supplement 2000 units by mouth daily Discontinue spironolactone. Discontinue torsemide.
== END 2017-05-28 12:15 | disposition home or self-care (01) | DRG 683 ==
LOC: M ED 16:28 → M ED INP 23:38 → M ICU 05-17 01:09 → M MSPAV 05-18 11:46
PROVIDERS: ADMIT Internal Medicine; ATTEND Internal Medicine
PROC: 06HY33Z Insertion of Infusion Device into Lower Vein, Percutaneous Approach (ICD-10-PCS; principal; 2017-05-17)
PROC: 5A1D70Z Performance of Urinary Filtration, Intermittent, Less than 6 Hours Per Day (ICD-10-PCS; 2017-05-17)
DX: N17.9 Acute kidney failure, unspecified (principal); E87.2 Acidosis; I50.32 Chronic diastolic (congestive) heart failure; M62.82 Rhabdomyolysis; I13.2 Hypertensive heart and chronic kidney disease with heart failure and with stage 5 chronic kidney disease, or end stage renal disease; I82.412 Acute embolism and thrombosis of left femoral vein; E87.5 Hyperkalemia; N18.6 End stage renal disease; I48.2 Chronic atrial fibrillation; I95.9 Hypotension, unspecified; Z79.899 Other long term (current) drug therapy; Z79.82 Long term (current) use of aspirin; Z91.013 Allergy to seafood; F32.9 Major depressive disorder, single episode, unspecified; K21.9 Gastro-esophageal reflux disease without esophagitis; E86.0 Dehydration; E87.70 Fluid overload, unspecified; D63.1 Anemia in chronic kidney disease; L29.9 Pruritus, unspecified

== ENCOUNTER 2017-07-12 17:41 | Inpatient (IN) | payer MEDICARE, BC ==
[2017-07-12] MEDS: ONDANSETRON 4MG/2ML VIAL (J2405) IV ×2 (18:00→22:52)
[2017-07-12] MEDS ORDERED: LIDOCAINE 1% MDV 20ML VIAL As Ordered (22:22)
[2017-07-12 23:09] LABS: BASO # 0.1 10^3/uL (0.0-0.2); BASO % 0.4 % (0.0-1.0); EOS % 0.1 % (0.0-3.0); HEMATOCRIT 31.5 % (36.0-47.0); HEMOGLOBIN 10.1 g/dl (12.0-16.0); IMMATURE GRANULOCYTE # 0.1 10^3/uL (0-0); IMMATURE GRANULOCYTE % 0.4 % (0-0); LYMPH % 5.7 % (24.0-44.0); MEAN CORPUSCULAR HEMOGLOBIN 30.6 pg (27.0-33.0); MEAN CORPUSCULAR HGB CONC 32.1 g/dl (32.0-36.5); MEAN CORPUSCULAR VOLUME 95.5 fl (80.0-96.0); MONO % 5.9 % (0.0-5.0); NEUTROPHILS # 14.9 10^3/uL (1.8-7.7); NEUTROPHILS % 87.5 % (36.0-66.0); PLATELET COUNT, AUTOMATED 318 10^3/uL (150-450); RED CELL DISTRIBUTION WIDTH 13.2 % (11.5-14.5); WHITE BLOOD COUNT 17.1 10^3/uL (4.0-10.0)
[2017-07-12 23:22] LABS: ALBUMIN 2.7 GM/DL (3.2-5.2); ALBUMIN/GLOBULIN RATIO 0.59 (1.00-1.93); ALKALINE PHOSPHATASE 59 U/L (45-117); ALT/SGPT 16 U/L (12-78); ANION GAP 9 MEQ/L (8-16); AST/SGOT 33 U/L (7-37); BILIRUBIN,DIRECT 0.1 MG/DL (0.0-0.2); BILIRUBIN,TOTAL 0.4 MG/DL (0.2-1.0); BLOOD UREA NITROGEN 26 MG/DL (7-18); CALCIUM LEVEL 8.4 MG/DL (8.8-10.2); CARBON DIOXIDE LEVEL 25 MEQ/L (21-32); CHLORIDE LEVEL 103 MEQ/L (98-107); CREATININE FOR GFR 4.38 MG/DL (0.55-1.02); GLOMERULAR FILTRATION RATE 10.4 (>39); GLUCOSE, FASTING 99 MG/DL (70-100); LIPASE 56 U/L (73-393); POTASSIUM SERUM 4.5 MEQ/L (3.5-5.1); SODIUM LEVEL 137 MEQ/L (136-145); TOTAL PROTEIN 7.3 GM/DL (6.4-8.2)
[2017-07-12] MEDS ORDERED: NYSTATIN 100,000 UNITS/GM TOPICAL PWD 15 GM TOP (23:45)
[2017-07-12] MEDS ORDERED: METOCLOPRAMIDE 5 MG TAB PO (23:45)
[2017-07-12] MEDS ORDERED: diphenhydrAMINE 25 MG CAP PO (23:45)
[2017-07-12] MEDS ORDERED: diphenhydrAMINE CREAM 30GM TOP (23:45)
[2017-07-13] MEDS ORDERED: SALIVA SUBSTITUTE(MOUTHKOTE) BTL MT
[2017-07-13] MEDS ORDERED: ACETAMINOPHEN 325 MG TAB As Ordered (00:21)
[2017-07-13] MEDS: ACETAMINOPHEN 500 MG TAB PO ×4 (00:29→23:10)
[2017-07-13] MEDS: APIXABAN 5 MG TAB (ELIQUIS) PO ×3 (01:46→21:30)
[2017-07-13 06:32] LABS: BASO # 0.1 10^3/uL (0.0-0.2); BASO % 0.4 % (0.0-1.0); EOS # 0.1 10^3/uL (0.0-0.50); EOS % 0.4 % (0.0-3.0); HEMATOCRIT 27.5 % (36.0-47.0); IMMATURE GRANULOCYTE # 0.1 10^3/uL (0-0); IMMATURE GRANULOCYTE % 0.5 % (0-0); LYMPH # 1.4 10^3/uL (1.5-4.5); LYMPH % 10.3 % (24.0-44.0); MEAN CORPUSCULAR HEMOGLOBIN 30.9 pg (27.0-33.0); MEAN CORPUSCULAR HGB CONC 32.7 g/dl (32.0-36.5); MEAN CORPUSCULAR VOLUME 94.5 fl (80.0-96.0); MONO # 1.2 10^3/uL (0.0-0.8); MONO % 8.5 % (0.0-5.0); NEUTROPHILS # 11.1 10^3/uL (1.8-7.7); NEUTROPHILS % 79.9 % (36.0-66.0); PLATELET COUNT, AUTOMATED 304 10^3/uL (150-450); RED BLOOD COUNT 2.91 10^6/uL (4.00-5.40); RED CELL DISTRIBUTION WIDTH 13.2 % (11.5-14.5); WHITE BLOOD COUNT 13.9 10^3/uL (4.0-10.0)
[2017-07-13 06:52] LABS: ANION GAP 8 MEQ/L (8-16); BLOOD UREA NITROGEN 28 MG/DL (7-18); CALCIUM LEVEL 8.2 MG/DL (8.8-10.2); CARBON DIOXIDE LEVEL 28 MEQ/L (21-32); CHLORIDE LEVEL 103 MEQ/L (98-107); CREATININE FOR GFR 4.66 MG/DL (0.55-1.02); GLOMERULAR FILTRATION RATE 9.7 (>39); GLUCOSE, FASTING 82 MG/DL (70-100); POTASSIUM SERUM 4.5 MEQ/L (3.5-5.1); SODIUM LEVEL 139 MEQ/L (136-145)
[2017-07-13] MEDS: METOPROLOL SUCC *XL* 25MG TAB (TopROL *XL*) PO (09:00)
[2017-07-13] MEDS: CEPHALEXIN 250 MG CAP PO ×2 (09:00→21:31)
[2017-07-13] MEDS: VITAMIN D 1,000 INTERNATIONAL UNITS TABLET PO (09:00)
[2017-07-13] MEDS: BACITRACIN OINT 30GM TOP ×3 (09:00→21:32)
[2017-07-13] MEDS: ASPIRIN 81 MG ENTERIC TAB PO (09:00)
[2017-07-13] MEDS: OMEPRAZOLE 20 MG CAP PO (09:00)
[2017-07-13 09:04] LABS: FREE T4 1.26 NG/DL (0.76-1.46)
[2017-07-13 11:32] LABS: INR 1.62; PROTHROMBIN TIME 19.7 SECONDS (12.4-14.5)
[2017-07-13] MEDS: HEPARIN 1,000 UNITS/ML 10ML VIAL (FOR RADIOLOGY& DIALYSIS ONLY) IV (11:45)
[2017-07-13] MEDS: HEPARIN 1,000 UNITS/ML 10ML VIAL (FOR RADIOLOGY& DIALYSIS ONLY) XX (11:45)
[2017-07-13] MEDS: NYSTATIN 100,000 UNITS/GM TOPICAL PWD 15 GM TOP (21:00)
[2017-07-13] MEDS: GABAPENTIN 300 MG CAP PO ×2 (21:00→21:30)
[2017-07-13] MEDS: ATORVASTATIN 10 MG TAB PO (21:31)
[2017-07-13] MEDS: valACYclovir HCL 500 MG TAB PO (21:31)
[2017-07-13] MEDS: AMITRIPTYLINE 25 MG TAB PO (21:31)
[2017-07-13] MEDS: FLUCONAZOLE 100 MG TAB PO (23:00)
[2017-07-14] MEDS: APIXABAN 5 MG TAB (ELIQUIS) PO ×2 (06:20→21:05)
[2017-07-14] MEDS: ASPIRIN 81 MG ENTERIC TAB PO (06:20)
[2017-07-14] MEDS: CEPHALEXIN 250 MG CAP PO (06:20)
[2017-07-14] MEDS: OMEPRAZOLE 20 MG CAP PO (06:20)
[2017-07-14] MEDS: VITAMIN D 1,000 INTERNATIONAL UNITS TABLET PO (06:20)
[2017-07-14] MEDS: SODIUM CHLORIDE 0.9% INJ 10 ML SYR IV ×3 (06:21→21:08)
[2017-07-14] MEDS: METOPROLOL SUCC *XL* 25MG TAB (TopROL *XL*) PO (06:22)
[2017-07-14] MEDS: ACETAMINOPHEN 500 MG TAB PO ×3 (06:22→20:30)
[2017-07-14] MEDS: BACITRACIN OINT 30GM TOP ×3 (06:23→20:32)
[2017-07-14 07:10] LABS: BASO # 0.1 10^3/uL (0.0-0.2); BASO % 0.7 % (0.0-1.0); EOS # 0.5 10^3/uL (0.0-0.50); EOS % 4.4 % (0.0-3.0); HEMATOCRIT 29.7 % (36.0-47.0); HEMOGLOBIN 9.6 g/dl (12.0-16.0); IMMATURE GRANULOCYTE # 0.1 10^3/uL (0-0); IMMATURE GRANULOCYTE % 0.6 % (0-0); LYMPH # 1.4 10^3/uL (1.5-4.5); LYMPH % 12.2 % (24.0-44.0); MEAN CORPUSCULAR HEMOGLOBIN 31.3 pg (27.0-33.0); MEAN CORPUSCULAR HGB CONC 32.3 g/dl (32.0-36.5); MEAN CORPUSCULAR VOLUME 96.7 fl (80.0-96.0); MONO # 0.9 10^3/uL (0.0-0.8); MONO % 7.6 % (0.0-5.0); NEUTROPHILS # 8.6 10^3/uL (1.8-7.7); NEUTROPHILS % 74.5 % (36.0-66.0); PLATELET COUNT, AUTOMATED 311 10^3/uL (150-450); RED BLOOD COUNT 3.07 10^6/uL (4.00-5.40); RED CELL DISTRIBUTION WIDTH 13.4 % (11.5-14.5); WHITE BLOOD COUNT 11.5 10^3/uL (4.0-10.0)
[2017-07-14] MEDS: NYSTATIN 100,000 UNITS/GM TOPICAL PWD 15 GM TOP ×2 (07:24→20:33)
[2017-07-14 07:25] LABS: ANION GAP 8 MEQ/L (8-16); BLOOD UREA NITROGEN 40 MG/DL (7-18); CALCIUM LEVEL 8.3 MG/DL (8.8-10.2); CARBON DIOXIDE LEVEL 28 MEQ/L (21-32); CHLORIDE LEVEL 104 MEQ/L (98-107); CREATININE FOR GFR 5.44 MG/DL (0.55-1.02); GLOMERULAR FILTRATION RATE 8.1 (>39); GLUCOSE, FASTING 82 MG/DL (70-100); POTASSIUM SERUM 4.3 MEQ/L (3.5-5.1); SODIUM LEVEL 140 MEQ/L (136-145)
[2017-07-14 10:49] LABS: CARCINOEMBRYONIC ANTIGEN < 0.5 NG/ML (<2.5)
[2017-07-14 11:20] LABS: CA19-9 TUMOR MARKER,CARBOHYDRA 17.2 U/ML (<35.0)
[2017-07-14 12:46] LABS: HIV 1&2 SCREEN CENTAUR NEGATIVE (NEGATIVE)
[2017-07-14 14:09] LABS: CA 125 6686.7 U/ML (<30.2)
[2017-07-14] MEDS: HEPARIN 1,000 UNITS/ML 10ML VIAL (FOR RADIOLOGY& DIALYSIS ONLY) XX (14:15)
[2017-07-14] MEDS: HEPARIN 1,000 UNITS/ML 10ML VIAL (FOR RADIOLOGY& DIALYSIS ONLY) IV (14:15)
[2017-07-14] MEDS: LIDOCAINE 2% MDV 20 ML VIAL SC (16:00)
[2017-07-14] MEDS: LIDOCAINE 5% OINT 30 GM TOP ×2 (16:02→20:33)
[2017-07-14] MEDS: GABAPENTIN 300 MG CAP PO (20:30)
[2017-07-14] MEDS: ATORVASTATIN 10 MG TAB PO (20:31)
[2017-07-14] MEDS: valACYclovir HCL 500 MG TAB PO (20:31)
[2017-07-14] MEDS: AMITRIPTYLINE 25 MG TAB PO (21:05)
[2017-07-15] MEDS: SODIUM CHLORIDE 0.9% INJ 10 ML SYR IV ×3 (05:32→20:52)
[2017-07-15] MEDS: ACETAMINOPHEN 500 MG TAB PO ×3 (05:32→20:54)
[2017-07-15 05:44] LABS: BASO # 0.1 10^3/uL (0.0-0.2); BASO % 0.6 % (0.0-1.0); EOS # 0.5 10^3/uL (0.0-0.50); EOS % 4.3 % (0.0-3.0); HEMATOCRIT 29.3 % (36.0-47.0); HEMOGLOBIN 9.4 g/dl (12.0-16.0); IMMATURE GRANULOCYTE # 0.1 10^3/uL (0-0); IMMATURE GRANULOCYTE % 0.4 % (0-0); LYMPH # 1.3 10^3/uL (1.5-4.5); MEAN CORPUSCULAR HEMOGLOBIN 30.4 pg (27.0-33.0); MEAN CORPUSCULAR HGB CONC 32.1 g/dl (32.0-36.5); MEAN CORPUSCULAR VOLUME 94.8 fl (80.0-96.0); MONO # 0.8 10^3/uL (0.0-0.8); MONO % 6.7 % (0.0-5.0); NEUTROPHILS # 9.1 10^3/uL (1.8-7.7); PLATELET COUNT, AUTOMATED 302 10^3/uL (150-450); RED BLOOD COUNT 3.09 10^6/uL (4.00-5.40); RED CELL DISTRIBUTION WIDTH 13.3 % (11.5-14.5); WHITE BLOOD COUNT 11.9 10^3/uL (4.0-10.0)
[2017-07-15 06:01] LABS: ANION GAP 7 MEQ/L (8-16); BLOOD UREA NITROGEN 32 MG/DL (7-18); CARBON DIOXIDE LEVEL 28 MEQ/L (21-32); CHLORIDE LEVEL 105 MEQ/L (98-107); CREATININE FOR GFR 4.17 MG/DL (0.55-1.02); GLUCOSE, FASTING 87 MG/DL (70-100); POTASSIUM SERUM 4.2 MEQ/L (3.5-5.1); SODIUM LEVEL 140 MEQ/L (136-145)
[2017-07-15] MEDS: VITAMIN D 1,000 INTERNATIONAL UNITS TABLET PO (10:04)
[2017-07-15] MEDS: ASPIRIN 81 MG ENTERIC TAB PO (10:05)
[2017-07-15] MEDS: METOPROLOL SUCC *XL* 25MG TAB (TopROL *XL*) PO (10:05)
[2017-07-15] MEDS: LIDOCAINE 5% OINT 30 GM TOP ×3 (10:05→20:51)
[2017-07-15] MEDS: OMEPRAZOLE 20 MG CAP PO (10:05)
[2017-07-15] MEDS: APIXABAN 5 MG TAB (ELIQUIS) PO ×2 (10:05→20:54)
[2017-07-15] MEDS: BACITRACIN OINT 30GM TOP ×3 (10:06→20:51)
[2017-07-15] MEDS: NYSTATIN 100,000 UNITS/GM TOPICAL PWD 15 GM TOP ×2 (10:06→20:50)
[2017-07-15] MEDS ORDERED: MOM 30ML SUSPENSION UDC PO (10:30)
[2017-07-15] MEDS: MIRALAX *UNIT DOSE* 17GM PACKET PO ×2 (12:10→21:00)
[2017-07-15] MEDS: AMITRIPTYLINE 25 MG TAB PO (20:54)
[2017-07-15] MEDS: ATORVASTATIN 10 MG TAB PO (20:54)
[2017-07-15] MEDS: GABAPENTIN 300 MG CAP PO (20:54)
[2017-07-15] MEDS: valACYclovir HCL 500 MG TAB PO (20:54)
[2017-07-16 00:06] LABS: ANA (HEP2) Negative (.)
[2017-07-16] MEDS: HALOPERIDOL 0.25MG PER 1/2 TABLET PO ×2 (04:39→21:40)
[2017-07-16] MEDS: ACETAMINOPHEN 500 MG TAB PO ×3 (04:39→21:21)
[2017-07-16] MEDS: SODIUM CHLORIDE 0.9% INJ 10 ML SYR IV ×3 (05:14→21:23)
[2017-07-16 05:15] LABS: BASO # 0.1 10^3/uL (0.0-0.2); BASO % 0.4 % (0.0-1.0); EOS # 0.5 10^3/uL (0.0-0.50); EOS % 3.3 % (0.0-3.0); HEMATOCRIT 29.5 % (36.0-47.0); HEMOGLOBIN 9.5 g/dl (12.0-16.0); IMMATURE GRANULOCYTE # 0.1 10^3/uL (0-0); IMMATURE GRANULOCYTE % 0.6 % (0-0); LYMPH # 1.3 10^3/uL (1.5-4.5); LYMPH % 9.4 % (24.0-44.0); MEAN CORPUSCULAR HEMOGLOBIN 30.8 pg (27.0-33.0); MEAN CORPUSCULAR HGB CONC 32.2 g/dl (32.0-36.5); MEAN CORPUSCULAR VOLUME 95.8 fl (80.0-96.0); MONO # 0.6 10^3/uL (0.0-0.8); MONO % 4.1 % (0.0-5.0); NEUTROPHILS # 11.5 10^3/uL (1.8-7.7); NEUTROPHILS % 82.2 % (36.0-66.0); PLATELET COUNT, AUTOMATED 332 10^3/uL (150-450); RED BLOOD COUNT 3.08 10^6/uL (4.00-5.40); RED CELL DISTRIBUTION WIDTH 13.4 % (11.5-14.5)
[2017-07-16 05:44] LABS: ANION GAP 10 MEQ/L (8-16); BLOOD UREA NITROGEN 42 MG/DL (7-18); CALCIUM LEVEL 7.9 MG/DL (8.8-10.2); CARBON DIOXIDE LEVEL 26 MEQ/L (21-32); CHLORIDE LEVEL 104 MEQ/L (98-107); CREATININE FOR GFR 4.93 MG/DL (0.55-1.02); GLOMERULAR FILTRATION RATE 9.1 (>39); GLUCOSE, FASTING 92 MG/DL (70-100); POTASSIUM SERUM 4.4 MEQ/L (3.5-5.1); SODIUM LEVEL 140 MEQ/L (136-145)
[2017-07-16] MEDS: METOPROLOL SUCC *XL* 25MG TAB (TopROL *XL*) PO (08:40)
[2017-07-16] MEDS: OMEPRAZOLE 20 MG CAP PO (08:40)
[2017-07-16] MEDS: APIXABAN 5 MG TAB (ELIQUIS) PO ×2 (08:40→21:20)
[2017-07-16] MEDS: ASPIRIN 81 MG ENTERIC TAB PO (08:40)
[2017-07-16] MEDS: VITAMIN D 1,000 INTERNATIONAL UNITS TABLET PO (08:40)
[2017-07-16] MEDS: MIRALAX *UNIT DOSE* 17GM PACKET PO ×2 (08:42→21:00)
[2017-07-16] MEDS: LIDOCAINE 5% OINT 30 GM TOP ×3 (08:43→21:22)
[2017-07-16] MEDS: BACITRACIN OINT 30GM TOP ×3 (08:43→21:22)
[2017-07-16] MEDS: NYSTATIN 100,000 UNITS/GM TOPICAL PWD 15 GM TOP ×2 (08:46→21:25)
[2017-07-16] MEDS: CEFTRIAXONE SOD 1 GM in APPROPRIATE DILUENT 1 EA IV (12:02)
[2017-07-16 14:08] LABS: QUANTIFERON GOLD TB Negative (Negative); TB Test (QFT) Antigen 0.04 IU/mL (.); TB Test (QFT) Antigen Minus Ni 0.01 IU/mL (.); TB Test (QFT) Mitogen 2.44 IU/mL (.); TB Test (QFT) Nil 0.03 IU/mL (.)
[2017-07-16] MEDS: ATORVASTATIN 10 MG TAB PO (21:19)
[2017-07-16] MEDS: AMITRIPTYLINE 25 MG TAB PO (21:20)
[2017-07-17] MEDS: ACETAMINOPHEN 500 MG TAB PO ×2 (05:16→22:14)
[2017-07-17] MEDS: SODIUM CHLORIDE 0.9% INJ 10 ML SYR IV ×3 (05:16→22:13)
[2017-07-17 05:55] LABS: BASO # 0.1 10^3/uL (0.0-0.2); BASO % 0.3 % (0.0-1.0); EOS # 0.6 10^3/uL (0.0-0.50); EOS % 3.8 % (0.0-3.0); HEMATOCRIT 29.6 % (36.0-47.0); HEMOGLOBIN 9.6 g/dl (12.0-16.0); IMMATURE GRANULOCYTE # 0.1 10^3/uL (0-0); IMMATURE GRANULOCYTE % 0.8 % (0-0); LYMPH # 1.5 10^3/uL (1.5-4.5); MEAN CORPUSCULAR HEMOGLOBIN 30.7 pg (27.0-33.0); MEAN CORPUSCULAR HGB CONC 32.4 g/dl (32.0-36.5); MEAN CORPUSCULAR VOLUME 94.6 fl (80.0-96.0); MONO # 0.5 10^3/uL (0.0-0.8); MONO % 3.5 % (0.0-5.0); NEUTROPHILS # 12.3 10^3/uL (1.8-7.7); NEUTROPHILS % 81.6 % (36.0-66.0); PLATELET COUNT, AUTOMATED 385 10^3/uL (150-450); RED BLOOD COUNT 3.13 10^6/uL (4.00-5.40); RED CELL DISTRIBUTION WIDTH 13.5 % (11.5-14.5); WHITE BLOOD COUNT 15.1 10^3/uL (4.0-10.0)
[2017-07-17 06:13] LABS: ANION GAP 10 MEQ/L (8-16); BLOOD UREA NITROGEN 51 MG/DL (7-18); CALCIUM LEVEL 7.7 MG/DL (8.8-10.2); CARBON DIOXIDE LEVEL 25 MEQ/L (21-32); CHLORIDE LEVEL 105 MEQ/L (98-107); CREATININE FOR GFR 5.59 MG/DL (0.55-1.02); GLOMERULAR FILTRATION RATE 7.9 (>39); GLUCOSE, FASTING 90 MG/DL (70-100); POTASSIUM SERUM 4.6 MEQ/L (3.5-5.1); SODIUM LEVEL 140 MEQ/L (136-145)
[2017-07-17 06:20] LABS: LACTIC ACID SEPSIS PROTOCOL 1.2 MMOL/L (0.4-2.0)
[2017-07-17] MEDS: OMEPRAZOLE 20 MG CAP PO (09:24)
[2017-07-17] MEDS: VITAMIN D 1,000 INTERNATIONAL UNITS TABLET PO (09:24)
[2017-07-17] MEDS: ASPIRIN 81 MG ENTERIC TAB PO (09:24)
[2017-07-17] MEDS: APIXABAN 5 MG TAB (ELIQUIS) PO ×2 (09:24→22:12)
[2017-07-17] MEDS: MIRALAX *UNIT DOSE* 17GM PACKET PO (09:24)
[2017-07-17] MEDS: METOPROLOL SUCC *XL* 25MG TAB (TopROL *XL*) PO (09:25)
[2017-07-17] MEDS: BACITRACIN OINT 30GM TOP ×2 (09:26→15:56)
[2017-07-17] MEDS: NYSTATIN 100,000 UNITS/GM TOPICAL PWD 15 GM TOP ×2 (09:26→22:12)
[2017-07-17] MEDS: LIDOCAINE 5% OINT 30 GM TOP ×3 (09:27→22:12)
[2017-07-17] MEDS: DOXYCYCLINE HYCLATE 100 MG in D5W MINI-BAG PLUS 100 ML IV ×2 (11:08→22:13)
[2017-07-17] MEDS: CEFTRIAXONE SOD 1 GM in APPROPRIATE DILUENT 1 EA IV (12:42)
[2017-07-17 14:59] LABS: APPEARANCE, URINE CLEAR (CLEAR); BACTERIA, URINE AUTO 1+ (NEGATIVE); BILIRUBIN, URINE AUTO NEGATIVE (NEGATIVE); BLOOD, URINE BLOOD 3+ (NEGATIVE); COLOR, URINE YELLOW (YELLOW); GLUCOSE, URINE (UA) AUTO NEGATIVE (NEGATIVE); KETONE, URINE AUTO NEGATIVE (NEGATIVE); LEUKOCYTE ESTERASE, URINE AUTO NEGATIVE (NEGATIVE); MUCUS, URINE SMALL (NEGATIVE); NITRITE, URINE AUTO NEGATIVE (NEGATIVE); PROTEIN, URINE AUTO 1+ mg/dL (NEGATIVE); RBC, URINE AUTO 16 /HPF (0-3); SPECIFIC GRAVITY URINE AUTO 1.011 (1.002-1.035); SQUAMOUS EPITHELIAL CELL UR AU 0 /HPF (0-6); UROBILINOGEN, URINE AUTO 0.2 mg/dL (0.0-2.0); WBC, URINE AUTO 3 /HPF (0-3)
[2017-07-17] MEDS ORDERED: DIVALPROEX SPRINKLE 125 MG CAP PO (21:00)
[2017-07-17] MEDS: TRIAMCINOLONE ACET 0.1% CREAM 80 GM EXT (22:11)
[2017-07-17] MEDS: AMITRIPTYLINE 25 MG TAB PO (22:12)
[2017-07-18] MEDS: SODIUM CHLORIDE 0.9% INJ 10 ML SYR IV ×3 (05:31→20:31)
[2017-07-18 08:59] LABS: BASO # 0.1 10^3/uL (0.0-0.2); BASO % 0.4 % (0.0-1.0); EOS # 0.5 10^3/uL (0.0-0.50); EOS % 3.6 % (0.0-3.0); HEMATOCRIT 28.6 % (36.0-47.0); HEMOGLOBIN 9.4 g/dl (12.0-16.0); IMMATURE GRANULOCYTE # 0.2 10^3/uL (0-0); IMMATURE GRANULOCYTE % 1.2 % (0-0); LYMPH # 1.5 10^3/uL (1.5-4.5); LYMPH % 10.4 % (24.0-44.0); MEAN CORPUSCULAR HEMOGLOBIN 31.2 pg (27.0-33.0); MEAN CORPUSCULAR HGB CONC 32.9 g/dl (32.0-36.5); MONO # 0.5 10^3/uL (0.0-0.8); MONO % 3.9 % (0.0-5.0); NEUTROPHILS # 11.2 10^3/uL (1.8-7.7); NEUTROPHILS % 80.5 % (36.0-66.0); PLATELET COUNT, AUTOMATED 419 10^3/uL (150-450); RED BLOOD COUNT 3.01 10^6/uL (4.00-5.40); RED CELL DISTRIBUTION WIDTH 13.5 % (11.5-14.5); WHITE BLOOD COUNT 13.9 10^3/uL (4.0-10.0)
[2017-07-18 09:26] LABS: ALBUMIN 2.3 GM/DL (3.2-5.2); ALBUMIN/GLOBULIN RATIO 0.53 (1.00-1.93); ALKALINE PHOSPHATASE 74 U/L (45-117); ALT/SGPT 14 U/L (12-78); ANION GAP 11 MEQ/L (8-16); AST/SGOT 28 U/L (7-37); BILIRUBIN,TOTAL 0.3 MG/DL (0.2-1.0); BLOOD UREA NITROGEN 59 MG/DL (7-18); CALCIUM LEVEL 7.9 MG/DL (8.8-10.2); CARBON DIOXIDE LEVEL 23 MEQ/L (21-32); CHLORIDE LEVEL 104 MEQ/L (98-107); CREATININE FOR GFR 6.12 MG/DL (0.55-1.30); GLOMERULAR FILTRATION RATE 7.1 (>39); GLUCOSE, FASTING 98 MG/DL (70-100); MAGNESIUM LEVEL 1.8 MG/DL (1.8-2.4); POTASSIUM SERUM 4.7 MEQ/L (3.5-5.1); SODIUM LEVEL 138 MEQ/L (136-145); TOTAL PROTEIN 6.6 GM/DL (6.4-8.2)
[2017-07-18] MEDS: VITAMIN D 1,000 INTERNATIONAL UNITS TABLET PO (10:41)
[2017-07-18] MEDS: ASPIRIN 81 MG ENTERIC TAB PO (10:41)
[2017-07-18] MEDS: APIXABAN 5 MG TAB (ELIQUIS) PO ×2 (10:42→20:36)
[2017-07-18] MEDS: METOPROLOL SUCC *XL* 25MG TAB (TopROL *XL*) PO (10:42)
[2017-07-18] MEDS: OMEPRAZOLE 20 MG CAP PO (10:42)
[2017-07-18] MEDS: TRIAMCINOLONE ACET 0.1% CREAM 80 GM EXT ×2 (10:43→20:36)
[2017-07-18] MEDS: LIDOCAINE 5% OINT 30 GM TOP ×3 (10:43→20:32)
[2017-07-18] MEDS: NYSTATIN 100,000 UNITS/GM TOPICAL PWD 15 GM TOP ×2 (10:45→20:32)
[2017-07-18] MEDS: HEPARIN 1,000 UNITS/ML 10ML VIAL (FOR RADIOLOGY& DIALYSIS ONLY) XX (11:45)
[2017-07-18] MEDS: HEPARIN 1,000 UNITS/ML 10ML VIAL (FOR RADIOLOGY& DIALYSIS ONLY) IV (11:45)
[2017-07-18] MEDS: AMITRIPTYLINE 10 MG TAB PO (20:36)
[2017-07-18] MEDS: valACYclovir HCL 500 MG TAB PO (20:41)
[2017-07-18] MEDS: ACETAMINOPHEN 500 MG TAB PO (22:53)
[2017-07-19 00:06] LABS: CRYPTOCOCCUS ANTIGEN SER Negative (Negative); HISTOPLASMA GAL'MANNAN AG SER <0.5 (<0.5 ng/mL)
[2017-07-19] MEDS: SODIUM CHLORIDE 0.9% INJ 10 ML SYR IV ×4 (05:35→22:30)
[2017-07-19 05:48] LABS: BASO # 0.1 10^3/uL (0.0-0.2); BASO % 0.5 % (0.0-1.0); EOS # 0.4 10^3/uL (0.0-0.50); EOS % 3.5 % (0.0-3.0); HEMATOCRIT 27.2 % (36.0-47.0); IMMATURE GRANULOCYTE # 0.2 10^3/uL (0-0); IMMATURE GRANULOCYTE % 1.6 % (0-0); LYMPH # 1.5 10^3/uL (1.5-4.5); LYMPH % 13.9 % (24.0-44.0); MEAN CORPUSCULAR HEMOGLOBIN 30.8 pg (27.0-33.0); MEAN CORPUSCULAR HGB CONC 33.1 g/dl (32.0-36.5); MEAN CORPUSCULAR VOLUME 93.2 fl (80.0-96.0); MONO # 0.7 10^3/uL (0.0-0.8); MONO % 6.2 % (0.0-5.0); NEUTROPHILS # 8.1 10^3/uL (1.8-7.7); NEUTROPHILS % 74.3 % (36.0-66.0); PLATELET COUNT, AUTOMATED 422 10^3/uL (150-450); RED BLOOD COUNT 2.92 10^6/uL (4.00-5.40); RED CELL DISTRIBUTION WIDTH 13.2 % (11.5-14.5); WHITE BLOOD COUNT 10.9 10^3/uL (4.0-10.0)
[2017-07-19 06:04] LABS: ALBUMIN 2.2 GM/DL (3.2-5.2); ALBUMIN/GLOBULIN RATIO 0.51 (1.00-1.93); ALKALINE PHOSPHATASE 68 U/L (45-117); ALT/SGPT 13 U/L (12-78); ANION GAP 8 MEQ/L (8-16); AST/SGOT 29 U/L (7-37); BILIRUBIN,TOTAL 0.2 MG/DL (0.2-1.0); BLOOD UREA NITROGEN 43 MG/DL (7-18); CALCIUM LEVEL 7.7 MG/DL (8.8-10.2); CARBON DIOXIDE LEVEL 27 MEQ/L (21-32); CHLORIDE LEVEL 105 MEQ/L (98-107); CREATININE FOR GFR 4.59 MG/DL (0.55-1.30); GLOMERULAR FILTRATION RATE 9.9 (>39); GLUCOSE, FASTING 87 MG/DL (70-100); MAGNESIUM LEVEL 1.7 MG/DL (1.8-2.4); POTASSIUM SERUM 4.2 MEQ/L (3.5-5.1); SODIUM LEVEL 140 MEQ/L (136-145); TOTAL PROTEIN 6.5 GM/DL (6.4-8.2)
[2017-07-19] MEDS: MAG SULF 1GM/100ML (MAG RUN) 1 GM in APPROPRIATE DILUENT 1 EA IV (09:19)
[2017-07-19] MEDS: VITAMIN D 1,000 INTERNATIONAL UNITS TABLET PO (09:20)
[2017-07-19] MEDS: OMEPRAZOLE 20 MG CAP PO (09:20)
[2017-07-19] MEDS: TRIAMCINOLONE ACET 0.1% CREAM 80 GM EXT ×2 (09:21→22:33)
[2017-07-19] MEDS: LIDOCAINE 5% OINT 30 GM TOP ×3 (09:21→22:33)
[2017-07-19] MEDS: APIXABAN 5 MG TAB (ELIQUIS) PO ×2 (09:21→22:34)
[2017-07-19] MEDS: ASPIRIN 81 MG ENTERIC TAB PO (09:21)
[2017-07-19] MEDS: NYSTATIN 100,000 UNITS/GM TOPICAL PWD 15 GM TOP ×2 (09:22→22:32)
[2017-07-19] MEDS: METOPROLOL SUCC *XL* 25MG TAB (TopROL *XL*) PO (09:30)
[2017-07-19] MEDS ORDERED: ALPRAZolam 0.25 MG TAB PO (11:00)
[2017-07-19] MEDS: METOPROLOL TART 25 MG TABLET PO ×3 (12:52→23:56)
[2017-07-19] MEDS: ACETAMINOPHEN 500 MG TAB PO ×2 (13:02→22:30)
[2017-07-19] MEDS: valACYclovir HCL 500 MG TAB PO (22:29)
[2017-07-19] MEDS: AMITRIPTYLINE 10 MG TAB PO (22:34)
[2017-07-20] MEDS: SODIUM CHLORIDE 0.9% INJ 10 ML SYR IV ×4 (05:08→22:31)
[2017-07-20 05:18] LABS: BASO % 0.3 % (0.0-1.0); EOS # 0.5 10^3/uL (0.0-0.50); EOS % 3.7 % (0.0-3.0); HEMATOCRIT 27.2 % (36.0-47.0); HEMOGLOBIN 8.8 g/dl (12.0-16.0); IMMATURE GRANULOCYTE # 0.1 10^3/uL (0-0); LYMPH # 1.1 10^3/uL (1.5-4.5); LYMPH % 8.5 % (24.0-44.0); MEAN CORPUSCULAR HEMOGLOBIN 30.3 pg (27.0-33.0); MEAN CORPUSCULAR HGB CONC 32.4 g/dl (32.0-36.5); MEAN CORPUSCULAR VOLUME 93.8 fl (80.0-96.0); MONO # 0.9 10^3/uL (0.0-0.8); MONO % 6.6 % (0.0-5.0); NEUTROPHILS # 10.2 10^3/uL (1.8-7.7); NEUTROPHILS % 79.9 % (36.0-66.0); PLATELET COUNT, AUTOMATED 428 10^3/uL (150-450); RED CELL DISTRIBUTION WIDTH 13.2 % (11.5-14.5); WHITE BLOOD COUNT 12.8 10^3/uL (4.0-10.0)
[2017-07-20 05:43] LABS: ALBUMIN 2.2 GM/DL (3.2-5.2); ALBUMIN/GLOBULIN RATIO 0.51 (1.00-1.93); ALKALINE PHOSPHATASE 61 U/L (45-117); ALT/SGPT 12 U/L (12-78); ANION GAP 10 MEQ/L (8-16); AST/SGOT 27 U/L (7-37); BILIRUBIN,TOTAL 0.2 MG/DL (0.2-1.0); BLOOD UREA NITROGEN 50 MG/DL (7-18); CARBON DIOXIDE LEVEL 25 MEQ/L (21-32); CHLORIDE LEVEL 106 MEQ/L (98-107); CREATININE FOR GFR 4.66 MG/DL (0.55-1.30); GLOMERULAR FILTRATION RATE 9.7 (>39); GLUCOSE, FASTING 101 MG/DL (70-100); MAGNESIUM LEVEL 2.1 MG/DL (1.8-2.4); POTASSIUM SERUM 4.2 MEQ/L (3.5-5.1); SODIUM LEVEL 141 MEQ/L (136-145); TOTAL PROTEIN 6.5 GM/DL (6.4-8.2)
[2017-07-20 05:44] LABS: CK-MB VALUE MASS 5.4 NG/ML (0.0-3.6); CPK CREATINE PHOSPHOKINASE 157 U/L (26-192); MB/CK RELATIVE INDEX 3.43 (< OR =4); TROPONIN I 0.02 NG/ML (< 0.10)
[2017-07-20] MEDS: METOPROLOL TART 25 MG TABLET PO ×4 (06:07→23:13)
[2017-07-20] MEDS: APIXABAN 5 MG TAB (ELIQUIS) PO ×2 (06:07→22:29)
[2017-07-20] MEDS: VITAMIN D 1,000 INTERNATIONAL UNITS TABLET PO (06:07)
[2017-07-20] MEDS: ASPIRIN 81 MG ENTERIC TAB PO (06:07)
[2017-07-20] MEDS: OMEPRAZOLE 20 MG CAP PO (06:07)
[2017-07-20] MEDS: TRIAMCINOLONE ACET 0.1% CREAM 80 GM EXT ×2 (06:08→22:29)
[2017-07-20] MEDS: NYSTATIN 100,000 UNITS/GM TOPICAL PWD 15 GM TOP ×2 (06:08→22:30)
[2017-07-20] MEDS: LIDOCAINE 5% OINT 30 GM TOP ×3 (06:09→22:30)
[2017-07-20] MEDS: ONDANSETRON 4MG/2ML VIAL (J2405) IV (06:19)
[2017-07-20] MEDS: HEPARIN 1,000 UNITS/ML 10ML VIAL (FOR RADIOLOGY& DIALYSIS ONLY) XX (12:35)
[2017-07-20] MEDS: HEPARIN 1,000 UNITS/ML 10ML VIAL (FOR RADIOLOGY& DIALYSIS ONLY) IV (12:35)
[2017-07-20] MEDS: ACETAMINOPHEN 500 MG TAB PO (16:43)
[2017-07-20] MEDS: valACYclovir HCL 500 MG TAB PO (22:29)
[2017-07-20] MEDS: AMITRIPTYLINE 10 MG TAB PO (22:29)
[2017-07-21] MEDS: METOPROLOL TART 25 MG TABLET PO ×3 (05:50→17:44)
[2017-07-21] MEDS: SODIUM CHLORIDE 0.9% INJ 10 ML SYR IV ×3 (05:51→22:02)
[2017-07-21 06:12] LABS: BASO % 0.4 % (0.0-1.0); EOS # 0.4 10^3/uL (0.0-0.50); EOS % 3.8 % (0.0-3.0); HEMATOCRIT 25.4 % (36.0-47.0); HEMOGLOBIN 8.2 g/dl (12.0-16.0); IMMATURE GRANULOCYTE # 0.1 10^3/uL (0-0); IMMATURE GRANULOCYTE % 1.3 % (0-0); LYMPH # 1.4 10^3/uL (1.5-4.5); LYMPH % 12.9 % (24.0-44.0); MEAN CORPUSCULAR HEMOGLOBIN 30.9 pg (27.0-33.0); MEAN CORPUSCULAR HGB CONC 32.3 g/dl (32.0-36.5); MEAN CORPUSCULAR VOLUME 95.8 fl (80.0-96.0); MONO # 0.9 10^3/uL (0.0-0.8); NEUTROPHILS # 8.2 10^3/uL (1.8-7.7); NEUTROPHILS % 73.6 % (36.0-66.0); PLATELET COUNT, AUTOMATED 341 10^3/uL (150-450); RED BLOOD COUNT 2.65 10^6/uL (4.00-5.40); RED CELL DISTRIBUTION WIDTH 13.3 % (11.5-14.5); WHITE BLOOD COUNT 11.1 10^3/uL (4.0-10.0)
[2017-07-21 06:37] LABS: ALBUMIN 2.1 GM/DL (3.2-5.2); ALBUMIN/GLOBULIN RATIO 0.49 (1.00-1.93); ALKALINE PHOSPHATASE 60 U/L (45-117); ALT/SGPT 10 U/L (12-78); ANION GAP 7 MEQ/L (8-16); AST/SGOT 25 U/L (7-37); BILIRUBIN,TOTAL 0.2 MG/DL (0.2-1.0); BLOOD UREA NITROGEN 31 MG/DL (7-18); CALCIUM LEVEL 8.2 MG/DL (8.8-10.2); CARBON DIOXIDE LEVEL 28 MEQ/L (21-32); CHLORIDE LEVEL 106 MEQ/L (98-107); CREATININE FOR GFR 3.45 MG/DL (0.55-1.30); GLOMERULAR FILTRATION RATE 13.7 (>39); GLUCOSE, FASTING 86 MG/DL (70-100); MAGNESIUM LEVEL 1.9 MG/DL (1.8-2.4); POTASSIUM SERUM 4.3 MEQ/L (3.5-5.1); SODIUM LEVEL 141 MEQ/L (136-145); TOTAL PROTEIN 6.4 GM/DL (6.4-8.2)
[2017-07-21] MEDS: ASPIRIN 81 MG ENTERIC TAB PO (07:54)
[2017-07-21] MEDS: VITAMIN D 1,000 INTERNATIONAL UNITS TABLET PO (07:54)
[2017-07-21] MEDS: APIXABAN 5 MG TAB (ELIQUIS) PO ×2 (07:55→22:01)
[2017-07-21] MEDS: OMEPRAZOLE 20 MG CAP PO (07:55)
[2017-07-21] MEDS: BISACODYL 5 MG TAB PO (07:55)
[2017-07-21] MEDS: LIDOCAINE 5% OINT 30 GM TOP ×3 (07:56→22:02)
[2017-07-21] MEDS: NYSTATIN 100,000 UNITS/GM TOPICAL PWD 15 GM TOP ×2 (07:56→22:03)
[2017-07-21] MEDS: TRIAMCINOLONE ACET 0.1% CREAM 80 GM EXT ×2 (07:56→22:02)
[2017-07-21] MEDS ORDERED: FLEET ENEMA PR (10:45)
[2017-07-21] MEDS: MIRALAX *UNIT DOSE* 17GM PACKET PO ×2 (12:11→21:00)
[2017-07-21] MEDS ORDERED: DOCUSATE SOD LIQ 100MG/10ML UDC GT (12:30)
[2017-07-21] MEDS: ACETAMINOPHEN 500 MG TAB PO ×2 (15:23→22:06)
[2017-07-21] MEDS: valACYclovir HCL 500 MG TAB PO (22:01)
[2017-07-21] MEDS: AMITRIPTYLINE 10 MG TAB PO (22:01)
[2017-07-22] MEDS: METOPROLOL TART 25 MG TABLET PO ×4 (00:17→17:44)
[2017-07-22] MEDS: SODIUM CHLORIDE 0.9% INJ 10 ML SYR IV ×3 (05:31→21:49)
[2017-07-22 05:46] LABS: BASO # 0.1 10^3/uL (0.0-0.2); BASO % 0.5 % (0.0-1.0); EOS # 0.4 10^3/uL (0.0-0.50); EOS % 3.6 % (0.0-3.0); HEMATOCRIT 25.1 % (36.0-47.0); HEMOGLOBIN 8.2 g/dl (12.0-16.0); IMMATURE GRANULOCYTE # 0.2 10^3/uL (0-0); IMMATURE GRANULOCYTE % 1.3 % (0-0); LYMPH # 1.2 10^3/uL (1.5-4.5); LYMPH % 9.8 % (24.0-44.0); MEAN CORPUSCULAR HEMOGLOBIN 31.4 pg (27.0-33.0); MEAN CORPUSCULAR HGB CONC 32.7 g/dl (32.0-36.5); MEAN CORPUSCULAR VOLUME 96.2 fl (80.0-96.0); MONO # 0.8 10^3/uL (0.0-0.8); MONO % 6.9 % (0.0-5.0); NEUTROPHILS # 9.5 10^3/uL (1.8-7.7); NEUTROPHILS % 77.9 % (36.0-66.0); PLATELET COUNT, AUTOMATED 344 10^3/uL (150-450); RED BLOOD COUNT 2.61 10^6/uL (4.00-5.40); RED CELL DISTRIBUTION WIDTH 13.5 % (11.5-14.5); WHITE BLOOD COUNT 12.2 10^3/uL (4.0-10.0)
[2017-07-22 06:19] LABS: ALBUMIN 2.2 GM/DL (3.2-5.2); ALBUMIN/GLOBULIN RATIO 0.52 (1.00-1.93); ALKALINE PHOSPHATASE 56 U/L (45-117); ALT/SGPT 10 U/L (12-78); ANION GAP 9 MEQ/L (8-16); AST/SGOT 27 U/L (7-37); BILIRUBIN,TOTAL 0.2 MG/DL (0.2-1.0); BLOOD UREA NITROGEN 37 MG/DL (7-18); CARBON DIOXIDE LEVEL 27 MEQ/L (21-32); CHLORIDE LEVEL 106 MEQ/L (98-107); CREATININE FOR GFR 3.88 MG/DL (0.55-1.30); GLUCOSE, FASTING 91 MG/DL (70-100); MAGNESIUM LEVEL 1.9 MG/DL (1.8-2.4); SODIUM LEVEL 142 MEQ/L (136-145); TOTAL PROTEIN 6.4 GM/DL (6.4-8.2)
[2017-07-22] MEDS: APIXABAN 5 MG TAB (ELIQUIS) PO ×2 (06:22→21:49)
[2017-07-22] MEDS: NYSTATIN 100,000 UNITS/GM TOPICAL PWD 15 GM TOP ×2 (06:22→21:50)
[2017-07-22] MEDS: OMEPRAZOLE 20 MG CAP PO (06:22)
[2017-07-22] MEDS: VITAMIN D 1,000 INTERNATIONAL UNITS TABLET PO (06:22)
[2017-07-22] MEDS: TRIAMCINOLONE ACET 0.1% CREAM 80 GM EXT ×2 (06:23→21:49)
[2017-07-22] MEDS: LIDOCAINE 5% OINT 30 GM TOP ×3 (06:23→21:49)
[2017-07-22] MEDS: ASPIRIN 81 MG ENTERIC TAB PO (06:23)
[2017-07-22] MEDS: MIRALAX *UNIT DOSE* 17GM PACKET PO (06:34)
[2017-07-22] MEDS: ACETAMINOPHEN 500 MG TAB PO ×2 (11:04→22:05)
[2017-07-22] MEDS: HEPARIN 1,000 UNITS/ML 10ML VIAL (FOR RADIOLOGY& DIALYSIS ONLY) IV (12:15)
[2017-07-22] MEDS: AMITRIPTYLINE 10 MG TAB PO (21:49)
[2017-07-22] MEDS: valACYclovir HCL 500 MG TAB PO (21:49)
[2017-07-23] MEDS: METOPROLOL TART 25 MG TABLET PO ×5 (00:28→23:59)
[2017-07-23] MEDS: ACETAMINOPHEN 500 MG TAB PO (04:14)
[2017-07-23] MEDS: SODIUM CHLORIDE 0.9% INJ 10 ML SYR IV ×3 (06:20→20:59)
[2017-07-23] MEDS: ASPIRIN 81 MG ENTERIC TAB PO (09:15)
[2017-07-23] MEDS: VITAMIN D 1,000 INTERNATIONAL UNITS TABLET PO (09:15)
[2017-07-23] MEDS: OMEPRAZOLE 20 MG CAP PO (09:15)
[2017-07-23] MEDS: APIXABAN 5 MG TAB (ELIQUIS) PO ×2 (09:15→20:58)
[2017-07-23] MEDS: NYSTATIN 100,000 UNITS/GM TOPICAL PWD 15 GM TOP ×2 (09:15→20:58)
[2017-07-23] MEDS: TRIAMCINOLONE ACET 0.1% CREAM 80 GM EXT ×2 (09:16→20:59)
[2017-07-23] MEDS: LIDOCAINE 5% OINT 30 GM TOP ×3 (09:16→20:58)
[2017-07-23] MEDS ORDERED: LIDOCAINE 1% MDV 20ML VIAL As Ordered (10:30)
[2017-07-23] MEDS: LIDOCAINE 1% MDV 20ML VIAL SC ×2 (10:50→11:00)
[2017-07-23] MEDS ORDERED: LORazepam 2 MG/ML VIAL (J2060) IV (18:00)
[2017-07-23] MEDS ORDERED: MORPHINE 2 MG/ML 1ML SYRINGE IV (18:00)
[2017-07-23] MEDS: AMITRIPTYLINE 10 MG TAB PO (20:58)
[2017-07-23] MEDS: valACYclovir HCL 500 MG TAB PO (20:58)
[2017-07-24] MEDS: ACETAMINOPHEN 500 MG TAB PO ×2 (00:03→10:13)
[2017-07-24] MEDS: METOPROLOL TART 25 MG TABLET PO (05:40)
[2017-07-24] MEDS: SODIUM CHLORIDE 0.9% INJ 10 ML SYR IV (05:41)
[2017-07-24] MEDS: VITAMIN D 1,000 INTERNATIONAL UNITS TABLET PO (10:07)
[2017-07-24] MEDS: APIXABAN 5 MG TAB (ELIQUIS) PO (10:08)
[2017-07-24] MEDS: ASPIRIN 81 MG ENTERIC TAB PO (10:08)
[2017-07-24] MEDS: OMEPRAZOLE 20 MG CAP PO (10:08)
[2017-07-24] MEDS: NYSTATIN 100,000 UNITS/GM TOPICAL PWD 15 GM TOP (10:09)
[2017-07-24] MEDS: LIDOCAINE 5% OINT 30 GM TOP (10:09)
[2017-07-24] MEDS: TRIAMCINOLONE ACET 0.1% CREAM 80 GM EXT (10:10)
== END 2017-07-24 11:30 | disposition home or self-care (01) | DRG 754 ==
LOC: M MSPAV 07-13 16:24 → M ED 17:41 → M ED INP 22:25
PROC: 02HV33Z Insertion of Infusion Device into Superior Vena Cava, Percutaneous Approach (ICD-10-PCS; principal; 2017-07-12)
PROC: 5A1D70Z Performance of Urinary Filtration, Intermittent, Less than 6 Hours Per Day (ICD-10-PCS; 2017-07-13)
DX: C56.1 Malignant neoplasm of right ovary (principal); N18.6 End stage renal disease; I50.32 Chronic diastolic (congestive) heart failure; I13.11 Hypertensive heart and chronic kidney disease without heart failure, with stage 5 chronic kidney disease, or end stage renal disease; J90 Pleural effusion, not elsewhere classified; N13.30 Unspecified hydronephrosis; R18.8 Other ascites; C77.4 Secondary and unspecified malignant neoplasm of inguinal and lower limb lymph nodes; E78.5 Hyperlipidemia, unspecified; K21.9 Gastro-esophageal reflux disease without esophagitis; Z86.718 Personal history of other venous thrombosis and embolism; F32.9 Major depressive disorder, single episode, unspecified; E66.01 Morbid (severe) obesity due to excess calories; I73.00 Raynaud's syndrome without gangrene; R59.9 Enlarged lymph nodes, unspecified; R21 Rash and other nonspecific skin eruption; Z66 Do not resuscitate; Z51.5 Encounter for palliative care; Z79.899 Other long term (current) drug therapy; Z79.82 Long term (current) use of aspirin; Z79.01 Long term (current) use of anticoagulants; I49.8 Other specified cardiac arrhythmias; Z91.013 Allergy to seafood; D63.8 Anemia in other chronic diseases classified elsewhere; B02.9 Zoster without complications; R11.2 Nausea with vomiting, unspecified